=== PATIENT | male | born 1955 | race Caucasian/White ===

== ENCOUNTER 2020-09-01 12:12 | Inpatient (IN) | payer MEDICARE, OTHER ==
[~2020-09-01 12:12] MED LIST: ACET500T68 PO; DIPH25CA23 PO; DIVA500T17 PO; DOCU100C28 PO; DONE10TA7 PO; FERR325T14 PO; FLUT16SP21 NS; LEXAPRO10 MG PO; MAG355OR12 PO; MAGN24003 PO; MENT113G6 TP; METF500T16 PO; MULT-246 PO; OLAN15TA9 PO; OLAN5TAB9 PO; OXYB10TA26 PO; OXYB10TA7 PO; PANT40TA6 PO; PROP40TA PO; QUET200T4 PO; QUET400T7 PO; SUMA100T4 PO; TAMS0.4C2 PO
[2020-09-01 15:40] VITALS: BP 111/71
[2020-09-01] MEDS ORDERED: ACET325T21 PO (16:54)
[2020-09-01] MEDS ORDERED: CRAN400C PO (16:54)
[2020-09-01] MEDS ORDERED: MEMA28CA5 PO (16:54)
[2020-09-01 20:35] VITALS: BP 111/76
--- NOTE | 2020-09-01 21:29 | EKG ---
[address] [address] Test Date: 2020-09-01 Test Time: 20:40:13 Pat Name: JOAN JEAN-BAPTISTE Department: Room: 105 A Gender: M Side Seam Tender: : 1955 Requested By: DHIRAJ CHRISTIAN Order Number: [id number] Reading MD: Measurements Intervals [place]lass Rate: 76 P: 61 PA: 144 QRS: -64 QRSD: 108 T: 66 QT: 382 QTc: 434 Interpretive Statements SINUS RHYTHM ABNORMAL LEFT AXIS DEVIATION R-S TRANSITION ZONE IN V LEADS DISPLACED TO THE LEFT LEFT ANTERIOR FASCICULAR BLOCK QRS(T) CONTOUR ABNORMALITY CONSIDER ANTEROSEPTAL MYOCARDIAL DAMAGE ABNORMAL ECG RI6.01 No previous ECG available for comparison
[2020-09-01] MEDS: QUEtiapine 100 MG TABLET. PO SCH (21:33)
[2020-09-01] MEDS: ACETAMINOPHEN 325 MG TABLET PO PRN (21:34)
[2020-09-01] MEDS: DOCUSATE SODIUM 100 MG CAPSULE PO SCH (21:34)
[2020-09-01] MEDS: DIVALPROEX ER 500 MG TAB.ER.24H PO SCH (21:34)
[2020-09-01] MEDS: DONEPEZIL HCL 10 MG TABLET PO SCH (21:34)
[2020-09-01 21:42] LABS: BASO % 0 % (0-3); EOS # 0.2 x10^3/uL (0.0-0.7); EOS % 3 % (0-3); HEMATOCRIT 36.6 % (39.0-53.0); HEMOGLOBIN 11.5 g/dL (13.0-17.5); LYMPH % 30 % (24-48); MEAN CORPUSCULAR HEMOGLOBIN 26 pg (25-35); MEAN CORPUSCULAR HGB CONC 32 g/dL (31-37); MEAN CORPUSCULAR VOLUME 81 fL (79-100); MONO # 0.6 x10^3/uL (0.0-1.1); MONO % 10 % (0-9); NEUT # 3.8 x10^3uL (1.8-7.7); NEUT % 57 % (31-73); PLATELET COUNT 270 x10^3/uL (140-400); RED BLOOD COUNT 4.51 x10^6/uL (4.30-5.70); RED CELL DISTRIBUTION WIDTH 18.3 % (11.5-14.5); WHITE BLOOD COUNT 6.6 x10^3/uL (4.0-11.0)
[2020-09-01 21:56] LABS: ALBUMIN 3.2 g/dL (3.4-5.0); ALBUMIN/GLOBULIN RATIO 0.8 (1.0-1.7); CALCIUM 8.8 mg/dL (8.5-10.1); CREATININE 1.1 mg/dL (0.7-1.3); GFR 67.6; MAGNESIUM 2.2 mg/dL (1.8-2.4); POTASSIUM 3.9 mmol/L (3.5-5.1); TOTAL BILIRUBIN 0.2 mg/dL (0.2-1.0); TOTAL PROTEIN 7.3 g/dL (6.4-8.2)
[2020-09-02 02:01] LABS: BILIRUBIN,URINE NEG (NEG); CLARITY,URINE CLOUDY; COLOR,URINE YELLOW; GLUCOSE,URINE NEG (NEG); NITRITE,URINE POS (NEG); RBC,URINE 20-40 /HPF (0-2); UROBILINOGEN,URINE 0.2 mg/dL (0.2 mg/dL); WBC,URINE >40 /HPF (0-4)
[2020-09-02 02:02] LABS: BACTERIA,URINE MOD /HPF (0-FEW); SQUAMOUS EPITHELIAL CELL,UR MOD /LPF
[2020-09-02] MEDS: metFORMIN 500 MG TABLET PO SCH ×2 (08:07→17:40)
[2020-09-02] MEDS: DOCUSATE SODIUM 100 MG CAPSULE PO SCH ×2 (08:07→20:52)
[2020-09-02] MEDS: DIVALPROEX ER 500 MG TAB.ER.24H PO SCH ×2 (08:07→20:51)
[2020-09-02] MEDS: PANTOPRAZOLE 40 MG TABLET. PO SCH (08:07)
[2020-09-02] MEDS: MEMANTINE 10 MG TABLET. PO SCH ×2 (08:07→20:52)
[2020-09-02] MEDS: CITALOPRAM 20 MG TABLET. PO SCH (08:07)
[2020-09-02 12:03] LABS: THYROID STIM HORMONE (TSH) 2.726 uIU/mL (0.358-3.740)
[2020-09-02 12:22] VITALS: BP 114/74
--- NOTE | 2020-09-02 13:14 | HP ---
ADMIT DATE: 09/01/2020 ATTENDING PHYSICIAN: Dr. Christian. HISTORY OF PRESENT ILLNESS: The patient is a 65-year-old gentleman slated to go to the Senior Behavioral Unit. We are admitting him to the medical floor to rule out Coronavirus infection. He has no symptoms. The patient is profoundly demented. He is sent here from [facility] with behavioral issues, he has been acting out. 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 He has generalized debilitation. He is full nursing care. ALLERGIES: CYMBALTA, RISPERIDONE, PENICILLIN, EXACT REACTION IS UNCLEAR. CURRENT MEDICATIONS: Include Tylenol, cranberry juice, Depakote, docusate, Aricept, Lexapro, Namenda, metformin, Protonix, and Seroquel. SOCIAL HISTORY: He is a nonsmoker, nondrinker. FAMILY HISTORY: Unobtainable due to the patient's confusion. REVIEW OF SYSTEMS: Unobtainable. PHYSICAL EXAMINATION: GENERAL: When I saw him, this is a pleasant, confused elderly gentleman. INITIAL VITAL SIGNS: Showed a blood pressure 111/76, pulse is 79 and regular, temperature 97.8 degrees Fahrenheit, oxygen saturation 95% on room air. HEENT: Head is without trauma. Pupils are reactive. Sclerae nonicteric. Oropharynx is clear. NECK: Supple, no bruits. LUNGS: Shallow respirations. CARDIOVASCULAR: Showed regular heart tones. No gallops. ABDOMEN: Soft, no guarding or rebound tenderness. EXTREMITIES: Without edema. NEUROLOGIC: Profoundly confused. He is a nonambulatory. We could not assess his gait. Full neurologic exam is not able to be done due to the patient's condition. SKIN: Otherwise warm and dry. PERTINENT LABORATORY STUDIES: His hemoglobin is 11.5 g/dL with a white count of 5600. Electrolytes, BUN and creatinine all within normal range. Nonfasting blood sugar 134. Transaminases are normal. Serology for Coronavirus is pending. ASSESSMENT: 1. A 65-year-old gentleman with Lewy body dementia. 2. Schizoaffective disorder. 3. Parkinson's disease. 4. Generalized debilitation. 5. Bipolar disorder. 6. Type 2 diabetes with controlled blood sugars. PLAN: 1. Admit to the inpatient unit. 2. Await COVID serology. 3. Continue home meds. 4. Diabetic diet as tolerated. DHIRAJ CHRISTIAN MD DR: ARTEMIO/mikey JOB#: [id number] / [id number]
[2020-09-02 19:52] VITALS: BP 119/74
[2020-09-02] MEDS: DONEPEZIL HCL 10 MG TABLET PO SCH (20:51)
[2020-09-02] MEDS: QUEtiapine 100 MG TABLET. PO SCH (20:52)
[2020-09-02] MEDS: ACETAMINOPHEN 325 MG TABLET PO PRN (20:52)
[2020-09-03 05:51] VITALS: BP 128/79
[2020-09-03] MEDS: CITALOPRAM 20 MG TABLET. PO SCH (08:21)
[2020-09-03] MEDS: metFORMIN 500 MG TABLET PO SCH (08:21)
[2020-09-03] MEDS: DIVALPROEX ER 500 MG TAB.ER.24H PO SCH (08:21)
[2020-09-03] MEDS: PANTOPRAZOLE 40 MG TABLET. PO SCH (08:21)
[2020-09-03] MEDS: DOCUSATE SODIUM 100 MG CAPSULE PO SCH (08:21)
[2020-09-03] MEDS: MEMANTINE 10 MG TABLET. PO SCH (08:22)
[2020-09-03] MEDS ORDERED: CITA40TA12 PO (10:21)
[2020-09-03] MEDS ORDERED: MEMA10TA PO (10:22)
--- NOTE | 2020-09-03 11:05 | DS ---
DATE OF DISCHARGE: 09/03/2020 ATTENDING PHYSICIAN: Dr. Christian. FINAL DISCHARGE DIAGNOSES: 1. Lewy body dementia with behavioral issues. 2. Schizoaffective disorder. 3. Parkinson's disease. 4. Generalized debilitation. 5. Bipolar disorder. 6. Type 2 diabetes with controlled blood sugars. HISTORY AND PHYSICAL: The patient is a 65-year-old gentleman slated to go to the Senior Behavior Unit. He has behavioral issues with his dementia and Lewy body dementia. He is from [facility]. PHYSICAL EXAMINATION: Please see my dictated note. PERTINENT LABORATORY AND X-RAY STUDIES: On this admission, his hemoglobin was 11.5 g/dL with a white count of 6600. Chemistry panel had a sodium 136, potassium 3.9 mEq, creatinine 1.1. Transaminases were normal and his coronavirus was reported as negative. COURSE IN THE HOSPITAL: The patient was admitted. Diet was advanced. Home meds continued. He had a negative coronavirus on the second hospital day. He was ready for discharge to the Behavioral Unit. His meds are unchanged. We will continue his Tylenol, cranberry juice, Depakote, docusate, Aricept, Lexapro, Namenda, metformin, Protonix, and Seroquel dose Is unchanged. He was discharged then from our hospital in stable condition to the Senior Behavior Unit with explicit instructions and followup care. DHIRAJ CHRISTIAN MD DR: ARTEMIO/mikey JOB#: [id number] / [id number] TOBI Marroquin MD
== END 2020-09-03 09:40 | DRG 57 ==
LOC: 1 SOUTH 15:17
PROVIDERS: ADMIT Hospitalist; ATTEND Hospitalist
DX: G20 Parkinson's disease (principal); F02.81 Dementia in other diseases classified elsewhere, unspecified severity, with behavioral disturbance; E11.9 Type 2 diabetes mellitus without complications; F25.9 Schizoaffective disorder, unspecified; F31.9 Bipolar disorder, unspecified; Z20.822 Contact with and (suspected) exposure to COVID-19; Z88.0 Allergy status to penicillin; Z88.8 Allergy status to other drugs, medicaments and biological substances; Z79.899 Other long term (current) drug therapy; N31.9 Neuromuscular dysfunction of bladder, unspecified
CPT/HCPCS: 36415; 80053; 80061; 81001; 82306; 82607; 82947; 83036; 83735; 84443; 85025; 85379; 86592; 87086; 93005; U0003

== ENCOUNTER 2020-09-03 09:40 | Inpatient (IN) | payer MEDICARE, OTHER ==
[~2020-09-03] VITALS: Ht 165.1 cm; Wt 66.8 kg
[~2020-09-03 09:40] MED LIST changes: +ACET325T21 PO; +CRAN400C PO; +MEMA28CA5 PO
[2020-09-03 10:09] VITALS: BP 146/81
[2020-09-03] MEDS ORDERED: ACETAMINOPHEN 325 MG TABLET PO PRN (10:15)
[2020-09-03] MEDS ORDERED: CITA40TA12 PO (10:21)
[2020-09-03] MEDS ORDERED: MEMA10TA PO (10:22)
[2020-09-03] MEDS ORDERED: MAGNESIUM HYDROXIDE 2,400 MG/30 ML ORAL.SUSP. PO PRN (10:30)
[2020-09-03] MEDS ORDERED: MAG HYDROX/AL HYDROX/SIMETH 30 ML ORAL.SUSP PO PRN (10:30)
[2020-09-03] MEDS ORDERED: METHYL SALICYLATE/MENTHOL TOPICAL OINTMENT 57GM TUBE. TP PRN (10:30)
[2020-09-03 16:22] VITALS: BP 127/76
[2020-09-03] MEDS: metFORMIN 500 MG TABLET PO SCH (17:00)
[2020-09-03 19:07] LABS: THYROXINE 6.6 ug/dL (4.5-12.0)
[2020-09-03] MEDS: DIVALPROEX ER 500 MG TAB.ER.24H PO SCH (21:22)
[2020-09-03] MEDS: MEMANTINE 10 MG TABLET. PO SCH (21:23)
[2020-09-03] MEDS: QUEtiapine 100 MG TABLET. PO SCH (21:23)
[2020-09-03] MEDS: DONEPEZIL HCL 10 MG TABLET PO SCH (21:23)
[2020-09-03] MEDS: DOCUSATE SODIUM 100 MG CAPSULE PO SCH (21:23)
--- NOTE | 2020-09-03 21:32 | PDOC ---
Exam Note: Leonel Note: Please also refer to the separate dictated note~for this date of service dictated separately.~Patient seen individually. Discussed the patient with Nursing staff reviewed the chart.~Reviewed interim history and current functioning. Reviewed vital signs,~Labs/ Radiology~and current medications noted below. Continue current treatment with the changes noted in the dictated addendum note Assessment: Vital Signs/I&O: Vital Signs Date Time Temp Pulse Resp B/P (MAP) Pulse Ox O2 Delivery O2 Flow Rate FiO2 09/03/20 16:22 97.3 89 20 127/76 (93) 95 Room Air Labs: Laboratory Tests Test 09/03/20 11:05 09/03/20 16:50 09/03/20 19:29 Iron Level 20 ug/dL (65-175) L Total Iron Binding Capacity 473 ug/dL (250-450) H Iron Saturation 4 % (15-34) L Thyroxine (T4) 6.6 ug/dL (4.5-12.0) Total Triiodothyronine (TT3) 73 ng/dL (71-180) Glucose (Fingerstick) 70 mg/dL (70-99) 185 mg/dL (70-99) H Current Medications: Meds: Current Medications Medications (Trade) Dose Ordered Sig/Angelique Route PRN Reason Start Time Stop Time Status Last Admin Dose Admin Divalproex Sodium (Depakote Er) 500 mg BID PO 09/03/20 21:00 09/03/20 21:22 Docusate Sodium (Colace) 100 mg BID PO 09/03/20 21:00 09/03/20 21:23 Donepezil HCl (Aricept) 10 mg QHS PO 09/03/20 21:00 09/03/20 21:23 Metformin HCl (Glucophage) 500 mg BIDWMEALS PO 09/03/20 17:00 09/03/20 17:00 Quetiapine Fumarate (SEROquel) 300 mg HS PO 09/03/20 21:00 09/03/20 21:23 Memantine (Namenda) 10 mg BID PO 09/03/20 21:00 09/03/20 21:23 I have reviewed the current psychotropics carefully including drug interactions. Risk benefit ratio favors no change other than as noted in my dictated progress note. Diagnosis: Problems: (1) Mental status change TOBI PADGETT MD Sep 03, 2020 21:32
--- NOTE | 2020-09-04 00:07 | HP ---
ADMIT DATE: 09/03/2020 PSYCHIATRIC ADMISSION HISTORY/EVALUATION This note covers elements not covered in my initial note 09/03/2020. IDENTIFYING DATA: The patient is a 65-year-old male admitted by his sister who is his court-appointed guardian, referred from [facility] by his psychiatrist/primary care physician on account of an acute exacerbation of schizophrenia versus schizoaffective disorder, bipolar type, with worsening dementia, vascular with delusion, depression, and anxiety disorder. The patient has been extremely combative at staff, appears manic and threatening staff, decreased intake of meals, resistive to cares, thinks everyone is going to burn to . Behaviors have been deemed dangerous, unmanageably psychotic, has failed outpatient psychiatric intervention resulting in this referral. CHIEF COMPLAINT: "Get out of here. Do you want me to kill you." Despite this, I was able to assess the patient during a semi-extended evaluation, but throughout the entire process, the patient was threatening, degrading, verbally assaultive. HISTORY OF PRESENT ILLNESS: The patient has a history of schizoaffective disorder, bipolar type, possibly Lewy body dementia within the context of his Parkinson's disease. He appeared manic, grandiose, psychotic, agitated with sleep and appetite changes, threatening and totally out of control. No active suicidal or homicidal ideation other than verbal threats. He does have a history of mood swings. PAST PSYCHIATRIC HISTORY: As above of Lewy body dementia, schizoaffective disorder, bipolar type. MEDICAL HISTORY: Parkinson's disease, diabetes mellitus. ALLERGIES: CYMBALTA, RISPERDAL, PENICILLIN. CODE STATUS: Full code. DIET: Regular, ambulates up ad iraida. CURRENT PSYCHOTROPICS: Depakote ER 500 mg b.i.d., Aricept 10 mg a day, Lexapro 20 mg a day, Namenda ER 28 mg daily, Seroquel XR 300 mg at bedtime. FAMILY HISTORY: Noncontributory. SOCIAL HISTORY: No history of alcohol, drug abuse, physical, sexual or elder abuse. He is not known to be a perpetrator. REACTION TO HOSPITALIZATION: The patient oblivious of this. He is rambling in his speech. REVIEW OF SYSTEMS: No CV, , pulmonary, eye, ENT system symptoms on review. Reliability poor. MENTAL STATUS EXAMINATION: The patient was seen individually in his room at length. He is oriented to himself. Insight, judgment, recent and remote memory, attention, concentration, fund of knowledge poor, consistent with his diagnosis. Much of the speech was rambling, rapid paranoid, psychotic, aggressive, disruptive. Attention span short. Language function intact. IMPRESSION: Schizoaffective disorder, bipolar type, mixed with psychotic features; major neurocognitive disorder, Lewy body with delusion, behavioral disturbance; anxiety disorder, unspecified; impulse control disorder, unspecified. Rest as above. PLAN: Admit to Geropsychiatry Unit at [facility]. I will see the patient daily individually from a psychiatric standpoint. Medical followup with Dr. Castro/Dr. Ramirez. Check a valproic acid level, adjust Depakote to reach therapeutic level, perhaps change Seroquel to Geodon, Abilify or even Clozaril. We will make further adjustments as clinically indicated. ESTIMATED LENGTH OF STAY: 10-12 days. DISPOSITION: Plans back to shelter when stable. MAN Mitali PADGETT MD DR: NATALY/mikey JOB#: [id number] / [id number]
[2020-09-04] MEDS: ACETAMINOPHEN 325 MG TABLET PO PRN ×2 (05:23→14:45)
[2020-09-04 06:03] VITALS: BP 141/82
[2020-09-04] MEDS: DIVALPROEX ER 500 MG TAB.ER.24H PO SCH (08:32)
[2020-09-04] MEDS: metFORMIN 500 MG TABLET PO SCH ×2 (08:32→17:27)
[2020-09-04] MEDS: DOCUSATE SODIUM 100 MG CAPSULE PO SCH ×2 (08:32→20:27)
[2020-09-04] MEDS: MEMANTINE 10 MG TABLET. PO SCH ×2 (08:32→20:27)
[2020-09-04] MEDS: CITALOPRAM 20 MG TABLET. PO SCH (08:32)
[2020-09-04] MEDS: PANTOPRAZOLE 40 MG TABLET. PO SCH (08:33)
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
[2020-09-04 15:34] VITALS: BP 120/82
[2020-09-04] MEDS: DONEPEZIL HCL 10 MG TABLET PO SCH (20:27)
[2020-09-04] MEDS: BACITRACIN ZINC TOPICAL OINT PACKET. TP SCH (20:28)
[2020-09-04] MEDS: QUEtiapine 100 MG TABLET. PO SCH (20:28)
[2020-09-04] MEDS: DIVALPROEX 125 MG CAP.SPRINK PO SCH (20:30)
--- NOTE | 2020-09-04 21:58 | PDOC ---
Exam Note: Leonel Note: Please also refer to the separate dictated note~for this date of service dictated separately.~Patient seen individually. Discussed the patient with Nursing staff reviewed the chart.~Reviewed interim history and current functioning. Reviewed vital signs,~Labs/ Radiology~and current medications noted below. Continue current treatment with the changes noted in the dictated addendum note Assessment: Vital Signs/I&O: Vital Signs Date Time Temp Pulse Resp B/P (MAP) Pulse Ox O2 Delivery O2 Flow Rate FiO2 09/04/20 15:34 98.0 92 16 120/82 (95) 98 Room Air I & O 09/03/20 09/03/20 09/04/20 14:59 22:59 06:59 Intake Total 240 ml 120 ml Output Total 650 ml 250 ml Balance -410 ml -130 ml Labs: Laboratory Tests Test 09/04/20 07:46 Glucose (Fingerstick) 120 mg/dL (70-99) H Current Medications: Meds: Current Medications Medications (Trade) Dose Ordered Sig/Angelique Route PRN Reason Start Time Stop Time Status Last Admin Dose Admin Pantoprazole Sodium (Protonix) 40 mg DAILY PO 09/04/20 09:00 09/04/20 08:33 Citalopram Hydrobromide (CeleXA) 40 mg DAILY PO 09/04/20 09:00 09/04/20 08:32 Divalproex Sodium (Depakote Sprinkles) 500 mg BID PO 09/04/20 21:00 09/04/20 20:30 I have reviewed the current psychotropics carefully including drug interactions. Risk benefit ratio favors no change other than as noted in my dictated progress note. Diagnosis: Problems: (1) Mental status change TOBI PADGETT MD Sep 04, 2020 21:58
[2020-09-05 05:48] VITALS: BP 108/77
[2020-09-05] MEDS: DIVALPROEX 125 MG CAP.SPRINK PO SCH ×2 (10:23→20:15)
[2020-09-05] MEDS: CITALOPRAM 20 MG TABLET. PO SCH (10:23)
[2020-09-05] MEDS: PANTOPRAZOLE 40 MG TABLET. PO SCH (10:24)
[2020-09-05] MEDS: MEMANTINE 10 MG TABLET. PO SCH ×2 (10:24→20:15)
[2020-09-05] MEDS: DOCUSATE SODIUM 100 MG CAPSULE PO SCH ×2 (10:24→20:16)
[2020-09-05] MEDS: metFORMIN 500 MG TABLET PO SCH ×2 (10:24→17:50)
[2020-09-05] MEDS: BACITRACIN ZINC TOPICAL OINT PACKET. TP SCH ×2 (10:26→20:16)
[2020-09-05] MEDS: ARIPiprazole 10 MG TABLET PO SCH (10:26)
[2020-09-05 15:47] VITALS: BP 126/52
[2020-09-05] MEDS: DONEPEZIL HCL 10 MG TABLET PO SCH (20:15)
[2020-09-05] MEDS: QUEtiapine 100 MG TABLET. PO SCH (20:15)
--- NOTE | 2020-09-05 21:20 | PDOC ---
Exam Note: Leonel Note: Please also refer to the separate dictated note~for this date of service dictated separately.~Patient seen individually. Discussed the patient with Nursing staff reviewed the chart.~Reviewed interim history and current functioning. Reviewed vital signs,~Labs/ Radiology~and current medications noted below. Continue current treatment with the changes noted in the dictated addendum note Assessment: Vital Signs/I&O: Vital Signs Date Time Temp Pulse Resp B/P (MAP) Pulse Ox O2 Delivery O2 Flow Rate FiO2 09/05/20 15:47 98.7 97 20 126/52 (76) 96 09/04/20 15:34 Room Air I & O 09/04/20 09/04/20 09/05/20 15:00 23:00 07:00 Intake Total 720 ml 480 ml Output Total 700 ml Balance 720 ml 480 ml -700 ml Labs: Laboratory Tests Test 09/05/20 07:41 Glucose (Fingerstick) 93 mg/dL (70-99) Current Medications: Meds: Laboratory Tests Test 09/05/20 07:41 Glucose (Fingerstick) 93 mg/dL Current Medications Medications (Trade) Dose Ordered Sig/Angelique Route PRN Reason Start Time Stop Time Status Last Admin Dose Admin Acetaminophen (Tylenol) 650 mg PRN Q6HRS PRN PO PAIN 09/03/20 10:15 Cancel Divalproex Sodium (Depakote Er) 500 mg BID PO 09/03/20 21:00 09/04/20 19:40 DC 09/04/20 08:32 Docusate Sodium (Colace) 100 mg BID PO 09/03/20 21:00 09/05/20 20:16 Donepezil HCl (Aricept) 10 mg QHS PO 09/03/20 21:00 09/05/20 20:15 Metformin HCl (Glucophage) 500 mg BIDWMEALS PO 09/03/20 17:00 09/05/20 17:50 Pantoprazole Sodium (Protonix) 40 mg DAILY PO 09/04/20 09:00 09/05/20 10:24 Quetiapine Fumarate (SEROquel) 300 mg HS PO 09/03/20 21:00 09/05/20 20:15 Memantine (Namenda) 10 mg BID PO 09/03/20 21:00 09/05/20 20:15 Citalopram Hydrobromide (CeleXA) 40 mg DAILY PO 09/04/20 09:00 09/05/20 10:23 Acetaminophen (Tylenol) 650 mg PRN Q6HRS PRN PO MILD PAIN / TEMP > 100.3'F 09/03/20 10:30 09/04/20 14:45 Multi-Ingredient Ointment (Analgesic [place]) 1 helen PRN QID PRN TP MUSCLE PAIN 09/03/20 10:30 Al Hydroxide/Mg Hydroxide (Mylanta Plus Xs) 15 ml PRN AFTMEALHC PRN PO DYSPEPSIA 09/03/20 10:30 Magnesium Hydroxide (Milk Of Magnesia) 2,400 mg PRN QHS PRN PO CONSTIPATION 09/03/20 10:30 Olanzapine (ZyPREXA ZYDIS) 5 mg PRN Q2HR PRN PO PSYCHOSIS 09/03/20 14:00 09/05/20 13:01 Bacitracin (Bacitracin Topical Pkt) 1 pkt BID TP 09/04/20 21:00 09/05/20 20:16 Divalproex Sodium (Depakote Sprinkles) 500 mg BID PO 09/04/20 21:00 09/05/20 20:15 Aripiprazole (Abilify) 10 mg DAILY PO 09/05/20 09:00 09/05/20 10:26 Current Medications Medications (Trade) Dose Ordered Sig/Angelique Route PRN Reason Start Time Stop Time Status Last Admin Dose Admin Aripiprazole (Abilify) 10 mg DAILY PO 09/05/20 09:00 09/05/20 10:26 I have reviewed the current psychotropics carefully including drug interactions. Risk benefit ratio favors no change other than as noted in my dictated progress note. Diagnosis: Problems: (1) Anxiety disorder, unspecified (2) Impulse control disorder, unspecified (3) Major neurocognitive disorder with Lewy bodies, probable, with behavioral disturbance (4) Schizoaffective disorder, bipolar type (5) Bipolar disorder, curr episode mixed, severe, with psychotic features TOBI PADGETT MD Sep 05, 2020 21:19
[2020-09-06 06:13] VITALS: BP 137/78
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
[2020-09-06 08:27] LABS: BASO % 0 % (0-3); EOS # 0.2 x10^3/uL (0.0-0.7); EOS % 4 % (0-3); HEMATOCRIT 33.9 % (39.0-53.0); HEMOGLOBIN 10.6 g/dL (13.0-17.5); LYMPH # 1.1 x10^3/uL (1.0-4.8); LYMPH % 20 % (24-48); MEAN CORPUSCULAR HEMOGLOBIN 25 pg (25-35); MEAN CORPUSCULAR HGB CONC 31 g/dL (31-37); MEAN CORPUSCULAR VOLUME 81 fL (79-100); MONO # 0.4 x10^3/uL (0.0-1.1); MONO % 8 % (0-9); NEUT # 3.5 x10^3uL (1.8-7.7); NEUT % 67 % (31-73); PLATELET COUNT 249 x10^3/uL (140-400); RED CELL DISTRIBUTION WIDTH 18.1 % (11.5-14.5); WHITE BLOOD COUNT 5.2 x10^3/uL (4.0-11.0)
[2020-09-06 08:34] LABS: ALBUMIN 2.8 g/dL (3.4-5.0); ALBUMIN/GLOBULIN RATIO 0.7 (1.0-1.7); ALK PHOS 49 U/L (46-116); ALT (SGPT) 15 U/L (16-63); ANION GAP 7 (6-14); AST (SGOT) 10 U/L (15-37); BLOOD UREA NITROGEN 19 mg/dL (8-26); BUN/CREATININE RATIO 21 (6-20); CALCIUM 8.7 mg/dL (8.5-10.1); CARBON DIOXIDE 29 mmol/L (21-32); CHLORIDE 105 mmol/L (98-107); CREATININE 0.9 mg/dL (0.7-1.3); GFR 85.2; GLUCOSE 114 mg/dL (70-99); POTASSIUM 3.9 mmol/L (3.5-5.1); SODIUM 141 mmol/L (136-145); TOTAL BILIRUBIN 0.2 mg/dL (0.2-1.0); TOTAL PROTEIN 6.7 g/dL (6.4-8.2)
[2020-09-06 08:35] LABS: VAL ACID 53 mcg/mL (50-100)
--- NOTE | 2020-09-06 08:56 | PDOC ---
Exam Note: Leonel Note: This note is a late entry for 09/05/2020 covers elements not covered in my initial note. Subjective: The patient was seen face to face in the evening of 09/05/2020 with Deena MERCHANT, discussed and reviewed the chart. He slept 6-3/4 hours previous night. He was drowsy in the morning. His meds have to be floated in pudding. After lunch he was more paranoid, delusional, felt staff was going to kill him. Received Zyprexa. He did come to the dayroom. We will check valproic acid level. Review of Systems: Ambulation impaired in wheelchair. His left limb amputated. No CV, , pulmonary, eye system symptoms on review. Mental Status Exam: The patient is oriented to himself and situation. Speech low in rate and rhythm, low in volume, paranoid, suspicious. Abstraction is fair. Computation is impaired. Language function is intact. Mood and affect somewhat withdrawn. Laboratory Data: Reviewed. Impression: Schizoaffective disorder, bipolar type mixed with psychotic features. 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 Anxiety disorder unspecified. Impulse control disorder unspecified. Plan: No change from initial note. Assessment: Vital Signs/I&O: Vital Signs Date Time Temp Pulse Resp B/P (MAP) Pulse Ox O2 Delivery O2 Flow Rate FiO2 09/06/20 06:13 97.8 80 18 137/78 (97) 95 09/04/20 15:34 Room Air I & O 09/05/20 09/05/20 09/06/20 15:00 23:00 07:00 Intake Total 1140 ml 600 ml Output Total 800 ml Balance 1140 ml 600 ml -800 ml Labs: Laboratory Tests Test 09/06/20 08:06 White Blood Count 5.2 x10^3/uL (4.0-11.0) Red Blood Count 4.20 x10^6/uL (4.30-5.70) L Hemoglobin 10.6 g/dL (13.0-17.5) L Hematocrit 33.9 % (39.0-53.0) L Mean Corpuscular Volume 81 fL (79-100) Mean Corpuscular Hemoglobin 25 pg (25-35) Mean Corpuscular Hemoglobin Concent 31 g/dL (31-37) Red Cell Distribution Width 18.1 % (11.5-14.5) H Platelet Count 249 x10^3/uL (140-400) Neutrophils (%) (Auto) 67 % (31-73) Lymphocytes (%) (Auto) 20 % (24-48) L Monocytes (%) (Auto) 8 % (0-9) Eosinophils (%) (Auto) 4 % (0-3) H Basophils (%) (Auto) 0 % (0-3) Neutrophils # (Auto) 3.5 x10^3uL (1.8-7.7) Lymphocytes # (Auto) 1.1 x10^3/uL (1.0-4.8) Monocytes # (Auto) 0.4 x10^3/uL (0.0-1.1) Eosinophils # (Auto) 0.2 x10^3/uL (0.0-0.7) Basophils # (Auto) 0.0 x10^3/uL (0.0-0.2) Sodium Level 141 mmol/L (136-145) Potassium Level 3.9 mmol/L (3.5-5.1) Chloride Level 105 mmol/L (98-107) Carbon Dioxide Level 29 mmol/L (21-32) Anion Gap 7 (6-14) Blood Urea Nitrogen 19 mg/dL (8-26) Creatinine 0.9 mg/dL (0.7-1.3) Estimated GFR (Cockcroft-Gault) 85.2 BUN/Creatinine Ratio 21 (6-20) H Glucose Level 114 mg/dL (70-99) H Calcium Level 8.7 mg/dL (8.5-10.1) Total Bilirubin 0.2 mg/dL (0.2-1.0) Aspartate Amino Transferase (AST) 10 U/L (15-37) L Alanine Aminotransferase (ALT) 15 U/L (16-63) L Alkaline Phosphatase 49 U/L (46-116) Total Protein 6.7 g/dL (6.4-8.2) Albumin 2.8 g/dL (3.4-5.0) L Albumin/Globulin Ratio 0.7 (1.0-1.7) L Valproic Acid Level 53 mcg/mL (50-100) Valproic Acid Last Dose Date 09/05/20 Valproic Acid Last Dose Time 2100 Current Medications: Meds: Laboratory Tests Test 09/06/20 08:06 White Blood Count 5.2 x10^3/uL Red Blood Count 4.20 x10^6/uL Hemoglobin 10.6 g/dL Hematocrit 33.9 % Mean Corpuscular Volume 81 fL Mean Corpuscular Hemoglobin 25 pg Mean Corpuscular Hemoglobin Concent 31 g/dL Red Cell Distribution Width 18.1 % Platelet Count 249 x10^3/uL Neutrophils (%) (Auto) 67 % Lymphocytes (%) (Auto) 20 % Monocytes (%) (Auto) 8 % Eosinophils (%) (Auto) 4 % Basophils (%) (Auto) 0 % Neutrophils # (Auto) 3.5 x10^3uL Lymphocytes # (Auto) 1.1 x10^3/uL Monocytes # (Auto) 0.4 x10^3/uL Eosinophils # (Auto) 0.2 x10^3/uL Basophils # (Auto) 0.0 x10^3/uL Sodium Level 141 mmol/L Potassium Level 3.9 mmol/L Chloride Level 105 mmol/L Carbon Dioxide Level 29 mmol/L Anion Gap 7 Blood Urea Nitrogen 19 mg/dL Creatinine 0.9 mg/dL Estimated GFR (Cockcroft-Gault) 85.2 BUN/Creatinine Ratio 21 Glucose Level 114 mg/dL Calcium Level 8.7 mg/dL Total Bilirubin 0.2 mg/dL Aspartate Amino Transf (AST/SGOT) 10 U/L Alanine Aminotransferase (ALT/SGPT) 15 U/L Alkaline Phosphatase 49 U/L Total Protein 6.7 g/dL Albumin 2.8 g/dL Albumin/Globulin Ratio 0.7 Valproic Acid (Depakene) Level 53 mcg/mL Valproic Acid Last Dose Date 09/05/20 Valproic Acid Last Dose Time 2100 Current Medications Medications (Trade) Dose Ordered Sig/Angelique Route PRN Reason Start Time Stop Time Status Last Admin Dose Admin Acetaminophen (Tylenol) 650 mg PRN Q6HRS PRN PO PAIN 09/03/20 10:15 Cancel Divalproex Sodium (Depakote Er) 500 mg BID PO 09/03/20 21:00 09/04/20 19:40 DC 09/04/20 08:32 Docusate Sodium (Colace) 100 mg BID PO 09/03/20 21:00 09/05/20 20:16 Donepezil HCl (Aricept) 10 mg QHS PO 09/03/20 21:00 09/05/20 20:15 Metformin HCl (Glucophage) 500 mg BIDWMEALS PO 09/03/20 17:00 09/05/20 17:50 Pantoprazole Sodium (Protonix) 40 mg DAILY PO 09/04/20 09:00 09/05/20 10:24 Quetiapine Fumarate (SEROquel) 300 mg HS PO 09/03/20 21:00 09/05/20 20:15 Memantine (Namenda) 10 mg BID PO 09/03/20 21:00 09/05/20 20:15 Citalopram Hydrobromide (CeleXA) 40 mg DAILY PO 09/04/20 09:00 09/05/20 10:23 Acetaminophen (Tylenol) 650 mg PRN Q6HRS PRN PO MILD PAIN / TEMP > 100.3'F 09/03/20 10:30 09/04/20 14:45 Multi-Ingredient Ointment (Analgesic [place]) 1 helen PRN QID PRN TP MUSCLE PAIN 09/03/20 10:30 Al Hydroxide/Mg Hydroxide (Mylanta Plus Xs) 15 ml PRN AFTMEALHC PRN PO DYSPEPSIA 09/03/20 10:30 Magnesium Hydroxide (Milk Of Magnesia) 2,400 mg PRN QHS PRN PO CONSTIPATION 09/03/20 10:30 Olanzapine (ZyPREXA ZYDIS) 5 mg PRN Q2HR PRN PO PSYCHOSIS 09/03/20 14:00 09/05/20 13:01 Bacitracin (Bacitracin Topical Pkt) 1 pkt BID TP 09/04/20 21:00 09/05/20 20:16 Divalproex Sodium (Depakote Sprinkles) 500 mg BID PO 09/04/20 21:00 09/05/20 20:15 Aripiprazole (Abilify) 10 mg DAILY PO 09/05/20 09:00 09/05/20 10:26 Current Medications Medications (Trade) Dose Ordered Sig/Angelique Route PRN Reason Start Time Stop Time Status Last Admin Dose Admin Aripiprazole (Abilify) 10 mg DAILY PO 09/05/20 09:00 09/05/20 10:26 I have reviewed the current psychotropics carefully including drug interactions. Risk benefit ratio favors no change other than as noted in my dictated progress note. Diagnosis: Problems: (1) Schizoaffective disorder, bipolar type (2) Impulse control disorder, unspecified (3) Anxiety disorder, unspecified (4) Bipolar disorder, curr episode mixed, severe, with psychotic features (5) Major neurocognitive disorder with Lewy bodies, probable, with behavioral disturbance TOBI PADGETT MD Sep 06, 2020 08:56
[2020-09-06] MEDS: BACITRACIN ZINC TOPICAL OINT PACKET. TP SCH ×2 (09:00→20:18)
[2020-09-06] MEDS: ARIPiprazole 10 MG TABLET PO SCH (11:46)
[2020-09-06] MEDS: MEMANTINE 10 MG TABLET. PO SCH ×2 (11:46→20:18)
[2020-09-06] MEDS: PANTOPRAZOLE 40 MG TABLET. PO SCH (11:46)
[2020-09-06] MEDS: metFORMIN 500 MG TABLET PO SCH ×2 (11:46→17:00)
[2020-09-06] MEDS: DIVALPROEX 125 MG CAP.SPRINK PO SCH ×2 (11:47→20:18)
[2020-09-06] MEDS: DOCUSATE SODIUM 100 MG CAPSULE PO SCH ×2 (11:47→20:17)
[2020-09-06] MEDS: CITALOPRAM 20 MG TABLET. PO SCH (11:47)
--- NOTE | 2020-09-06 15:16 | RAD ---
CT HEAD/BRAIN WO History: Reason: fell and hit head / Spl. Instructions: / History: Comparison: CT head 03/15/2015 Technique: Noncontrast CT imaging was performed of the head. Findings: No intracranial hemorrhage. No mass effect. No hydrocephalus. Extra-axial spaces are unremarkable. D iffuse prominence of the ventricles and sulci consistent with mild global atrophy. Imaged orbits are unremarkable. Imaged paranasal sinuses and mastoid air cells are clear. No acute ca lvarial fracture. Impression: 1. No acute intracranial abnormality. ----- Exposure: One or more of the following individualized dose reduction techniques were utilized for thi s examination: 1. Automated exposure control 2. Adjustment of the mA and/or kV according to patient size 3. Use of iterative reconstruction technique. Electronically signed by: Delmer Nuñez MD (09/06/2020 3:14 PM) [facility] [place]
[2020-09-06 16:07] VITALS: BP 138/80
[2020-09-06] MEDS: DONEPEZIL HCL 10 MG TABLET PO SCH (20:17)
[2020-09-06] MEDS: QUEtiapine 100 MG TABLET. PO SCH (20:18)
--- NOTE | 2020-09-06 21:12 | PDOC ---
Exam Note: Leonel Note: Please also refer to the separate dictated note~for this date of service dictated separately.~Patient seen individually. Discussed the patient with Nursing staff reviewed the chart.~Reviewed interim history and current functioning. Reviewed vital signs,~Labs/ Radiology~and current medications noted below. Continue current treatment with the changes noted in the dictated addendum note Assessment: Vital Signs/I&O: Vital Signs Date Time Temp Pulse Resp B/P (MAP) Pulse Ox O2 Delivery O2 Flow Rate FiO2 09/06/20 16:07 98.4 63 20 138/80 (99) 96 09/04/20 15:34 Room Air I & O 09/05/20 09/05/20 09/06/20 15:00 23:00 07:00 Intake Total 1140 ml 600 ml Output Total 800 ml Balance 1140 ml 600 ml -800 ml Labs: Laboratory Tests Test 09/06/20 08:06 White Blood Count 5.2 x10^3/uL (4.0-11.0) Red Blood Count 4.20 x10^6/uL (4.30-5.70) L Hemoglobin 10.6 g/dL (13.0-17.5) L Hematocrit 33.9 % (39.0-53.0) L Mean Corpuscular Volume 81 fL (79-100) Mean Corpuscular Hemoglobin 25 pg (25-35) Mean Corpuscular Hemoglobin Concent 31 g/dL (31-37) Red Cell Distribution Width 18.1 % (11.5-14.5) H Platelet Count 249 x10^3/uL (140-400) Neutrophils (%) (Auto) 67 % (31-73) Lymphocytes (%) (Auto) 20 % (24-48) L Monocytes (%) (Auto) 8 % (0-9) Eosinophils (%) (Auto) 4 % (0-3) H Basophils (%) (Auto) 0 % (0-3) Neutrophils # (Auto) 3.5 x10^3uL (1.8-7.7) Lymphocytes # (Auto) 1.1 x10^3/uL (1.0-4.8) Monocytes # (Auto) 0.4 x10^3/uL (0.0-1.1) Eosinophils # (Auto) 0.2 x10^3/uL (0.0-0.7) Basophils # (Auto) 0.0 x10^3/uL (0.0-0.2) Sodium Level 141 mmol/L (136-145) Potassium Level 3.9 mmol/L (3.5-5.1) Chloride Level 105 mmol/L (98-107) Carbon Dioxide Level 29 mmol/L (21-32) Anion Gap 7 (6-14) Blood Urea Nitrogen 19 mg/dL (8-26) Creatinine 0.9 mg/dL (0.7-1.3) Estimated GFR (Cockcroft-Gault) 85.2 BUN/Creatinine Ratio 21 (6-20) H Glucose Level 114 mg/dL (70-99) H Calcium Level 8.7 mg/dL (8.5-10.1) Total Bilirubin 0.2 mg/dL (0.2-1.0) Aspartate Amino Transferase (AST) 10 U/L (15-37) L Alanine Aminotransferase (ALT) 15 U/L (16-63) L Alkaline Phosphatase 49 U/L (46-116) Total Protein 6.7 g/dL (6.4-8.2) Albumin 2.8 g/dL (3.4-5.0) L Albumin/Globulin Ratio 0.7 (1.0-1.7) L Valproic Acid Level 53 mcg/mL (50-100) Valproic Acid Last Dose Date 09/05/20 Valproic Acid Last Dose Time 2100 Current Medications: Meds: Laboratory Tests Test 09/06/20 08:06 White Blood Count 5.2 x10^3/uL Red Blood Count 4.20 x10^6/uL Hemoglobin 10.6 g/dL Hematocrit 33.9 % Mean Corpuscular Volume 81 fL Mean Corpuscular Hemoglobin 25 pg Mean Corpuscular Hemoglobin Concent 31 g/dL Red Cell Distribution Width 18.1 % Platelet Count 249 x10^3/uL Neutrophils (%) (Auto) 67 % Lymphocytes (%) (Auto) 20 % Monocytes (%) (Auto) 8 % Eosinophils (%) (Auto) 4 % Basophils (%) (Auto) 0 % Neutrophils # (Auto) 3.5 x10^3uL Lymphocytes # (Auto) 1.1 x10^3/uL Monocytes # (Auto) 0.4 x10^3/uL Eosinophils # (Auto) 0.2 x10^3/uL Basophils # (Auto) 0.0 x10^3/uL Sodium Level 141 mmol/L Potassium Level 3.9 mmol/L Chloride Level 105 mmol/L Carbon Dioxide Level 29 mmol/L Anion Gap 7 Blood Urea Nitrogen 19 mg/dL Creatinine 0.9 mg/dL Estimated GFR (Cockcroft-Gault) 85.2 BUN/Creatinine Ratio 21 Glucose Level 114 mg/dL Calcium Level 8.7 mg/dL Total Bilirubin 0.2 mg/dL Aspartate Amino Transf (AST/SGOT) 10 U/L Alanine Aminotransferase (ALT/SGPT) 15 U/L Alkaline Phosphatase 49 U/L Total Protein 6.7 g/dL Albumin 2.8 g/dL Albumin/Globulin Ratio 0.7 Valproic Acid (Depakene) Level 53 mcg/mL Valproic Acid Last Dose Date 09/05/20 Valproic Acid Last Dose Time 2100 Current Medications Medications (Trade) Dose Ordered Sig/Angelique Route PRN Reason Start Time Stop Time Status Last Admin Dose Admin Acetaminophen (Tylenol) 650 mg PRN Q6HRS PRN PO PAIN 09/03/20 10:15 Cancel Divalproex Sodium (Depakote Er) 500 mg BID PO 09/03/20 21:00 09/04/20 19:40 DC 09/04/20 08:32 Docusate Sodium (Colace) 100 mg BID PO 09/03/20 21:00 09/06/20 20:17 Donepezil HCl (Aricept) 10 mg QHS PO 09/03/20 21:00 09/06/20 20:17 Metformin HCl (Glucophage) 500 mg BIDWMEALS PO 09/03/20 17:00 09/06/20 11:46 Pantoprazole Sodium (Protonix) 40 mg DAILY PO 09/04/20 09:00 09/06/20 11:46 Quetiapine Fumarate (SEROquel) 300 mg HS PO 09/03/20 21:00 09/06/20 20:18 Memantine (Namenda) 10 mg BID PO 09/03/20 21:00 09/06/20 20:18 Citalopram Hydrobromide (CeleXA) 40 mg DAILY PO 09/04/20 09:00 09/06/20 11:47 Acetaminophen (Tylenol) 650 mg PRN Q6HRS PRN PO MILD PAIN / TEMP > 100.3'F 09/03/20 10:30 09/04/20 14:45 Multi-Ingredient Ointment (Analgesic [place]) 1 helen PRN QID PRN TP MUSCLE PAIN 09/03/20 10:30 Al Hydroxide/Mg Hydroxide (Mylanta Plus Xs) 15 ml PRN AFTMEALHC PRN PO DYSPEPSIA 09/03/20 10:30 Magnesium Hydroxide (Milk Of Magnesia) 2,400 mg PRN QHS PRN PO CONSTIPATION 09/03/20 10:30 Olanzapine (ZyPREXA ZYDIS) 5 mg PRN Q2HR PRN PO PSYCHOSIS 09/03/20 14:00 09/06/20 20:17 Bacitracin (Bacitracin Topical Pkt) 1 pkt BID TP 09/04/20 21:00 09/06/20 20:18 Divalproex Sodium (Depakote Sprinkles) 500 mg BID PO 09/04/20 21:00 09/06/20 20:18 Aripiprazole (Abilify) 10 mg DAILY PO 09/05/20 09:00 09/06/20 11:46 I have reviewed the current psychotropics carefully including drug interactions. Risk benefit ratio favors no change other than as noted in my dictated progress note. Diagnosis: Problems: (1) Schizoaffective disorder, bipolar type (2) Impulse control disorder, unspecified (3) Anxiety disorder, unspecified (4) Bipolar disorder, curr episode mixed, severe, with psychotic features (5) Major neurocognitive disorder with Lewy bodies, probable, with behavioral disturbance TOBI PADGETT MD Sep 06, 2020 21:12
[2020-09-07 04:49] LABS: BACTERIA,URINE MOD /HPF (0-FEW); BILIRUBIN,URINE NEG (NEG); CLARITY,URINE CLOUDY; COLOR,URINE AMBER; GLUCOSE,URINE NEG (NEG); NITRITE,URINE POS (NEG); WBC,URINE TNTC /HPF (0-4)
[2020-09-07 05:22] VITALS: BP 146/100
--- NOTE | 2020-09-07 08:46 | PDOC ---
Exam Note: Leonel Note: This note is a late entry for 09/06/2020 covers elements not covered in my initial note. Subjective: The patient was seen face to face in the evening of 09/06/2020 with Deena MERCHANT, discussed and reviewed the chart. He slept 7 hours previous night. He slept in, in the morning, till about 11 oclock. He had a fall in the evening, trying to get up unassisted from his wheelchair. CT head was negative. Valproic acid level therapeutic at 53. Review of Systems: Ambulation impaired in wheelchair. No CV, , pulmonary, eye system symptoms on review. Mental Status Exam: The patient is oriented to himself and situation. Insight and judgment, recent and remote memory, attention and concentration, fund of knowledge is poor consistent with his diagnosis. He remains somewhat paranoid. Laboratory Data: Reviewed. Impression: Schizoaffective disorder, bipolar type mixed with psychotic features. 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 Anxiety disorder unspecified. Impulse control disorder unspecified. Plan: No change from initial note. Assessment: Vital Signs/I&O: Vital Signs Date Time Temp Pulse Resp B/P (MAP) Pulse Ox O2 Delivery O2 Flow Rate FiO2 09/07/20 05:22 97.7 72 22 146/100 (115) 100 09/04/20 15:34 Room Air I & O 09/06/20 09/06/20 09/07/20 15:00 23:00 07:00 Intake Total 240 ml 120 ml Balance 240 ml 120 ml Labs: Laboratory Tests Test 09/07/20 04:30 Urine Collection Type Unknown Urine Color Lesly Urine Clarity Cloudy Urine pH 7.0 Urine Specific [place] 1.020 Urine Protein 30 mg/dl (NEG-TRACE) Urine Glucose (UA) Neg mg/dL (NEG) Urine Ketones (Stick) 40 mg/dL (NEG) Urine Blood Small (NEG) Urine Nitrite Pos (NEG) Urine Bilirubin Neg (NEG) Urine Urobilinogen Dipstick 1.0 mg/dL (0.2 mg/dL) Urine Leukocyte Esterase Large (NEG) Urine RBC 6-10 /HPF (0-2) Urine WBC Tntc /HPF (0-4) Urine Squamous Epithelial Cells None /LPF Urine Bacteria Mod /HPF (0-FEW) Current Medications: Meds: Laboratory Tests Test 09/07/20 04:30 Urine Collection Type Unknown Urine Color Lesly Urine Clarity Cloudy Urine pH 7.0 Urine Specific [place] 1.020 Urine Protein 30 mg/dl Urine Glucose (UA) Neg mg/dL Urine Ketones (Stick) 40 mg/dL Urine Blood Small Urine Nitrite Pos Urine Bilirubin Neg Urine Urobilinogen Dipstick 1.0 mg/dL Urine Leukocyte Esterase Large Urine RBC 6-10 /HPF Urine WBC Tntc /HPF Urine Squamous Epithelial Cells None /LPF Urine Bacteria Mod /HPF Current Medications Medications (Trade) Dose Ordered Sig/Angelique Route PRN Reason Start Time Stop Time Status Last Admin Dose Admin Acetaminophen (Tylenol) 650 mg PRN Q6HRS PRN PO PAIN 09/03/20 10:15 Cancel Divalproex Sodium (Depakote Er) 500 mg BID PO 09/03/20 21:00 09/04/20 19:40 DC 09/04/20 08:32 Docusate Sodium (Colace) 100 mg BID PO 09/03/20 21:00 09/06/20 20:17 Donepezil HCl (Aricept) 10 mg QHS PO 09/03/20 21:00 09/06/20 20:17 Metformin HCl (Glucophage) 500 mg BIDWMEALS PO 09/03/20 17:00 09/06/20 11:46 Pantoprazole Sodium (Protonix) 40 mg DAILY PO 09/04/20 09:00 09/06/20 11:46 Quetiapine Fumarate (SEROquel) 300 mg HS PO 09/03/20 21:00 09/06/20 20:18 Memantine (Namenda) 10 mg BID PO 09/03/20 21:00 09/06/20 20:18 Citalopram Hydrobromide (CeleXA) 40 mg DAILY PO 09/04/20 09:00 09/06/20 11:47 Acetaminophen (Tylenol) 650 mg PRN Q6HRS PRN PO MILD PAIN / TEMP > 100.3'F 09/03/20 10:30 09/04/20 14:45 Multi-Ingredient Ointment (Analgesic [place]) 1 helen PRN QID PRN TP MUSCLE PAIN 09/03/20 10:30 Al Hydroxide/Mg Hydroxide (Mylanta Plus Xs) 15 ml PRN AFTMEALHC PRN PO DYSPEPSIA 09/03/20 10:30 Magnesium Hydroxide (Milk Of Magnesia) 2,400 mg PRN QHS PRN PO CONSTIPATION 09/03/20 10:30 Olanzapine (ZyPREXA ZYDIS) 5 mg PRN Q2HR PRN PO PSYCHOSIS 09/03/20 14:00 09/06/20 20:17 Bacitracin (Bacitracin Topical Pkt) 1 pkt BID TP 09/04/20 21:00 09/06/20 20:18 Divalproex Sodium (Depakote Sprinkles) 500 mg BID PO 09/04/20 21:00 09/06/20 20:18 Aripiprazole (Abilify) 10 mg DAILY PO 09/05/20 09:00 09/06/20 11:46 I have reviewed the current psychotropics carefully including drug interactions. Risk benefit ratio favors no change other than as noted in my dictated progress note. Diagnosis: Problems: (1) Schizoaffective disorder, bipolar type (2) Impulse control disorder, unspecified (3) Anxiety disorder, unspecified (4) Major neurocognitive disorder with Lewy bodies, probable, with behavioral disturbance (5) Bipolar disorder, curr episode mixed, severe, with psychotic features TOBI PADGETT MD Sep 07, 2020 08:46
[2020-09-07] MEDS: BACITRACIN ZINC TOPICAL OINT PACKET. TP SCH ×2 (09:00→19:54)
[2020-09-07] MEDS: DIVALPROEX 125 MG CAP.SPRINK PO SCH ×2 (10:00→19:54)
[2020-09-07] MEDS: PANTOPRAZOLE 40 MG TABLET. PO SCH (10:00)
[2020-09-07] MEDS: DOCUSATE SODIUM 100 MG CAPSULE PO SCH ×2 (10:01→19:52)
[2020-09-07] MEDS: MEMANTINE 10 MG TABLET. PO SCH ×2 (10:01→19:53)
[2020-09-07] MEDS: metFORMIN 500 MG TABLET PO SCH ×2 (10:01→17:17)
[2020-09-07] MEDS: CITALOPRAM 20 MG TABLET. PO SCH (10:01)
[2020-09-07] MEDS: ARIPiprazole 10 MG TABLET PO SCH (10:01)
[2020-09-07 15:25] VITALS: BP 149/88
[2020-09-07] MEDS: QUEtiapine 100 MG TABLET. PO SCH (19:53)
[2020-09-07] MEDS: DONEPEZIL HCL 10 MG TABLET PO SCH (19:53)
--- NOTE | 2020-09-07 21:10 | PDOC ---
Exam Note: Leonel Note: Please also refer to the separate dictated note~for this date of service dictated separately.~Patient seen individually. Discussed the patient with Nursing staff reviewed the chart.~Reviewed interim history and current functioning. Reviewed vital signs,~Labs/ Radiology~and current medications noted below. Continue current treatment with the changes noted in the dictated addendum note Assessment: Vital Signs/I&O: Vital Signs Date Time Temp Pulse Resp B/P (MAP) Pulse Ox O2 Delivery O2 Flow Rate FiO2 09/07/20 15:25 98.2 89 20 149/88 (108) 96 Room Air I & O 09/06/20 09/06/20 09/07/20 15:00 23:00 07:00 Intake Total 240 ml 120 ml Balance 240 ml 120 ml Labs: Laboratory Tests Test 09/07/20 04:30 09/07/20 07:44 Urine Collection Type Unknown Urine Color Lesly Urine Clarity Cloudy Urine pH 7.0 Urine Specific [place] 1.020 Urine Protein 30 mg/dl (NEG-TRACE) Urine Glucose (UA) Neg mg/dL (NEG) Urine Ketones (Stick) 40 mg/dL (NEG) Urine Blood Small (NEG) Urine Nitrite Pos (NEG) Urine Bilirubin Neg (NEG) Urine Urobilinogen Dipstick 1.0 mg/dL (0.2 mg/dL) Urine Leukocyte Esterase Large (NEG) Urine RBC 6-10 /HPF (0-2) Urine WBC Tntc /HPF (0-4) Urine Squamous Epithelial Cells None /LPF Urine Bacteria Mod /HPF (0-FEW) Glucose (Fingerstick) 122 mg/dL (70-99) H Current Medications: Meds: Laboratory Tests Test 09/07/20 04:30 09/07/20 07:44 Urine Collection Type Unknown Urine Color Lesly Urine Clarity Cloudy Urine pH 7.0 Urine Specific [place] 1.020 Urine Protein 30 mg/dl Urine Glucose (UA) Neg mg/dL Urine Ketones (Stick) 40 mg/dL Urine Blood Small Urine Nitrite Pos Urine Bilirubin Neg Urine Urobilinogen Dipstick 1.0 mg/dL Urine Leukocyte Esterase Large Urine RBC 6-10 /HPF Urine WBC Tntc /HPF Urine Squamous Epithelial Cells None /LPF Urine Bacteria Mod /HPF Glucose (Fingerstick) 122 mg/dL Current Medications Medications (Trade) Dose Ordered Sig/Angelique Route PRN Reason Start Time Stop Time Status Last Admin Dose Admin Acetaminophen (Tylenol) 650 mg PRN Q6HRS PRN PO PAIN 09/03/20 10:15 Cancel Divalproex Sodium (Depakote Er) 500 mg BID PO 09/03/20 21:00 09/04/20 19:40 DC 09/04/20 08:32 Docusate Sodium (Colace) 100 mg BID PO 09/03/20 21:00 09/07/20 19:52 Donepezil HCl (Aricept) 10 mg QHS PO 09/03/20 21:00 09/07/20 19:53 Metformin HCl (Glucophage) 500 mg BIDWMEALS PO 09/03/20 17:00 09/07/20 17:17 Pantoprazole Sodium (Protonix) 40 mg DAILY PO 09/04/20 09:00 09/07/20 10:00 Quetiapine Fumarate (SEROquel) 300 mg HS PO 09/03/20 21:00 09/07/20 19:53 Memantine (Namenda) 10 mg BID PO 09/03/20 21:00 09/07/20 19:53 Citalopram Hydrobromide (CeleXA) 40 mg DAILY PO 09/04/20 09:00 09/07/20 10:01 Acetaminophen (Tylenol) 650 mg PRN Q6HRS PRN PO MILD PAIN / TEMP > 100.3'F 09/03/20 10:30 09/04/20 14:45 Multi-Ingredient Ointment (Analgesic [place]) 1 helen PRN QID PRN TP MUSCLE PAIN 09/03/20 10:30 Al Hydroxide/Mg Hydroxide (Mylanta Plus Xs) 15 ml PRN AFTMEALHC PRN PO DYSPEPSIA 09/03/20 10:30 Magnesium Hydroxide (Milk Of Magnesia) 2,400 mg PRN QHS PRN PO CONSTIPATION 09/03/20 10:30 Olanzapine (ZyPREXA ZYDIS) 5 mg PRN Q2HR PRN PO PSYCHOSIS 09/03/20 14:00 09/06/20 20:17 Bacitracin (Bacitracin Topical Pkt) 1 pkt BID TP 09/04/20 21:00 09/07/20 09:00 Divalproex Sodium (Depakote Sprinkles) 500 mg BID PO 09/04/20 21:00 09/07/20 19:54 Aripiprazole (Abilify) 10 mg DAILY PO 09/05/20 09:00 09/07/20 10:01 I have reviewed the current psychotropics carefully including drug interactions. Risk benefit ratio favors no change other than as noted in my dictated progress note. Diagnosis: Problems: (1) Schizoaffective disorder, bipolar type (2) Impulse control disorder, unspecified (3) Anxiety disorder, unspecified (4) Bipolar disorder, curr episode mixed, severe, with psychotic features (5) Major neurocognitive disorder with Lewy bodies, probable, with behavioral disturbance TOBI PADGETT MD Sep 07, 2020 21:10
[2020-09-08 06:04] VITALS: BP 136/99
[2020-09-08 07:11] LABS: BASO % 0 % (0-3); EOS # 0.2 x10^3/uL (0.0-0.7); EOS % 3 % (0-3); HEMATOCRIT 32.6 % (39.0-53.0); HEMOGLOBIN 10.2 g/dL (13.0-17.5); LYMPH # 1.1 x10^3/uL (1.0-4.8); LYMPH % 15 % (24-48); MEAN CORPUSCULAR HEMOGLOBIN 25 pg (25-35); MEAN CORPUSCULAR HGB CONC 31 g/dL (31-37); MEAN CORPUSCULAR VOLUME 80 fL (79-100); MONO # 0.6 x10^3/uL (0.0-1.1); MONO % 8 % (0-9); NEUT # 5.4 x10^3uL (1.8-7.7); NEUT % 74 % (31-73); PLATELET COUNT 249 x10^3/uL (140-400); RED BLOOD COUNT 4.06 x10^6/uL (4.30-5.70); RED CELL DISTRIBUTION WIDTH 18.1 % (11.5-14.5); WHITE BLOOD COUNT 7.2 x10^3/uL (4.0-11.0)
[2020-09-08 07:31] LABS: ALBUMIN 2.8 g/dL (3.4-5.0); ALBUMIN/GLOBULIN RATIO 0.7 (1.0-1.7); ALK PHOS 54 U/L (46-116); ALT (SGPT) 14 U/L (16-63); ANION GAP 8 (6-14); AST (SGOT) 9 U/L (15-37); BLOOD UREA NITROGEN 19 mg/dL (8-26); BUN/CREATININE RATIO 21 (6-20); CALCIUM 8.8 mg/dL (8.5-10.1); CARBON DIOXIDE 28 mmol/L (21-32); CHLORIDE 104 mmol/L (98-107); CREATININE 0.9 mg/dL (0.7-1.3); GFR 85.2; GLUCOSE 116 mg/dL (70-99); POTASSIUM 3.9 mmol/L (3.5-5.1); SODIUM 140 mmol/L (136-145); TOTAL BILIRUBIN 0.2 mg/dL (0.2-1.0); TOTAL PROTEIN 6.6 g/dL (6.4-8.2)
[2020-09-08 07:32] LABS: VAL ACID 57 mcg/mL (50-100)
[2020-09-08] MEDS: BACITRACIN ZINC TOPICAL OINT PACKET. TP SCH ×2 (09:00→19:56)
[2020-09-08] MEDS: MEMANTINE 10 MG TABLET. PO SCH ×2 (09:21→19:56)
[2020-09-08] MEDS: DIVALPROEX 125 MG CAP.SPRINK PO SCH ×2 (09:21→19:56)
[2020-09-08] MEDS: PANTOPRAZOLE 40 MG TABLET. PO SCH (09:21)
[2020-09-08] MEDS: DOCUSATE SODIUM 100 MG CAPSULE PO SCH ×2 (09:21→19:56)
[2020-09-08] MEDS: ARIPiprazole 10 MG TABLET PO SCH (09:21)
[2020-09-08] MEDS: metFORMIN 500 MG TABLET PO SCH ×2 (09:21→17:00)
[2020-09-08] MEDS: CITALOPRAM 20 MG TABLET. PO SCH (09:22)
[2020-09-08 15:46] VITALS: BP 119/75
[2020-09-08] MEDS: DONEPEZIL HCL 10 MG TABLET PO SCH (19:56)
[2020-09-08] MEDS: QUEtiapine 100 MG TABLET. PO SCH (19:56)
--- NOTE | 2020-09-08 20:56 | PDOC ---
Exam Note: Leonel Note: Please also refer to the separate dictated note~for this date of service dictated separately.~Patient seen individually. Discussed the patient with Nursing staff reviewed the chart.~Reviewed interim history and current functioning. Reviewed vital signs,~Labs/ Radiology~and current medications noted below. Continue current treatment with the changes noted in the dictated addendum note Assessment: Vital Signs/I&O: Vital Signs Date Time Temp Pulse Resp B/P (MAP) Pulse Ox O2 Delivery O2 Flow Rate FiO2 09/08/20 15:46 98.6 75 19 119/75 (90) 95 Room Air I & O 09/07/20 09/07/20 09/08/20 15:00 23:00 07:00 Intake Total 560 ml 360 ml Output Total 950 ml Balance 560 ml 360 ml -950 ml Labs: Laboratory Tests Test 09/08/20 06:56 09/08/20 07:27 White Blood Count 7.2 x10^3/uL (4.0-11.0) Red Blood Count 4.06 x10^6/uL (4.30-5.70) L Hemoglobin 10.2 g/dL (13.0-17.5) L Hematocrit 32.6 % (39.0-53.0) L Mean Corpuscular Volume 80 fL (79-100) Mean Corpuscular Hemoglobin 25 pg (25-35) Mean Corpuscular Hemoglobin Concent 31 g/dL (31-37) Red Cell Distribution Width 18.1 % (11.5-14.5) H Platelet Count 249 x10^3/uL (140-400) Neutrophils (%) (Auto) 74 % (31-73) H Lymphocytes (%) (Auto) 15 % (24-48) L Monocytes (%) (Auto) 8 % (0-9) Eosinophils (%) (Auto) 3 % (0-3) Basophils (%) (Auto) 0 % (0-3) Neutrophils # (Auto) 5.4 x10^3uL (1.8-7.7) Lymphocytes # (Auto) 1.1 x10^3/uL (1.0-4.8) Monocytes # (Auto) 0.6 x10^3/uL (0.0-1.1) Eosinophils # (Auto) 0.2 x10^3/uL (0.0-0.7) Basophils # (Auto) 0.0 x10^3/uL (0.0-0.2) Sodium Level 140 mmol/L (136-145) Potassium Level 3.9 mmol/L (3.5-5.1) Chloride Level 104 mmol/L (98-107) Carbon Dioxide Level 28 mmol/L (21-32) Anion Gap 8 (6-14) Blood Urea Nitrogen 19 mg/dL (8-26) Creatinine 0.9 mg/dL (0.7-1.3) Estimated GFR (Cockcroft-Gault) 85.2 BUN/Creatinine Ratio 21 (6-20) H Glucose Level 116 mg/dL (70-99) H Calcium Level 8.8 mg/dL (8.5-10.1) Total Bilirubin 0.2 mg/dL (0.2-1.0) Aspartate Amino Transferase (AST) 9 U/L (15-37) L Alanine Aminotransferase (ALT) 14 U/L (16-63) L Alkaline Phosphatase 54 U/L (46-116) Total Protein 6.6 g/dL (6.4-8.2) Albumin 2.8 g/dL (3.4-5.0) L Albumin/Globulin Ratio 0.7 (1.0-1.7) L Valproic Acid Level 57 mcg/mL (50-100) Valproic Acid Last Dose Date 09/07/20 Valproic Acid Last Dose Time 2100 Glucose (Fingerstick) 121 mg/dL (70-99) H Current Medications: Meds: Laboratory Tests Test 09/08/20 06:56 09/08/20 07:27 White Blood Count 7.2 x10^3/uL Red Blood Count 4.06 x10^6/uL Hemoglobin 10.2 g/dL Hematocrit 32.6 % Mean Corpuscular Volume 80 fL Mean Corpuscular Hemoglobin 25 pg Mean Corpuscular Hemoglobin Concent 31 g/dL Red Cell Distribution Width 18.1 % Platelet Count 249 x10^3/uL Neutrophils (%) (Auto) 74 % Lymphocytes (%) (Auto) 15 % Monocytes (%) (Auto) 8 % Eosinophils (%) (Auto) 3 % Basophils (%) (Auto) 0 % Neutrophils # (Auto) 5.4 x10^3uL Lymphocytes # (Auto) 1.1 x10^3/uL Monocytes # (Auto) 0.6 x10^3/uL Eosinophils # (Auto) 0.2 x10^3/uL Basophils # (Auto) 0.0 x10^3/uL Sodium Level 140 mmol/L Potassium Level 3.9 mmol/L Chloride Level 104 mmol/L Carbon Dioxide Level 28 mmol/L Anion Gap 8 Blood Urea Nitrogen 19 mg/dL Creatinine 0.9 mg/dL Estimated GFR (Cockcroft-Gault) 85.2 BUN/Creatinine Ratio 21 Glucose Level 116 mg/dL Calcium Level 8.8 mg/dL Total Bilirubin 0.2 mg/dL Aspartate Amino Transf (AST/SGOT) 9 U/L Alanine Aminotransferase (ALT/SGPT) 14 U/L Alkaline Phosphatase 54 U/L Total Protein 6.6 g/dL Albumin 2.8 g/dL Albumin/Globulin Ratio 0.7 Valproic Acid (Depakene) Level 57 mcg/mL Valproic Acid Last Dose Date 09/07/20 Valproic Acid Last Dose Time 2100 Glucose (Fingerstick) 121 mg/dL Current Medications Medications (Trade) Dose Ordered Sig/Angelique Route PRN Reason Start Time Stop Time Status Last Admin Dose Admin Acetaminophen (Tylenol) 650 mg PRN Q6HRS PRN PO PAIN 09/03/20 10:15 Cancel Divalproex Sodium (Depakote Er) 500 mg BID PO 09/03/20 21:00 09/04/20 19:40 DC 09/04/20 08:32 Docusate Sodium (Colace) 100 mg BID PO 09/03/20 21:00 09/08/20 19:56 Donepezil HCl (Aricept) 10 mg QHS PO 09/03/20 21:00 09/08/20 19:56 Metformin HCl (Glucophage) 500 mg BIDWMEALS PO 09/03/20 17:00 09/08/20 17:00 Pantoprazole Sodium (Protonix) 40 mg DAILY PO 09/04/20 09:00 09/08/20 09:21 Quetiapine Fumarate (SEROquel) 300 mg HS PO 09/03/20 21:00 09/08/20 19:56 Memantine (Namenda) 10 mg BID PO 09/03/20 21:00 09/08/20 19:56 Citalopram Hydrobromide (CeleXA) 40 mg DAILY PO 09/04/20 09:00 09/08/20 16:40 DC 09/08/20 09:22 Acetaminophen (Tylenol) 650 mg PRN Q6HRS PRN PO MILD PAIN / TEMP > 100.3'F 09/03/20 10:30 09/04/20 14:45 Multi-Ingredient Ointment (Analgesic [place]) 1 helen PRN QID PRN TP MUSCLE PAIN 09/03/20 10:30 Al Hydroxide/Mg Hydroxide (Mylanta Plus Xs) 15 ml PRN AFTMEALHC PRN PO DYSPEPSIA 09/03/20 10:30 Magnesium Hydroxide (Milk Of Magnesia) 2,400 mg PRN QHS PRN PO CONSTIPATION 09/03/20 10:30 Olanzapine (ZyPREXA ZYDIS) 5 mg PRN Q2HR PRN PO PSYCHOSIS 09/03/20 14:00 09/06/20 20:17 Bacitracin (Bacitracin Topical Pkt) 1 pkt BID TP 09/04/20 21:00 09/08/20 19:56 Divalproex Sodium (Depakote Sprinkles) 500 mg BID PO 09/04/20 21:00 09/08/20 19:56 Aripiprazole (Abilify) 10 mg DAILY PO 09/05/20 09:00 09/08/20 09:21 Sertraline HCl (Zoloft) 50 mg DAILY PO 09/09/20 09:00 I have reviewed the current psychotropics carefully including drug interactions. Risk benefit ratio favors no change other than as noted in my dictated progress note. Diagnosis: Problems: (1) Schizoaffective disorder, bipolar type (2) Impulse control disorder, unspecified (3) Anxiety disorder, unspecified (4) Bipolar disorder, curr episode mixed, severe, with psychotic features (5) Major neurocognitive disorder with Lewy bodies, probable, with behavioral disturbance TOBI PADGETT MD Sep 08, 2020 20:56
[2020-09-09 05:41] VITALS: BP 104/58
[2020-09-09] MEDS: metFORMIN 500 MG TABLET PO SCH ×2 (09:56→17:25)
[2020-09-09] MEDS: ARIPiprazole 10 MG TABLET PO SCH (09:56)
[2020-09-09] MEDS: MEMANTINE 10 MG TABLET. PO SCH ×2 (09:57→19:59)
[2020-09-09] MEDS: DOCUSATE SODIUM 100 MG CAPSULE PO SCH ×2 (09:57→19:59)
[2020-09-09] MEDS: DIVALPROEX 125 MG CAP.SPRINK PO SCH ×2 (09:57→19:59)
[2020-09-09] MEDS: PANTOPRAZOLE 40 MG TABLET. PO SCH (09:57)
[2020-09-09] MEDS: SERTRALINE 50 MG TABLET. PO SCH (09:57)
[2020-09-09] MEDS: BACITRACIN ZINC TOPICAL OINT PACKET. TP SCH ×2 (09:58→20:00)
[2020-09-09 16:27] VITALS: BP 142/77
[2020-09-09] MEDS: QUEtiapine 100 MG TABLET. PO SCH (19:59)
[2020-09-09] MEDS: DONEPEZIL HCL 10 MG TABLET PO SCH (19:59)
--- NOTE | 2020-09-09 22:03 | PDOC ---
Exam Note: Leonel Note: Please also refer to the separate dictated note~for this date of service dictated separately.~Patient seen individually. Discussed the patient with Nursing staff reviewed the chart.~Reviewed interim history and current functioning. Reviewed vital signs,~Labs/ Radiology~and current medications noted below. Continue current treatment with the changes noted in the dictated addendum note Assessment: Vital Signs/I&O: Vital Signs Date Time Temp Pulse Resp B/P (MAP) Pulse Ox O2 Delivery O2 Flow Rate FiO2 09/09/20 16:27 98.7 101 20 142/77 (98) 95 Room Air I & O 09/08/20 09/08/20 09/09/20 14:59 22:59 06:59 Intake Total 240 ml 360 ml Output Total 550 ml Balance 240 ml -190 ml Labs: Laboratory Tests Test 09/09/20 07:46 Glucose (Fingerstick) 94 mg/dL (70-99) Current Medications: Meds: Current Medications Medications (Trade) Dose Ordered Sig/Angelique Route PRN Reason Start Time Stop Time Status Last Admin Dose Admin Sertraline HCl (Zoloft) 50 mg DAILY PO 09/09/20 09:00 09/09/20 09:57 I have reviewed the current psychotropics carefully including drug interactions. Risk benefit ratio favors no change other than as noted in my dictated progress note. Diagnosis: Problems: (1) Schizoaffective disorder, bipolar type (2) Impulse control disorder, unspecified (3) Anxiety disorder, unspecified (4) Bipolar disorder, curr episode mixed, severe, with psychotic features (5) Major neurocognitive disorder with Lewy bodies, probable, with behavioral disturbance TOBI PADGETT MD Sep 09, 2020 22:03
[2020-09-10 05:28] VITALS: BP 134/81
[2020-09-10] MEDS: BACITRACIN ZINC TOPICAL OINT PACKET. TP SCH ×2 (08:23→19:48)
[2020-09-10] MEDS: ARIPiprazole 10 MG TABLET PO SCH (08:23)
[2020-09-10] MEDS: DOCUSATE SODIUM 100 MG CAPSULE PO SCH ×2 (08:23→19:52)
[2020-09-10] MEDS: DIVALPROEX 125 MG CAP.SPRINK PO SCH ×2 (08:23→19:52)
[2020-09-10] MEDS: metFORMIN 500 MG TABLET PO SCH ×2 (08:23→17:00)
[2020-09-10] MEDS: MEMANTINE 10 MG TABLET. PO SCH ×2 (08:24→19:47)
[2020-09-10] MEDS: PANTOPRAZOLE 40 MG TABLET. PO SCH (08:24)
[2020-09-10] MEDS: SERTRALINE 50 MG TABLET. PO SCH (08:24)
[2020-09-10 15:59] VITALS: BP 119/81
[2020-09-10] MEDS: QUEtiapine 100 MG TABLET. PO SCH (19:52)
[2020-09-10] MEDS: DONEPEZIL HCL 10 MG TABLET PO SCH (19:52)
--- NOTE | 2020-09-10 21:03 | PDOC ---
Exam Note: Leonel Note: This note is a late entry for 09/07/2020 covers elements not covered in my initial note. Subjective: The patient was seen face to face in the evening of 09/07/2020 with Deena MERCHANT, discussed and reviewed the chart. He slept 8 hours previous night. He has been agitated at night. Refused medications. He does not swallow his meds but chews them, takes them in pudding, but spits them out even on pudding. Previous night did better during the day on 09/07. He was going to the dayroom. Review of Systems: Ambulation impaired in wheelchair. No CV, , pulmonary, eye system symptoms on review. Reliability poor. Mental Status Exam: The patient is oriented to himself. Insight and judgment, recent and remote memory, attention and concentration, fund of knowledge is poor consistent with his diagnosis. Laboratory Data: Reviewed. Impression: Schizoaffective disorder, bipolar type mixed with psychotic features. 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 Anxiety disorder unspecified. Impulse control disorder unspecified. Plan: No change from initial note. Assessment: Vital Signs/I&O: Vital Signs Date Time Temp Pulse Resp B/P (MAP) Pulse Ox O2 Delivery O2 Flow Rate FiO2 09/10/20 15:59 98.9 103 18 119/81 (94) 97 Room Air I & O 09/09/20 09/09/20 09/10/20 15:00 23:00 07:00 Intake Total 360 ml 240 ml 120 ml Output Total 1250 ml 400 ml Balance 360 ml -1010 ml -280 ml Labs: Laboratory Tests Test 09/10/20 07:35 Glucose (Fingerstick) 134 mg/dL (70-99) H Current Medications: Meds: Laboratory Tests Test 09/10/20 07:35 Glucose (Fingerstick) 134 mg/dL Current Medications Medications (Trade) Dose Ordered Sig/Angelique Route PRN Reason Start Time Stop Time Status Last Admin Dose Admin Acetaminophen (Tylenol) 650 mg PRN Q6HRS PRN PO PAIN 09/03/20 10:15 Cancel Divalproex Sodium (Depakote Er) 500 mg BID PO 09/03/20 21:00 09/04/20 19:40 DC 09/04/20 08:32 Docusate Sodium (Colace) 100 mg BID PO 09/03/20 21:00 09/10/20 19:52 Donepezil HCl (Aricept) 10 mg QHS PO 09/03/20 21:00 09/10/20 19:52 Metformin HCl (Glucophage) 500 mg BIDWMEALS PO 09/03/20 17:00 09/10/20 17:00 Pantoprazole Sodium (Protonix) 40 mg DAILY PO 09/04/20 09:00 09/10/20 08:24 Quetiapine Fumarate (SEROquel) 300 mg HS PO 09/03/20 21:00 09/10/20 19:52 Memantine (Namenda) 10 mg BID PO 09/03/20 21:00 09/10/20 19:47 Citalopram Hydrobromide (CeleXA) 40 mg DAILY PO 09/04/20 09:00 09/08/20 16:40 DC 09/08/20 09:22 Acetaminophen (Tylenol) 650 mg PRN Q6HRS PRN PO MILD PAIN / TEMP > 100.3'F 09/03/20 10:30 09/04/20 14:45 Multi-Ingredient Ointment (Analgesic [place]) 1 helen PRN QID PRN TP MUSCLE PAIN 09/03/20 10:30 Al Hydroxide/Mg Hydroxide (Mylanta Plus Xs) 15 ml PRN AFTMEALHC PRN PO DYSPEPSIA 09/03/20 10:30 Magnesium Hydroxide (Milk Of Magnesia) 2,400 mg PRN QHS PRN PO CONSTIPATION 09/03/20 10:30 Olanzapine (ZyPREXA ZYDIS) 5 mg PRN Q2HR PRN PO PSYCHOSIS 09/03/20 14:00 09/09/20 17:25 Bacitracin (Bacitracin Topical Pkt) 1 pkt BID TP 09/04/20 21:00 09/10/20 19:48 Divalproex Sodium (Depakote Sprinkles) 500 mg BID PO 09/04/20 21:00 09/10/20 19:52 Aripiprazole (Abilify) 10 mg DAILY PO 09/05/20 09:00 09/09/20 18:17 DC 09/09/20 09:56 Sertraline HCl (Zoloft) 50 mg DAILY PO 09/09/20 09:00 09/10/20 08:24 Aripiprazole (Abilify) 20 mg DAILY PO 09/10/20 09:00 09/12/20 19:00 09/10/20 08:23 Aripiprazole (Abilify) 30 mg DAILY PO 09/13/20 09:00 Current Medications Medications (Trade) Dose Ordered Sig/Angelique Route PRN Reason Start Time Stop Time Status Last Admin Dose Admin Aripiprazole (Abilify) 20 mg DAILY PO 09/10/20 09:00 09/12/20 19:00 09/10/20 08:23 I have reviewed the current psychotropics carefully including drug interactions. Risk benefit ratio favors no change other than as noted in my dictated progress note. Diagnosis: Problems: (1) Schizoaffective disorder, bipolar type (2) Impulse control disorder, unspecified (3) Anxiety disorder, unspecified (4) Bipolar disorder, curr episode mixed, severe, with psychotic features (5) Major neurocognitive disorder with Lewy bodies, probable, with behavioral disturbance TOBI PADGETT MD Sep 10, 2020 21:03
--- NOTE | 2020-09-10 21:25 | PDOC ---
Exam Note: Leonel Note: Please also refer to the separate dictated note~for this date of service dictated separately.~Patient seen individually. Discussed the patient with Nursing staff reviewed the chart.~Reviewed interim history and current functioning. Reviewed vital signs,~Labs/ Radiology~and current medications noted below. Continue current treatment with the changes noted in the dictated addendum note Assessment: Vital Signs/I&O: Vital Signs Date Time Temp Pulse Resp B/P (MAP) Pulse Ox O2 Delivery O2 Flow Rate FiO2 09/10/20 15:59 98.9 103 18 119/81 (94) 97 Room Air I & O 09/09/20 09/09/20 09/10/20 15:00 23:00 07:00 Intake Total 360 ml 240 ml 120 ml Output Total 1250 ml 400 ml Balance 360 ml -1010 ml -280 ml Labs: Laboratory Tests Test 09/10/20 07:35 Glucose (Fingerstick) 134 mg/dL (70-99) H Current Medications: Meds: Current Medications Medications (Trade) Dose Ordered Sig/Angelique Route PRN Reason Start Time Stop Time Status Last Admin Dose Admin Aripiprazole (Abilify) 20 mg DAILY PO 09/10/20 09:00 09/12/20 19:00 09/10/20 08:23 I have reviewed the current psychotropics carefully including drug interactions. Risk benefit ratio favors no change other than as noted in my dictated progress note. Diagnosis: Problems: (1) Schizoaffective disorder, bipolar type (2) Impulse control disorder, unspecified (3) Anxiety disorder, unspecified (4) Bipolar disorder, curr episode mixed, severe, with psychotic features (5) Major neurocognitive disorder with Lewy bodies, probable, with behavioral disturbance TOBI PADGETT MD Sep 10, 2020 21:25
--- NOTE | 2020-09-10 21:25 | PDOC ---
Exam Note: Leonel Note: This note is a late entry for 09/08/2020 covers elements not covered in my initial note. Subjective: The patient was seen face to face in the evening of 09/08/2020 with Melissa MERCHANT, discussed and reviewed the chart. He slept 5-3/4 hours previous night. He remains anxious, restless. He believes the building is on fire and he will in the fire. Review of Systems: Ambulation impaired in wheelchair. No CV, , pulmonary, eye system symptoms on review. Reliability poor. Mental Status Exam: The patient is oriented to himself. He is quite withdrawn. Speech is moderate to marked latency, low in rate and rhythm, low in volume. Abstraction is fair. Computation impaired. Mood and affect withdrawn. Laboratory Data: Reviewed. Impression: Schizoaffective disorder, bipolar type mixed with psychotic features. 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 Anxiety disorder unspecified. Impulse control disorder unspecified. Plan: No change from initial note. Change Celexa 40 mg a day with added cardiovascular risk. We will stop this and start Zoloft 50 mg a day. Rest unchanged for now. Assessment: Vital Signs/I&O: Vital Signs Date Time Temp Pulse Resp B/P (MAP) Pulse Ox O2 Delivery O2 Flow Rate FiO2 09/10/20 15:59 98.9 103 18 119/81 (94) 97 Room Air I & O 09/09/20 09/09/20 09/10/20 15:00 23:00 07:00 Intake Total 360 ml 240 ml 120 ml Output Total 1250 ml 400 ml Balance 360 ml -1010 ml -280 ml Labs: Laboratory Tests Test 09/10/20 07:35 Glucose (Fingerstick) 134 mg/dL (70-99) H Current Medications: Meds: Laboratory Tests Test 09/10/20 07:35 Glucose (Fingerstick) 134 mg/dL Current Medications Medications (Trade) Dose Ordered Sig/Angelique Route PRN Reason Start Time Stop Time Status Last Admin Dose Admin Acetaminophen (Tylenol) 650 mg PRN Q6HRS PRN PO PAIN 09/03/20 10:15 Cancel Divalproex Sodium (Depakote Er) 500 mg BID PO 09/03/20 21:00 09/04/20 19:40 DC 09/04/20 08:32 Docusate Sodium (Colace) 100 mg BID PO 09/03/20 21:00 09/10/20 19:52 Donepezil HCl (Aricept) 10 mg QHS PO 09/03/20 21:00 09/10/20 19:52 Metformin HCl (Glucophage) 500 mg BIDWMEALS PO 09/03/20 17:00 09/10/20 17:00 Pantoprazole Sodium (Protonix) 40 mg DAILY PO 09/04/20 09:00 09/10/20 08:24 Quetiapine Fumarate (SEROquel) 300 mg HS PO 09/03/20 21:00 09/10/20 19:52 Memantine (Namenda) 10 mg BID PO 09/03/20 21:00 09/10/20 19:47 Citalopram Hydrobromide (CeleXA) 40 mg DAILY PO 09/04/20 09:00 09/08/20 16:40 DC 09/08/20 09:22 Acetaminophen (Tylenol) 650 mg PRN Q6HRS PRN PO MILD PAIN / TEMP > 100.3'F 09/03/20 10:30 09/04/20 14:45 Multi-Ingredient Ointment (Analgesic [place]) 1 helen PRN QID PRN TP MUSCLE PAIN 09/03/20 10:30 Al Hydroxide/Mg Hydroxide (Mylanta Plus Xs) 15 ml PRN AFTMEALHC PRN PO DYSPEPSIA 09/03/20 10:30 Magnesium Hydroxide (Milk Of Magnesia) 2,400 mg PRN QHS PRN PO CONSTIPATION 09/03/20 10:30 Olanzapine (ZyPREXA ZYDIS) 5 mg PRN Q2HR PRN PO PSYCHOSIS 09/03/20 14:00 09/09/20 17:25 Bacitracin (Bacitracin Topical Pkt) 1 pkt BID TP 09/04/20 21:00 09/10/20 19:48 Divalproex Sodium (Depakote Sprinkles) 500 mg BID PO 09/04/20 21:00 09/10/20 19:52 Aripiprazole (Abilify) 10 mg DAILY PO 09/05/20 09:00 09/09/20 18:17 DC 09/09/20 09:56 Sertraline HCl (Zoloft) 50 mg DAILY PO 09/09/20 09:00 09/10/20 08:24 Aripiprazole (Abilify) 20 mg DAILY PO 09/10/20 09:00 09/12/20 19:00 09/10/20 08:23 Aripiprazole (Abilify) 30 mg DAILY PO 09/13/20 09:00 Current Medications Medications (Trade) Dose Ordered Sig/Angelique Route PRN Reason Start Time Stop Time Status Last Admin Dose Admin Aripiprazole (Abilify) 20 mg DAILY PO 09/10/20 09:00 09/12/20 19:00 09/10/20 08:23 I have reviewed the current psychotropics carefully including drug interactions. Risk benefit ratio favors no change other than as noted in my dictated progress note. Diagnosis: Problems: (1) Schizoaffective disorder, bipolar type (2) Impulse control disorder, unspecified (3) Anxiety disorder, unspecified (4) Bipolar disorder, curr episode mixed, severe, with psychotic features (5) Major neurocognitive disorder with Lewy bodies, probable, with behavioral disturbance TOBI PADGETT MD Sep 10, 2020 21:25
[2020-09-11 06:01] VITALS: BP 153/87
[2020-09-11] MEDS: ARIPiprazole 10 MG TABLET PO SCH (09:22)
[2020-09-11] MEDS: DIVALPROEX 125 MG CAP.SPRINK PO SCH ×2 (09:22→20:01)
[2020-09-11] MEDS: BACITRACIN ZINC TOPICAL OINT PACKET. TP SCH ×2 (09:22→20:01)
[2020-09-11] MEDS: MEMANTINE 10 MG TABLET. PO SCH ×2 (09:22→20:01)
[2020-09-11] MEDS: DOCUSATE SODIUM 100 MG CAPSULE PO SCH ×2 (09:22→20:00)
[2020-09-11] MEDS: metFORMIN 500 MG TABLET PO SCH ×2 (09:22→16:59)
[2020-09-11] MEDS: NITROFURANTOIN MONOHYD/M-CRYST 100 MG CAPSULE. PO SCH ×2 (09:22→20:00)
[2020-09-11] MEDS: PANTOPRAZOLE 40 MG TABLET. PO SCH (09:22)
[2020-09-11] MEDS: SERTRALINE 50 MG TABLET. PO SCH (09:22)
[2020-09-11 16:04] VITALS: BP 154/76
[2020-09-11] MEDS: QUEtiapine 100 MG TABLET. PO SCH (20:00)
[2020-09-11] MEDS: DONEPEZIL HCL 10 MG TABLET PO SCH (20:01)
--- NOTE | 2020-09-11 21:06 | PDOC ---
Exam Note: Leonel Note: This note is a late entry for 09/09/2020 covers elements not covered in my initial note. Subjective: The patient was seen face to face in the evening of 09/09/2020 with Lisa MERCHANT, discussed and reviewed the chart. He slept 7-3/4 hours previous night. UA is greater than 100,000 and we will defer to Dr. Castro. He has been paranoid, suspicious, believes people are dangerous, there is going to be fire which will kill everyone. Review of Systems: Ambulation impaired in wheelchair. No CV, , pulmonary, eye system symptoms on review. Mental Status Exam: The patient is oriented to himself and situation. Eye contact is poor. Speech is rambling, difficult to understand, muttering under his breath, paranoid, suspicious with intermittent hallucinations. Abstraction is fair. Computation impaired. Attention span is short. Language function intact. Mood and affect withdrawn. No active suicidal or homicidal ideation. Laboratory Data: Reviewed. Impression: Schizoaffective disorder, bipolar type mixed with psychotic features. 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 Anxiety disorder unspecified. Impulse control disorder unspecified. Plan: Continue current psychotropics. Increase Abilify from 10 mg a day to 20 mg a day. Consider tapering Seroquel later. Maintain Depakote, level is therapeutic. Rest unchanged for now. Consider Clozaril if all else fails. Assessment: Vital Signs/I&O: Vital Signs Date Time Temp Pulse Resp B/P (MAP) Pulse Ox O2 Delivery O2 Flow Rate FiO2 09/11/20 16:04 98.2 90 16 154/76 (102) 100 09/10/20 15:59 Room Air I & O 09/10/20 09/10/20 09/11/20 14:59 22:59 06:59 Intake Total 360 ml 600 ml Output Total 600 ml Balance 360 ml 0 ml Labs: Laboratory Tests Test 09/11/20 07:01 Glucose (Fingerstick) 129 mg/dL (70-99) H Current Medications: Meds: Laboratory Tests Test 09/11/20 07:01 Glucose (Fingerstick) 129 mg/dL Current Medications Medications (Trade) Dose Ordered Sig/Angelique Route PRN Reason Start Time Stop Time Status Last Admin Dose Admin Acetaminophen (Tylenol) 650 mg PRN Q6HRS PRN PO PAIN 2/21/21 10:15 Cancel Divalproex Sodium (Depakote Er) 500 mg BID PO 09/03/20 21:00 09/04/20 19:40 DC 09/04/20 08:32 Docusate Sodium (Colace) 100 mg BID PO 09/03/20 21:00 09/11/20 20:00 Donepezil HCl (Aricept) 10 mg QHS PO 09/03/20 21:00 09/11/20 20:01 Metformin HCl (Glucophage) 500 mg BIDWMEALS PO 09/03/20 17:00 09/11/20 16:59 Pantoprazole Sodium (Protonix) 40 mg DAILY PO 09/04/20 09:00 09/11/20 09:22 Quetiapine Fumarate (SEROquel) 300 mg HS PO 09/03/20 21:00 09/11/20 20:00 Memantine (Namenda) 10 mg BID PO 09/03/20 21:00 09/11/20 20:01 Citalopram Hydrobromide (CeleXA) 40 mg DAILY PO 09/04/20 09:00 09/08/20 16:40 DC 09/08/20 09:22 Acetaminophen (Tylenol) 650 mg PRN Q6HRS PRN PO MILD PAIN / TEMP > 100.3'F 09/03/20 10:30 09/04/20 14:45 Multi-Ingredient Ointment (Analgesic [place]) 1 helen PRN QID PRN TP MUSCLE PAIN 09/03/20 10:30 Al Hydroxide/Mg Hydroxide (Mylanta Plus Xs) 15 ml PRN AFTMEALHC PRN PO DYSPEPSIA 09/03/20 10:30 Magnesium Hydroxide (Milk Of Magnesia) 2,400 mg PRN QHS PRN PO CONSTIPATION 09/03/20 10:30 Olanzapine (ZyPREXA ZYDIS) 5 mg PRN Q2HR PRN PO PSYCHOSIS 09/03/20 14:00 09/09/20 17:25 Bacitracin (Bacitracin Topical Pkt) 1 pkt BID TP 09/04/20 21:00 09/11/20 20:01 Divalproex Sodium (Depakote Sprinkles) 500 mg BID PO 09/04/20 21:00 09/11/20 20:01 Aripiprazole (Abilify) 10 mg DAILY PO 09/05/20 09:00 09/09/20 18:17 DC 09/09/20 09:56 Sertraline HCl (Zoloft) 50 mg DAILY PO 09/09/20 09:00 09/11/20 09:22 Aripiprazole (Abilify) 20 mg DAILY PO 09/10/20 09:00 09/12/20 19:00 09/11/20 09:22 Aripiprazole (Abilify) 30 mg DAILY PO 09/13/20 09:00 Nitrofurantoin Macrocrystals (Macrobid) 100 mg BID PO 09/11/20 09:00 09/18/20 08:59 09/11/20 20:00 Current Medications Medications (Trade) Dose Ordered Sig/Angelique Route PRN Reason Start Time Stop Time Status Last Admin Dose Admin Nitrofurantoin Macrocrystals (Macrobid) 100 mg BID PO 09/11/20 09:00 09/18/20 08:59 09/11/20 20:00 I have reviewed the current psychotropics carefully including drug interactions. Risk benefit ratio favors no change other than as noted in my dictated progress note. Diagnosis: Problems: (1) Mental status change (2) Schizoaffective disorder, bipolar type (3) Impulse control disorder, unspecified (4) Anxiety disorder, unspecified (5) Bipolar disorder, curr episode mixed, severe, with psychotic features (6) Major neurocognitive disorder with Lewy bodies, probable, with behavioral disturbance TOBI PADGETT MD Sep 11, 2020 21:06
--- NOTE | 2020-09-11 21:30 | PDOC ---
Exam Note: Leonel Note: This note is a late entry for 09/10/2020 covers elements not covered in my initial note. Subjective: The patient was seen face to face in the evening of 09/10/2020 with Oscar MERCHANT, discussed and reviewed the chart. He slept 6-1/2 hours previous night. He is resistive to medications, intermittently hallucinating and rambling in his speech. Review of Systems: Ambulation impaired in wheelchair. No CV, , pulmonary, eye system symptoms on review. Mental Status Exam: The patient is oriented to himself and situation. Abstraction is fair. Computation impaired. Attention span is short. Language function intact. Mood and affect withdrawn. No active suicidal or homicidal ideation. Laboratory Data: Reviewed. Impression: Schizoaffective disorder, bipolar type mixed with psychotic features. 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 Anxiety disorder unspecified. Impulse control disorder unspec ified. Plan: After the patient has been on Abilify 20 mg a day for 3 days, if psychotic symptoms persist, we will increase to 30 mg a day. Maintain rest of the psychotropics unchanged. Assessment: Vital Signs/I&O: Vital Signs Date Time Temp Pulse Resp B/P (MAP) Pulse Ox O2 Delivery O2 Flow Rate FiO2 09/11/20 16:04 98.2 90 16 154/76 (102) 100 09/10/20 15:59 Room Air I & O 09/10/20 09/10/20 09/11/20 14:59 22:59 06:59 Intake Total 360 ml 600 ml Output Total 600 ml Balance 360 ml 0 ml Labs: Laboratory Tests Test 09/11/20 07:01 Glucose (Fingerstick) 129 mg/dL (70-99) H Current Medications: Meds: Laboratory Tests Test 09/11/20 07:01 Glucose (Fingerstick) 129 mg/dL Current Medications Medications (Trade) Dose Ordered Sig/Angelique Route PRN Reason Start Time Stop Time Status Last Admin Dose Admin Acetaminophen (Tylenol) 650 mg PRN Q6HRS PRN PO PAIN 09/03/20 10:15 Cancel Divalproex Sodium (Depakote Er) 500 mg BID PO 09/03/20 21:00 09/04/20 19:40 DC 09/04/20 08:32 Docusate Sodium (Colace) 100 mg BID PO 09/03/20 21:00 09/11/20 20:00 Donepezil HCl (Aricept) 10 mg QHS PO 09/03/20 21:00 09/11/20 20:01 Metformin HCl (Glucophage) 500 mg BIDWMEALS PO 09/03/20 17:00 09/11/20 16:59 Pantoprazole Sodium (Protonix) 40 mg DAILY PO 09/04/20 09:00 09/11/20 09:22 Quetiapine Fumarate (SEROquel) 300 mg HS PO 09/03/20 21:00 09/11/20 20:00 Memantine (Namenda) 10 mg BID PO 09/03/20 21:00 09/11/20 20:01 Citalopram Hydrobromide (CeleXA) 40 mg DAILY PO 09/04/20 09:00 09/08/20 16:40 DC 09/08/20 09:22 Acetaminophen (Tylenol) 650 mg PRN Q6HRS PRN PO MILD PAIN / TEMP > 100.3'F 09/03/20 10:30 09/04/20 14:45 Multi-Ingredient Ointment (Analgesic [place]) 1 helen PRN QID PRN TP MUSCLE PAIN 09/03/20 10:30 Al Hydroxide/Mg Hydroxide (Mylanta Plus Xs) 15 ml PRN AFTMEALHC PRN PO DYSPEPSIA 09/03/20 10:30 Magnesium Hydroxide (Milk Of Magnesia) 2,400 mg PRN QHS PRN PO CONSTIPATION 09/03/20 10:30 Olanzapine (ZyPREXA ZYDIS) 5 mg PRN Q2HR PRN PO PSYCHOSIS 09/03/20 14:00 09/09/20 17:25 Bacitracin (Bacitracin Topical Pkt) 1 pkt BID TP 09/04/20 21:00 09/11/20 20:01 Divalproex Sodium (Depakote Sprinkles) 500 mg BID PO 09/04/20 21:00 09/11/20 20:01 Aripiprazole (Abilify) 10 mg DAILY PO 09/05/20 09:00 09/09/20 18:17 DC 09/09/20 09:56 Sertraline HCl (Zoloft) 50 mg DAILY PO 09/09/20 09:00 09/11/20 09:22 Aripiprazole (Abilify) 20 mg DAILY PO 09/10/20 09:00 09/12/20 19:00 09/11/20 09:22 Aripiprazole (Abilify) 30 mg DAILY PO 09/13/20 09:00 Nitrofurantoin Macrocrystals (Macrobid) 100 mg BID PO 09/11/20 09:00 09/18/20 08:59 09/11/20 20:00 Current Medications Medications (Trade) Dose Ordered Sig/Angelique Route PRN Reason Start Time Stop Time Status Last Admin Dose Admin Nitrofurantoin Macrocrystals (Macrobid) 100 mg BID PO 09/11/20 09:00 09/18/20 08:59 09/11/20 20:00 I have reviewed the current psychotropics carefully including drug interactions. Risk benefit ratio favors no change other than as noted in my dictated progress note. Diagnosis: Problems: (1) Schizoaffective disorder, bipolar type (2) Impulse control disorder, unspecified (3) Anxiety disorder, unspecified (4) Bipolar disorder, curr episode mixed, severe, with psychotic features (5) Major neurocognitive disorder with Lewy bodies, probable, with behavioral disturbance TOBI PADGETT MD Sep 11, 2020 21:30
--- NOTE | 2020-09-11 21:55 | PDOC ---
Exam Note: Leonel Note: Please also refer to the separate dictated note~for this date of service dictated separately.~Patient seen individually. Discussed the patient with Nursing staff reviewed the chart.~Reviewed interim history and current functioning. Reviewed vital signs,~Labs/ Radiology~and current medications noted below. Continue current treatment with the changes noted in the dictated addendum note Assessment: Vital Signs/I&O: Vital Signs Date Time Temp Pulse Resp B/P (MAP) Pulse Ox O2 Delivery O2 Flow Rate FiO2 09/11/20 16:04 98.2 90 16 154/76 (102) 100 09/10/20 15:59 Room Air I & O 09/10/20 09/10/20 09/11/20 15:00 23:00 07:00 Intake Total 360 ml 600 ml Output Total 600 ml Balance 360 ml 0 ml Labs: Laboratory Tests Test 09/11/20 07:01 Glucose (Fingerstick) 129 mg/dL (70-99) H Current Medications: Meds: Current Medications Medications (Trade) Dose Ordered Sig/Angelique Route PRN Reason Start Time Stop Time Status Last Admin Dose Admin Nitrofurantoin Macrocrystals (Macrobid) 100 mg BID PO 09/11/20 09:00 09/18/20 08:59 09/11/20 20:00 I have reviewed the current psychotropics carefully including drug interactions. Risk benefit ratio favors no change other than as noted in my dictated progress note. Diagnosis: Problems: (1) Schizoaffective disorder, bipolar type (2) Impulse control disorder, unspecified (3) Anxiety disorder, unspecified (4) Bipolar disorder, curr episode mixed, severe, with psychotic features (5) Major neurocognitive disorder with Lewy bodies, probable, with behavioral disturbance TOBI PADGETT MD Sep 11, 2020 21:55
[2020-09-12 06:03] VITALS: BP 124/72
[2020-09-12] MEDS: MEMANTINE 10 MG TABLET. PO SCH ×2 (07:58→19:45)
[2020-09-12] MEDS: ARIPiprazole 10 MG TABLET PO SCH (07:59)
[2020-09-12] MEDS: SERTRALINE 50 MG TABLET. PO SCH (07:59)
[2020-09-12] MEDS: DIVALPROEX 125 MG CAP.SPRINK PO SCH ×2 (07:59→19:45)
[2020-09-12] MEDS: NITROFURANTOIN MONOHYD/M-CRYST 100 MG CAPSULE. PO SCH ×2 (07:59→19:45)
[2020-09-12] MEDS: metFORMIN 500 MG TABLET PO SCH ×2 (07:59→17:00)
[2020-09-12] MEDS: PANTOPRAZOLE 40 MG TABLET. PO SCH (07:59)
[2020-09-12] MEDS: BACITRACIN ZINC TOPICAL OINT PACKET. TP SCH ×2 (08:07→19:45)
[2020-09-12] MEDS: DOCUSATE SODIUM 100 MG CAPSULE PO SCH (08:07)
--- NOTE | 2020-09-12 15:38 | TX PLAN ---
Interdisciplinary Tx Plan Admission Information Sep 03, 2020 at 09:40 Legal Status (on Admission): Voluntary DPOA/Guardian Name: Legal Guardian/Sister-Candice Turner Contact Other Contact Name: Rope Cutter-Geena Other Contact Verified Code Status: Full Code Allergies: Coded Allergies: Penicillins (Verified Allergy, Intermediate, 03/16/15) duloxetine (Verified Allergy, Intermediate, 03/16/15) risperidone (Verified Allergy, Intermediate, 03/16/15) Diagnoses Primary Diagnosis: Schizoaffective disorder, bipolar type, mixed with psychotic features; major neurocognitive disorder, Lewy body with delusion, behavioral disturbance; anxiety disorder, unspecified; impulse control disorder, unspecified. Reasons for Admission: Aggressive, Delusions, Agitated, Sig. Change Appetite, Combative, Confusion/Disoriented Problem in Patient's Words: Per guardian/sister, pt gets really bad UTIs. "He can be very combative and agitated when he has UTIs. He has a history of having problematic behaviors especially when he has the UTIs." Additional Admission Comments: Per intake record, pt has been agitated, combative with staff, showing manic behavior, threatening staff, decreased food intake, resists cares, thinks everyone is going to burn to . Problems Active Problems: Agitation, irritable, verbally aggressive, threatening Inactive Problems: None noted at this time. Pt Strengths/Limitations Ability for Harmon: Poor Cognitive Functioning/Ability: Poor Communication Skills/Ability: Fair Financial Resources: Fair Insight/Judgement: Poor Intellectual Ability: Poor Physical Health: Poor Social Skills: Fair Stability in Family: Fair Stability in School/Work: Poor Verbal Skills: Fair Discharge Criteria Discharge Criteria: Adequate arrangements @DC, Verbal commit med comply, Improved behavior Other Discharge Comments: None noted at this time. Preliminary Discharge Plan Preliminary DC Plan: Memory Care Special Precautions Special Precautions: Agitation/Assault Fall Risk: Moderate Initial D/C Plan Return to [facility]. Identified Discharge Needs: None at this time Currently Utilized Resources Currently Utilized Resources/P: PCP-Dr. Lr Guardian/Sister-Candice Turner Living Facility-[facility] Referrals Community Resources: None noted at this time Identified Problems/Hx/Goals Objectives/Short-Term Goals Short Term Goals: Control abnormal behavior, Dec. Aggression, Dec. Hallucination/Delus, Improved Social Skills, Medication Stabilization, Monitor Med Effects, Promote Coping Skill Short Term Goals in Patient's: To control delusions/hallucination and for medications to be stablized so that agitation and combativeness is under control. Interventions/Frequency Staff Interventions/Frequency&: Psychiatry to assess pt three time per week for medication management. Nursing to assess behaviors, monitor medications, and complete 15 minute checks daily. Social work to see pt at least two times weekly to aid in return to placement. Activities to encourage pt to participate in group activities daily. 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 Social: Guaridan/Sister, Candice and her two sons. Education: Completed GED and took some college classes through [employer], , and [employer], but never graduated with a degree. He was offered a wrestling scholarship when he attended [employer]. Community Follow-up PCP Community Provider/Family Inpu: Guardian/Sister provided information related to pt social history and past psychiatric treatment. Treatment Plan Explained Patient/Business Risk Consultant had this treatment plan explained to him/her as indicated by the signature below and has been given the opportunity to ask questions and make suggestions: Date: Patient/Business Risk Consultant Signature: Status Update Update Pt eats about 75% of his meals and averages 6.5 hours of sleep per night. Pt continues to be very delusional muttering things like, "Fire" and "Please don't kill me." Pt is aware that he is in [place], but cannot state specific location. Pt is positive for a UTI and antibiotics were started on 09/11/20. Wound care has now signed off on the area where the super pubic catheter caused problems. The site looks much better, but will continue to be monitored by nursing. Pt taking Donepezil, Depakote Sprinkles, Namenda, Quetiapine, Zoloft, Zyprexa, and Abilify. At this time Abilify will be increased and pt will be monitored for ongoing delusions and hallucinations. CHAPINCITO MINOR Sep 12, 2020 15:38
[2020-09-12 15:58] VITALS: BP 142/82
[2020-09-12] MEDS: DONEPEZIL HCL 10 MG TABLET PO SCH (19:45)
[2020-09-12] MEDS: QUEtiapine 100 MG TABLET. PO SCH (19:45)
--- NOTE | 2020-09-12 21:02 | PDOC ---
Exam Note: Leonel Note: Please also refer to the separate dictated note~for this date of service dictated separately.~Patient seen individually. Discussed the patient with Nursing staff reviewed the chart.~Reviewed interim history and current functioning. Reviewed vital signs,~Labs/ Radiology~and current medications noted below. Continue current treatment with the changes noted in the dictated addendum note Assessment: Vital Signs/I&O: Vital Signs Date Time Temp Pulse Resp B/P (MAP) Pulse Ox O2 Delivery O2 Flow Rate FiO2 09/12/20 15:58 98.3 97 20 142/82 (102) 96 09/10/20 15:59 Room Air I & O 09/11/20 09/11/20 09/12/20 14:59 22:59 06:59 Intake Total 480 ml 480 ml Output Total 350 ml 300 ml Balance 480 ml 130 ml -300 ml Labs: Laboratory Tests Test 09/12/20 07:53 Glucose (Fingerstick) 123 mg/dL (70-99) H Current Medications: Meds: Laboratory Tests Test 09/12/20 07:53 Glucose (Fingerstick) 123 mg/dL Current Medications Medications (Trade) Dose Ordered Sig/Angelique Route PRN Reason Start Time Stop Time Status Last Admin Dose Admin Acetaminophen (Tylenol) 650 mg PRN Q6HRS PRN PO PAIN 09/03/20 10:15 Cancel Divalproex Sodium (Depakote Er) 500 mg BID PO 09/03/20 21:00 09/04/20 19:40 DC 09/04/20 08:32 Docusate Sodium (Colace) 100 mg BID PO 09/03/20 21:00 09/12/20 18:12 DC 09/11/20 20:00 Donepezil HCl (Aricept) 10 mg QHS PO 09/03/20 21:00 09/12/20 19:45 Metformin HCl (Glucophage) 500 mg BIDWMEALS PO 09/03/20 17:00 09/12/20 17:00 Pantoprazole Sodium (Protonix) 40 mg DAILY PO 09/04/20 09:00 09/12/20 07:59 Quetiapine Fumarate (SEROquel) 300 mg HS PO 09/03/20 21:00 09/12/20 19:45 Memantine (Namenda) 10 mg BID PO 09/03/20 21:00 09/12/20 19:45 Citalopram Hydrobromide (CeleXA) 40 mg DAILY PO 09/04/20 09:00 09/08/20 16:40 DC 09/08/20 09:22 Acetaminophen (Tylenol) 650 mg PRN Q6HRS PRN PO MILD PAIN / TEMP > 100.3'F 09/03/20 10:30 09/04/20 14:45 Multi-Ingredient Ointment (Analgesic [place]) 1 helen PRN QID PRN TP MUSCLE PAIN 09/03/20 10:30 Al Hydroxide/Mg Hydroxide (Mylanta Plus Xs) 15 ml PRN AFTMEALHC PRN PO DYSPEPSIA 09/03/20 10:30 Magnesium Hydroxide (Milk Of Magnesia) 2,400 mg PRN QHS PRN PO CONSTIPATION 09/03/20 10:30 Olanzapine (ZyPREXA ZYDIS) 5 mg PRN Q2HR PRN PO PSYCHOSIS 09/03/20 14:00 09/09/20 17:25 Bacitracin (Bacitracin Topical Pkt) 1 pkt BID TP 09/04/20 21:00 09/12/20 19:45 Divalproex Sodium (Depakote Sprinkles) 500 mg BID PO 09/04/20 21:00 09/12/20 19:45 Aripiprazole (Abilify) 10 mg DAILY PO 09/05/20 09:00 09/09/20 18:17 DC 09/09/20 09:56 Sertraline HCl (Zoloft) 50 mg DAILY PO 09/09/20 09:00 09/12/20 07:59 Aripiprazole (Abilify) 20 mg DAILY PO 09/10/20 09:00 09/12/20 19:00 DC 09/12/20 07:59 Aripiprazole (Abilify) 30 mg DAILY PO 09/13/20 09:00 Nitrofurantoin Macrocrystals (Macrobid) 100 mg BID PO 09/11/20 09:00 09/18/20 08:59 09/12/20 19:45 I have reviewed the current psychotropics carefully including drug interactions. Risk benefit ratio favors no change other than as noted in my dictated progress note. Diagnosis: Problems: (1) Schizoaffective disorder, bipolar type (2) Impulse control disorder, unspecified (3) Anxiety disorder, unspecified (4) Bipolar disorder, curr episode mixed, severe, with psychotic features (5) Major neurocognitive disorder with Lewy bodies, probable, with behavioral disturbance TOBI PADGETT MD Sep 12, 2020 21:02
[2020-09-13 06:05] VITALS: BP 156/98
[2020-09-13] MEDS: DIVALPROEX 125 MG CAP.SPRINK PO SCH ×2 (07:45→19:29)
[2020-09-13] MEDS: PANTOPRAZOLE 40 MG TABLET. PO SCH (07:46)
[2020-09-13] MEDS: ARIPiprazole 15 MG TABLET PO SCH (07:46)
[2020-09-13] MEDS: MEMANTINE 10 MG TABLET. PO SCH ×2 (07:46→19:29)
[2020-09-13] MEDS: BACITRACIN ZINC TOPICAL OINT PACKET. TP SCH ×2 (07:46→19:29)
[2020-09-13] MEDS: NITROFURANTOIN MONOHYD/M-CRYST 100 MG CAPSULE. PO SCH ×2 (07:46→19:29)
[2020-09-13] MEDS: SERTRALINE 50 MG TABLET. PO SCH (07:46)
[2020-09-13] MEDS: metFORMIN 500 MG TABLET PO SCH ×2 (07:46→17:08)
--- NOTE | 2020-09-13 09:54 | PDOC ---
Exam Note: Leonel Note: This note is a late entry for 09/11/2020 covers elements not covered in my initial note. Subjective: The patient was seen face to face in the evening of 09/11/2020 with Lisa MERCHANT, discussed and reviewed the chart. He slept 7-1/2 hours previous night. The patient remains confused, paranoid, psychotic. He believes there is a fire on the unit and people are trying to kill him. He is on Macrobid for UTI and this resolves the agitation should improve. Review of Systems: Ambulation impaired in wheelchair. No CV, , pulmonary, eye system symptoms on review. Mental Status Exam: The patient is oriented to himself and situation. Abstraction is fair. Computation impaired. Attention span is short. Language function intact. Mood and affect paranoid, psychotic. No active suicidal or homicidal ideation. Laboratory Data: Reviewed. Impression: Schizoaffective disorder, bipolar type mixed with psychotic features. 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 Anxiety disorder unspecified. Impulse control disorder unspecified . Plan: We have just increased the patients Abilify and will increase to 30 mg a day after he has been on 20 mg for 3 days. Maintain rest of the psychotropics unchanged for now. Assessment: Vital Signs/I&O: Vital Signs Date Time Temp Pulse Resp B/P (MAP) Pulse Ox O2 Delivery O2 Flow Rate FiO2 09/13/20 06:05 97.8 90 18 156/98 (117) 92 09/10/20 15:59 Room Air I & O 09/12/20 09/12/20 09/13/20 15:00 23:00 07:00 Intake Total 840 ml 120 ml Output Total 275 ml Balance 840 ml 120 ml -275 ml Labs: Laboratory Tests Test 09/13/20 07:45 Glucose (Fingerstick) 132 mg/dL (70-99) H Current Medications: Meds: Laboratory Tests Test 09/13/20 07:45 Glucose (Fingerstick) 132 mg/dL Current Medications Medications (Trade) Dose Ordered Sig/Angelique Route PRN Reason Start Time Stop Time Status Last Admin Dose Admin Acetaminophen (Tylenol) 650 mg PRN Q6HRS PRN PO PAIN 09/03/20 10:15 Cancel Divalproex Sodium (Depakote Er) 500 mg BID PO 09/03/20 21:00 09/04/20 19:40 DC 09/04/20 08:32 Docusate Sodium (Colace) 100 mg BID PO 09/03/20 21:00 09/12/20 18:12 DC 09/11/20 20:00 Donepezil HCl (Aricept) 10 mg QHS PO 09/03/20 21:00 09/12/20 19:45 Metformin HCl (Glucophage) 500 mg BIDWMEALS PO 09/03/20 17:00 09/13/20 07:46 Pantoprazole Sodium (Protonix) 40 mg DAILY PO 09/04/20 09:00 09/13/20 07:46 Quetiapine Fumarate (SEROquel) 300 mg HS PO 09/03/20 21:00 09/12/20 19:45 Memantine (Namenda) 10 mg BID PO 09/03/20 21:00 09/13/20 07:46 Citalopram Hydrobromide (CeleXA) 40 mg DAILY PO 09/04/20 09:00 09/08/20 16:40 DC 09/08/20 09:22 Acetaminophen (Tylenol) 650 mg PRN Q6HRS PRN PO MILD PAIN / TEMP > 100.3'F 09/03/20 10:30 09/04/20 14:45 Multi-Ingredient Ointment (Analgesic [place]) 1 helen PRN QID PRN TP MUSCLE PAIN 09/03/20 10:30 Al Hydroxide/Mg Hydroxide (Mylanta Plus Xs) 15 ml PRN AFTMEALHC PRN PO DYSPEPSIA 09/03/20 10:30 Magnesium Hydroxide (Milk Of Magnesia) 2,400 mg PRN QHS PRN PO CONSTIPATION 09/03/20 10:30 Olanzapine (ZyPREXA ZYDIS) 5 mg PRN Q2HR PRN PO PSYCHOSIS 09/03/20 14:00 09/09/20 17:25 Bacitracin (Bacitracin Topical Pkt) 1 pkt BID TP 09/04/20 21:00 09/13/20 07:46 Divalproex Sodium (Depakote Sprinkles) 500 mg BID PO 09/04/20 21:00 09/13/20 07:45 Aripiprazole (Abilify) 10 mg DAILY PO 09/05/20 09:00 09/09/20 18:17 DC 09/09/20 09:56 Sertraline HCl (Zoloft) 50 mg DAILY PO 09/09/20 09:00 09/13/20 07:46 Aripiprazole (Abilify) 20 mg DAILY PO 09/10/20 09:00 09/12/20 19:00 DC 09/12/20 07:59 Aripiprazole (Abilify) 30 mg DAILY PO 09/13/20 09:00 09/13/20 07:46 Nitrofurantoin Macrocrystals (Macrobid) 100 mg BID PO 09/11/20 09:00 09/18/20 08:59 09/13/20 07:46 Current Medications Medications (Trade) Dose Ordered Sig/Angelique Route PRN Reason Start Time Stop Time Status Last Admin Dose Admin Aripiprazole (Abilify) 30 mg DAILY PO 09/13/20 09:00 09/13/20 07:46 I have reviewed the current psychotropics carefully including drug interactions. Risk benefit ratio favors no change other than as noted in my dictated progress note. Diagnosis: Problems: (1) Schizoaffective disorder, bipolar type (2) Impulse control disorder, unspecified (3) Anxiety disorder, unspecified (4) Bipolar disorder, curr episode mixed, severe, with psychotic features (5) Major neurocognitive disorder with Lewy bodies, probable, with behavioral disturbance TOBI PADGETT MD Sep 13, 2020 09:54
--- NOTE | 2020-09-13 10:25 | PDOC ---
Exam Note: Leonel Note: This note is a late entry for 09/12/2020 covers elements not covered in my initial note. Subjective: The patient was seen face to face in the morning of 09/12/2020 for a treatment team meeting with Purnima Lovett and Lizbeth (public health social worker), Nyasia Marrero and Myesha, activity therapy and Melissa MERCHANT, discussed and reviewed the chart. He slept 7 hours previous night. The patient remains delusional, little more coherent today since he has been on antibiotics for his UTI. He knows he is in [place], still talking about fires and people being burnt, then was talking about oranges and groups somewhat unrelated to the topic at hand. Review of Systems: Ambulation impaired in wheelchair. No CV, , pulmonary, eye system symptoms on review. Mental Status Exam: The patient is oriented to himself and situation. He is rambling in ihs speech, little more coherent today. Abstraction is fair. Computation impaired. Attention span is short. Language function intact. Mood and affect paranoid, psychotic. No active suicidal or homicidal ideation. Laboratory Data: Reviewed. Impression: Schizoaffective disorder, bipolar type mixed with psychotic features. 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 Anxiety disorder unspecified. Impulse control disorder unspecified. UTI Plan: Treat the UTI. If psychotic symptoms persist, despite resolution of UTI, we will adjust antipsychotics further. Assessment: Vital Signs/I&O: Vital Signs Date Time Temp Pulse Resp B/P (MAP) Pulse Ox O2 Delivery O2 Flow Rate FiO2 09/13/20 06:05 97.8 90 18 156/98 (117) 92 09/10/20 15:59 Room Air I & O 09/12/20 09/12/20 09/13/20 14:59 22:59 06:59 Intake Total 840 ml 120 ml Output Total 275 ml Balance 840 ml 120 ml -275 ml Labs: Laboratory Tests Test 09/13/20 07:45 Glucose (Fingerstick) 132 mg/dL (70-99) H Current Medications: Meds: Current Medications Medications (Trade) Dose Ordered Sig/Angelique Route PRN Reason Start Time Stop Time Status Last Admin Dose Admin Aripiprazole (Abilify) 30 mg DAILY PO 09/13/20 09:00 09/13/20 07:46 I have reviewed the current psychotropics carefully including drug interactions. Risk benefit ratio favors no change other than as noted in my dictated progress note. Diagnosis: Problems: (1) UTI (urinary tract infection) (2) Schizoaffective disorder, bipolar type (3) Impulse control disorder, unspecified (4) Anxiety disorder, unspecified (5) Bipolar disorder, curr episode mixed, severe, with psychotic features (6) Major neurocognitive disorder with Lewy bodies, probable, with behavioral disturbance TOBI PADGETT MD Sep 13, 2020 10:25
[2020-09-13 15:30] VITALS: BP 137/78
[2020-09-13] MEDS: DONEPEZIL HCL 10 MG TABLET PO SCH (19:29)
[2020-09-13] MEDS: QUEtiapine 100 MG TABLET. PO SCH (19:29)
--- NOTE | 2020-09-13 21:05 | PDOC ---
Exam Note: Leonel Note: Please also refer to the separate dictated note~for this date of service dictated separately.~Patient seen individually. Discussed the patient with Nursing staff reviewed the chart.~Reviewed interim history and current functioning. Reviewed vital signs,~Labs/ Radiology~and current medications noted below. Continue current treatment with the changes noted in the dictated addendum note Assessment: Vital Signs/I&O: Vital Signs Date Time Temp Pulse Resp B/P (MAP) Pulse Ox O2 Delivery O2 Flow Rate FiO2 09/13/20 15:30 98.0 87 20 137/78 (97) 99 09/10/20 15:59 Room Air I & O 09/12/20 09/12/20 09/13/20 15:00 23:00 07:00 Intake Total 840 ml 120 ml Output Total 275 ml Balance 840 ml 120 ml -275 ml Labs: Laboratory Tests Test 09/13/20 07:45 Glucose (Fingerstick) 132 mg/dL (70-99) H Current Medications: Meds: Current Medications Medications (Trade) Dose Ordered Sig/Angelique Route PRN Reason Start Time Stop Time Status Last Admin Dose Admin Aripiprazole (Abilify) 30 mg DAILY PO 09/13/20 09:00 09/13/20 07:46 I have reviewed the current psychotropics carefully including drug interactions. Risk benefit ratio favors no change other than as noted in my dictated progress note. Diagnosis: Problems: (1) Schizoaffective disorder, bipolar type (2) Impulse control disorder, unspecified (3) Anxiety disorder, unspecified (4) Bipolar disorder, curr episode mixed, severe, with psychotic features (5) Major neurocognitive disorder with Lewy bodies, probable, with behavioral d [email or web address] Cam MD Sep 13, 2020 21:05
[2020-09-14 05:53] VITALS: BP 147/87
--- NOTE | 2020-09-14 07:38 | PDOC ---
Exam Note: Leonel Note: This note is a late entry for 09/13/2020 covers elements not covered in my initial note. Subjective: The patient was seen face to face in the evening of 09/13/2020 with Garry MERCHANT, discussed and reviewed the chart. He slept 7-1/2 hours previous night. The patient was somewhat delusional previous night. He was talking about nursing staff planning to kill him, that there is a fire on the unit. He had some intermittent hallucinations. Today he has been withdrawn, less paranoid. Review of Systems: Ambulation impaired in wheelchair. No CV, , pulmonary, eye system symptoms on review. Reliability poor. Mental Status Exam: The patient is oriented to himself. Insight and judgment, recent and remote memory, attention and concentration, fund of knowledge is consistent with his diagnosis. Eye contact is poor. He is looking down, mumbling in his speech, at times difficult to understand. Laboratory Data: Reviewed. Impression: Schizoaffective disorder, bipolar type mixed with psychotic features. 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 Anxiety disorder unspecified. Impulse control disorder unspecified. Plan: No change from initial note. Assessment: Vital Signs/I&O: Vital Signs Date Time Temp Pulse Resp B/P (MAP) Pulse Ox O2 Delivery O2 Flow Rate FiO2 09/14/20 05:53 97.9 86 20 147/87 (107) 98 09/10/20 15:59 Room Air I & O 09/13/20 09/13/20 09/14/20 15:00 23:00 07:00 Intake Total 440 ml 200 ml Output Total 500 ml Balance 440 ml -300 ml Labs: Laboratory Tests Test 09/13/20 07:45 Glucose (Fingerstick) 132 mg/dL (70-99) H Current Medications: Meds: Current Medications Medications (Trade) Dose Ordered Sig/Angelique Route PRN Reason Start Time Stop Time Status Last Admin Dose Admin Aripiprazole (Abilify) 30 mg DAILY PO 09/13/20 09:00 09/13/20 07:46 I have reviewed the current psychotropics carefully including drug interactions. Risk benefit ratio favors no change other than as noted in my dictated progress note. Diagnosis: Problems: (1) Schizoaffective disorder, bipolar type (2) Impulse control disorder, unspecified (3) Anxiety disorder, unspecified (4) Bipolar disorder, curr episode mixed, severe, with psychotic features (5) Major neurocognitive disorder with Lewy bodies, probable, with behavioral disturbance TOBI PADGETT MD Sep 14, 2020 07:38
[2020-09-14] MEDS: PANTOPRAZOLE 40 MG TABLET. PO SCH (08:30)
[2020-09-14] MEDS: SERTRALINE 50 MG TABLET. PO SCH (08:31)
[2020-09-14] MEDS: ARIPiprazole 15 MG TABLET PO SCH (08:31)
[2020-09-14] MEDS: DIVALPROEX 125 MG CAP.SPRINK PO SCH ×2 (08:31→19:33)
[2020-09-14] MEDS: metFORMIN 500 MG TABLET PO SCH ×3 (08:31→17:28)
[2020-09-14] MEDS: BACITRACIN ZINC TOPICAL OINT PACKET. TP SCH ×2 (08:31→19:32)
[2020-09-14] MEDS: MEMANTINE 10 MG TABLET. PO SCH ×2 (08:31→19:33)
[2020-09-14] MEDS: NITROFURANTOIN MONOHYD/M-CRYST 100 MG CAPSULE. PO SCH ×2 (08:32→19:33)
[2020-09-14] MEDS ORDERED: BENZTROPINE MESYLATE 0.5 MG TABLET PO ONE (11:30)
[2020-09-14 17:33] VITALS: BP 155/88
[2020-09-14] MEDS: QUEtiapine 100 MG TABLET. PO SCH (19:33)
[2020-09-14] MEDS: BENZTROPINE MESYLATE 0.5 MG TABLET PO SCH (19:33)
[2020-09-14] MEDS: DONEPEZIL HCL 10 MG TABLET PO SCH (19:33)
--- NOTE | 2020-09-14 21:03 | PDOC ---
Exam Note: Leonel Note: Please also refer to the separate dictated note~for this date of service dictated separately.~Patient seen individually. Discussed the patient with Nursing staff reviewed the chart.~Reviewed interim history and current functioning. Reviewed vital signs,~Labs/ Radiology~and current medications noted below. Continue current treatment with the changes noted in the dictated addendum note Assessment: Vital Signs/I&O: Vital Signs Date Time Temp Pulse Resp B/P (MAP) Pulse Ox O2 Delivery O2 Flow Rate FiO2 09/14/20 17:33 97.2 97 18 155/88 (110) 97 09/10/20 15:59 Room Air I & O 09/13/20 09/13/20 09/14/20 15:00 23:00 07:00 Intake Total 440 ml 200 ml Output Total 500 ml Balance 440 ml -300 ml Labs: Laboratory Tests Test 09/14/20 07:58 Glucose (Fingerstick) 163 mg/dL (70-99) H Current Medications: Meds: Current Medications Medications (Trade) Dose Ordered Sig/Angelique Route PRN Reason Start Time Stop Time Status Last Admin Dose Admin Benztropine Mesylate (Cogentin) 0.5 mg HS PO 09/14/20 21:00 09/14/20 19:33 Benztropine Mesylate (Cogentin) 0.5 mg 1X ONCE PO 09/14/20 11:30 09/14/20 11:31 DC 09/14/20 11:20 I have reviewed the current psychotropics carefully including drug interactions. Risk benefit ratio favors no change other than as noted in my dictated progress note. Diagnosis: Problems: (1) Schizoaffective disorder, bipolar type (2) Impulse control disorder, unspecified (3) Anxiety disorder, unspecified (4) Bipolar disorder, curr episode mixed, severe, with psychotic features (5) Major neurocognitive disorder with Lewy bodies, probable, with behavioral disturbance TOBI PADGETT MD Sep 14, 2020 21:03
[2020-09-14] MEDS: rOPINIRole 0.5 MG TABLET. PO SCH (21:17)
[2020-09-15 05:56] VITALS: BP 149/93
[2020-09-15 06:59] LABS: BASO % 0 % (0-3); EOS # 0.2 x10^3/uL (0.0-0.7); EOS % 3 % (0-3); HEMOGLOBIN 10.7 g/dL (13.0-17.5); LYMPH # 1.1 x10^3/uL (1.0-4.8); LYMPH % 21 % (24-48); MEAN CORPUSCULAR HEMOGLOBIN 25 pg (25-35); MEAN CORPUSCULAR HGB CONC 32 g/dL (31-37); MEAN CORPUSCULAR VOLUME 80 fL (79-100); MONO # 0.4 x10^3/uL (0.0-1.1); MONO % 9 % (0-9); NEUT # 3.5 x10^3uL (1.8-7.7); NEUT % 67 % (31-73); PLATELET COUNT 320 x10^3/uL (140-400); RED BLOOD COUNT 4.28 x10^6/uL (4.30-5.70); RED CELL DISTRIBUTION WIDTH 18.3 % (11.5-14.5); WHITE BLOOD COUNT 5.2 x10^3/uL (4.0-11.0)
[2020-09-15 07:06] LABS: ALBUMIN/GLOBULIN RATIO 0.7 (1.0-1.7); CALCIUM 9.1 mg/dL (8.5-10.1); GFR 75.5; POTASSIUM 3.6 mmol/L (3.5-5.1); TOTAL BILIRUBIN 0.2 mg/dL (0.2-1.0); TOTAL PROTEIN 7.4 g/dL (6.4-8.2)
[2020-09-15] MEDS: NITROFURANTOIN MONOHYD/M-CRYST 100 MG CAPSULE. PO SCH ×2 (07:50→20:31)
[2020-09-15] MEDS: rOPINIRole 0.5 MG TABLET. PO SCH ×3 (07:50→20:31)
[2020-09-15] MEDS: MEMANTINE 10 MG TABLET. PO SCH ×2 (07:50→20:30)
[2020-09-15] MEDS: ARIPiprazole 10 MG TABLET PO SCH (07:50)
[2020-09-15] MEDS: metFORMIN 500 MG TABLET PO SCH ×2 (07:50→17:11)
[2020-09-15] MEDS: DIVALPROEX 125 MG CAP.SPRINK PO SCH ×2 (07:51→20:31)
[2020-09-15] MEDS: PANTOPRAZOLE 40 MG TABLET. PO SCH (07:51)
[2020-09-15] MEDS: BACITRACIN ZINC TOPICAL OINT PACKET. TP SCH ×2 (07:51→20:32)
[2020-09-15] MEDS: SERTRALINE 50 MG TABLET. PO SCH (07:51)
--- NOTE | 2020-09-15 07:59 | PDOC ---
Exam Note: Leonel Note: This note is a late entry for 09/14/2020 covers elements not covered in my initial note. Subjective: The patient was seen individually in the evening of 09/14/2020 with Garry MERCHANT, discussed and reviewed the chart. He slept 7-1/4 hours previous night. Overall the patient remains withdrawn but not agitated. Review of Systems: Ambulation impaired in wheelchair. No CV, , pulmonary, eye system symptoms on review. Reliability poor. The patient is having some tremors. Further review of his psychotropics indicate Abilify 30 mg a day could be contributing to this. Mental Status Exam: The patient is oriented to himself. Insight and judgment, recent and remote memory, attention and concentration, fund of knowledge is consistent with his diagnosis. Laboratory Data: Reviewed. Impression: Schizoaffective disorder, bipolar type mixed with psychotic features. 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 Anxiety disorder unspecified. Impulse control disorder unspecified. Plan: We will reduce Abilify from 30 to 20 mg a day. Add Cogentin 0.5 mg daily. Continue rest unchanged. We will consult Dr. Dixon, Neurology. Assessment: Vital Signs/I&O: Vital Signs Date Time Temp Pulse Resp B/P (MAP) Pulse Ox O2 Delivery O2 Flow Rate FiO2 09/15/20 05:56 98.3 84 18 149/93 (111) 95 09/10/20 15:59 Room Air I & O 09/14/20 09/14/20 09/15/20 15:00 23:00 07:00 Intake Total 440 ml 320 ml Balance 440 ml 320 ml Labs: Laboratory Tests Test 09/15/20 06:30 White Blood Count 5.2 x10^3/uL (4.0-11.0) Red Blood Count 4.28 x10^6/uL (4.30-5.70) L Hemoglobin 10.7 g/dL (13.0-17.5) L Hematocrit 34.0 % (39.0-53.0) L Mean Corpuscular Volume 80 fL (79-100) Mean Corpuscular Hemoglobin 25 pg (25-35) Mean Corpuscular Hemoglobin Concent 32 g/dL (31-37) Red Cell Distribution Width 18.3 % (11.5-14.5) H Platelet Count 320 x10^3/uL (140-400) Neutrophils (%) (Auto) 67 % (31-73) Lymphocytes (%) (Auto) 21 % (24-48) L Monocytes (%) (Auto) 9 % (0-9) Eosinophils (%) (Auto) 3 % (0-3) Basophils (%) (Auto) 0 % (0-3) Neutrophils # (Auto) 3.5 x10^3uL (1.8-7.7) Lymphocytes # (Auto) 1.1 x10^3/uL (1.0-4.8) Monocytes # (Auto) 0.4 x10^3/uL (0.0-1.1) Eosinophils # (Auto) 0.2 x10^3/uL (0.0-0.7) Basophils # (Auto) 0.0 x10^3/uL (0.0-0.2) Sodium Level 142 mmol/L (136-145) Potassium Level 3.6 mmol/L (3.5-5.1) Chloride Level 104 mmol/L (98-107) Carbon Dioxide Level 29 mmol/L (21-32) Anion Gap 9 (6-14) Blood Urea Nitrogen 22 mg/dL (8-26) Creatinine 1.0 mg/dL (0.7-1.3) Estimated GFR (Cockcroft-Gault) 75.5 BUN/Creatinine Ratio 22 (6-20) H Glucose Level 137 mg/dL (70-99) H Calcium Level 9.1 mg/dL (8.5-10.1) Total Bilirubin 0.2 mg/dL (0.2-1.0) Aspartate Amino Transferase (AST) 8 U/L (15-37) L Alanine Aminotransferase (ALT) 15 U/L (16-63) L Alkaline Phosphatase 57 U/L (46-116) Total Protein 7.4 g/dL (6.4-8.2) Albumin 3.0 g/dL (3.4-5.0) L Albumin/Globulin Ratio 0.7 (1.0-1.7) L Current Medications: Meds: Laboratory Tests Test 09/15/20 06:30 White Blood Count 5.2 x10^3/uL Red Blood Count 4.28 x10^6/uL Hemoglobin 10.7 g/dL Hematocrit 34.0 % Mean Corpuscular Volume 80 fL Mean Corpuscular Hemoglobin 25 pg Mean Corpuscular Hemoglobin Concent 32 g/dL Red Cell Distribution Width 18.3 % Platelet Count 320 x10^3/uL Neutrophils (%) (Auto) 67 % Lymphocytes (%) (Auto) 21 % Monocytes (%) (Auto) 9 % Eosinophils (%) (Auto) 3 % Basophils (%) (Auto) 0 % Neutrophils # (Auto) 3.5 x10^3uL Lymphocytes # (Auto) 1.1 x10^3/uL Monocytes # (Auto) 0.4 x10^3/uL Eosinophils # (Auto) 0.2 x10^3/uL Basophils # (Auto) 0.0 x10^3/uL Sodium Level 142 mmol/L Potassium Level 3.6 mmol/L Chloride Level 104 mmol/L Carbon Dioxide Level 29 mmol/L Anion Gap 9 Blood Urea Nitrogen 22 mg/dL Creatinine 1.0 mg/dL Estimated GFR (Cockcroft-Gault) 75.5 BUN/Creatinine Ratio 22 Glucose Level 137 mg/dL Calcium Level 9.1 mg/dL Total Bilirubin 0.2 mg/dL Aspartate Amino Transf (AST/SGOT) 8 U/L Alanine Aminotransferase (ALT/SGPT) 15 U/L Alkaline Phosphatase 57 U/L Total Protein 7.4 g/dL Albumin 3.0 g/dL Albumin/Globulin Ratio 0.7 Current Medications Medications (Trade) Dose Ordered Sig/Angelique Route PRN Reason Start Time Stop Time Status Last Admin Dose Admin Acetaminophen (Tylenol) 650 mg PRN Q6HRS PRN PO PAIN 09/03/20 10:15 Cancel Divalproex Sodium (Depakote Er) 500 mg BID PO 09/03/20 21:00 09/04/20 19:40 DC 09/04/20 08:32 Docusate Sodium (Colace) 100 mg BID PO 09/03/20 21:00 09/12/20 18:12 DC 09/11/20 20:00 Donepezil HCl (Aricept) 10 mg QHS PO 09/03/20 21:00 09/14/20 19:33 Metformin HCl (Glucophage) 500 mg BIDWMEALS PO 09/03/20 17:00 09/15/20 07:50 Pantoprazole Sodium (Protonix) 40 mg DAILY PO 09/04/20 09:00 09/15/20 07:51 Quetiapine Fumarate (SEROquel) 300 mg HS PO 09/03/20 21:00 09/14/20 19:33 Memantine (Namenda) 10 mg BID PO 09/03/20 21:00 09/15/20 07:50 Citalopram Hydrobromide (CeleXA) 40 mg DAILY PO 09/04/20 09:00 09/08/20 16:40 DC 09/08/20 09:22 Acetaminophen (Tylenol) 650 mg PRN Q6HRS PRN PO MILD PAIN / TEMP > 100.3'F 09/03/20 10:30 09/04/20 14:45 Multi-Ingredient Ointment (Analgesic [place]) 1 helen PRN QID PRN TP MUSCLE PAIN 09/03/20 10:30 Al Hydroxide/Mg Hydroxide (Mylanta Plus Xs) 15 ml PRN AFTMEALHC PRN PO DYSPEPSIA 09/03/20 10:30 Magnesium Hydroxide (Milk Of Magnesia) 2,400 mg PRN QHS PRN PO CONSTIPATION 09/03/20 10:30 Olanzapine (ZyPREXA ZYDIS) 5 mg PRN Q2HR PRN PO PSYCHOSIS 09/03/20 14:00 09/09/20 17:25 Bacitracin (Bacitracin Topical Pkt) 1 pkt BID TP 09/04/20 21:00 09/15/20 07:51 Divalproex Sodium (Depakote Sprinkles) 500 mg BID PO 09/04/20 21:00 09/15/20 07:51 Aripiprazole (Abilify) 10 mg DAILY PO 09/05/20 09:00 09/09/20 18:17 DC 09/09/20 09:56 Sertraline HCl (Zoloft) 50 mg DAILY PO 09/09/20 09:00 09/15/20 07:51 Aripiprazole (Abilify) 20 mg DAILY PO 09/10/20 09:00 09/12/20 19:00 DC 09/12/20 07:59 Aripiprazole (Abilify) 30 mg DAILY PO 09/13/20 09:00 09/14/20 11:05 DC 09/14/20 08:31 Nitrofurantoin Macrocrystals (Macrobid) 100 mg BID PO 09/11/20 09:00 09/18/20 08:59 09/15/20 07:50 Aripiprazole (Abilify) 20 mg DAILY PO 09/15/20 09:00 09/15/20 07:50 Benztropine Mesylate (Cogentin) 0.5 mg HS PO 09/14/20 21:00 09/14/20 19:33 Benztropine Mesylate (Cogentin) 0.5 mg 1X ONCE PO 09/14/20 11:30 09/14/20 11:31 DC 09/14/20 11:20 Ropinirole HCl (Requip) 0.5 mg TID PO 09/14/20 21:30 09/15/20 07:50 Current Medications Medications (Trade) Dose Ordered Sig/Angelique Route PRN Reason Start Time Stop Time Status Last Admin Dose Admin Aripiprazole (Abilify) 20 mg DAILY PO 09/15/20 09:00 09/15/20 07:50 Benztropine Mesylate (Cogentin) 0.5 mg HS PO 09/14/20 21:00 09/14/20 19:33 Benztropine Mesylate (Cogentin) 0.5 mg 1X ONCE PO 09/14/20 11:30 09/14/20 11:31 DC 09/14/20 11:20 Ropinirole HCl (Requip) 0.5 mg TID PO 09/14/20 21:30 09/15/20 07:50 I have reviewed the current psychotropics carefully including drug interactions. Risk benefit ratio favors no change other than as noted in my dictated progress note. Diagnosis: Problems: (1) Schizoaffective disorder, bipolar type (2) Impulse control disorder, unspecified (3) Anxiety disorder, unspecified (4) Bipolar disorder, curr episode mixed, severe, with psychotic features (5) Major neurocognitive disorder with Lewy bodies, probable, with behavioral disturbance TOBI PADGETT MD Sep 15, 2020 07:59
[2020-09-15 16:14] VITALS: BP 155/88
[2020-09-15] MEDS: QUEtiapine 100 MG TABLET. PO SCH (20:30)
[2020-09-15] MEDS: DONEPEZIL HCL 10 MG TABLET PO SCH (20:31)
[2020-09-15] MEDS: BENZTROPINE MESYLATE 0.5 MG TABLET PO SCH (20:31)
--- NOTE | 2020-09-15 20:50 | PDOC ---
Exam Note: Leonel Note: Please also refer to the separate dictated note~for this date of service dictated separately.~Patient seen individually. Discussed the patient with Nursing staff reviewed the chart.~Reviewed interim history and current functioning. Reviewed vital signs,~Labs/ Radiology~and current medications noted below. Continue current treatment with the changes noted in the dictated addendum note Assessment: Vital Signs/I&O: Vital Signs Date Time Temp Pulse Resp B/P (MAP) Pulse Ox O2 Delivery O2 Flow Rate FiO2 09/15/20 16:14 98.0 94 20 155/88 (110) 96 Room Air I & O 09/14/20 09/14/20 09/15/20 15:00 23:00 07:00 Intake Total 440 ml 320 ml Balance 440 ml 320 ml Labs: Laboratory Tests Test 09/15/20 06:30 09/15/20 08:06 White Blood Count 5.2 x10^3/uL (4.0-11.0) Red Blood Count 4.28 x10^6/uL (4.30-5.70) L Hemoglobin 10.7 g/dL (13.0-17.5) L Hematocrit 34.0 % (39.0-53.0) L Mean Corpuscular Volume 80 fL (79-100) Mean Corpuscular Hemoglobin 25 pg (25-35) Mean Corpuscular Hemoglobin Concent 32 g/dL (31-37) Red Cell Distribution Width 18.3 % (11.5-14.5) H Platelet Count 320 x10^3/uL (140-400) Neutrophils (%) (Auto) 67 % (31-73) Lymphocytes (%) (Auto) 21 % (24-48) L Monocytes (%) (Auto) 9 % (0-9) Eosinophils (%) (Auto) 3 % (0-3) Basophils (%) (Auto) 0 % (0-3) Neutrophils # (Auto) 3.5 x10^3uL (1.8-7.7) Lymphocytes # (Auto) 1.1 x10^3/uL (1.0-4.8) Monocytes # (Auto) 0.4 x10^3/uL (0.0-1.1) Eosinophils # (Auto) 0.2 x10^3/uL (0.0-0.7) Basophils # (Auto) 0.0 x10^3/uL (0.0-0.2) Sodium Level 142 mmol/L (136-145) Potassium Level 3.6 mmol/L (3.5-5.1) Chloride Level 104 mmol/L (98-107) Carbon Dioxide Level 29 mmol/L (21-32) Anion Gap 9 (6-14) Blood Urea Nitrogen 22 mg/dL (8-26) Creatinine 1.0 mg/dL (0.7-1.3) Estimated GFR (Cockcroft-Gault) 75.5 BUN/Creatinine Ratio 22 (6-20) H Glucose Level 137 mg/dL (70-99) H Calcium Level 9.1 mg/dL (8.5-10.1) Total Bilirubin 0.2 mg/dL (0.2-1.0) Aspartate Amino Transferase (AST) 8 U/L (15-37) L Alanine Aminotransferase (ALT) 15 U/L (16-63) L Alkaline Phosphatase 57 U/L (46-116) Total Protein 7.4 g/dL (6.4-8.2) Albumin 3.0 g/dL (3.4-5.0) L Albumin/Globulin Ratio 0.7 (1.0-1.7) L Glucose (Fingerstick) 110 mg/dL (70-99) H Current Medications: Meds: Current Medications Medications (Trade) Dose Ordered Sig/Angelique Route PRN Reason Start Time Stop Time Status Last Admin Dose Admin Aripiprazole (Abilify) 20 mg DAILY PO 09/15/20 09:00 09/15/20 07:50 Benztropine Mesylate (Cogentin) 0.5 mg HS PO 09/14/20 21:00 09/15/20 20:31 Ropinirole HCl (Requip) 0.5 mg TID PO 09/14/20 21:30 09/15/20 20:31 I have reviewed the current psychotropics carefully including drug interactions. Risk benefit ratio favors no change other than as noted in my dictated progress note. Diagnosis: Problems: (1) Schizoaffective disorder, bipolar type (2) Impulse control disorder, unspecified (3) Anxiety disorder, unspecified (4) Bipolar disorder, curr episode mixed, severe, with psychotic features (5) Major neurocognitive disorder with Lewy bodies, probable, with behavioral disturbance TOBI PADGETT MD Sep 15, 2020 20:50
[2020-09-16 05:24] VITALS: BP 144/91
[2020-09-16] MEDS: metFORMIN 500 MG TABLET PO SCH ×2 (09:49→16:50)
[2020-09-16] MEDS: ARIPiprazole 10 MG TABLET PO SCH (09:50)
[2020-09-16] MEDS: DIVALPROEX 125 MG CAP.SPRINK PO SCH ×2 (09:50→19:30)
[2020-09-16] MEDS: SERTRALINE 50 MG TABLET. PO SCH (09:51)
[2020-09-16] MEDS: NITROFURANTOIN MONOHYD/M-CRYST 100 MG CAPSULE. PO SCH ×2 (09:51→19:30)
[2020-09-16] MEDS: MEMANTINE 10 MG TABLET. PO SCH ×2 (09:51→19:31)
[2020-09-16] MEDS: PANTOPRAZOLE 40 MG TABLET. PO SCH (09:51)
[2020-09-16] MEDS: BACITRACIN ZINC TOPICAL OINT PACKET. TP SCH ×2 (09:51→19:29)
[2020-09-16] MEDS: rOPINIRole 0.5 MG TABLET. PO SCH ×3 (09:51→19:31)
[2020-09-16 16:15] VITALS: BP 131/84
[2020-09-16] MEDS: DONEPEZIL HCL 10 MG TABLET PO SCH (19:31)
[2020-09-16] MEDS: BENZTROPINE MESYLATE 0.5 MG TABLET PO SCH (19:31)
[2020-09-16] MEDS: QUEtiapine 100 MG TABLET. PO SCH (19:32)
--- NOTE | 2020-09-16 21:32 | PDOC ---
Exam Note: Leonel Note: Please also refer to the separate dictated note~for this date of service dictated separately.~Patient seen individually. Discussed the patient with Nursing staff reviewed the chart.~Reviewed interim history and current functioning. Reviewed vital signs,~Labs/ Radiology~and current medications noted below. Continue current treatment with the changes noted in the dictated addendum note Assessment: Vital Signs/I&O: Vital Signs Date Time Temp Pulse Resp B/P (MAP) Pulse Ox O2 Delivery O2 Flow Rate FiO2 09/16/20 16:15 98.2 78 20 131/84 (100) 97 09/16/20 05:24 Room Air I & O 09/15/20 09/15/20 09/16/20 14:59 22:59 06:59 Intake Total 600 ml 240 ml Output Total 700 ml Balance 600 ml 240 ml -700 ml Labs: Laboratory Tests Test 09/16/20 07:16 Glucose (Fingerstick) 110 mg/dL (70-99) H Current Medications: Meds: Current Medications Medications (Trade) Dose Ordered Sig/Angelique Route PRN Reason Start Time Stop Time Status Last Admin Dose Admin Quetiapine Fumarate (SEROquel) 250 mg HS PO 09/16/20 21:00 09/16/20 19:32 I have reviewed the current psychotropics carefully including drug interactions. Risk benefit ratio favors no change other than as noted in my dictated progress note. Diagnosis: Problems: (1) Schizoaffective disorder, bipolar type (2) Impulse control disorder, unspecified (3) Anxiety disorder, unspecified (4) Bipolar disorder, curr episode mixed, severe, with psychotic features (5) Major neurocognitive disorder with Lewy bodies, probable, with behavioral disturbance TOBI PADGETT MD Sep 16, 2020 21:32
--- NOTE | 2020-09-16 23:43 | PN ---
DATE: 09/15/2020 SUBJECTIVE: The patient denies any new medical or neurological complaints. The patient stated his tremor of the right upper extremity has somewhat better since being on ropinirole; however, the nursing staff documented that as well. OBJECTIVE: GENERAL: Well-developed, well-nourished male, not in acute distress. VITAL SIGNS: Blood pressure 131/84, respiratory rate 20, pulse is 78, oxygen saturation 97%, temperature 98.2. HEENT: Normocephalic, atraumatic, otherwise unremarkable. NECK: Supple. Negative for carotid bruit, lymphadenopathy or thyromegaly. LUNGS: Clear to A and P. CARDIOVASCULAR: Regular rate and rhythm, normal S1, S2. ABDOMEN: Not tested. NEUROLOGICAL EXAM: As the patient was seen in a room and he was sitting in the chair. EXTREMITIES: Status post amputation of the left upper extremity. Otherwise, there is no pitting edema or cyanosis. NEUROLOGICAL: The patient is sitting in a wheelchair. He is alert and oriented to himself. He does not know the name of the hospital or the time. Speech is somewhat fluent. There is no language dysfunction. Memory, judgment, and abstracting thinking are poor. The patient denies hallucination. Cranial nerves are intact. No focal muscle bulk was seen. The strength was 5/5 throughout. However, the patient continues to have very mild resting tremor of the right hand. Sensory examination revealed normal pinprick and light touch senses throughout. Deep tendon reflexes were symmetric and hypoactive with absent Achilles responses. Gait not tested. IMPRESSION: 1. Longstanding history of Parkinson disease with dementia, suggestive of possible Lewy body dementia. 2. Multiple medical problems and psychiatric disorders as outlined before. RECOMMENDATIONS: 1. Continue with current medical and psychiatric care. 2. We will continue with ropinirole at 0.5 mg p.o. t.i.d. M Miriam YOUSIF MD DR: HIWOT/mikey JOB#: [id number] / [id number]
--- NOTE | 2020-09-16 23:52 | CONS ---
DATE OF CONSULTATION: 09/14/2020 NEUROLOGIC CONSULTATION REFERRING PHYSICIAN: Dr. Hernandez. REASON FOR CONSULTATION: Management of Parkinson's disease. HISTORY OF PRESENT ILLNESS: This is a 65-year-old right-handed male who was admitted on 09/03/2020 on account of worsening of his psychotic symptoms including paranoia, delusions, and behavior disturbances. The patient was diagnosed with schizoaffective disorders, bipolar disorder, depressions and anxiety disorder. Neuro consult was requested to treat the underlying tremor of the right hand. Currently, the patient is cooperative and he denies headaches, visual disturbances, nausea, vomiting, chest pain, shortness of breath or palpitation, dysarthria or dysphagia. 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 SOCIAL HISTORY: The patient is a intermediate resident. He denies smoking, alcohol drinking, or illicit drug use. FAMILY HISTORY: Noncontributory. CURRENT MEDICATIONS: Seroquel, Abilify, Cogentin, Macrobid, Zoloft, Depakote ER, pantoprazole, memantine, __, metformin, olanzapine, and Tylenol. ALLERGIES: PENICILLIN, DULOXETINE, AND RISPERIDONE. REVIEW OF SYSTEMS: A 14-point review of system was performed as mentioned above in history of present illness, otherwise unremarkable. PHYSICAL EXAMINATION: GENERAL: Well-developed, well-nourished male, not in acute distress. He weighs 77.3 kilos. VITAL SIGNS: Blood pressure 155/88, respiratory rate 18, pulse is 97 and regular, temperature 97.1, oxygen saturation 97% on room air. HEENT: Normocephalic, atraumatic, otherwise unremarkable. NECK: Supple. Negative for carotid bruit, lymphadenopathy or thyromegaly. LUNGS: Clear to A and P. CARDIOVASCULAR: Regular rate and rhythm, normal S1, S2. ABDOMEN: Soft. Bowel sounds positive. 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 The patient is sitting in wheelchair. NEUROLOGICAL EXAMINATION: MENTAL STATUS: The patient is alert to himself. He is oriented to place. He is disoriented to time. Speech is somewhat fluent. There is no language dysfunction. Memory, judgment, and abstracting thinking are poor. The patient denies hallucination at this time; however, it has been reported that he has been having hallucination intermittently since admission. CRANIAL NERVES: Visual weeks appeared to be intact. The pupils are reactive to light and accommodation. Extraocular movements are intact. There is no nystagmus. There is no facial asymmetry. The hearing is intact bilaterally. The palate is elevated symmetrically. Sternocleidomastoid muscles are powerful bilaterally. MOTOR EXAMINATION: No focal muscle bulk was seen. The strength was 5/5 throughout the right upper extremity and bilateral lower extremities. SENSORY EXAMINATION: Revealed normal pinprick and light touch senses throughout. Deep tendon reflexes were symmetric and hypoactive with absent Achilles responses. GAIT: Not tested. LABORATORY DATA: From 09/08/2020 revealed white blood cells of 7.2, hemoglobin 10.2, hematocrit 32, and platelet count 249,000. Chemistry from 09/08/2020 revealed sodium of 140, potassium 3.9, chloride 104, CO2 of 29, BUN 19, creatinine 0.9, and calcium 8.8. Urinalysis from 09/07/2020 revealed positive nitrite, large urinary leukocyte esterase with many white blood cells. Valproic acid from 09/08/2020 was 57. DIAGNOSTIC DATA: Nonenhanced head CT scan revealed no evidence of acute intracranial process. IMPRESSION: 1. Longstanding history of Parkinson disease with intermittent tremor of the distal right upper extremity at rest with history of Lewy body dementia should be considered in the differential diagnosis. 2. Multiple psychiatric problems include schizoaffective disorders, bipolar disorders, depression, anxiety disorders and dementia. 3. 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 RECOMMENDATIONS: 1. Continue with current medical and psychiatric care. 2. For resting tremor of the right upper extremity and longstanding history of Parkinson disease, will start the patient on small dose of ropinirole at 0.5 mg t.i.d. M Miriam YOUSIF MD DR: HIWOT/mikey JOB#: [id number] / [id number]
[2020-09-17 06:32] VITALS: BP 144/85
--- NOTE | 2020-09-17 07:40 | PDOC ---
Exam Note: Leonel Note: This note is a late entry for 09/15/2020 covers elements not covered in my initial note. Subjective: The patient was seen individually in the evening of 09/15/2020 with Garry MERCHANT, discussed and reviewed the chart. He slept 6-3/4 hours previous night. Overall the patient is doing a little better. He seems more organized, confused, spending time in the dayroom. He does have hand tremor. We have reduced Abilify and added Cogentin and may have to reduce Abilify further depending on his progress. Review of Systems: Ambulation impaired in wheelchair. No CV, , pulmonary, eye system symptoms on review. Mental Status Exam: The patient is oriented to himself. He is not very verbally interactive, mumbling under his breath but less psychotic. Insight and judgment, recent and remote memory, attention and concentration, fund of knowledge is consistent with his diagnosis. Laboratory Data: Reviewed. Impression: Schizoaffective disorder, bipolar type mixed with psychotic features. 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 Anxiety disorder unspecified. Impulse control disorder unspecified. Plan: No change from initial note. Assessment: Vital Signs/I&O: Vital Signs Date Time Temp Pulse Resp B/P (MAP) Pulse Ox O2 Delivery O2 Flow Rate FiO2 09/17/20 06:32 97.7 86 18 144/85 (104) 97 Room Air I & O 09/16/20 09/16/20 09/17/20 15:00 23:00 07:00 Intake Total 480 ml 100 ml Output Total 800 ml 400 ml Balance 480 ml -700 ml -400 ml Current Medications: Meds: Current Medications Medications (Trade) Dose Ordered Sig/Angelique Route PRN Reason Start Time Stop Time Status Last Admin Dose Admin Acetaminophen (Tylenol) 650 mg PRN Q6HRS PRN PO PAIN 09/03/20 10:15 Cancel Divalproex Sodium (Depakote Er) 500 mg BID PO 09/03/20 21:00 09/04/20 19:40 DC 09/04/20 08:32 Docusate Sodium (Colace) 100 mg BID PO 09/03/20 21:00 09/12/20 18:12 DC 09/11/20 20:00 Donepezil HCl (Aricept) 10 mg QHS PO 09/03/20 21:00 09/16/20 19:31 Metformin HCl (Glucophage) 500 mg BIDWMEALS PO 09/03/20 17:00 09/16/20 16:50 Pantoprazole Sodium (Protonix) 40 mg DAILY PO 09/04/20 09:00 09/16/20 09:51 Quetiapine Fumarate (SEROquel) 300 mg HS PO 09/03/20 21:00 09/16/20 17:51 DC 09/15/20 20:30 Memantine (Namenda) 10 mg BID PO 09/03/20 21:00 09/16/20 19:31 Citalopram Hydrobromide (CeleXA) 40 mg DAILY PO 09/04/20 09:00 09/08/20 16:40 DC 09/08/20 09:22 Acetaminophen (Tylenol) 650 mg PRN Q6HRS PRN PO MILD PAIN / TEMP > 100.3'F 09/03/20 10:30 09/04/20 14:45 Multi-Ingredient Ointment (Analgesic [place]) 1 helen PRN QID PRN TP MUSCLE PAIN 09/03/20 10:30 Al Hydroxide/Mg Hydroxide (Mylanta Plus Xs) 15 ml PRN AFTMEALHC PRN PO DYSPEPSIA 09/03/20 10:30 Magnesium Hydroxide (Milk Of Magnesia) 2,400 mg PRN QHS PRN PO CONSTIPATION 09/03/20 10:30 Olanzapine (ZyPREXA ZYDIS) 5 mg PRN Q2HR PRN PO PSYCHOSIS 09/03/20 14:00 09/09/20 17:25 Bacitracin (Bacitracin Topical Pkt) 1 pkt BID TP 09/04/20 21:00 09/16/20 19:29 Divalproex Sodium (Depakote Sprinkles) 500 mg BID PO 09/04/20 21:00 09/16/20 19:30 Aripiprazole (Abilify) 10 mg DAILY PO 09/05/20 09:00 09/09/20 18:17 DC 09/09/20 09:56 Sertraline HCl (Zoloft) 50 mg DAILY PO 09/09/20 09:00 09/16/20 09:51 Aripiprazole (Abilify) 20 mg DAILY PO 09/10/20 09:00 09/12/20 19:00 DC 09/12/20 07:59 Aripiprazole (Abilify) 30 mg DAILY PO 09/13/20 09:00 09/14/20 11:05 DC 09/14/20 08:31 Nitrofurantoin Macrocrystals (Macrobid) 100 mg BID PO 09/11/20 09:00 09/18/20 08:59 09/16/20 19:30 Aripiprazole (Abilify) 20 mg DAILY PO 09/15/20 09:00 09/16/20 09:50 Benztropine Mesylate (Cogentin) 0.5 mg HS PO 09/14/20 21:00 09/16/20 19:31 Benztropine Mesylate (Cogentin) 0.5 mg 1X ONCE PO 09/14/20 11:30 09/14/20 11:31 DC 09/14/20 11:20 Ropinirole HCl (Requip) 0.5 mg TID PO 09/14/20 21:30 09/16/20 19:31 Quetiapine Fumarate (SEROquel) 250 mg HS PO 09/16/20 21:00 09/16/20 19:32 Current Medications Medications (Trade) Dose Ordered Sig/Angelique Route PRN Reason Start Time Stop Time Status Last Admin Dose Admin Quetiapine Fumarate (SEROquel) 250 mg HS PO 09/16/20 21:00 09/16/20 19:32 I have reviewed the current psychotropics carefully including drug interactions. Risk benefit ratio favors no change other than as noted in my dictated progress note. Diagnosis: Problems: (1) Schizoaffective disorder, bipolar type (2) Impulse control disorder, unspecified (3) Anxiety disorder, unspecified (4) Bipolar disorder, curr episode mixed, severe, with psychotic features (5) Major neurocognitive disorder with Lewy bodies, probable, with behavioral disturbance TOBI PADGETT MD Sep 17, 2020 07:40
--- NOTE | 2020-09-17 07:58 | PDOC ---
Exam Note: Leonel Note: This note is a late entry for 09/16/2020 covers elements not covered in my initial note. Subjective: The patient was seen individually in the evening of 09/16/2020 with Lisa MERCHANT, discussed and reviewed the chart. He slept 9 hours previous night. He has been better. Staff explained everything they are doing to him or want him to do. He has been less paranoid, not talking about a fire and people being burnt. He still has tremors and we might have to drop the Abilify by tomorrow and increase Cogentin as needed. Review of Systems: Ambulation impaired in wheelchair. No CV, , pulmonary, eye system symptoms on review. Mental Status Exam: The patient is oriented to himself. He is not very verbally interactive, again mumbling under his breath. Insight and judgment, recent and remote memory, attention and concentration, fund of knowledge is consistent with his diagnosis. Laboratory Data: Reviewed. Impression: Schizoaffective disorder, bipolar type mixed with psychotic features. 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 Anxiety disorder unspecified. Impulse control disorder unspecified. Plan: We will go ahead and reduce the Seroquel from 300 mg h.s. to 250 mg h.s. Continue Abilify and rest of the psychotropics unchanged for now. Assessment: Vital Signs/I&O: Vital Signs Date Time Temp Pulse Resp B/P (MAP) Pulse Ox O2 Delivery O2 Flow Rate FiO2 09/17/20 06:32 97.7 86 18 144/85 (104) 97 Room Air I & O 09/16/20 09/16/20 09/17/20 14:59 22:59 06:59 Intake Total 480 ml 100 ml Output Total 800 ml 400 ml Balance 480 ml -700 ml -400 ml Labs: Laboratory Tests Test 09/17/20 07:41 Glucose (Fingerstick) 119 mg/dL (70-99) H Current Medications: Meds: Laboratory Tests Test 09/17/20 07:41 Glucose (Fingerstick) 119 mg/dL Current Medications Medications (Trade) Dose Ordered Sig/Angelique Route PRN Reason Start Time Stop Time Status Last Admin Dose Admin Acetaminophen (Tylenol) 650 mg PRN Q6HRS PRN PO PAIN 09/03/20 10:15 Cancel Divalproex Sodium (Depakote Er) 500 mg BID PO 09/03/20 21:00 09/04/20 19:40 DC 09/04/20 08:32 Docusate Sodium (Colace) 100 mg BID PO 09/03/20 21:00 09/12/20 18:12 DC 09/11/20 20:00 Donepezil HCl (Aricept) 10 mg QHS PO 09/03/20 21:00 09/16/20 19:31 Metformin HCl (Glucophage) 500 mg BIDWMEALS PO 09/03/20 17:00 09/16/20 16:50 Pantoprazole Sodium (Protonix) 40 mg DAILY PO 09/04/20 09:00 09/16/20 09:51 Quetiapine Fumarate (SEROquel) 300 mg HS PO 09/03/20 21:00 09/16/20 17:51 DC 09/15/20 20:30 Memantine (Namenda) 10 mg BID PO 09/03/20 21:00 09/16/20 19:31 Citalopram Hydrobromide (CeleXA) 40 mg DAILY PO 09/04/20 09:00 09/08/20 16:40 DC 09/08/20 09:22 Acetaminophen (Tylenol) 650 mg PRN Q6HRS PRN PO MILD PAIN / TEMP > 100.3'F 09/03/20 10:30 09/04/20 14:45 Multi-Ingredient Ointment (Analgesic [place]) 1 helen PRN QID PRN TP MUSCLE PAIN 09/03/20 10:30 Al Hydroxide/Mg Hydroxide (Mylanta Plus Xs) 15 ml PRN AFTMEALHC PRN PO DYSPEPSIA 09/03/20 10:30 Magnesium Hydroxide (Milk Of Magnesia) 2,400 mg PRN QHS PRN PO CONSTIPATION 09/03/20 10:30 Olanzapine (ZyPREXA ZYDIS) 5 mg PRN Q2HR PRN PO PSYCHOSIS 09/03/20 14:00 09/09/20 17:25 Bacitracin (Bacitracin Topical Pkt) 1 pkt BID TP 09/04/20 21:00 09/16/20 19:29 Divalproex Sodium (Depakote Sprinkles) 500 mg BID PO 09/04/20 21:00 09/16/20 19:30 Aripiprazole (Abilify) 10 mg DAILY PO 09/05/20 09:00 09/09/20 18:17 DC 09/09/20 09:56 Sertraline HCl (Zoloft) 50 mg DAILY PO 09/09/20 09:00 09/16/20 09:51 Aripiprazole (Abilify) 20 mg DAILY PO 09/10/20 09:00 09/12/20 19:00 DC 09/12/20 07:59 Aripiprazole (Abilify) 30 mg DAILY PO 09/13/20 09:00 09/14/20 11:05 DC 09/14/20 08:31 Nitrofurantoin Macrocrystals (Macrobid) 100 mg BID PO 09/11/20 09:00 09/18/20 08:59 09/16/20 19:30 Aripiprazole (Abilify) 20 mg DAILY PO 09/15/20 09:00 09/16/20 09:50 Benztropine Mesylate (Cogentin) 0.5 mg HS PO 09/14/20 21:00 09/16/20 19:31 Benztropine Mesylate (Cogentin) 0.5 mg 1X ONCE PO 09/14/20 11:30 09/14/20 11:31 DC 09/14/20 11:20 Ropinirole HCl (Requip) 0.5 mg TID PO 09/14/20 21:30 09/16/20 19:31 Quetiapine Fumarate (SEROquel) 250 mg HS PO 09/16/20 21:00 09/16/20 19:32 Current Medications Medications (Trade) Dose Ordered Sig/Angelique Route PRN Reason Start Time Stop Time Status Last Admin Dose Admin Quetiapine Fumarate (SEROquel) 250 mg HS PO 09/16/20 21:00 09/16/20 19:32 I have reviewed the current psychotropics carefully including drug interactions. Risk benefit ratio favors no change other than as noted in my dictated progress note. Diagnosis: Problems: (1) Schizoaffective disorder, bipolar type (2) Impulse control disorder, unspecified (3) Anxiety disorder, unspecified (4) Bipolar disorder, curr episode mixed, severe, with psychotic features (5) Major neurocognitive disorder with Lewy bodies, probable, with behavioral disturbance TOBI PADGETT MD Sep 17, 2020 07:58
[2020-09-17] MEDS: metFORMIN 500 MG TABLET PO SCH ×2 (08:55→17:11)
[2020-09-17] MEDS: DIVALPROEX 125 MG CAP.SPRINK PO SCH ×2 (08:55→19:25)
[2020-09-17] MEDS: ARIPiprazole 10 MG TABLET PO SCH (08:55)
[2020-09-17] MEDS: SERTRALINE 50 MG TABLET. PO SCH (08:57)
[2020-09-17] MEDS: PANTOPRAZOLE 40 MG TABLET. PO SCH (08:57)
[2020-09-17] MEDS: BACITRACIN ZINC TOPICAL OINT PACKET. TP SCH ×2 (08:57→19:24)
[2020-09-17] MEDS: MEMANTINE 10 MG TABLET. PO SCH ×2 (08:57→19:26)
[2020-09-17] MEDS: NITROFURANTOIN MONOHYD/M-CRYST 100 MG CAPSULE. PO SCH ×2 (08:57→19:25)
[2020-09-17] MEDS: rOPINIRole 0.5 MG TABLET. PO SCH ×3 (08:57→19:26)
[2020-09-17 16:17] VITALS: BP 116/73
[2020-09-17] MEDS: BENZTROPINE MESYLATE 0.5 MG TABLET PO SCH (19:24)
[2020-09-17] MEDS: DONEPEZIL HCL 10 MG TABLET PO SCH (19:24)
[2020-09-17] MEDS: QUEtiapine 100 MG TABLET. PO SCH (19:26)
[2020-09-17] MEDS: BENZTROPINE MESYLATE 1 MG TABLET PO SCH (21:00)
--- NOTE | 2020-09-17 21:04 | PDOC ---
Exam Note: Leonel Note: Please also refer to the separate dictated note~for this date of service dictated separately.~Patient seen individually. Discussed the patient with Nursing staff reviewed the chart.~Reviewed interim history and current functioning. Reviewed vital signs,~Labs/ Radiology~and current medications noted below. Continue current treatment with the changes noted in the dictated addendum note Assessment: Vital Signs/I&O: Vital Signs Date Time Temp Pulse Resp B/P (MAP) Pulse Ox O2 Delivery O2 Flow Rate FiO2 09/17/20 16:17 97.4 68 18 116/73 (87) 97 09/17/20 06:32 Room Air I & O 09/16/20 09/16/20 09/17/20 14:59 22:59 06:59 Intake Total 480 ml 100 ml Output Total 800 ml 400 ml Balance 480 ml -700 ml -400 ml Labs: Laboratory Tests Test 09/17/20 07:41 Glucose (Fingerstick) 119 mg/dL (70-99) H Current Medications: Meds: Laboratory Tests Test 09/17/20 07:41 Glucose (Fingerstick) 119 mg/dL Current Medications Medications (Trade) Dose Ordered Sig/Angelique Route PRN Reason Start Time Stop Time Status Last Admin Dose Admin Acetaminophen (Tylenol) 650 mg PRN Q6HRS PRN PO PAIN 09/03/20 10:15 Cancel Divalproex Sodium (Depakote Er) 500 mg BID PO 09/03/20 21:00 09/04/20 19:40 DC 09/04/20 08:32 Docusate Sodium (Colace) 100 mg BID PO 09/03/20 21:00 09/12/20 18:12 DC 09/11/20 20:00 Donepezil HCl (Aricept) 10 mg QHS PO 09/03/20 21:00 09/17/20 19:24 Metformin HCl (Glucophage) 500 mg BIDWMEALS PO 09/03/20 17:00 09/17/20 17:11 Pantoprazole Sodium (Protonix) 40 mg DAILY PO 09/04/20 09:00 09/17/20 08:57 Quetiapine Fumarate (SEROquel) 300 mg HS PO 09/03/20 21:00 09/16/20 17:51 DC 09/15/20 20:30 Memantine (Namenda) 10 mg BID PO 09/03/20 21:00 09/17/20 19:26 Citalopram Hydrobromide (CeleXA) 40 mg DAILY PO 09/04/20 09:00 09/08/20 16:40 DC 09/08/20 09:22 Acetaminophen (Tylenol) 650 mg PRN Q6HRS PRN PO MILD PAIN / TEMP > 100.3'F 09/03/20 10:30 09/04/20 14:45 Multi-Ingredient Ointment (Analgesic [place]) 1 helen PRN QID PRN TP MUSCLE PAIN 09/03/20 10:30 Al Hydroxide/Mg Hydroxide (Mylanta Plus Xs) 15 ml PRN AFTMEALHC PRN PO DYSPEPSIA 09/03/20 10:30 Magnesium Hydroxide (Milk Of Magnesia) 2,400 mg PRN QHS PRN PO CONSTIPATION 09/03/20 10:30 Olanzapine (ZyPREXA ZYDIS) 5 mg PRN Q2HR PRN PO PSYCHOSIS 09/03/20 14:00 09/09/20 17:25 Bacitracin (Bacitracin Topical Pkt) 1 pkt BID TP 09/04/20 21:00 09/17/20 19:24 Divalproex Sodium (Depakote Sprinkles) 500 mg BID PO 09/04/20 21:00 09/17/20 19:25 Aripiprazole (Abilify) 10 mg DAILY PO 09/05/20 09:00 09/09/20 18:17 DC 09/09/20 09:56 Sertraline HCl (Zoloft) 50 mg DAILY PO 09/09/20 09:00 09/17/20 08:57 Aripiprazole (Abilify) 20 mg DAILY PO 09/10/20 09:00 09/12/20 19:00 DC 09/12/20 07:59 Aripiprazole (Abilify) 30 mg DAILY PO 09/13/20 09:00 09/14/20 11:05 DC 09/14/20 08:31 Nitrofurantoin Macrocrystals (Macrobid) 100 mg BID PO 09/11/20 09:00 09/18/20 08:59 09/17/20 19:25 Aripiprazole (Abilify) 20 mg DAILY PO 09/15/20 09:00 09/17/20 20:21 DC 09/17/20 08:55 Benztropine Mesylate (Cogentin) 0.5 mg HS PO 09/14/20 21:00 09/17/20 20:21 DC 09/17/20 19:24 Benztropine Mesylate (Cogentin) 0.5 mg 1X ONCE PO 09/14/20 11:30 09/14/20 11:31 DC 09/14/20 11:20 Ropinirole HCl (Requip) 0.5 mg TID PO 09/14/20 21:30 09/17/20 19:26 Quetiapine Fumarate (SEROquel) 250 mg HS PO 09/16/20 21:00 09/17/20 19:26 Aripiprazole (Abilify) 15 mg DAILY PO 09/18/20 09:00 Benztropine Mesylate (Cogentin) 1 mg HS PO 09/17/20 21:00 I have reviewed the current psychotropics carefully including drug interactions. Risk benefit ratio favors no change other than as noted in my dictated progress note. Diagnosis: Problems: (1) Schizoaffective disorder, bipolar type (2) Impulse control disorder, unspecified (3) Anxiety disorder, unspecified (4) Bipolar disorder, curr episode mixed, severe, with psychotic features (5) Major neurocognitive disorder with Lewy bodies, probable, with behavioral disturbance TOBI PADGETT MD Sep 17, 2020 21:04
[2020-09-18 06:25] VITALS: BP 145/90
--- NOTE | 2020-09-18 08:30 | PDOC ---
Exam Note: Leonel Note: This note is a late entry for 09/17/2020 covers elements not covered in my initial note. Subjective: The patient was seen individually in the evening of 09/17/2020 with Lisa MERCHANT, discussed and reviewed the chart. He slept 6-1/2 hours previous night. He did well previous night and during the day today. He does have some tremors. We have reduced the Abilify and we will reduce it further from 20 mg a day to 15 mg a day due to the extrapyramidal side effects being caused by it and the tremors worsening and increase Cogentin from 0.5 mg a day to 1 mg a day. Review of Systems: Ambulation impaired in wheelchair. No CV, , pulmonary, eye system symptoms on review. Mental Status Exam: The patient is oriented to himself. Insight and judgment, recent and remote memory, attention and concentration, fund of knowledge is consistent with his diagnosis. Laboratory Data: Reviewed. Impression: Schizoaffective disorder, bipolar type mixed with psychotic features. 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 Anxiety disorder unspecified. Impulse control disorder unspecified. Plan: As noted above medication changes. Assessment: Vital Signs/I&O: Vital Signs Date Time Temp Pulse Resp B/P (MAP) Pulse Ox O2 Delivery O2 Flow Rate FiO2 09/18/20 06:25 97.2 97 18 145/90 (108) 94 Room Air I & O 09/17/20 09/17/20 09/18/20 15:00 23:00 07:00 Intake Total 600 ml 600 ml Output Total 600 ml 400 ml Balance 600 ml 0 ml -400 ml Labs: Laboratory Tests Test 09/18/20 07:41 Glucose (Fingerstick) 146 mg/dL (70-99) H Current Medications: Meds: Laboratory Tests Test 09/18/20 07:41 Glucose (Fingerstick) 146 mg/dL Current Medications Medications (Trade) Dose Ordered Sig/Angelique Route PRN Reason Start Time Stop Time Status Last Admin Dose Admin Acetaminophen (Tylenol) 650 mg PRN Q6HRS PRN PO PAIN 09/03/20 10:15 Cancel Divalproex Sodium (Depakote Er) 500 mg BID PO 09/03/20 21:00 09/04/20 19:40 DC 09/04/20 08:32 Docusate Sodium (Colace) 100 mg BID PO 09/03/20 21:00 09/12/20 18:12 DC 09/11/20 20:00 Donepezil HCl (Aricept) 10 mg QHS PO 09/03/20 21:00 09/17/20 19:24 Metformin HCl (Glucophage) 500 mg BIDWMEALS PO 09/03/20 17:00 09/17/20 17:11 Pantoprazole Sodium (Protonix) 40 mg DAILY PO 09/04/20 09:00 09/17/20 08:57 Quetiapine Fumarate (SEROquel) 300 mg HS PO 09/03/20 21:00 09/16/20 17:51 DC 09/15/20 20:30 Memantine (Namenda) 10 mg BID PO 09/03/20 21:00 09/17/20 19:26 Citalopram Hydrobromide (CeleXA) 40 mg DAILY PO 09/04/20 09:00 09/08/20 16:40 DC 09/08/20 09:22 Acetaminophen (Tylenol) 650 mg PRN Q6HRS PRN PO MILD PAIN / TEMP > 100.3'F 09/03/20 10:30 09/04/20 14:45 Multi-Ingredient Ointment (Analgesic [place]) 1 helen PRN QID PRN TP MUSCLE PAIN 09/03/20 10:30 Al Hydroxide/Mg Hydroxide (Mylanta Plus Xs) 15 ml PRN AFTMEALHC PRN PO DYSPEPSIA 09/03/20 10:30 Magnesium Hydroxide (Milk Of Magnesia) 2,400 mg PRN QHS PRN PO CONSTIPATION 09/03/20 10:30 Olanzapine (ZyPREXA ZYDIS) 5 mg PRN Q2HR PRN PO PSYCHOSIS 09/03/20 14:00 09/09/20 17:25 Bacitracin (Bacitracin Topical Pkt) 1 pkt BID TP 09/04/20 21:00 09/17/20 19:24 Divalproex Sodium (Depakote Sprinkles) 500 mg BID PO 09/04/20 21:00 09/17/20 19:25 Aripiprazole (Abilify) 10 mg DAILY PO 09/05/20 09:00 09/09/20 18:17 DC 09/09/20 09:56 Sertraline HCl (Zoloft) 50 mg DAILY PO 09/09/20 09:00 09/17/20 08:57 Aripiprazole (Abilify) 20 mg DAILY PO 09/10/20 09:00 09/12/20 19:00 DC 09/12/20 07:59 Aripiprazole (Abilify) 30 mg DAILY PO 09/13/20 09:00 09/14/20 11:05 DC 09/14/20 08:31 Nitrofurantoin Macrocrystals (Macrobid) 100 mg BID PO 09/11/20 09:00 09/18/20 08:59 09/17/20 19:25 Aripiprazole (Abilify) 20 mg DAILY PO 09/15/20 09:00 09/17/20 20:21 DC 09/17/20 08:55 Benztropine Mesylate (Cogentin) 0.5 mg HS PO 09/14/20 21:00 09/17/20 20:21 DC 09/17/20 19:24 Benztropine Mesylate (Cogentin) 0.5 mg 1X ONCE PO 09/14/20 11:30 09/14/20 11:31 DC 09/14/20 11:20 Ropinirole HCl (Requip) 0.5 mg TID PO 09/14/20 21:30 09/17/20 19:26 Quetiapine Fumarate (SEROquel) 250 mg HS PO 09/16/20 21:00 09/17/20 19:26 Aripiprazole (Abilify) 15 mg DAILY PO 09/18/20 09:00 Benztropine Mesylate (Cogentin) 1 mg HS PO 09/17/20 21:00 I have reviewed the current psychotropics carefully including drug interactions. Risk benefit ratio favors no change other than as noted in my dictated progress note. Diagnosis: Problems: (1) Schizoaffective disorder, bipolar type (2) Impulse control disorder, unspecified (3) Anxiety disorder, unspecified (4) Bipolar disorder, curr episode mixed, severe, with psychotic features (5) Major neurocognitive disorder with Lewy bodies, probable, with behavioral disturbance TOBI PADGETT MD Sep 18, 2020 08:30
[2020-09-18] MEDS: PANTOPRAZOLE 40 MG TABLET. PO SCH (08:57)
[2020-09-18] MEDS: DIVALPROEX 125 MG CAP.SPRINK PO SCH ×2 (08:57→19:17)
[2020-09-18] MEDS: metFORMIN 500 MG TABLET PO SCH ×2 (08:57→17:21)
[2020-09-18] MEDS: MEMANTINE 10 MG TABLET. PO SCH ×2 (08:57→19:17)
[2020-09-18] MEDS: ARIPiprazole 5 MG TABLET PO SCH (08:57)
[2020-09-18] MEDS: rOPINIRole 0.5 MG TABLET. PO SCH ×3 (08:58→19:17)
[2020-09-18] MEDS: SERTRALINE 50 MG TABLET. PO SCH (08:58)
[2020-09-18] MEDS: BACITRACIN ZINC TOPICAL OINT PACKET. TP SCH ×2 (08:58→19:18)
--- NOTE | 2020-09-18 12:48 | TX PLAN ---
Interdisciplinary Tx Plan Admission Information Sep 03, 2020 at 09:40 Legal Status (on Admission): Voluntary DPOA/Guardian Name: Legal Guardian/Sister-Candice Turner Contact Other Contact Name: Land Department Head-Geena Other Contact Verified Code Status: Full Code Allergies: Coded Allergies: Penicillins (Verified Allergy, Intermediate, 03/16/15) duloxetine (Verified Allergy, Intermediate, 03/16/15) risperidone (Verified Allergy, Intermediate, 03/16/15) Diagnoses Primary Diagnosis: Schizoaffective disorder, bipolar type, mixed with psychotic features; major neurocognitive disorder, Lewy body with delusion, behavioral disturbance; anxiety disorder, unspecified; impulse control disorder, unspecified. Reasons for Admission: Aggressive, Delusions, Agitated, Sig. Change Appetite, Combative, Confusion/Disoriented Problem in Patient's Words: Per guardian/sister, pt gets really bad UTIs. "He can be very combative and agitated when he has UTIs. He has a history of having problematic behaviors especially when he has the UTIs." Additional Admission Comments: Per intake record, pt has been agitated, combative with staff, showing manic behavior, threatening staff, decreased food intake, resists cares, thinks everyone is going to burn to . Problems Active Problems: Agitation, irritable, verbally aggressive, threatening Inactive Problems: None noted at this time. Pt Strengths/Limitations Ability for [place]: Poor Cognitive Functioning/Ability: Poor Communication Skills/Ability: Fair Financial Resources: Fair Insight/Judgement: Poor Intellectual Ability: Poor Physical Health: Poor Social Skills: Fair Stability in Family: Fair Stability in School/Work: Poor Verbal Skills: Fair Discharge Criteria Discharge Criteria: Adequate arrangements @DC, Verbal commit med comply, Improved behavior Other Discharge Comments: None noted at this time. Preliminary Discharge Plan Preliminary DC Plan: Memory Care Special Precautions Special Precautions: Agitation/Assault Fall Risk: Moderate Initial D/C Plan Return to [facility]. Identified Discharge Needs: None at this time Currently Utilized Resources Currently Utilized Resources/P: PCP-Dr. Lr Guardian/Sister-Candice Turner Living Facility-[facility] Referrals Community Resources: None noted at this time Identified Problems/Hx/Goals Objectives/Short-Term Goals Short Term Goals: Control abnormal behavior, Dec. Aggression, Dec. Hallucination/Delus, Improved Social Skills, Medication Stabilization, Monitor Med Effects, Promote Coping Skill Short Term Goals in Patient's: To control delusions/hallucination and for medications to be stablized so that agitation and combativeness is under control. Interventions/Frequency Staff Interventions/Frequency&: Psychiatry to assess pt three time per week for medication management. Nursing to assess behaviors, monitor medications, and complete 15 minute checks daily. Social work to see pt at least two times weekly to aid in return to placement. Activities to encourage pt to participate in group activities daily. 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 Social: Guaridan/Sister, Candice and her two sons. Education: Completed GED and took some college classes through [employer], , and [employer], but never graduated with a degree. He was offered a wr[employer]amuling scholarship when he attended [employer]. Community Follow-up PCP Community Provider/Family Inpu: Guardian/Sister provided information related to pt social history and past psychiatric treatment. Treatment Plan Explained Patient/Panel Saw Operator had this treatment plan explained to him/her as indicated by the signature below and has been given the opportunity to ask questions and make suggestions: Date: Patient/Panel Saw Operator Signature: Status Update Update Pt eats about 75% of his meals and averages 7.5 hours of sleep per night. Pt appears to be less paranoid and having less hallucinations. He has attended more groups and is making better eye contact. Pt is fairly quite, but will engage with simple one to two word answers. Pt still has hand tremors, but it seems to be less. His Requip will continue to be monitored for the tremors. Pt has not been combative or resistive with cares. It has been observed by staff that he will occasional hit at his amputated arm. Pt will return to facility once stable. CHAPINCITO MINOR Sep 18, 2020 12:48
[2020-09-18 16:09] VITALS: BP 129/80
[2020-09-18] MEDS: DONEPEZIL HCL 10 MG TABLET PO SCH (19:17)
[2020-09-18] MEDS: BENZTROPINE MESYLATE 1 MG TABLET PO SCH (19:17)
[2020-09-18] MEDS: QUEtiapine 100 MG TABLET. PO SCH (19:17)
--- NOTE | 2020-09-18 21:24 | PDOC ---
Exam Note: Leonel Note: Please also refer to the separate dictated note~for this date of service dictated separately.~Patient seen individually. Discussed the patient with Nursing staff reviewed the chart.~Reviewed interim history and current functioning. Reviewed vital signs,~Labs/ Radiology~and current medications noted below. Continue current treatment with the changes noted in the dictated addendum note Assessment: Vital Signs/I&O: Vital Signs Date Time Temp Pulse Resp B/P (MAP) Pulse Ox O2 Delivery O2 Flow Rate FiO2 09/18/20 16:09 98.8 93 16 129/80 (96) 96 09/18/20 06:25 Room Air I & O 09/17/20 09/17/20 09/18/20 14:59 22:59 06:59 Intake Total 600 ml 600 ml Output Total 600 ml 400 ml Balance 600 ml 0 ml -400 ml Labs: Laboratory Tests Test 09/18/20 07:41 Glucose (Fingerstick) 146 mg/dL (70-99) H Current Medications: Meds: Current Medications Medications (Trade) Dose Ordered Sig/Angelique Route PRN Reason Start Time Stop Time Status Last Admin Dose Admin Aripiprazole (Abilify) 15 mg DAILY PO 09/18/20 09:00 09/18/20 08:57 I have reviewed the current psychotropics carefully including drug interactions. Risk benefit ratio favors no change other than as noted in my dictated progress note. Diagnosis: Problems: (1) Schizoaffective disorder, bipolar type (2) Impulse control disorder, unspecified (3) Anxiety disorder, unspecified (4) Bipolar disorder, curr episode mixed, severe, with psychotic features (5) Major neurocognitive disorder with Lewy bodies, probable, with behavioral disturbance TOBI PADGETT MD Sep 18, 2020 21:24
[2020-09-19 06:18] VITALS: BP 131/74
[2020-09-19] MEDS: ARIPiprazole 5 MG TABLET PO SCH (08:38)
[2020-09-19] MEDS: MEMANTINE 10 MG TABLET. PO SCH ×2 (08:38→19:50)
[2020-09-19] MEDS: BACITRACIN ZINC TOPICAL OINT PACKET. TP SCH ×2 (08:38→19:51)
[2020-09-19] MEDS: DIVALPROEX 125 MG CAP.SPRINK PO SCH ×2 (08:39→19:50)
[2020-09-19] MEDS: PANTOPRAZOLE 40 MG TABLET. PO SCH (08:39)
[2020-09-19] MEDS: metFORMIN 500 MG TABLET PO SCH ×2 (08:39→16:58)
[2020-09-19] MEDS: SERTRALINE 50 MG TABLET. PO SCH (08:39)
[2020-09-19] MEDS: rOPINIRole 0.5 MG TABLET. PO SCH ×3 (08:39→19:50)
[2020-09-19 16:09] VITALS: BP 115/79
[2020-09-19] MEDS: BENZTROPINE MESYLATE 1 MG TABLET PO SCH (19:50)
[2020-09-19] MEDS: QUEtiapine 100 MG TABLET. PO SCH (19:50)
[2020-09-19] MEDS: DONEPEZIL HCL 10 MG TABLET PO SCH (19:50)
--- NOTE | 2020-09-19 21:06 | PDOC ---
Exam Note: Leonel Note: This note is a late entry for 09/18/2020 covers elements not covered in my initial note. Subjective: The patient was reviewed in the morning of 09/18/2020 for a treatment team meeting with Katya Weiss, Purnima Lovett and Lizbeth (social media designer), Myesha, activity therapy and Lisa MERCHANT, discussed and reviewed the chart. He slept 5 hours previous night. Appetite is 75%. He has attended two groups in the past week. He gets easily distracted in groups. Review of Systems: Ambulation impaired in wheelchair. No CV, , pulmonary, eye system symptoms on review. Mental Status Exam: The patient is oriented to himself. Insight and judgment, recent and remote memory, attention and concentration, fund of knowledge is consistent with his diagnosis. Laboratory Data: Reviewed. Impression: Schizoaffective disorder, bipolar type mixed with psychotic features. 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 Anxiety disorder unspecified. Impulse control disorder unspecified. Plan: Adjust psychotropics as clinically indicated. Assessment: Vital Signs/I&O: Vital Signs Date Time Temp Pulse Resp B/P (MAP) Pulse Ox O2 Delivery O2 Flow Rate FiO2 09/19/20 16:09 99.0 95 18 115/79 (91) 99 09/19/20 06:18 Room Air l I & O 09/18/20 09/18/20 09/19/20 15:00 23:00 07:00 Intake Total 400 ml 360 ml Output Total 650 ml Balance 400 ml 360 ml -650 ml Labs: Laboratory Tests Test 09/19/20 07:27 Glucose (Fingerstick) 113 mg/dL (70-99) H Current Medications: Meds: Laboratory Tests Test 09/19/20 07:27 Glucose (Fingerstick) 113 mg/dL Current Medications Medications (Trade) Dose Ordered Sig/Angelique Route PRN Reason Start Time Stop Time Status Last Admin Dose Admin Acetaminophen (Tylenol) 650 mg PRN Q6HRS PRN PO PAIN 09/03/20 10:15 Cancel Divalproex Sodium (Depakote Er) 500 mg BID PO 09/03/20 21:00 09/04/20 19:40 DC 09/04/20 08:32 Docusate Sodium (Colace) 100 mg BID PO 09/03/20 21:00 09/12/20 18:12 DC 09/11/20 20:00 Donepezil HCl (Aricept) 10 mg QHS PO 09/03/20 21:00 09/19/20 19:50 Metformin HCl (Glucophage) 500 mg BIDWMEALS PO 09/03/20 17:00 09/19/20 16:58 Pantoprazole Sodium (Protonix) 40 mg DAILY PO 09/04/20 09:00 09/19/20 08:39 Quetiapine Fumarate (SEROquel) 300 mg HS PO 09/03/20 21:00 09/16/20 17:51 DC 09/15/20 20:30 Memantine (Namenda) 10 mg BID PO 09/03/20 21:00 09/19/20 19:50 Citalopram Hydrobromide (CeleXA) 40 mg DAILY PO 09/04/20 09:00 09/08/20 16:40 DC 09/08/20 09:22 Acetaminophen (Tylenol) 650 mg PRN Q6HRS PRN PO MILD PAIN / TEMP > 100.3'F 09/03/20 10:30 09/04/20 14:45 Multi-Ingredient Ointment (Analgesic [place]la) 1 helen PRN QID PRN TP MUSCLE PAIN 09/03/20 10:30 Al Hydroxide/Mg Hydroxide (Mylanta Plus Xs) 15 ml PRN AFTMEALHC PRN PO DYSPEPSIA 09/03/20 10:30 Magnesium Hydroxide (Milk Of Magnesia) 2,400 mg PRN QHS PRN PO CONSTIPATION 09/03/20 10:30 Olanzapine (ZyPREXA ZYDIS) 5 mg PRN Q2HR PRN PO PSYCHOSIS 09/03/20 14:00 09/09/20 17:25 Bacitracin (Bacitracin Topical Pkt) 1 pkt BID TP 09/04/20 21:00 09/19/20 19:51 Divalproex Sodium (Depakote Sprinkles) 500 mg BID PO 09/04/20 21:00 09/19/20 19:50 Aripiprazole (Abilify) 10 mg DAILY PO 09/05/20 09:00 09/09/20 18:17 DC 09/09/20 09:56 Sertraline HCl (Zoloft) 50 mg DAILY PO 09/09/20 09:00 09/19/20 08:39 Aripiprazole (Abilify) 20 mg DAILY PO 09/10/20 09:00 09/12/20 19:00 DC 09/12/20 07:59 Aripiprazole (Abilify) 30 mg DAILY PO 09/13/20 09:00 09/14/20 11:05 DC 09/14/20 08:31 Nitrofurantoin Macrocrystals (Macrobid) 100 mg BID PO 09/11/20 09:00 09/18/20 08:59 DC 09/17/20 19:25 Aripiprazole (Abilify) 20 mg DAILY PO 09/15/20 09:00 09/17/20 20:21 DC 09/17/20 08:55 Benztropine Mesylate (Cogentin) 0.5 mg HS PO 09/14/20 21:00 09/17/20 20:21 DC 09/17/20 19:24 Benztropine Mesylate (Cogentin) 0.5 mg 1X ONCE PO 09/14/20 11:30 09/14/20 11:31 DC 09/14/20 11:20 Ropinirole HCl (Requip) 0.5 mg TID PO 09/14/20 21:30 09/19/20 19:50 Quetiapine Fumarate (SEROquel) 250 mg HS PO 09/16/20 21:00 09/19/20 19:50 Aripiprazole (Abilify) 15 mg DAILY PO 09/18/20 09:00 09/19/20 18:02 DC 09/19/20 08:38 Benztropine Mesylate (Cogentin) 1 mg HS PO 09/17/20 21:00 09/19/20 19:50 Aripiprazole (Abilify) 20 mg DAILY PO 09/20/20 09:00 I have reviewed the current psychotropics carefully including drug interactions. Risk benefit ratio favors no change other than as noted in my dictated progress note. Diagnosis: Problems: (1) Schizoaffective disorder, bipolar type (2) Impulse control disorder, unspecified (3) Anxiety disorder, unspecified (4) Bipolar disorder, curr episode mixed, severe, with psychotic features (5) Major neurocognitive disorder with Lewy bodies, probable, with behavioral disturbance TOBI PADGETT MD Sep 19, 2020 21:06
--- NOTE | 2020-09-19 21:06 | PDOC ---
Exam Note: Leonel Note: Please also refer to the separate dictated note~for this date of service dictated separately.~Patient seen individually. Discussed the patient with Nursing staff reviewed the chart.~Reviewed interim history and current functioning. Reviewed vital signs,~Labs/ Radiology~and current medications noted below. Continue current treatment with the changes noted in the dictated addendum note Assessment: Vital Signs/I&O: Vital Signs Date Time Temp Pulse Resp B/P (MAP) Pulse Ox O2 Delivery O2 Flow Rate FiO2 09/19/20 16:09 99.0 95 18 115/79 (91) 99 09/19/20 06:18 Room Air I & O 09/18/20 09/18/20 09/19/20 15:00 23:00 07:00 Intake Total 400 ml 360 ml Output Total 650 ml Balance 400 ml 360 ml -650 ml Labs: Laboratory Tests Test 09/19/20 07:27 Glucose (Fingerstick) 113 mg/dL (70-99) H Current Medications: Meds: Laboratory Tests Test 09/19/20 07:27 Glucose (Fingerstick) 113 mg/dL Current Medications Medications (Trade) Dose Ordered Sig/Angelique Route PRN Reason Start Time Stop Time Status Last Admin Dose Admin Acetaminophen (Tylenol) 650 mg PRN Q6HRS PRN PO PAIN 09/03/20 10:15 Cancel Divalproex Sodium (Depakote Er) 500 mg BID PO 09/03/20 21:00 09/04/20 19:40 DC 09/04/20 08:32 Docusate Sodium (Colace) 100 mg BID PO 09/03/20 21:00 09/12/20 18:12 DC 09/11/20 20:00 Donepezil HCl (Aricept) 10 mg QHS PO 09/03/20 21:00 09/19/20 19:50 Metformin HCl (Glucophage) 500 mg BIDWMEALS PO 09/03/20 17:00 09/19/20 16:58 Pantoprazole Sodium (Protonix) 40 mg DAILY PO 09/04/20 09:00 09/19/20 08:39 Quetiapine Fumarate (SEROquel) 300 mg HS PO 09/03/20 21:00 09/16/20 17:51 DC 09/15/20 20:30 Memantine (Namenda) 10 mg BID PO 09/03/20 21:00 09/19/20 19:50 Citalopram Hydrobromide (CeleXA) 40 mg DAILY PO 09/04/20 09:00 09/08/20 16:40 DC 09/08/20 09:22 Acetaminophen (Tylenol) 650 mg PRN Q6HRS PRN PO MILD PAIN / TEMP > 100.3'F 09/03/20 10:30 09/04/20 14:45 Multi-Ingredient Ointment (Analgesic [place]) 1 helen PRN QID PRN TP MUSCLE PAIN 09/03/20 10:30 Al Hydroxide/Mg Hydroxide (Mylanta Plus Xs) 15 ml PRN AFTMEALHC PRN PO DYSPEPSIA 09/03/20 10:30 Magnesium Hydroxide (Milk Of Magnesia) 2,400 mg PRN QHS PRN PO CONSTIPATION 09/03/20 10:30 Olanzapine (ZyPREXA ZYDIS) 5 mg PRN Q2HR PRN PO PSYCHOSIS 09/03/20 14:00 09/09/20 17:25 Bacitracin (Bacitracin Topical Pkt) 1 pkt BID TP 09/04/20 21:00 09/19/20 19:51 Divalproex Sodium (Depakote Sprinkles) 500 mg BID PO 09/04/20 21:00 09/19/20 19:50 Aripiprazole (Abilify) 10 mg DAILY PO 09/05/20 09:00 09/09/20 18:17 DC 09/09/20 09:56 Sertraline HCl (Zoloft) 50 mg DAILY PO 09/09/20 09:00 09/19/20 08:39 Aripiprazole (Abilify) 20 mg DAILY PO 09/10/20 09:00 09/12/20 19:00 DC 09/12/20 07:59 Aripiprazole (Abilify) 30 mg DAILY PO 09/13/20 09:00 09/14/20 11:05 DC 09/14/20 08:31 Nitrofurantoin Macrocrystals (Macrobid) 100 mg BID PO 09/11/20 09:00 09/18/20 08:59 DC 09/17/20 19:25 Aripiprazole (Abilify) 20 mg DAILY PO 09/15/20 09:00 09/17/20 20:21 DC 09/17/20 08:55 Benztropine Mesylate (Cogentin) 0.5 mg HS PO 09/14/20 21:00 09/17/20 20:21 DC 09/17/20 19:24 Benztropine Mesylate (Cogentin) 0.5 mg 1X ONCE PO 09/14/20 11:30 09/14/20 11:31 DC 09/14/20 11:20 Ropinirole HCl (Requip) 0.5 mg TID PO 09/14/20 21:30 09/19/20 19:50 Quetiapine Fumarate (SEROquel) 250 mg HS PO 09/16/20 21:00 09/19/20 19:50 Aripiprazole (Abilify) 15 mg DAILY PO 09/18/20 09:00 09/19/20 18:02 DC 09/19/20 08:38 Benztropine Mesylate (Cogentin) 1 mg HS PO 09/17/20 21:00 09/19/20 19:50 Aripiprazole (Abilify) 20 mg DAILY PO 09/20/20 09:00 I have reviewed the current psychotropics carefully including drug interactions. Risk benefit ratio favors no change other than as noted in my dictated progress note. Diagnosis: Problems: (1) Schizoaffective disorder, bipolar type (2) Impulse control disorder, unspecified (3) Anxiety disorder, unspecified (4) Bipolar disorder, curr episode mixed, severe, with psychotic features (5) Major neurocognitive disorder with Lewy bodies, probable, with behavioral disturbance TOBI PADGETT MD Sep 19, 2020 21:06
[2020-09-20 06:21] VITALS: BP 140/80
--- NOTE | 2020-09-20 08:11 | PDOC ---
Exam Note: Leonel Note: This note is a late entry for 09/19/2020 covers elements not covered in my initial note. Subjective: The patient was seen individually in the evening of 09/19/2020 with Garry MERCHANT, discussed and reviewed the chart. He slept 8-1/2 hours previous night. The patient remains somewhat withdrawn, talking to himself, talking about people dying. He appears more psychotic today. Review of Systems: Ambulation impaired in wheelchair. No CV, , pulmonary, eye system symptoms on review. Mental Status Exam: The patient is oriented to himself. Insight and judgment, recent and remote memory, attention and concentration, fund of knowledge is consistent with his diagnosis. Laboratory Data: Reviewed. Impression: Schizoaffective disorder, bipolar type mixed with psychotic features. 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 Anxiety disorder unspecified. Impulse control disorder unspecified. Plan: The patients UTI has been treated and antibiotics since been discontinued. Continue current psychotropics. We will go ahead and increase the Abilify back to 20 mg a day due to his psychotic symptoms and we will not reduce the Seroquel at this time. Maintain Cogentin 1 mg h.s. Hand tremors are much better. Assessment: Vital Signs/I&O: Vital Signs Date Time Temp Pulse Resp B/P (MAP) Pulse Ox O2 Delivery O2 Flow Rate FiO2 09/20/20 06:21 97.2 97 18 140/80 (100) 98 Room Air I & O 09/19/20 09/19/20 09/20/20 15:00 23:00 07:00 Intake Total 720 ml 600 ml Balance 720 ml 600 ml Labs: Laboratory Tests Test 09/20/20 08:02 Glucose (Fingerstick) 164 mg/dL (70-99) H Current Medications: Meds: Laboratory Tests Test 09/20/20 08:02 Glucose (Fingerstick) 164 mg/dL Current Medications Medications (Trade) Dose Ordered Sig/Angelique Route PRN Reason Start Time Stop Time Status Last Admin Dose Admin Acetaminophen (Tylenol) 650 mg PRN Q6HRS PRN PO PAIN 09/03/20 10:15 Cancel Divalproex Sodium (Depakote Er) 500 mg BID PO 09/03/20 21:00 09/04/20 19:40 DC 09/04/20 08:32 Docusate Sodium (Colace) 100 mg BID PO 09/03/20 21:00 09/12/20 18:12 DC 09/11/20 20:00 Donepezil HCl (Aricept) 10 mg QHS PO 09/03/20 21:00 09/19/20 19:50 Metformin HCl (Glucophage) 500 mg BIDWMEALS PO 09/03/20 17:00 09/19/20 16:58 Pantoprazole Sodium (Protonix) 40 mg DAILY PO 09/04/20 09:00 09/19/20 08:39 Quetiapine Fumarate (SEROquel) 300 mg HS PO 09/03/20 21:00 09/16/20 17:51 DC 09/15/20 20:30 Memantine (Namenda) 10 mg BID PO 09/03/20 21:00 09/19/20 19:50 Citalopram Hydrobromide (CeleXA) 40 mg DAILY PO 09/04/20 09:00 09/08/20 16:40 DC 09/08/20 09:22 Acetaminophen (Tylenol) 650 mg PRN Q6HRS PRN PO MILD PAIN / TEMP > 100.3'F 09/03/20 10:30 09/04/20 14:45 Multi-Ingredient Ointment (Analgesic [place]) 1 helen PRN QID PRN TP MUSCLE PAIN 09/03/20 10:30 Al Hydroxide/Mg Hydroxide (Mylanta Plus Xs) 15 ml PRN AFTMEALHC PRN PO DYSPEPSIA 09/03/20 10:30 Magnesium Hydroxide (Milk Of Magnesia) 2,400 mg PRN QHS PRN PO CONSTIPATION 09/03/20 10:30 Olanzapine (ZyPREXA ZYDIS) 5 mg PRN Q2HR PRN PO PSYCHOSIS 09/03/20 14:00 09/09/20 17:25 Bacitracin (Bacitracin Topical Pkt) 1 pkt BID TP 09/04/20 21:00 09/19/20 19:51 Divalproex Sodium (Depakote Sprinkles) 500 mg BID PO 09/04/20 21:00 09/19/20 19:50 Aripiprazole (Abilify) 10 mg DAILY PO 09/05/20 09:00 09/09/20 18:17 DC 09/09/20 09:56 Sertraline HCl (Zoloft) 50 mg DAILY PO 09/09/20 09:00 09/19/20 08:39 Aripiprazole (Abilify) 20 mg DAILY PO 09/10/20 09:00 09/12/20 19:00 DC 09/12/20 07:59 Aripiprazole (Abilify) 30 mg DAILY PO 09/13/20 09:00 09/14/20 11:05 DC 09/14/20 08:31 Nitrofurantoin Macrocrystals (Macrobid) 100 mg BID PO 09/11/20 09:00 09/18/20 08:59 DC 09/17/20 19:25 Aripiprazole (Abilify) 20 mg DAILY PO 09/15/20 09:00 09/17/20 20:21 DC 09/17/20 08:55 Benztropine Mesylate (Cogentin) 0.5 mg HS PO 09/14/20 21:00 09/17/20 20:21 DC 09/17/20 19:24 Benztropine Mesylate (Cogentin) 0.5 mg 1X ONCE PO 09/14/20 11:30 09/14/20 11:31 DC 09/14/20 11:20 Ropinirole HCl (Requip) 0.5 mg TID PO 09/14/20 21:30 09/19/20 19:50 Quetiapine Fumarate (SEROquel) 250 mg HS PO 09/16/20 21:00 09/19/20 19:50 Aripiprazole (Abilify) 15 mg DAILY PO 09/18/20 09:00 09/19/20 18:02 DC 09/19/20 08:38 Benztropine Mesylate (Cogentin) 1 mg HS PO 09/17/20 21:00 09/19/20 19:50 Aripiprazole (Abilify) 20 mg DAILY PO 09/20/20 09:00 I have reviewed the current psychotropics carefully including drug interactions. Risk benefit ratio favors no change other than as noted in my dictated progress note. Diagnosis: Problems: (1) Schizoaffective disorder, bipolar type (2) Impulse control disorder, unspecified (3) Anxiety disorder, unspecified (4) Bipolar disorder, curr episode mixed, severe, with psychotic features (5) Major neurocognitive disorder with Lewy bodies, probable, with behavioral disturbance TOBI PADGETT MD Sep 20, 2020 08:11
[2020-09-20] MEDS: rOPINIRole 0.5 MG TABLET. PO SCH ×3 (08:52→19:43)
[2020-09-20] MEDS: ARIPiprazole 10 MG TABLET PO SCH (08:53)
[2020-09-20] MEDS: metFORMIN 500 MG TABLET PO SCH ×2 (08:53→17:06)
[2020-09-20] MEDS: SERTRALINE 50 MG TABLET. PO SCH (08:53)
[2020-09-20] MEDS: DIVALPROEX 125 MG CAP.SPRINK PO SCH ×2 (08:53→19:43)
[2020-09-20] MEDS: PANTOPRAZOLE 40 MG TABLET. PO SCH (08:53)
[2020-09-20] MEDS: MEMANTINE 10 MG TABLET. PO SCH ×2 (08:53→19:43)
[2020-09-20] MEDS: BACITRACIN ZINC TOPICAL OINT PACKET. TP SCH ×2 (08:56→19:50)
[2020-09-20] MEDS: BENZTROPINE MESYLATE 1 MG TABLET PO SCH (19:43)
[2020-09-20] MEDS: DONEPEZIL HCL 10 MG TABLET PO SCH (19:43)
[2020-09-20] MEDS: QUEtiapine 100 MG TABLET. PO SCH (19:44)
[2020-09-20 21:00] VITALS: BP 156/90
[2020-09-20 21:13] LABS: BILIRUBIN,URINE NEG (NEG); CLARITY,URINE CLOUDY; COLOR,URINE YELLOW; GLUCOSE,URINE NEG (NEG); NITRITE,URINE POS (NEG)
[2020-09-20 21:19] LABS: BACTERIA,URINE MANY /HPF (0-FEW); SQUAMOUS EPITHELIAL CELL,UR FEW /LPF; WBC,URINE TNTC /HPF (0-4)
--- NOTE | 2020-09-20 22:49 | PDOC ---
Exam Note: Leonel Note: Please also refer to the separate dictated note~for this date of service dictated separately.~Patient seen individually. Discussed the patient with Nursing staff reviewed the chart.~Reviewed interim history and current functioning. Reviewed vital signs,~Labs/ Radiology~and current medications noted below. Continue current treatment with the changes noted in the dictated addendum note Assessment: Vital Signs/I&O: Vital Signs Date Time Temp Pulse Resp B/P (MAP) Pulse Ox O2 Delivery O2 Flow Rate FiO2 09/20/20 21:00 97.8 107 20 156/90 (112) 97 Room Air I & O 09/19/20 09/19/20 09/20/20 15:00 23:00 07:00 Intake Total 720 ml 600 ml Balance 720 ml 600 ml Labs: Laboratory Tests Test 09/20/20 08:02 09/20/20 20:56 Glucose (Fingerstick) 164 mg/dL (70-99) H Urine Collection Type Suprapubic Urine Color Yellow Urine Clarity Cloudy Urine pH 6.5 Urine Specific [place] >=1.030 Urine Protein >100 mg/dl (NEG-TRACE) Urine Glucose (UA) Neg mg/dL (NEG) Urine Ketones (Stick) 15 mg/dL (NEG) Urine Blood Mod (NEG) Urine Nitrite Pos (NEG) Urine Bilirubin Neg (NEG) Urine Urobilinogen Dipstick 1.0 mg/dL (0.2 mg/dL) Urine Leukocyte Esterase Mod (NEG) Urine RBC 11-20 /HPF (0-2) Urine WBC Tntc /HPF (0-4) Urine Squamous Epithelial Cells Few /LPF Urine Bacteria Many /HPF (0-FEW) Current Medications: Meds: Current Medications Medications (Trade) Dose Ordered Sig/Angelique Route PRN Reason Start Time Stop Time Status Last Admin Dose Admin Aripiprazole (Abilify) 20 mg DAILY PO 09/20/20 09:00 09/20/20 08:53 I have reviewed the current psychotropics carefully including drug interactions. Risk benefit ratio favors no change other than as noted in my dictated progress note. Diagnosis: Problems: (1) Schizoaffective disorder, bipolar type (2) Impulse control disorder, unspecified (3) Anxiety disorder, unspecified (4) Bipolar disorder, curr episode mixed, severe, with psychotic features (5) Major neurocognitive disorder with Lewy bodies, probable, with behavioral disturbance TOBI PADGETT MD Sep 20, 2020 22:49
[2020-09-21 05:41] VITALS: BP 154/86
--- NOTE | 2020-09-21 08:04 | PDOC ---
Exam Note: Leonel Note: This note is a late entry for 09/20/2020 covers elements not covered in my initial note. Subjective: The patient was seen individually in the evening of 09/20/2020 with Garry MERCHANT, discussed and reviewed the chart. He slept 6-3/4 hours previous night. The patient was fairly calm previous night, cooperative today. He has been disorganized, trying to walk on his own. He is a significant fall risk, irritable, yelling at staff at 5 p.m. We will check UA to rule out UTI causing the above change. Review of Systems: Ambulation impaired in wheelchair. He does have suprapubic catheter. No CV, , pulmonary, eye system symptoms on review. Reliability poor. Mental Status Exam: The patient is oriented to himself. Insight and judgment, recent and remote memory, attention and concentration, fund of knowledge is con sistent with his diagnoses. Laboratory Data: Reviewed. Impression: Schizoaffective disorder, bipolar type mixed with psychotic features. 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 Anxiety disorder unspecified. Impulse control disorder unspecified. Plan: No change from initial note. Assessment: Vital Signs/I&O: Vital Signs Date Time Temp Pulse Resp B/P (MAP) Pulse Ox O2 Delivery O2 Flow Rate FiO2 09/21/20 05:41 97.4 90 18 154/86 (108) 97 Room Air I & O 09/20/20 09/20/20 09/21/20 14:59 22:59 06:59 Intake Total 360 ml 220 ml Output Total 400 ml Balance 360 ml 220 ml -400 ml Labs: Laboratory Tests Test 09/20/20 20:56 09/21/20 07:56 Urine Collection Type Suprapubic Urine Color Yellow Urine Clarity Cloudy Urine pH 6.5 Urine Specific [place] >=1.030 Urine Protein >100 mg/dl (NEG-TRACE) Urine Glucose (UA) Neg mg/dL (NEG) Urine Ketones (Stick) 15 mg/dL (NEG) Urine Blood Mod (NEG) Urine Nitrite Pos (NEG) Urine Bilirubin Neg (NEG) Urine Urobilinogen Dipstick 1.0 mg/dL (0.2 mg/dL) Urine Leukocyte Esterase Mod (NEG) Urine RBC 11-20 /HPF (0-2) Urine WBC Tntc /HPF (0-4) Urine Squamous Epithelial Cells Few /LPF Urine Bacteria Many /HPF (0-FEW) Glucose (Fingerstick) 125 mg/dL (70-99) H Current Medications: Meds: Laboratory Tests Test 09/20/20 20:56 09/21/20 07:56 Urine Collection Type Suprapubic Urine Color Yellow Urine Clarity Cloudy Urine pH 6.5 Urine Specific [place] >=1.030 Urine Protein >100 mg/dl Urine Glucose (UA) Neg mg/dL Urine Ketones (Stick) 15 mg/dL Urine Blood Mod Urine Nitrite Pos Urine Bilirubin Neg Urine Urobilinogen Dipstick 1.0 mg/dL Urine Leukocyte Esterase Mod Urine RBC 11-20 /HPF Urine WBC Tntc /HPF Urine Squamous Epithelial Cells Few /LPF Urine Bacteria Many /HPF Glucose (Fingerstick) 125 mg/dL Current Medications Medications (Trade) Dose Ordered Sig/Angelique Route PRN Reason Start Time Stop Time Status Last Admin Dose Admin Acetaminophen (Tylenol) 650 mg PRN Q6HRS PRN PO PAIN 09/03/20 10:15 Cancel Divalproex Sodium (Depakote Er) 500 mg BID PO 09/03/20 21:00 09/04/20 19:40 DC 09/04/20 08:32 Docusate Sodium (Colace) 100 mg BID PO 09/03/20 21:00 09/12/20 18:12 DC 09/11/20 20:00 Donepezil HCl (Aricept) 10 mg QHS PO 09/03/20 21:00 09/20/20 19:43 Metformin HCl (Glucophage) 500 mg BIDWMEALS PO 09/03/20 17:00 09/20/20 17:06 Pantoprazole Sodium (Protonix) 40 mg DAILY PO 09/04/20 09:00 09/20/20 08:53 Quetiapine Fumarate (SEROquel) 300 mg HS PO 09/03/20 21:00 09/16/20 17:51 DC 09/15/20 20:30 Memantine (Namenda) 10 mg BID PO 09/03/20 21:00 09/20/20 19:43 Citalopram Hydrobromide (CeleXA) 40 mg DAILY PO 09/04/20 09:00 09/08/20 16:40 DC 09/08/20 09:22 Acetaminophen (Tylenol) 650 mg PRN Q6HRS PRN PO MILD PAIN / TEMP > 100.3'F 09/03/20 10:30 09/04/20 14:45 Multi-Ingredient Ointment (Analgesic [place]ier[place]) 1 helen PRN QID PRN TP MUSCLE PAIN 09/03/20 10:30 Al Hydroxide/Mg Hydroxide (Mylanta Plus Xs) 15 ml PRN AFTMEALHC PRN PO DYSPEPSIA 09/03/20 10:30 Magnesium Hydroxide (Milk Of Magnesia) 2,400 mg PRN QHS PRN PO CONSTIPATION 09/03/20 10:30 Olanzapine (ZyPREXA ZYDIS) 5 mg PRN Q2HR PRN PO PSYCHOSIS 09/03/20 14:00 09/09/20 17:25 Bacitracin (Bacitracin Topical Pkt) 1 pkt BID TP 09/04/20 21:00 09/20/20 19:50 Divalproex Sodium (Depakote Sprinkles) 500 mg BID PO 09/04/20 21:00 09/20/20 19:43 Aripiprazole (Abilify) 10 mg DAILY PO 09/05/20 09:00 09/09/20 18:17 DC 09/09/20 09:56 Sertraline HCl (Zoloft) 50 mg DAILY PO 09/09/20 09:00 09/20/20 08:53 Aripiprazole (Abilify) 20 mg DAILY PO 09/10/20 09:00 09/12/20 19:00 DC 09/12/20 07:59 Aripiprazole (Abilify) 30 mg DAILY PO 09/13/20 09:00 09/14/20 11:05 DC 09/14/20 08:31 Nitrofurantoin Macrocrystals (Macrobid) 100 mg BID PO 09/11/20 09:00 09/18/20 08:59 DC 09/17/20 19:25 Aripiprazole (Abilify) 20 mg DAILY PO 09/15/20 09:00 09/17/20 20:21 DC 09/17/20 08:55 Benztropine Mesylate (Cogentin) 0.5 mg HS PO 09/14/20 21:00 09/17/20 20:21 DC 09/17/20 19:24 Benztropine Mesylate (Cogentin) 0.5 mg 1X ONCE PO 09/14/20 11:30 09/14/20 11:31 DC 09/14/20 11:20 Ropinirole HCl (Requip) 0.5 mg TID PO 09/14/20 21:30 09/20/20 19:43 Quetiapine Fumarate (SEROquel) 250 mg HS PO 09/16/20 21:00 09/20/20 19:44 Aripiprazole (Abilify) 15 mg DAILY PO 09/18/20 09:00 09/19/20 18:02 DC 09/19/20 08:38 Benztropine Mesylate (Cogentin) 1 mg HS PO 09/17/20 21:00 09/20/20 19:43 Aripiprazole (Abilify) 20 mg DAILY PO 09/20/20 09:00 09/20/20 08:53 Current Medications Medications (Trade) Dose Ordered Sig/Angelique Route PRN Reason Start Time Stop Time Status Last Admin Dose Admin Aripiprazole (Abilify) 20 mg DAILY PO 09/20/20 09:00 09/20/20 08:53 I have reviewed the current psychotropics carefully including drug interactions. Risk benefit ratio favors no change other than as noted in my dictated progress note. Diagnosis: Problems: (1) Schizoaffective disorder, bipolar type (2) Impulse control disorder, unspecified (3) Anxiety disorder, unspecified (4) Bipolar disorder, curr episode mixed, severe, with psychotic features (5) Major neurocognitive disorder with Lewy bodies, probable, with behavioral disturbance TOBI PADGETT MD Sep 21, 2020 08:04
[2020-09-21] MEDS: ARIPiprazole 10 MG TABLET PO SCH (08:43)
[2020-09-21] MEDS: DIVALPROEX 125 MG CAP.SPRINK PO SCH ×2 (08:43→19:31)
[2020-09-21] MEDS: metFORMIN 500 MG TABLET PO SCH ×2 (08:43→16:54)
[2020-09-21] MEDS: MEMANTINE 10 MG TABLET. PO SCH ×2 (08:43→19:31)
[2020-09-21] MEDS: PANTOPRAZOLE 40 MG TABLET. PO SCH (08:43)
[2020-09-21] MEDS: rOPINIRole 0.5 MG TABLET. PO SCH ×3 (08:43→19:31)
[2020-09-21] MEDS: SERTRALINE 50 MG TABLET. PO SCH (08:43)
[2020-09-21] MEDS: BACITRACIN ZINC TOPICAL OINT PACKET. TP SCH ×2 (08:43→19:32)
[2020-09-21 16:23] VITALS: BP 137/87
[2020-09-21] MEDS: BENZTROPINE MESYLATE 1 MG TABLET PO SCH (19:31)
[2020-09-21] MEDS: DONEPEZIL HCL 10 MG TABLET PO SCH (19:31)
[2020-09-21] MEDS: QUEtiapine 100 MG TABLET. PO SCH (19:32)
--- NOTE | 2020-09-21 21:00 | PDOC ---
Exam Note: Leonel Note: Please also refer to the separate dictated note~for this date of service dictated separately.~Patient seen individually. Discussed the patient with Nursing staff reviewed the chart.~Reviewed interim history and current functioning. Reviewed vital signs,~Labs/ Radiology~and current medications noted below. Continue current treatment with the changes noted in the dictated addendum note Assessment: Vital Signs/I&O: Vital Signs Date Time Temp Pulse Resp B/P (MAP) Pulse Ox O2 Delivery O2 Flow Rate FiO2 09/21/20 16:23 98.0 102 18 137/87 (104) 98 09/21/20 05:41 Room Air I & O 09/20/20 09/20/20 09/21/20 14:59 22:59 06:59 Intake Total 360 ml 220 ml Output Total 400 ml Balance 360 ml 220 ml -400 ml Labs: Laboratory Tests Test 09/21/20 07:56 Glucose (Fingerstick) 125 mg/dL (70-99) H Current Medications: Meds: Laboratory Tests Test 09/21/20 07:56 Glucose (Fingerstick) 125 mg/dL Current Medications Medications (Trade) Dose Ordered Sig/Angelique Route PRN Reason Start Time Stop Time Status Last Admin Dose Admin Acetaminophen (Tylenol) 650 mg PRN Q6HRS PRN PO PAIN 09/03/20 10:15 Cancel Divalproex Sodium (Depakote Er) 500 mg BID PO 09/03/20 21:00 09/04/20 19:40 DC 09/04/20 08:32 Docusate Sodium (Colace) 100 mg BID PO 09/03/20 21:00 09/12/20 18:12 DC 09/11/20 20:00 Donepezil HCl (Aricept) 10 mg QHS PO 09/03/20 21:00 09/21/20 19:31 Metformin HCl (Glucophage) 500 mg BIDWMEALS PO 09/03/20 17:00 09/21/20 16:54 Pantoprazole Sodium (Protonix) 40 mg DAILY PO 09/04/20 09:00 09/21/20 08:43 Quetiapine Fumarate (SEROquel) 300 mg HS PO 09/03/20 21:00 09/16/20 17:51 DC 09/15/20 20:30 Memantine (Namenda) 10 mg BID PO 09/03/20 21:00 09/21/20 19:31 Citalopram Hydrobromide (CeleXA) 40 mg DAILY PO 09/04/20 09:00 09/08/20 16:40 DC 09/08/20 09:22 Acetaminophen (Tylenol) 650 mg PRN Q6HRS PRN PO MILD PAIN / TEMP > 100.3'F 09/03/20 10:30 09/04/20 14:45 Multi-Ingredient Ointment (Analgesic [place]) 1 helen PRN QID PRN TP MUSCLE PAIN 09/03/20 10:30 Al Hydroxide/Mg Hydroxide (Mylanta Plus Xs) 15 ml PRN AFTMEALHC PRN PO DYSPEPSIA 09/03/20 10:30 Magnesium Hydroxide (Milk Of Magnesia) 2,400 mg PRN QHS PRN PO CONSTIPATION 09/03/20 10:30 Olanzapine (ZyPREXA ZYDIS) 5 mg PRN Q2HR PRN PO PSYCHOSIS 09/03/20 14:00 09/09/20 17:25 Bacitracin (Bacitracin Topical Pkt) 1 pkt BID TP 09/04/20 21:00 09/21/20 19:32 Divalproex Sodium (Depakote Sprinkles) 500 mg BID PO 09/04/20 21:00 09/21/20 19:31 Aripiprazole (Abilify) 10 mg DAILY PO 09/05/20 09:00 09/09/20 18:17 DC 09/09/20 09:56 Sertraline HCl (Zoloft) 50 mg DAILY PO 09/09/20 09:00 09/21/20 08:43 Aripiprazole (Abilify) 20 mg DAILY PO 09/10/20 09:00 09/12/20 19:00 DC 09/12/20 07:59 Aripiprazole (Abilify) 30 mg DAILY PO 09/13/20 09:00 09/14/20 11:05 DC 09/14/20 08:31 Nitrofurantoin Macrocrystals (Macrobid) 100 mg BID PO 09/11/20 09:00 09/18/20 08:59 DC 09/17/20 19:25 Aripiprazole (Abilify) 20 mg DAILY PO 09/15/20 09:00 09/17/20 20:21 DC 09/17/20 08:55 Benztropine Mesylate (Cogentin) 0.5 mg HS PO 09/14/20 21:00 09/17/20 20:21 DC 09/17/20 19:24 Benztropine Mesylate (Cogentin) 0.5 mg 1X ONCE PO 09/14/20 11:30 09/14/20 11:31 DC 09/14/20 11:20 Ropinirole HCl (Requip) 0.5 mg TID PO 09/14/20 21:30 09/21/20 19:31 Quetiapine Fumarate (SEROquel) 250 mg HS PO 09/16/20 21:00 09/21/20 19:32 Aripiprazole (Abilify) 15 mg DAILY PO 09/18/20 09:00 09/19/20 18:02 DC 09/19/20 08:38 Benztropine Mesylate (Cogentin) 1 mg HS PO 09/17/20 21:00 09/21/20 19:31 Aripiprazole (Abilify) 20 mg DAILY PO 09/20/20 09:00 09/21/20 08:43 I have reviewed the current psychotropics carefully including drug interactions. Risk benefit ratio favors no change other than as noted in my dictated progress note. Diagnosis: Problems: (1) Schizoaffective disorder, bipolar type (2) Impulse control disorder, unspecified (3) Anxiety disorder, unspecified (4) Bipolar disorder, curr episode mixed, severe, with psychotic features (5) Major neurocognitive disorder with Lewy bodies, probable, with behavioral disturbance TOBI PADGETT MD Sep 21, 2020 21:00
[2020-09-22 06:06] VITALS: BP 130/71
[2020-09-22 06:31] LABS: BASO % 0 % (0-3); EOS # 0.1 x10^3/uL (0.0-0.7); EOS % 2 % (0-3); HEMATOCRIT 33.8 % (39.0-53.0); HEMOGLOBIN 10.7 g/dL (13.0-17.5); LYMPH # 1.2 x10^3/uL (1.0-4.8); LYMPH % 20 % (24-48); MEAN CORPUSCULAR HEMOGLOBIN 25 pg (25-35); MEAN CORPUSCULAR HGB CONC 32 g/dL (31-37); MEAN CORPUSCULAR VOLUME 80 fL (79-100); MONO # 0.4 x10^3/uL (0.0-1.1); MONO % 7 % (0-9); NEUT # 4.2 x10^3uL (1.8-7.7); NEUT % 71 % (31-73); PLATELET COUNT 358 x10^3/uL (140-400); RED BLOOD COUNT 4.23 x10^6/uL (4.30-5.70); RED CELL DISTRIBUTION WIDTH 18.3 % (11.5-14.5)
[2020-09-22 06:55] LABS: ALBUMIN 2.9 g/dL (3.4-5.0); ALBUMIN/GLOBULIN RATIO 0.7 (1.0-1.7); CALCIUM 9.2 mg/dL (8.5-10.1); CREATININE 0.9 mg/dL (0.7-1.3); GFR 85.2; POTASSIUM 3.8 mmol/L (3.5-5.1); TOTAL BILIRUBIN 0.2 mg/dL (0.2-1.0); TOTAL PROTEIN 7.3 g/dL (6.4-8.2)
[2020-09-22] MEDS: ARIPiprazole 10 MG TABLET PO SCH (08:21)
[2020-09-22] MEDS: SERTRALINE 50 MG TABLET. PO SCH (08:21)
[2020-09-22] MEDS: PANTOPRAZOLE 40 MG TABLET. PO SCH (08:21)
[2020-09-22] MEDS: rOPINIRole 0.5 MG TABLET. PO SCH ×3 (08:21→20:44)
[2020-09-22] MEDS: metFORMIN 500 MG TABLET PO SCH ×2 (08:21→16:40)
[2020-09-22] MEDS: MEMANTINE 10 MG TABLET. PO SCH ×2 (08:21→20:44)
[2020-09-22] MEDS: BACITRACIN ZINC TOPICAL OINT PACKET. TP SCH ×2 (08:21→20:45)
[2020-09-22] MEDS: DIVALPROEX 125 MG CAP.SPRINK PO SCH ×2 (08:22→20:43)
--- NOTE | 2020-09-22 08:25 | PDOC ---
Exam Note: Leonel Note: This note is a late entry for 09/21/2020 covers elements not covered in my initial note. Subjective: The patient was seen individually in the evening of 09/21/2020 with Melissa MERCHANT, discussed and reviewed the chart. He slept 6-1/2 hours previous night. Overall the patient has been somewhat more confused, anxious, got agitated because of another psychotic patient being aggressive on the unit. Review of Systems: Ambulation impaired in wheelchair. No CV, , pulmonary, eye system symptoms on review. Mental Status Exam: The patient is oriented to himself. His speech has moderate latency. Often response is monosyllabic, less muttering and rambling under his breath. Insight and judgment, recent and remote memory, attention and concentration, fund of knowledge is consistent with his diagnoses. No suicidal or homicidal ideation but still remains psychotic. Laboratory Data: Reviewed. Impression: Schizoaffective disorder, bipolar type mixed with psychotic features. 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 Anxiety disorder unspecified. Impulse control disorder unspecified. Plan: No change from initial note. The patient does have some hand tremors, right hand persisting and we will have to address this as part of extrapyramidal side effects once the psychosis is stable. Assessment: Vital Signs/I&O: Vital Signs Date Time Temp Pulse Resp B/P (MAP) Pulse Ox O2 Delivery O2 Flow Rate FiO2 09/22/20 06:06 98.1 86 18 130/71 (90) 97 Room Air I & O0 09/21/20 09/21/20 09/22/20 15:00 23:00 07:00 Intake Total 180 ml 120 ml Balance 180 ml 120 ml Labs: Laboratory Tests Test 09/22/20 06:05 09/22/20 07:20 White Blood Count 6.0 x10^3/uL (4.0-11.0) Red Blood Count 4.23 x10^6/uL (4.30-5.70) L Hemoglobin 10.7 g/dL (13.0-17.5) L Hematocrit 33.8 % (39.0-53.0) L Mean Corpuscular Volume 80 fL (79-100) Mean Corpuscular Hemoglobin 25 pg (25-35) Mean Corpuscular Hemoglobin Concent 32 g/dL (31-37) Red Cell Distribution Width 18.3 % (11.5-14.5) H Platelet Count 358 x10^3/uL (140-400) Neutrophils (%) (Auto) 71 % (31-73) Lymphocytes (%) (Auto) 20 % (24-48) L Monocytes (%) (Auto) 7 % (0-9) Eosinophils (%) (Auto) 2 % (0-3) Basophils (%) (Auto) 0 % (0-3) Neutrophils # (Auto) 4.2 x10^3uL (1.8-7.7) Lymphocytes # (Auto) 1.2 x10^3/uL (1.0-4.8) Monocytes # (Auto) 0.4 x10^3/uL (0.0-1.1) Eosinophils # (Auto) 0.1 x10^3/uL (0.0-0.7) Basophils # (Auto) 0.0 x10^3/uL (0.0-0.2) Sodium Level 145 mmol/L (136-145) Potassium Level 3.8 mmol/L (3.5-5.1) Chloride Level 108 mmol/L (98-107) H Carbon Dioxide Level 29 mmol/L (21-32) Anion Gap 8 (6-14) Blood Urea Nitrogen 32 mg/dL (8-26) H Creatinine 0.9 mg/dL (0.7-1.3) Estimated GFR (Cockcroft-Gault) 85.2 BUN/Creatinine Ratio 36 (6-20) H Glucose Level 135 mg/dL (70-99) H Calcium Level 9.2 mg/dL (8.5-10.1) Total Bilirubin 0.2 mg/dL (0.2-1.0) Aspartate Amino Transferase (AST) 10 U/L (15-37) L Alanine Aminotransferase (ALT) 12 U/L (16-63) L Alkaline Phosphatase 57 U/L (46-116) Total Protein 7.3 g/dL (6.4-8.2) Albumin 2.9 g/dL (3.4-5.0) L Albumin/Globulin Ratio 0.7 (1.0-1.7) L Glucose (Fingerstick) 145 mg/dL (70-99) H Current Medications: Meds: Laboratory Tests Test 09/22/20 06:05 3/12/21 07:20 White Blood Count 6.0 x10^3/uL Red Blood Count 4.23 x10^6/uL Hemoglobin 10.7 g/dL Hematocrit 33.8 % Mean Corpuscular Volume 80 fL Mean Corpuscular Hemoglobin 25 pg Mean Corpuscular Hemoglobin Concent 32 g/dL Red Cell Distribution Width 18.3 % Platelet Count 358 x10^3/uL Neutrophils (%) (Auto) 71 % Lymphocytes (%) (Auto) 20 % Monocytes (%) (Auto) 7 % Eosinophils (%) (Auto) 2 % Basophils (%) (Auto) 0 % Neutrophils # (Auto) 4.2 x10^3uL Lymphocytes # (Auto) 1.2 x10^3/uL Monocytes # (Auto) 0.4 x10^3/uL Eosinophils # (Auto) 0.1 x10^3/uL Basophils # (Auto) 0.0 x10^3/uL Sodium Level 145 mmol/L Potassium Level 3.8 mmol/L Chloride Level 108 mmol/L Carbon Dioxide Level 29 mmol/L Anion Gap 8 Blood Urea Nitrogen 32 mg/dL Creatinine 0.9 mg/dL Estimated GFR (Cockcroft-Gault) 85.2 BUN/Creatinine Ratio 36 Glucose Level 135 mg/dL Calcium Level 9.2 mg/dL Total Bilirubin 0.2 mg/dL Aspartate Amino Transf (AST/SGOT) 10 U/L Alanine Aminotransferase (ALT/SGPT) 12 U/L Alkaline Phosphatase 57 U/L Total Protein 7.3 g/dL Albumin 2.9 g/dL Albumin/Globulin Ratio 0.7 Glucose (Fingerstick) 145 mg/dL Current Medications Medications (Trade) Dose Ordered Sig/Angelique Route PRN Reason Start Time Stop Time Status Last Admin Dose Admin Acetaminophen (Tylenol) 650 mg PRN Q6HRS PRN PO PAIN 09/03/20 10:15 Cancel Divalproex Sodium (Depakote Er) 500 mg BID PO 09/03/20 21:00 09/04/20 19:40 DC 09/04/20 08:32 Docusate Sodium (Colace) 100 mg BID PO 09/03/20 21:00 09/12/20 18:12 DC 09/11/20 20:00 Donepezil HCl (Aricept) 10 mg QHS PO 09/03/20 21:00 09/21/20 19:31 Metformin HCl (Glucophage) 500 mg BIDWMEALS PO 09/03/20 17:00 09/22/20 08:21 Pantoprazole Sodium (Protonix) 40 mg DAILY PO 09/04/20 09:00 09/22/20 08:21 Quetiapine Fumarate (SEROquel) 300 mg HS PO 09/03/20 21:00 09/16/20 17:51 DC 09/15/20 20:30 Memantine (Namenda) 10 mg BID PO 09/03/20 21:00 09/22/20 08:21 Citalopram Hydrobromide (CeleXA) 40 mg DAILY PO 09/04/20 09:00 09/08/20 16:40 DC 09/08/20 09:22 Acetaminophen (Tylenol) 650 mg PRN Q6HRS PRN PO MILD PAIN / TEMP > 100.3'F 09/03/20 10:30 09/04/20 14:45 Multi-Ingredient Ointment (Analgesic [place]) 1 helen PRN QID PRN TP MUSCLE PAIN 09/03/20 10:30 Al Hydroxide/Mg Hydroxide (Mylanta Plus Xs) 15 ml PRN AFTMEALHC PRN PO DYSPEPSIA 09/03/20 10:30 Magnesium Hydroxide (Milk Of Magnesia) 2,400 mg PRN QHS PRN PO CONSTIPATION 09/03/20 10:30 Olanzapine (ZyPREXA ZYDIS) 5 mg PRN Q2HR PRN PO PSYCHOSIS 09/03/20 14:00 09/09/20 17:25 Bacitracin (Bacitracin Topical Pkt) 1 pkt BID TP 09/04/20 21:00 09/22/20 08:21 Divalproex Sodium (Depakote Sprinkles) 500 mg BID PO 09/04/20 21:00 09/22/20 08:22 Aripiprazole (Abilify) 10 mg DAILY PO 09/05/20 09:00 09/09/20 18:17 DC 09/09/20 09:56 Sertraline HCl (Zoloft) 50 mg DAILY PO 09/09/20 09:00 09/22/20 08:21 Aripiprazole (Abilify) 20 mg DAILY PO 09/10/20 09:00 09/12/20 19:00 DC 09/12/20 07:59 Aripiprazole (Abilify) 30 mg DAILY PO 09/13/20 09:00 09/14/20 11:05 DC 09/14/20 08:31 Nitrofurantoin Macrocrystals (Macrobid) 100 mg BID PO 09/11/20 09:00 09/18/20 08:59 DC 09/17/20 19:25 Aripiprazole (Abilify) 20 mg DAILY PO 09/15/20 09:00 09/17/20 20:21 DC 09/17/20 08:55 Benztropine Mesylate (Cogentin) 0.5 mg HS PO 09/14/20 21:00 09/17/20 20:21 DC 09/17/20 19:24 Benztropine Mesylate (Cogentin) 0.5 mg 1X ONCE PO 09/14/20 11:30 09/14/20 11:31 DC 09/14/20 11:20 Ropinirole HCl (Requip) 0.5 mg TID PO 09/14/20 21:30 09/22/20 08:21 Quetiapine Fumarate (SEROquel) 250 mg HS PO 09/16/20 21:00 09/21/20 19:32 Aripiprazole (Abilify) 15 mg DAILY PO 09/18/20 09:00 09/19/20 18:02 DC 09/19/20 08:38 Benztropine Mesylate (Cogentin) 1 mg HS PO 09/17/20 21:00 09/21/20 19:31 Aripiprazole (Abilify) 20 mg DAILY PO 09/20/20 09:00 09/22/20 08:21 Nystatin (Nystop) 1 helen BID TP 09/22/20 09:00 I have reviewed the current psychotropics carefully including drug interactions. Risk benefit ratio favors no change other than as noted in my dictated progress note. Diagnosis: Problems: (1) Schizoaffective disorder, bipolar type (2) Impulse control disorder, unspecified (3) Anxiety disorder, unspecified (4) Bipolar disorder, curr episode mixed, severe, with psychotic features (5) Major neurocognitive disorder with Lewy bodies, probable, with behavioral disturbance TOBI PADGETT MD Sep 22, 2020 08:25
[2020-09-22] MEDS: NYSTATIN TOPICAL POWDER 15GM BOTTLE. TP SCH ×2 (09:00→20:45)
[2020-09-22 15:32] VITALS: BP 123/90
[2020-09-22] MEDS: BENZTROPINE MESYLATE 1 MG TABLET PO SCH (20:44)
[2020-09-22] MEDS: DONEPEZIL HCL 10 MG TABLET PO SCH (20:44)
[2020-09-22] MEDS: QUEtiapine 100 MG TABLET. PO SCH (20:44)
--- NOTE | 2020-09-22 21:04 | PDOC ---
Exam Note: Leonel Note: Please also refer to the separate dictated note~for this date of service dictated separately.~Patient seen individually. Discussed the patient with Nursing staff reviewed the chart.~Reviewed interim history and current functioning. Reviewed vital signs,~Labs/ Radiology~and current medications noted below. Continue current treatment with the changes noted in the dictated addendum note Assessment: Vital Signs/I&O: Vital Signs Date Time Temp Pulse Resp B/P (MAP) Pulse Ox O2 Delivery O2 Flow Rate FiO2 09/22/20 15:32 98.0 103 17 123/90 (101) 93 Room Air I & O 09/21/20 09/21/20 09/22/20 14:59 22:59 06:59 Intake Total 180 ml 120 ml Balance 180 ml 120 ml Labs: Laboratory Tests Test 09/22/20 06:05 09/22/20 07:20 White Blood Count 6.0 x10^3/uL (4.0-11.0) Red Blood Count 4.23 x10^6/uL (4.30-5.70) L Hemoglobin 10.7 g/dL (13.0-17.5) L Hematocrit 33.8 % (39.0-53.0) L Mean Corpuscular Volume 80 fL (79-100) Mean Corpuscular Hemoglobin 25 pg (25-35) Mean Corpuscular Hemoglobin Concent 32 g/dL (31-37) Red Cell Distribution Width 18.3 % (11.5-14.5) H Platelet Count 358 x10^3/uL (140-400) Neutrophils (%) (Auto) 71 % (31-73) Lymphocytes (%) (Auto) 20 % (24-48) L Monocytes (%) (Auto) 7 % (0-9) Eosinophils (%) (Auto) 2 % (0-3) Basophils (%) (Auto) 0 % (0-3) Neutrophils # (Auto) 4.2 x10^3uL (1.8-7.7) Lymphocytes # (Auto) 1.2 x10^3/uL (1.0-4.8) Monocytes # (Auto) 0.4 x10^3/uL (0.0-1.1) Eosinophils # (Auto) 0.1 x10^3/uL (0.0-0.7) Basophils # (Auto) 0.0 x10^3/uL (0.0-0.2) Sodium Level 145 mmol/L (136-145) Potassium Level 3.8 mmol/L (3.5-5.1) Chloride Level 108 mmol/L (98-107) H Carbon Dioxide Level 29 mmol/L (21-32) Anion Gap 8 (6-14) Blood Urea Nitrogen 32 mg/dL (8-26) H Creatinine 0.9 mg/dL (0.7-1.3) Estimated GFR (Cockcroft-Gault) 85.2 BUN/Creatinine Ratio 36 (6-20) H Glucose Level 135 mg/dL (70-99) H Calcium Level 9.2 mg/dL (8.5-10.1) Total Bilirubin 0.2 mg/dL (0.2-1.0) Aspartate Amino Transferase (AST) 10 U/L (15-37) L Alanine Aminotransferase (ALT) 12 U/L (16-63) L Alkaline Phosphatase 57 U/L (46-116) Total Protein 7.3 g/dL (6.4-8.2) Albumin 2.9 g/dL (3.4-5.0) L Albumin/Globulin Ratio 0.7 (1.0-1.7) L Glucose (Fingerstick) 145 mg/dL (70-99) H Current Medications: Meds: Current Medications Medications (Trade) Dose Ordered Sig/Angelique Route PRN Reason Start Time Stop Time Status Last Admin Dose Admin Nystatin (Nystop) 1 helen BID TP 09/22/20 09:00 09/22/20 20:45 I have reviewed the current psychotropics carefully including drug interactions. Risk benefit ratio favors no change other than as noted in my dictated progress note. Diagnosis: Problems: (1) Schizoaffective disorder, bipolar type (2) Impulse control disorder, unspecified (3) Anxiety disorder, unspecified (4) Bipolar disorder, curr episode mixed, severe, with psychotic features (5) Major neurocognitive disorder with Lewy bodies, probable, with behavioral disturbance TOBI PADGETT MD Sep 22, 2020 21:04
[2020-09-23 06:14] VITALS: BP 145/84
[2020-09-23] MEDS: NYSTATIN TOPICAL POWDER 15GM BOTTLE. TP SCH ×2 (07:47→20:51)
[2020-09-23] MEDS: BACITRACIN ZINC TOPICAL OINT PACKET. TP SCH ×2 (07:48→20:49)
[2020-09-23] MEDS: rOPINIRole 0.5 MG TABLET. PO SCH ×3 (09:06→20:48)
[2020-09-23] MEDS: PANTOPRAZOLE 40 MG TABLET. PO SCH (09:06)
[2020-09-23] MEDS: DIVALPROEX 125 MG CAP.SPRINK PO SCH ×2 (09:06→20:48)
[2020-09-23] MEDS: SERTRALINE 25 MG TABLET. PO SCH (09:07)
[2020-09-23] MEDS: MEMANTINE 10 MG TABLET. PO SCH ×2 (09:07→20:48)
[2020-09-23] MEDS: ARIPiprazole 10 MG TABLET PO SCH (09:07)
[2020-09-23] MEDS: metFORMIN 500 MG TABLET PO SCH ×2 (09:07→16:46)
[2020-09-23 16:01] VITALS: BP 125/77
[2020-09-23] MEDS: QUEtiapine 100 MG TABLET. PO SCH (20:48)
[2020-09-23] MEDS: DONEPEZIL HCL 10 MG TABLET PO SCH (20:48)
[2020-09-23] MEDS: BENZTROPINE MESYLATE 1 MG TABLET PO SCH (20:48)
--- NOTE | 2020-09-23 20:54 | PDOC ---
Exam Note: Leonel Note: Please also refer to the separate dictated note~for this date of service dictated separately.~Patient seen individually. Discussed the patient with Nursing staff reviewed the chart.~Reviewed interim history and current functioning. Reviewed vital signs,~Labs/ Radiology~and current medications noted below. Continue current treatment with the changes noted in the dictated addendum note Assessment: Vital Signs/I&O: Vital Signs Date Time Temp Pulse Resp B/P (MAP) Pulse Ox O2 Delivery O2 Flow Rate FiO2 09/23/20 16:01 98.1 68 17 125/77 (93) 97 Room Air I & O 09/22/20 09/22/20 09/23/20 15:00 23:00 07:00 Intake Total 565 ml 360 ml Output Total 400 ml Balance 565 ml -40 ml Current Medications: Meds: Current Medications Medications (Trade) Dose Ordered Sig/Angelique Route PRN Reason Start Time Stop Time Status Last Admin Dose Admin Sertraline HCl (Zoloft) 75 mg DAILY PO 09/23/20 09:00 09/23/20 09:07 I have reviewed the current psychotropics carefully including drug interactions. Risk benefit ratio favors no change other than as noted in my dictated progress note. Diagnosis: Problems: (1) Schizoaffective disorder, bipolar type (2) Impulse control disorder, unspecified (3) Anxiety disorder, unspecified (4) Bipolar disorder, curr episode mixed, severe, with psychotic features (5) Major neurocognitive disorder with Lewy bodies, probable, with behavioral disturbance OTBI PADGETT MD Sep 23, 2020 20:54
[2020-09-24 06:19] VITALS: BP 125/74
[2020-09-24] MEDS: BACITRACIN ZINC TOPICAL OINT PACKET. TP SCH ×2 (07:31→19:51)
[2020-09-24] MEDS: NYSTATIN TOPICAL POWDER 15GM BOTTLE. TP SCH ×2 (07:31→19:51)
--- NOTE | 2020-09-24 08:27 | PDOC ---
Exam Note: Leonel Note: This note is a late entry for 09/22/2020 covers elements not covered in my initial note. Subjective: The patient was seen individually in the evening of 09/22/2020 with Lesly MERCHANT, discussed and reviewed the chart. He slept 3-3/4 hours previous night. The patient has been withdrawn, somewhat depressed. Review of Systems: Ambulation impaired in wheelchair. Some tremors. No CV, , pulmonary, eye system symptoms on review. Mental Status Exam: The patient is oriented to himself. His speech has moderate latency. Often response is monosyllabic. Insight and judgment, recent and remote memory, attention and concentration, fund of knowledge is consistent with his diagnoses. No suicidal or homicidal ideation but still remains psychotic. Laboratory Data: Reviewed. Impression: Schizoaffective disorder, bipolar type mixed with psychotic features. 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 Anxiety disorder unspecified. Impulse control disorder unspecified. Plan: Increase Zoloft from 50 mg a day to 75 mg a day. Continue rest of the psychotropics unchanged. Assessment: Vital Signs/I&O: Vital Signs Date Time Temp Pulse Resp B/P (MAP) Pulse Ox O2 Delivery O2 Flow Rate FiO2 09/24/20 06:19 97.9 101 18 125/74 (91) 96 09/23/20 16:01 Room Air I & O 09/23/20 09/23/20 09/24/20 15:00 23:00 07:00 Intake Total 720 ml 600 ml Output Total 500 ml 425 ml Balance 720 ml 100 ml -425 ml Labs: Laboratory Tests Test 09/24/20 08:19 Glucose (Fingerstick) 160 mg/dL (70-99) H Current Medications: Meds: Laboratory Tests Test 09/24/20 08:19 Glucose (Fingerstick) 160 mg/dL Current Medications Medications (Trade) Dose Ordered Sig/Angelique Route PRN Reason Start Time Stop Time Status Last Admin Dose Admin Acetaminophen (Tylenol) 650 mg PRN Q6HRS PRN PO PAIN 09/03/20 10:15 Cancel Divalproex Sodium (Depakote Er) 500 mg BID PO 09/03/20 21:00 09/04/20 19:40 DC 09/04/20 08:32 Docusate Sodium (Colace) 100 mg BID PO 09/03/20 21:00 09/12/20 18:12 DC 09/11/20 20:00 Donepezil HCl (Aricept) 10 mg QHS PO 09/03/20 21:00 09/23/20 20:48 Metformin HCl (Glucophage) 500 mg BIDWMEALS PO 09/03/20 17:00 09/23/20 16:46 Pantoprazole Sodium (Protonix) 40 mg DAILY PO 09/04/20 09:00 09/23/20 09:06 Quetiapine Fumarate (SEROquel) 300 mg HS PO 09/03/20 21:00 09/16/20 17:51 DC 09/15/20 20:30 Memantine (Namenda) 10 mg BID PO 09/03/20 21:00 09/23/20 20:48 Citalopram Hydrobromide (CeleXA) 40 mg DAILY PO 09/04/20 09:00 09/08/20 16:40 DC 09/08/20 09:22 Acetaminophen (Tylenol) 650 mg PRN Q6HRS PRN PO MILD PAIN / TEMP > 100.3'F 09/03/20 10:30 09/04/20 14:45 Multi-Ingredient Ointment (Analgesic [place]) 1 helen PRN QID PRN TP MUSCLE PAIN 09/03/20 10:30 Al Hydroxide/Mg Hydroxide (Mylanta Plus Xs) 15 ml PRN AFTMEALHC PRN PO DYSPEPSIA 09/03/20 10:30 Magnesium Hydroxide (Milk Of Magnesia) 2,400 mg PRN QHS PRN PO CONSTIPATION 09/03/20 10:30 Olanzapine (ZyPREXA ZYDIS) 5 mg PRN Q2HR PRN PO PSYCHOSIS 09/03/20 14:00 09/24/20 00:46 Bacitracin (Bacitracin Topical Pkt) 1 pkt BID TP 09/04/20 21:00 09/24/20 07:31 Divalproex Sodium (Depakote Sprinkles) 500 mg BID PO 09/04/20 21:00 09/23/20 20:48 Aripiprazole (Abilify) 10 mg DAILY PO 09/05/20 09:00 09/09/20 18:17 DC 09/09/20 09:56 Sertraline HCl (Zoloft) 50 mg DAILY PO 09/09/20 09:00 09/22/20 18:06 DC 09/22/20 08:21 Aripiprazole (Abilify) 20 mg DAILY PO 09/10/20 09:00 09/12/20 19:00 DC 09/12/20 07:59 Aripiprazole (Abilify) 30 mg DAILY PO 09/13/20 09:00 09/14/20 11:05 DC 09/14/20 08:31 Nitrofurantoin Macrocrystals (Macrobid) 100 mg BID PO 09/11/20 09:00 09/18/20 08:59 DC 09/17/20 19:25 Aripiprazole (Abilify) 20 mg DAILY PO 09/15/20 09:00 09/17/20 20:21 DC 09/17/20 08:55 Benztropine Mesylate (Cogentin) 0.5 mg HS PO 09/14/20 21:00 09/17/20 20:21 DC 09/17/20 19:24 Benztropine Mesylate (Cogentin) 0.5 mg 1X ONCE PO 09/14/20 11:30 09/14/20 11:31 DC 09/14/20 11:20 Ropinirole HCl (Requip) 0.5 mg TID PO 09/14/20 21:30 09/23/20 20:48 Quetiapine Fumarate (SEROquel) 250 mg HS PO 09/16/20 21:00 09/23/20 20:48 Aripiprazole (Abilify) 15 mg DAILY PO 09/18/20 09:00 09/19/20 18:02 DC 09/19/20 08:38 Benztropine Mesylate (Cogentin) 1 mg HS PO 09/17/20 21:00 09/23/20 20:48 Aripiprazole (Abilify) 20 mg DAILY PO 09/20/20 09:00 09/23/20 09:07 Nystatin (Nystop) 1 helen BID TP 09/22/20 09:00 09/24/20 07:31 Sertraline HCl (Zoloft) 75 mg DAILY PO 09/23/20 09:00 09/23/20 09:07 Current Medications Medications (Trade) Dose Ordered Sig/Angelique Route PRN Reason Start Time Stop Time Status Last Admin Dose Admin Sertraline HCl (Zoloft) 75 mg DAILY PO 09/23/20 09:00 09/23/20 09:07 I have reviewed the current psychotropics carefully including drug interactions. Risk benefit ratio favors no change other than as noted in my dictated progress note. Diagnosis: Problems: (1) Schizoaffective disorder, bipolar type (2) Impulse control disorder, unspecified (3) Anxiety disorder, unspecified (4) Bipolar disorder, curr episode mixed, severe, with psychotic features (5) Major neurocognitive disorder with Lewy bodies, probable, with behavioral disturbance TOBI PADGETT MD Sep 24, 2020 08:27
[2020-09-24] MEDS: rOPINIRole 0.5 MG TABLET. PO SCH ×3 (08:32→19:51)
[2020-09-24] MEDS: metFORMIN 500 MG TABLET PO SCH ×2 (08:32→16:54)
[2020-09-24] MEDS: ARIPiprazole 10 MG TABLET PO SCH (08:32)
[2020-09-24] MEDS: DIVALPROEX 125 MG CAP.SPRINK PO SCH ×2 (08:32→19:52)
[2020-09-24] MEDS: MEMANTINE 10 MG TABLET. PO SCH ×2 (08:33→19:51)
[2020-09-24] MEDS: PANTOPRAZOLE 40 MG TABLET. PO SCH (08:33)
[2020-09-24] MEDS: SERTRALINE 25 MG TABLET. PO SCH (08:33)
--- NOTE | 2020-09-24 08:42 | PDOC ---
Exam Note: Leonel Note: This note is a late entry for 09/23/2020 covers elements not covered in my initial note. Subjective: The patient was seen individually in the evening of 09/23/2020 with Oscar MERCHANT, discussed and reviewed the chart. He slept 5 hours previous night. The patient has a little more forthright, better eye contact, smiling as I met with him, less fixated on rambling under his breath. Review of Systems: Ambulation impaired in wheelchair. No CV, , pulmonary, eye system symptoms on review. Mental Status Exam: The patient is oriented to himself. His speech has mo derate latency. Often response is monosyllabic. Insight and judgment, recent and remote memory, attention and concentration, fund of knowledge is consistent with his diagnoses. No suicidal or homicidal ideation but still remains psychotic. Laboratory Data: Reviewed. Impression: Schizoaffective disorder, bipolar type mixed with psychotic features. 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 Anxiety disorder unspecified. Impulse control disorder unspecified. Plan: No change from initial note. Assessment: Vital Signs/I&O: Vital Signs Date Time Temp Pulse Resp B/P (MAP) Pulse Ox O2 Delivery O2 Flow Rate FiO2 09/24/20 06:19 97.9 101 18 125/74 (91) 96 09/23/20 16:01 Room Air I & O 09/23/20 09/23/20 09/24/20 15:00 23:00 07:00 Intake Total 720 ml 600 ml Output Total 500 ml 425 ml Balance 720 ml 100 ml -425 ml Labs: Laboratory Tests Test 09/24/20 08:19 Glucose (Fingerstick) 160 mg/dL (70-99) H Current Medications: Meds: Laboratory Tests Test 09/24/20 08:19 Glucose (Fingerstick) 160 mg/dL Current Medications Medications (Trade) Dose Ordered Sig/Angelique Route PRN Reason Start Time Stop Time Status Last Admin Dose Admin Acetaminophen (Tylenol) 650 mg PRN Q6HRS PRN PO PAIN 09/03/20 10:15 Cancel Divalproex Sodium (Depakote Er) 500 mg BID PO 09/03/20 21:00 09/04/20 19:40 DC 09/04/20 08:32 Docusate Sodium (Colace) 100 mg BID PO 09/03/20 21:00 09/12/20 18:12 DC 09/11/20 20:00 Donepezil HCl (Aricept) 10 mg QHS PO 09/03/20 21:00 09/23/20 20:48 Metformin HCl (Glucophage) 500 mg BIDWMEALS PO 09/03/20 17:00 09/24/20 08:32 Pantoprazole Sodium (Protonix) 40 mg DAILY PO 09/04/20 09:00 09/24/20 08:33 Quetiapine Fumarate (SEROquel) 300 mg HS PO 09/03/20 21:00 09/16/20 17:51 DC 09/15/20 20:30 Memantine (Namenda) 10 mg BID PO 09/03/20 21:00 09/24/20 08:33 Citalopram Hydrobromide (CeleXA) 40 mg DAILY PO 09/04/20 09:00 09/08/20 16:40 DC 09/08/20 09:22 Acetaminophen (Tylenol) 650 mg PRN Q6HRS PRN PO MILD PAIN / TEMP > 100.3'F 09/03/20 10:30 09/04/20 14:45 Multi-Ingredient Ointment (Analgesic [place]) 1 helen PRN QID PRN TP MUSCLE PAIN 09/03/20 10:30 Al Hydroxide/Mg Hydroxide (Mylanta Plus Xs) 15 ml PRN AFTMEALHC PRN PO DYSPEPSIA 09/03/20 10:30 Magnesium Hydroxide (Milk Of Magnesia) 2,400 mg PRN QHS PRN PO CONSTIPATION 09/03/20 10:30 Olanzapine (ZyPREXA ZYDIS) 5 mg PRN Q2HR PRN PO PSYCHOSIS 09/03/20 14:00 09/24/20 00:46 Bacitracin (Bacitracin Topical Pkt) 1 pkt BID TP 09/04/20 21:00 09/24/20 07:31 Divalproex Sodium (Depakote Sprinkles) 500 mg BID PO 09/04/20 21:00 09/24/20 08:32 Aripiprazole (Abilify) 10 mg DAILY PO 09/05/20 09:00 09/09/20 18:17 DC 09/09/20 09:56 Sertraline HCl (Zoloft) 50 mg DAILY PO 09/09/20 09:00 09/22/20 18:06 DC 09/22/20 08:21 Aripiprazole (Abilify) 20 mg DAILY PO 09/10/20 09:00 09/12/20 19:00 DC 09/12/20 07:59 Aripiprazole (Abilify) 30 mg DAILY PO 09/13/20 09:00 09/14/20 11:05 DC 09/14/20 08:31 Nitrofurantoin Macrocrystals (Macrobid) 100 mg BID PO 09/11/20 09:00 09/18/20 08:59 DC 09/17/20 19:25 Aripiprazole (Abilify) 20 mg DAILY PO 09/15/20 09:00 09/17/20 20:21 DC 09/17/20 08:55 Benztropine Mesylate (Cogentin) 0.5 mg HS PO 09/14/20 21:00 09/17/20 20:21 DC 09/17/20 19:24 Benztropine Mesylate (Cogentin) 0.5 mg 1X ONCE PO 09/14/20 11:30 09/14/20 11:31 DC 09/14/20 11:20 Ropinirole HCl (Requip) 0.5 mg TID PO 09/14/20 21:30 09/24/20 08:32 Quetiapine Fumarate (SEROquel) 250 mg HS PO 09/16/20 21:00 09/23/20 20:48 Aripiprazole (Abilify) 15 mg DAILY PO 09/18/20 09:00 09/19/20 18:02 DC 09/19/20 08:38 Benztropine Mesylate (Cogentin) 1 mg HS PO 09/17/20 21:00 09/23/20 20:48 Aripiprazole (Abilify) 20 mg DAILY PO 09/20/20 09:00 09/24/20 08:32 Nystatin (Nystop) 1 helen BID TP 09/22/20 09:00 09/24/20 07:31 Sertraline HCl (Zoloft) 75 mg DAILY PO 09/23/20 09:00 09/24/20 08:33 Current Medications Medications (Trade) Dose Ordered Sig/Angelique Route PRN Reason Start Time Stop Time Status Last Admin Dose Admin Sertraline HCl (Zoloft) 75 mg DAILY PO 09/23/20 09:00 09/24/20 08:33 I have reviewed the current psychotropics carefully including drug interactions. Risk benefit ratio favors no change other than as noted in my dictated progress note. Diagnosis: Problems: (1) Schizoaffective disorder, bipolar type (2) Impulse control disorder, unspecified (3) Anxiety disorder, unspecified (4) Bipolar disorder, curr episode mixed, severe, with psychotic features (5) Major neurocognitive disorder with Lewy bodies, probable, with behavioral disturbance TOBI PADGETT MD Sep 24, 2020 08:42
[2020-09-24 15:50] VITALS: BP 128/91
[2020-09-24] MEDS: QUEtiapine 100 MG TABLET. PO SCH (19:51)
[2020-09-24] MEDS: BENZTROPINE MESYLATE 1 MG TABLET PO SCH (19:52)
[2020-09-24] MEDS: DONEPEZIL HCL 10 MG TABLET PO SCH (19:52)
--- NOTE | 2020-09-24 21:58 | PDOC ---
Exam Note: Leonel Note: Please also refer to the separate dictated note~for this date of service dictated separately.~Patient seen individually. Discussed the patient with Nursing staff reviewed the chart.~Reviewed interim history and current functioning. Reviewed vital signs,~Labs/ Radiology~and current medications noted below. Continue current treatment with the changes noted in the dictated addendum note Assessment: Vital Signs/I&O: Vital Signs Date Time Temp Pulse Resp B/P (MAP) Pulse Ox O2 Delivery O2 Flow Rate FiO2 09/24/20 15:50 97.6 96 18 128/91 (103) 95 09/23/20 16:01 Room Air I & O 09/23/20 09/23/20 09/24/20 15:00 23:00 07:00 Intake Total 720 ml 600 ml Output Total 500 ml 425 ml Balance 720 ml 100 ml -425 ml Labs: Laboratory Tests Test 09/24/20 08:19 Glucose (Fingerstick) 160 mg/dL (70-99) H Current Medications: I have reviewed the current psychotropics carefully including drug interactions. Risk benefit ratio favors no change other than as noted in my dictated progress note. Diagnosis: Problems: (1) Schizoaffective disorder, bipolar type (2) Impulse control disorder, unspecified (3) Anxiety disorder, unspecified (4) Bipolar disorder, curr episode mixed, severe, with psychotic features (5) Major neurocognitive disorder with Lewy bodies, probable, with behavioral disturbance TOBI PADGETT MD Sep 24, 2020 21:58
[2020-09-25 06:39] VITALS: BP 122/84
[2020-09-25] MEDS: NYSTATIN TOPICAL POWDER 15GM BOTTLE. TP SCH ×2 (08:42→19:56)
[2020-09-25] MEDS: PANTOPRAZOLE 40 MG TABLET. PO SCH (08:43)
[2020-09-25] MEDS: BACITRACIN ZINC TOPICAL OINT PACKET. TP SCH ×2 (08:43→19:56)
[2020-09-25] MEDS: SERTRALINE 25 MG TABLET. PO SCH (08:43)
[2020-09-25] MEDS: MEMANTINE 10 MG TABLET. PO SCH ×2 (08:43→19:57)
[2020-09-25] MEDS: ARIPiprazole 10 MG TABLET PO SCH (08:43)
[2020-09-25] MEDS: rOPINIRole 0.5 MG TABLET. PO SCH ×3 (08:43→19:55)
[2020-09-25] MEDS: metFORMIN 500 MG TABLET PO SCH ×2 (08:43→17:19)
[2020-09-25] MEDS: DIVALPROEX 125 MG CAP.SPRINK PO SCH ×2 (08:43→19:55)
--- NOTE | 2020-09-25 08:48 | PDOC ---
Exam Note: Leonel Note: This note is a late entry for 09/24/2020 covers elements not covered in my initial note. Subjective: The patient was seen individually in the evening of 09/24/2020 with Oscar MERCHANT, discussed and reviewed the chart. He slept 4-1/2 hours previous night. The patient was agitated previous night. He has some difficulty sleeping, but done better today. He was seated next to the panoramic window looking out at the lights though there was dark reflection which made it difficult to see into the [facility] He just had yogurt for his snack before bedtime. He appeared little more animated, verbal. Review of Systems: Ambulation impaired in wheelchair. No CV, , pulmonary, eye system symptoms on review. Mental Status Exam: The patient is oriented to himself. His speech has moderate latency. Often response is monosyllabic. Insight and judgment, recent and remote memory, attention and concentration, fund of knowledge is consistent with his diagnoses. Laboratory Data: Reviewed. Impression: Schizoaffective disorder, bipolar type mixed with psychotic featu res. 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 Anxiety disorder unspecified. Impulse control disorder unspecified. Plan: No change from initial note. Assessment: Vital Signs/I&O: Vital Signs Date Time Temp Pulse Resp B/P (MAP) Pulse Ox O2 Delivery O2 Flow Rate FiO2 09/25/20 06:39 97.6 88 20 122/84 (97) 93 Room Air I & O 09/24/20 09/24/20 09/25/20 15:00 23:00 07:00 Intake Total 520 ml 480 ml Output Total 400 ml Balance 520 ml 480 ml -400 ml Labs: Laboratory Tests Test 09/25/20 07:40 Glucose (Fingerstick) 136 mg/dL (70-99) H Current Medications: Meds: Laboratory Tests Test 09/25/20 07:40 Glucose (Fingerstick) 136 mg/dL Current Medications Medications (Trade) Dose Ordered Sig/Angelique Route PRN Reason Start Time Stop Time Status Last Admin Dose Admin Acetaminophen (Tylenol) 650 mg PRN Q6HRS PRN PO PAIN 09/03/20 10:15 Cancel Divalproex Sodium (Depakote Er) 500 mg BID PO 09/03/20 21:00 09/04/20 19:40 DC 09/04/20 08:32 Docusate Sodium (Colace) 100 mg BID PO 09/03/20 21:00 09/12/20 18:12 DC 09/11/20 20:00 Donepezil HCl (Aricept) 10 mg QHS PO 09/03/20 21:00 09/24/20 19:52 Metformin HCl (Glucophage) 500 mg BIDWMEALS PO 09/03/20 17:00 09/25/20 08:43 Pantoprazole Sodium (Protonix) 40 mg DAILY PO 09/04/20 09:00 09/25/20 08:43 Quetiapine Fumarate (SEROquel) 300 mg HS PO 09/03/20 21:00 09/16/20 17:51 DC 09/15/20 20:30 Memantine (Namenda) 10 mg BID PO 09/03/20 21:00 09/25/20 08:43 Citalopram Hydrobromide (CeleXA) 40 mg DAILY PO 09/04/20 09:00 09/08/20 16:40 DC 09/08/20 09:22 Acetaminophen (Tylenol) 650 mg PRN Q6HRS PRN PO MILD PAIN / TEMP > 100.3'F 09/03/20 10:30 09/04/20 14:45 Multi-Ingredient Ointment (Analgesic [place]) 1 helen PRN QID PRN TP MUSCLE PAIN 09/03/20 10:30 Al Hydroxide/Mg Hydroxide (Mylanta Plus Xs) 15 ml PRN AFTMEALHC PRN PO DYSPEPSIA 09/03/20 10:30 Magnesium Hydroxide (Milk Of Magnesia) 2,400 mg PRN QHS PRN PO CONSTIPATION 09/03/20 10:30 Olanzapine (ZyPREXA ZYDIS) 5 mg PRN Q2HR PRN PO PSYCHOSIS 09/03/20 14:00 09/24/20 00:46 Bacitracin (Bacitracin Topical Pkt) 1 pkt BID TP 09/04/20 21:00 09/25/20 08:43 Divalproex Sodium (Depakote Sprinkles) 500 mg BID PO 09/04/20 21:00 09/25/20 08:43 Aripiprazole (Abilify) 10 mg DAILY PO 09/05/20 09:00 09/09/20 18:17 DC 09/09/20 09:56 Sertraline HCl (Zoloft) 50 mg DAILY PO 09/09/20 09:00 09/22/20 18:06 DC 09/22/20 08:21 Aripiprazole (Abilify) 20 mg DAILY PO 09/10/20 09:00 09/12/20 19:00 DC 09/12/20 07:59 Aripiprazole (Abilify) 30 mg DAILY PO 09/13/20 09:00 09/14/20 11:05 DC 09/14/20 08:31 Nitrofurantoin Macrocrystals (Macrobid) 100 mg BID PO 09/11/20 09:00 09/18/20 08:59 DC 09/17/20 19:25 Aripiprazole (Abilify) 20 mg DAILY PO 09/15/20 09:00 09/17/20 20:21 DC 09/17/20 08:55 Benztropine Mesylate (Cogentin) 0.5 mg HS PO 09/14/20 21:00 09/17/20 20:21 DC 09/17/20 19:24 Benztropine Mesylate (Cogentin) 0.5 mg 1X ONCE PO 09/14/20 11:30 09/14/20 11:31 DC 09/14/20 11:20 Ropinirole HCl (Requip) 0.5 mg TID PO 09/14/20 21:30 09/25/20 08:43 Quetiapine Fumarate (SEROquel) 250 mg HS PO 09/16/20 21:00 09/24/20 19:51 Aripiprazole (Abilify) 15 mg DAILY PO 09/18/20 09:00 09/19/20 18:02 DC 09/19/20 08:38 Benztropine Mesylate (Cogentin) 1 mg HS PO 09/17/20 21:00 09/24/20 19:52 Aripiprazole (Abilify) 20 mg DAILY PO 09/20/20 09:00 09/25/20 08:43 Nystatin (Nystop) 1 helen BID TP 09/22/20 09:00 09/25/20 08:42 Sertraline HCl (Zoloft) 75 mg DAILY PO 09/23/20 09:00 09/25/20 08:43 I have reviewed the current psychotropics carefully including drug interactions. Risk benefit ratio favors no change other than as noted in my dictated progress note. Diagnosis: Problems: (1) Schizoaffective disorder, bipolar type (2) Impulse control disorder, unspecified (3) Anxiety disorder, unspecified (4) Bipolar disorder, curr episode mixed, severe, with psychotic features (5) Major neurocognitive disorder with Lewy bodies, probable, with behavioral disturbance TOBI PADGETT MD Sep 25, 2020 08:48
[2020-09-25 13:30] LABS: BASO % 1 % (0-3); EOS # 0.2 x10^3/uL (0.0-0.7); EOS % 3 % (0-3); HEMATOCRIT 32.9 % (39.0-53.0); HEMOGLOBIN 10.3 g/dL (13.0-17.5); LYMPH # 1.1 x10^3/uL (1.0-4.8); LYMPH % 22 % (24-48); MEAN CORPUSCULAR HEMOGLOBIN 25 pg (25-35); MEAN CORPUSCULAR HGB CONC 31 g/dL (31-37); MEAN CORPUSCULAR VOLUME 80 fL (79-100); MONO # 0.4 x10^3/uL (0.0-1.1); MONO % 8 % (0-9); NEUT # 3.3 x10^3uL (1.8-7.7); NEUT % 66 % (31-73); PLATELET COUNT 348 x10^3/uL (140-400); RED BLOOD COUNT 4.11 x10^6/uL (4.30-5.70); RED CELL DISTRIBUTION WIDTH 18.5 % (11.5-14.5)
--- NOTE | 2020-09-25 14:48 | TX PLAN ---
Interdisciplinary Tx Plan Admission Information Sep 03, 2020 at 09:40 Legal Status (on Admission): Voluntary DPOA/Guardian Name: Legal Guardian/Sister-Candice Turner Contact Other Contact Name: Franchise Field Consultant-Geena Other Contact Verified Code Status: Full Code Allergies: Coded Allergies: Penicillins (Verified Allergy, Intermediate, 03/16/15) duloxetine (Verified Allergy, Intermediate, 03/16/15) risperidone (Verified Allergy, Intermediate, 03/16/15) Diagnoses Primary Diagnosis: Schizoaffective disorder, bipolar type, mixed with psychotic features; major neurocognitive disorder, Lewy body with delusion, behavioral disturbance; anxiety disorder, unspecified; impulse control disorder, unspecified. Reasons for Admission: Aggressive, Delusions, Agitated, Sig. Change Appetite, Combative, Confusion/Disoriented Problem in Patient's Words: Per guardian/sister, pt gets really bad UTIs. "He can be very combative and agitated when he has UTIs. He has a history of having problematic behaviors especially when he has the UTIs." Additional Admission Comments: Per intake record, pt has been agitated, combative with staff, showing manic behavior, threatening staff, decreased food intake, resists cares, thinks everyone is going to burn to . Problems Active Problems: Agitation, irritable, verbally aggressive, threatening Inactive Problems: None noted at this time. Pt Strengths/Limitations Ability for [place]: Poor Cognitive Functioning/Ability: Poor Communication Skills/Ability: Fair Financial Resources: Fair Insight/Judgement: Poor Intellectual Ability: Poor Physical Health: Poor Social Skills: Fair Stability in Family: Fair Stability in School/Work: Poor Verbal Skills: Fair Discharge Criteria Discharge Criteria: Adequate arrangements @DC, Verbal commit med comply, Improved behavior Other Discharge Comments: None noted at this time. Preliminary Discharge Plan Preliminary DC Plan: Memory Care Special Precautions Special Precautions: Agitation/Assault Fall Risk: Moderate Initial D/C Plan Return to [facility]. Identified Discharge Needs: None at this time Currently Utilized Resources Currently Utilized Resources/P: PCP-Dr. Lr Guardian/Sister-Candice Turner Living Facility-[facility] Referrals Community Resources: None noted at this time Identified Problems/Hx/Goals Objectives/Short-Term Goals Short Term Goals: Control abnormal behavior, Dec. Aggression, Dec. Hallucination/Delus, Improved Social Skills, Medication Stabilization, Monitor Med Effects, Promote Coping Skill Short Term Goals in Patient's: To control delusions/hallucination and for medications to be stablized so that agitation and combativeness is under control. Interventions/Frequency Staff Interventions/Frequency&: Psychiatry to assess pt three time per week for medication management. Nursing to assess behaviors, monitor medications, and complete 15 minute checks daily. Social work to see pt at least two times weekly to aid in return to placement. Activities to encourage pt to participate in group activities daily. 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 Social: Guaridan/Sister, Candice and her two sons. Education: Completed GED and took some college classes through [employer], , and [employer], but never graduated with a degree. He was offered a wrestling scholarship when he attended [employer]. Community Follow-up PCP Community Provider/Family Inpu: Guardian/Sister provided information related to pt social history and past psychiatric treatment. Treatment Plan Explained Patient/Performance Test Engineer had this treatment plan explained to him/her as indicated by the signature below and has been given the opportunity to ask questions and make suggestions: Date: Patient/Performance Test Engineer Signature: Status Update Update Pt continuing to eat about 75% of his meals and averaging 7.5 hours of sleep per night. Pt had showing some signs of improvement as far as aggression and agitation, yet the past couple of days, pt has slipped back a bit and has demonstrated some increased morgan and flight of ideas. As of late, he was waving his fist asking staff if they wanted him to punch them and how fast could they throw a football. Pt has been observed mumbling incoherently r/t [facility]. When pt demonstrates the afore mentioned behaviors, Zyprexa Zydis is given. Pt shaking seems to have shown some improvement, but this will be monitored. Pt will be switched from Zoloft to Clozaril and will be monitored for symptom improvements. Pt will return to facility once stable. CHAPINCITO MINOR Sep 25, 2020 14:48
[2020-09-25 15:31] VITALS: BP 131/80
[2020-09-25] MEDS: DONEPEZIL HCL 10 MG TABLET PO SCH (19:55)
[2020-09-25] MEDS: cloZAPine 25 MG TABLET PO SCH (19:56)
[2020-09-25] MEDS: BENZTROPINE MESYLATE 1 MG TABLET PO SCH (19:57)
[2020-09-25] MEDS: QUEtiapine 100 MG TABLET. PO SCH (19:57)
--- NOTE | 2020-09-25 22:05 | PDOC ---
Exam Note: Leonel Note: Please also refer to the separate dictated note~for this date of service dictated separately.~Patient seen individually. Discussed the patient with Nursing staff reviewed the chart.~Reviewed interim history and current functioning. Reviewed vital signs,~Labs/ Radiology~and current medications noted below. Continue current treatment with the changes noted in the dictated addendum note Assessment: Vital Signs/I&O: Vital Signs Date Time Temp Pulse Resp B/P (MAP) Pulse Ox O2 Delivery O2 Flow Rate FiO2 09/25/20 15:31 97.6 76 18 131/80 (97) 94 09/25/20 06:39 Room Air I & O 09/24/20 09/24/20 09/25/20 15:00 23:00 07:00 Intake Total 520 ml 480 ml Output Total 400 ml Balance 520 ml 480 ml -400 ml Labs: Laboratory Tests Test 09/25/20 07:40 09/25/20 13:23 Glucose (Fingerstick) 136 mg/dL (70-99) H White Blood Count 5.0 x10^3/uL (4.0-11.0) Red Blood Count 4.11 x10^6/uL (4.30-5.70) L Hemoglobin 10.3 g/dL (13.0-17.5) L Hematocrit 32.9 % (39.0-53.0) L Mean Corpuscular Volume 80 fL (79-100) Mean Corpuscular Hemoglobin 25 pg (25-35) Mean Corpuscular Hemoglobin Concent 31 g/dL (31-37) Red Cell Distribution Width 18.5 % (11.5-14.5) H Platelet Count 348 x10^3/uL (140-400) Neutrophils (%) (Auto) 66 % (31-73) Lymphocytes (%) (Auto) 22 % (24-48) L Monocytes (%) (Auto) 8 % (0-9) Eosinophils (%) (Auto) 3 % (0-3) Basophils (%) (Auto) 1 % (0-3) Neutrophils # (Auto) 3.3 x10^3uL (1.8-7.7) Lymphocytes # (Auto) 1.1 x10^3/uL (1.0-4.8) Monocytes # (Auto) 0.4 x10^3/uL (0.0-1.1) Eosinophils # (Auto) 0.2 x10^3/uL (0.0-0.7) Basophils # (Auto) 0.0 x10^3/uL (0.0-0.2) Current Medications: Meds: Current Medications Medications (Trade) Dose Ordered Sig/Angelique Route PRN Reason Start Time Stop Time Status Last Admin Dose Admin Clozapine (Clozaril) 25 mg HS PO 09/25/20 21:00 09/25/20 19:56 I have reviewed the current psychotropics carefully including drug interactions. Risk benefit ratio favors no change other than as noted in my dictated progress note. Diagnosis: Problems: (1) Schizoaffective disorder, bipolar type (2) Impulse control disorder, unspecified (3) Anxiety disorder, unspecified (4) Bipolar disorder, curr episode mixed, severe, with psychotic features (5) Major neurocognitive disorder with Lewy bodies, probable, with behavioral disturbance TOBI PADGETT MD Sep 25, 2020 22:05
[2020-09-26 05:58] VITALS: BP 140/83
[2020-09-26] MEDS: MEMANTINE 10 MG TABLET. PO SCH ×2 (08:14→20:08)
[2020-09-26] MEDS: DIVALPROEX 125 MG CAP.SPRINK PO SCH ×2 (08:14→20:09)
[2020-09-26] MEDS: metFORMIN 500 MG TABLET PO SCH ×2 (08:14→17:00)
[2020-09-26] MEDS: SERTRALINE 25 MG TABLET. PO SCH (08:14)
[2020-09-26] MEDS: rOPINIRole 0.5 MG TABLET. PO SCH ×3 (08:14→20:09)
[2020-09-26] MEDS: PANTOPRAZOLE 40 MG TABLET. PO SCH (08:14)
[2020-09-26] MEDS: BACITRACIN ZINC TOPICAL OINT PACKET. TP SCH ×2 (08:14→20:09)
[2020-09-26] MEDS: NYSTATIN TOPICAL POWDER 15GM BOTTLE. TP SCH ×2 (08:21→20:09)
--- NOTE | 2020-09-26 10:48 | PDOC ---
Exam Note: Leonel Note: This note is a late entry for 09/25/2020 covers elements not covered in my initial note. Subjective: The patient was reviewed in the morning of 09/25/2020 for a treatment team meeting with Katya Weiss, Purnima Lovett and Lizbeth (social media community manager), Myesha, activity therapy and Lisa MERCHANT, discussed and reviewed the chart. She was also seen individually in the evening of 09/25. He slept 6-1/4 hours previous night. Appetite is 75%. Previous night, the patient was having visual hallucinations, paranoid. He has been disruptive in groups, threatening staff verbally rather impulsively out of no context to this situation. He seemed to be responding to internal stimuli for this. I met with him at some length in his room to address this and he denied, minimized all of it, perhaps does not remember all of it either. Review of Systems: Ambulation impaired in wheelchair. No CV, , pulmonary, eye system symptoms on review. Mental Status Exam: The patient is oriented to himself and situation. Speech has some latency, coherent. Often response is monosyllabic, low in volume. Abstraction is fair. Computation is impaired. Language function is intact. He is paranoid, suspicious, distractible. No suicidal or homicidal ideation. Laboratory Data: Reviewed. Impression: Schizoaffective disorder, bipolar type mixed with psychotic features. Schizophrenia, chronic undifferentiated with acute exacerbation. Major neurocognitive disorder, early vascular with delusion and depression. Plan: Given the extent of his psychotic symptoms, non response to Abilify 20 mg a day along with Seroquel 250 mg h.s., we had a lengthy discussion about adjusting further changing antipsychotics. We will change the Abilify to Clozaril 25 mg h.s. Check CBC, absolute neutrophil count every Friday. Adjust to reach therapeutic level. Defer discharge for another 10 days or so. Maintain rest unchanged for now. Assessment: Vital Signs/I&O: Vital Signs Date Time Temp Pulse Resp B/P (MAP) Pulse Ox O2 Delivery O2 Flow Rate FiO2 09/26/20 05:58 97.3 90 20 140/83 (102) 100 Room Air I & O 09/25/20 09/25/20 09/26/20 14:59 22:59 06:59 Intake Total 600 ml 220 ml Output Total 500 ml 450 ml Balance 600 ml -280 ml -450 ml Labs: Laboratory Tests Test 09/25/20 13:23 09/26/20 08:11 White Blood Count 5.0 x10^3/uL (4.0-11.0) Red Blood Count 4.11 x10^6/uL (4.30-5.70) L Hemoglobin 10.3 g/dL (13.0-17.5) L Hematocrit 32.9 % (39.0-53.0) L Mean Corpuscular Volume 80 fL (79-100) Mean Corpuscular Hemoglobin 25 pg (25-35) Mean Corpuscular Hemoglobin Concent 31 g/dL (31-37) Red Cell Distribution Width 18.5 % (11.5-14.5) H Platelet Count 348 x10^3/uL (140-400) Neutrophils (%) (Auto) 66 % (31-73) Lymphocytes (%) (Auto) 22 % (24-48) L Monocytes (%) (Auto) 8 % (0-9) Eosinophils (%) (Auto) 3 % (0-3) Basophils (%) (Auto) 1 % (0-3) Neutrophils # (Auto) 3.3 x10^3uL (1.8-7.7) Lymphocytes # (Auto) 1.1 x10^3/uL (1.0-4.8) Monocytes # (Auto) 0.4 x10^3/uL (0.0-1.1) Eosinophils # (Auto) 0.2 x10^3/uL (0.0-0.7) Basophils # (Auto) 0.0 x10^3/uL (0.0-0.2) Glucose (Fingerstick) 136 mg/dL (70-99) H Current Medications: Meds: Current Medications Medications (Trade) Dose Ordered Sig/Angelique Route PRN Reason Start Time Stop Time Status Last Admin Dose Admin Clozapine (Clozaril) 25 mg HS PO 09/25/20 21:00 09/25/20 19:56 I have reviewed the current psychotropics carefully including drug interactions. Risk benefit ratio favors no change other than as noted in my dictated progress note. Diagnosis: Problems: (1) Chronic undifferentiated schizophrenia (2) Schizoaffective disorder, bipolar type (3) Impulse control disorder, unspecified (4) Anxiety disorder, unspecified (5) Bipolar disorder, curr episode mixed, severe, with psychotic features (6) Major neurocognitive disorder with Lewy bodies, probable, with behavioral disturbance TOBI PADGETT MD Sep 26, 2020 10:48
[2020-09-26 16:20] VITALS: BP 149/90
[2020-09-26] MEDS: DONEPEZIL HCL 10 MG TABLET PO SCH (20:07)
[2020-09-26] MEDS: cloZAPine 25 MG TABLET PO SCH (20:08)
[2020-09-26] MEDS: BENZTROPINE MESYLATE 1 MG TABLET PO SCH (20:08)
[2020-09-26] MEDS: QUEtiapine 100 MG TABLET. PO SCH (20:08)
--- NOTE | 2020-09-26 21:57 | PDOC ---
Exam Note: Leonel Note: Please also refer to the separate dictated note~for this date of service dictated separately.~Patient seen individually. Discussed the patient with Nursing staff reviewed the chart.~Reviewed interim history and current functioning. Reviewed vital signs,~Labs/ Radiology~and current medications noted below. Continue current treatment with the changes noted in the dictated addendum note Assessment: Vital Signs/I&O: Vital Signs Date Time Temp Pulse Resp B/P (MAP) Pulse Ox O2 Delivery O2 Flow Rate FiO2 09/26/20 16:20 98.9 119 20 149/90 (109) 98 09/26/20 05:58 Room Air I & O 09/25/20 09/25/20 09/26/20 15:00 23:00 07:00 Intake Total 600 ml 220 ml Output Total 500 ml 450 ml Balance 600 ml -280 ml -450 ml Labs: Laboratory Tests Test 09/26/20 08:11 Glucose (Fingerstick) 136 mg/dL (70-99) H Current Medications: Meds: Laboratory Tests Test 09/26/20 08:11 Glucose (Fingerstick) 136 mg/dL Current Medications Medications (Trade) Dose Ordered Sig/Angelique Route PRN Reason Start Time Stop Time Status Last Admin Dose Admin Acetaminophen (Tylenol) 650 mg PRN Q6HRS PRN PO PAIN 09/03/20 10:15 Cancel Divalproex Sodium (Depakote Er) 500 mg BID PO 09/03/20 21:00 09/04/20 19:40 DC 09/04/20 08:32 Docusate Sodium (Colace) 100 mg BID PO 09/03/20 21:00 09/12/20 18:12 DC 09/11/20 20:00 Donepezil HCl (Aricept) 10 mg QHS PO 09/03/20 21:00 09/26/20 20:07 Metformin HCl (Glucophage) 500 mg BIDWMEALS PO 09/03/20 17:00 09/26/20 08:14 Pantoprazole Sodium (Protonix) 40 mg DAILY PO 09/04/20 09:00 09/26/20 08:14 Quetiapine Fumarate (SEROquel) 300 mg HS PO 09/03/20 21:00 09/16/20 17:51 DC 09/15/20 20:30 Memantine (Namenda) 10 mg BID PO 09/03/20 21:00 09/26/20 20:08 Citalopram Hydrobromide (CeleXA) 40 mg DAILY PO 09/04/20 09:00 09/08/20 16:40 DC 09/08/20 09:22 Acetaminophen (Tylenol) 650 mg PRN Q6HRS PRN PO MILD PAIN / TEMP > 100.3'F 09/03/20 10:30 09/04/20 14:45 Multi-Ingredient Ointment (Analgesic [place]) 1 helen PRN QID PRN TP MUSCLE PAIN 09/03/20 10:30 Al Hydroxide/Mg Hydroxide (Mylanta Plus Xs) 15 ml PRN AFTMEALHC PRN PO DYSPEPSIA 09/03/20 10:30 Magnesium Hydroxide (Milk Of Magnesia) 2,400 mg PRN QHS PRN PO CONSTIPATION 09/03/20 10:30 Olanzapine (ZyPREXA ZYDIS) 5 mg PRN Q2HR PRN PO PSYCHOSIS 09/03/20 14:00 09/26/20 17:16 Bacitracin (Bacitracin Topical Pkt) 1 pkt BID TP 09/04/20 21:00 09/26/20 20:09 Divalproex Sodium (Depakote Sprinkles) 500 mg BID PO 09/04/20 21:00 09/26/20 20:09 Aripiprazole (Abilify) 10 mg DAILY PO 09/05/20 09:00 09/09/20 18:17 DC 09/09/20 09:56 Sertraline HCl (Zoloft) 50 mg DAILY PO 09/09/20 09:00 09/22/20 18:06 DC 09/22/20 08:21 Aripiprazole (Abilify) 20 mg DAILY PO 09/10/20 09:00 09/12/20 19:00 DC 09/12/20 07:59 Aripiprazole (Abilify) 30 mg DAILY PO 09/13/20 09:00 09/14/20 11:05 DC 09/14/20 08:31 Nitrofurantoin Macrocrystals (Macrobid) 100 mg BID PO 09/11/20 09:00 09/18/20 08:59 DC 09/17/20 19:25 Aripiprazole (Abilify) 20 mg DAILY PO 09/15/20 09:00 09/17/20 20:21 DC 09/17/20 08:55 Benztropine Mesylate (Cogentin) 0.5 mg HS PO 09/14/20 21:00 09/17/20 20:21 DC 09/17/20 19:24 Benztropine Mesylate (Cogentin) 0.5 mg 1X ONCE PO 09/14/20 11:30 09/14/20 11:31 DC 09/14/20 11:20 Ropinirole HCl (Requip) 0.5 mg TID PO 09/14/20 21:30 09/26/20 20:09 Quetiapine Fumarate (SEROquel) 250 mg HS PO 09/16/20 21:00 09/26/20 20:08 Aripiprazole (Abilify) 15 mg DAILY PO 09/18/20 09:00 09/19/20 18:02 DC 09/19/20 08:38 Benztropine Mesylate (Cogentin) 1 mg HS PO 09/17/20 21:00 09/26/20 20:08 Aripiprazole (Abilify) 20 mg DAILY PO 09/20/20 09:00 09/25/20 13:03 DC 09/25/20 08:43 Nystatin (Nystop) 1 helen BID TP 09/22/20 09:00 09/26/20 20:09 Sertraline HCl (Zoloft) 75 mg DAILY PO 09/23/20 09:00 09/26/20 08:14 Clozapine (Clozaril) 25 mg HS PO 09/25/20 21:00 09/26/20 20:08 I have reviewed the current psychotropics carefully including drug interactions. Risk benefit ratio favors no change other than as noted in my dictated progress note. Diagnosis: Problems: (1) Schizoaffective disorder, bipolar type (2) Impulse control disorder, unspecified (3) Anxiety disorder, unspecified (4) Bipolar disorder, curr episode mixed, severe, with psychotic features (5) Major neurocognitive disorder with Lewy bodies, probable, with behavioral disturbance (6) Chronic undifferentiated schizophrenia TOBI PADGETT MD Sep 26, 2020 21:57
[2020-09-27 06:01] VITALS: BP 146/86
[2020-09-27] MEDS: PANTOPRAZOLE 40 MG TABLET. PO SCH (08:39)
[2020-09-27] MEDS: SERTRALINE 25 MG TABLET. PO SCH (08:39)
[2020-09-27] MEDS: MEMANTINE 10 MG TABLET. PO SCH ×2 (08:39→19:57)
[2020-09-27] MEDS: rOPINIRole 0.5 MG TABLET. PO SCH ×3 (08:39→19:56)
[2020-09-27] MEDS: metFORMIN 500 MG TABLET PO SCH ×2 (08:39→17:00)
[2020-09-27] MEDS: DIVALPROEX 125 MG CAP.SPRINK PO SCH ×2 (08:39→19:57)
[2020-09-27] MEDS: NYSTATIN TOPICAL POWDER 15GM BOTTLE. TP SCH ×2 (08:40→19:57)
[2020-09-27] MEDS: BACITRACIN ZINC TOPICAL OINT PACKET. TP SCH ×2 (08:40→19:57)
--- NOTE | 2020-09-27 09:06 | PDOC ---
Exam Note: Leonel Note: This note is a late entry for 09/26/2020 covers elements not covered in my initial note. Subjective: The patient was seen individually in the evening of 09/26/2020 with Cristal MERCHANT, discussed and reviewed the chart. He slept 6-3/4 hours previous night. The patient was somewhat irritable in the morning, yelling in the evening, paranoid at times. Review of Systems: Ambulation impaired in wheelchair. No CV, , pulmonary, eye system symptoms on review. Mental Status Exam: The patient is oriented to himself and situation. Speech has some latency, can be rapid at times. Abstraction is fair. Computation is impaired. Language function is intact. Attention span is short. He is paranoid, suspicious. Laboratory Data: Reviewed. Impression: Schizoaffective disorder, bipolar type mixed with psychotic features. Schizophrenia, chronic undifferentiated with acute exacerbation. Major neurocognitive disorder, early vascular with delusion and depression. Plan: Check UA to rule out UTI. He did receive p.r.n. Zyprexa at 5.15 p.m. He has been started on Clozaril. We will increase per weekly CBC, ANC. Assessment: Vital Signs/I&O: Vital Signs Date Time Temp Pulse Resp B/P (MAP) Pulse Ox O2 Delivery O2 Flow Rate FiO2 09/27/20 06:01 98.0 82 18 146/86 (106) 95 09/26/20 05:58 Room Air I & O 09/26/20 09/26/20 09/27/20 15:00 23:00 07:00 Intake Total 840 ml 600 ml Output Total 700 ml 400 ml Balance 840 ml -100 ml -400 ml Labs: Laboratory Tests Test 09/27/20 07:58 Glucose (Fingerstick) 128 mg/dL (70-99) H Current Medications: Meds: Laboratory Tests Test 09/27/20 07:58 Glucose (Fingerstick) 128 mg/dL Current Medications Medications (Trade) Dose Ordered Sig/Angelique Route PRN Reason Start Time Stop Time Status Last Admin Dose Admin Acetaminophen (Tylenol) 650 mg PRN Q6HRS PRN PO PAIN 09/03/20 10:15 Cancel Divalproex Sodium (Depakote Er) 500 mg BID PO 09/03/20 21:00 09/04/20 19:40 DC 09/04/20 08:32 Docusate Sodium (Colace) 100 mg BID PO 09/03/20 21:00 09/12/20 18:12 DC 09/11/20 20:00 Donepezil HCl (Aricept) 10 mg QHS PO 09/03/20 21:00 09/26/20 20:07 Metformin HCl (Glucophage) 500 mg BIDWMEALS PO 09/03/20 17:00 09/27/20 08:39 Pantoprazole Sodium (Protonix) 40 mg DAILY PO 09/04/20 09:00 09/27/20 08:39 Quetiapine Fumarate (SEROquel) 300 mg HS PO 09/03/20 21:00 09/16/20 17:51 DC 09/15/20 20:30 Memantine (Namenda) 10 mg BID PO 09/03/20 21:00 09/27/20 08:39 Citalopram Hydrobromide (CeleXA) 40 mg DAILY PO 09/04/20 09:00 09/08/20 16:40 DC 09/08/20 09:22 Acetaminophen (Tylenol) 650 mg PRN Q6HRS PRN PO MILD PAIN / TEMP > 100.3'F 09/03/20 10:30 09/04/20 14:45 Multi-Ingredient Ointment (Analgesic [place]) 1 helen PRN QID PRN TP MUSCLE PAIN 09/03/20 10:30 Al Hydroxide/Mg Hydroxide (Mylanta Plus Xs) 15 ml PRN AFTMEALHC PRN PO DYSPEPSIA 09/03/20 10:30 Magnesium Hydroxide (Milk Of Magnesia) 2,400 mg PRN QHS PRN PO CONSTIPATION 09/03/20 10:30 Olanzapine (ZyPREXA ZYDIS) 5 mg PRN Q2HR PRN PO PSYCHOSIS 09/03/20 14:00 09/26/20 17:16 Bacitracin (Bacitracin Topical Pkt) 1 pkt BID TP 09/04/20 21:00 09/27/20 08:40 Divalproex Sodium (Depakote Sprinkles) 500 mg BID PO 09/04/20 21:00 09/27/20 08:39 Aripiprazole (Abilify) 10 mg DAILY PO 09/05/20 09:00 09/09/20 18:17 DC 09/09/20 09:56 Sertraline HCl (Zoloft) 50 mg DAILY PO 09/09/20 09:00 09/22/20 18:06 DC 09/22/20 08:21 Aripiprazole (Abilify) 20 mg DAILY PO 09/10/20 09:00 09/12/20 19:00 DC 09/12/20 07:59 Aripiprazole (Abilify) 30 mg DAILY PO 09/13/20 09:00 09/14/20 11:05 DC 09/14/20 08:31 Nitrofurantoin Macrocrystals (Macrobid) 100 mg BID PO 09/11/20 09:00 09/18/20 08:59 DC 09/17/20 19:25 Aripiprazole (Abilify) 20 mg DAILY PO 09/15/20 09:00 09/17/20 20:21 DC 09/17/20 08:55 Benztropine Mesylate (Cogentin) 0.5 mg HS PO 09/14/20 21:00 09/17/20 20:21 DC 09/17/20 19:24 Benztropine Mesylate (Cogentin) 0.5 mg 1X ONCE PO 09/14/20 11:30 09/14/20 11:31 DC 09/14/20 11:20 Ropinirole HCl (Requip) 0.5 mg TID PO 09/14/20 21:30 09/27/20 08:39 Quetiapine Fumarate (SEROquel) 250 mg HS PO 09/16/20 21:00 09/26/20 20:08 Aripiprazole (Abilify) 15 mg DAILY PO 09/18/20 09:00 09/19/20 18:02 DC 09/19/20 08:38 Benztropine Mesylate (Cogentin) 1 mg HS PO 09/17/20 21:00 09/26/20 20:08 Aripiprazole (Abilify) 20 mg DAILY PO 09/20/20 09:00 09/25/20 13:03 DC 09/25/20 08:43 Nystatin (Nystop) 1 helen BID TP 09/22/20 09:00 09/27/20 08:40 Sertraline HCl (Zoloft) 75 mg DAILY PO 09/23/20 09:00 09/27/20 08:39 Clozapine (Clozaril) 25 mg HS PO 09/25/20 21:00 09/26/20 20:08 I have reviewed the current psychotropics carefully including drug interactions. Risk benefit ratio favors no change other than as noted in my dictated progress note. Diagnosis: Problems: (1) Schizoaffective disorder, bipolar type (2) Impulse control disorder, unspecified (3) Anxiety disorder, unspecified (4) Bipolar disorder, curr episode mixed, severe, with psychotic features (5) Major neurocognitive disorder with Lewy bodies, probable, with behavioral disturbance (6) Chronic undifferentiated schizophrenia TOBI PADGETT MD Sep 27, 2020 09:06
[2020-09-27 15:59] VITALS: BP 126/87
[2020-09-27] MEDS: DONEPEZIL HCL 10 MG TABLET PO SCH (19:56)
[2020-09-27] MEDS: cloZAPine 25 MG TABLET PO SCH (19:57)
[2020-09-27] MEDS: QUEtiapine 100 MG TABLET. PO SCH (19:57)
[2020-09-27] MEDS: BENZTROPINE MESYLATE 1 MG TABLET PO SCH (19:57)
--- NOTE | 2020-09-27 22:09 | PDOC ---
Exam Note: Leonel Note: Please also refer to the separate dictated note~for this date of service dictated separately.~Patient seen individually. Discussed the patient with Nursing staff reviewed the chart.~Reviewed interim history and current functioning. Reviewed vital signs,~Labs/ Radiology~and current medications noted below. Continue current treatment with the changes noted in the dictated addendum note Assessment: Vital Signs/I&O: Vital Signs Date Time Temp Pulse Resp B/P (MAP) Pulse Ox O2 Delivery O2 Flow Rate FiO2 09/27/20 15:59 97.8 98 20 126/87 (100) 94 Room Air I & O 09/26/20 09/26/20 09/27/20 15:00 23:00 07:00 Intake Total 840 ml 600 ml Output Total 700 ml 400 ml Balance 840 ml -100 ml -400 ml Labs: Laboratory Tests Test 09/27/20 07:58 Glucose (Fingerstick) 128 mg/dL (70-99) H Current Medications: I have reviewed the current psychotropics carefully including drug interactions. Risk benefit ratio favors no change other than as noted in my dictated progress note. Diagnosis: Problems: (1) Schizoaffective disorder, bipolar type (2) Impulse control disorder, unspecified (3) Anxiety disorder, unspecified (4) Bipolar disorder, curr episode mixed, severe, with psychotic features (5) Major neurocognitive disorder with Lewy bodies, probable, with behavioral disturbance (6) Chronic undifferentiated schizophrenia TOBI PADGETT MD Sep 27, 2020 22:09
[2020-09-28 05:36] VITALS: BP 104/72
--- NOTE | 2020-09-28 08:32 | PDOC ---
Exam Note: Leonel Note: This note is a late entry for 09/27/2020 covers elements not covered in my initial note. Subjective: The patient was seen individually in the evening of 09/27/2020 with Melissa MERCHANT, discussed and reviewed the chart. He slept 6-1/2 hours previous night. The patient reportedly did have a catheter changed and tolerated it well. He has not been aggressive today which is an improvement. He is tolerating the initiation of Clozaril. Review of Systems: Ambulation impaired in wheelchair. No CV, , pulmonary, eye system symptoms on review. Mental Status Exam: The patient is oriented to himself and situation. Speech has some latency, can be rapid at times. Abstraction is fair. Computation is impaired. Language function is intact. Attention span is short. Mood and affect improved. Laboratory Data: Reviewed. Impression: Schizoaffective disorder, bipolar type mixed with psychotic features. Schizophrenia, chronic undifferentiated with acute exacerbation. Major neurocognitive disorder, early vascular with delusion and depression. Plan: No change from initial note. Assessment: Vital Signs/I&O: Vital Signs Date Time Temp Pulse Resp B/P (MAP) Pulse Ox O2 Delivery O2 Flow Rate FiO2 09/28/20 05:36 97.9 88 16 104/72 (83) 97 09/27/20 15:59 Room Air I & O 09/27/20 09/27/20 09/28/20 15:00 23:00 07:00 Intake Total 480 ml 80 ml Output Total 400 ml Balance 480 ml -320 ml Labs: Laboratory Tests Test 09/28/20 08:25 Glucose (Fingerstick) 116 mg/dL (70-99) H Current Medications: Meds: Laboratory Tests Test 09/28/20 08:25 Glucose (Fingerstick) 116 mg/dL Current Medications Medications (Trade) Dose Ordered Sig/Angelique Route PRN Reason Start Time Stop Time Status Last Admin Dose Admin Acetaminophen (Tylenol) 650 mg PRN Q6HRS PRN PO PAIN 09/03/20 10:15 Cancel Divalproex Sodium (Depakote Er) 500 mg BID PO 09/03/20 21:00 09/04/20 19:40 DC 09/04/20 08:32 Docusate Sodium (Colace) 100 mg BID PO 09/03/20 21:00 09/12/20 18:12 DC 09/11/20 20:00 Donepezil HCl (Aricept) 10 mg QHS PO 09/03/20 21:00 09/27/20 19:56 Metformin HCl (Glucophage) 500 mg BIDWMEALS PO 09/03/20 17:00 09/27/20 08:39 Pantoprazole Sodium (Protonix) 40 mg DAILY PO 09/04/20 09:00 09/27/20 08:39 Quetiapine Fumarate (SEROquel) 300 mg HS PO 09/03/20 21:00 09/16/20 17:51 DC 09/15/20 20:30 Memantine (Namenda) 10 mg BID PO 09/03/20 21:00 09/27/20 19:57 Citalopram Hydrobromide (CeleXA) 40 mg DAILY PO 09/04/20 09:00 09/08/20 16:40 DC 09/08/20 09:22 Acetaminophen (Tylenol) 650 mg PRN Q6HRS PRN PO MILD PAIN / TEMP > 100.3'F 09/03/20 10:30 09/04/20 14:45 Multi-Ingredient Ointment (Analgesic [place]) 1 helen PRN QID PRN TP MUSCLE PAIN 09/03/20 10:30 Al Hydroxide/Mg Hydroxide (Mylanta Plus Xs) 15 ml PRN AFTMEALHC PRN PO DYSPEPSIA 09/03/20 10:30 Magnesium Hydroxide (Milk Of Magnesia) 2,400 mg PRN QHS PRN PO CONSTIPATION 09/03/20 10:30 Olanzapine (ZyPREXA ZYDIS) 5 mg PRN Q2HR PRN PO PSYCHOSIS 09/03/20 14:00 09/26/20 17:16 Bacitracin (Bacitracin Topical Pkt) 1 pkt BID TP 09/04/20 21:00 09/27/20 19:57 Divalproex Sodium (Depakote Sprinkles) 500 mg BID PO 09/04/20 21:00 09/27/20 19:57 Aripiprazole (Abilify) 10 mg DAILY PO 09/05/20 09:00 09/09/20 18:17 DC 09/09/20 09:56 Sertraline HCl (Zoloft) 50 mg DAILY PO 09/09/20 09:00 09/22/20 18:06 DC 09/22/20 08:21 Aripiprazole (Abilify) 20 mg DAILY PO 09/10/20 09:00 09/12/20 19:00 DC 09/12/20 07:59 Aripiprazole (Abilify) 30 mg DAILY PO 09/13/20 09:00 09/14/20 11:05 DC 09/14/20 08:31 Nitrofurantoin Macrocrystals (Macrobid) 100 mg BID PO 09/11/20 09:00 09/18/20 08:59 DC 09/17/20 19:25 Aripiprazole (Abilify) 20 mg DAILY PO 09/15/20 09:00 09/17/20 20:21 DC 09/17/20 08:55 Benztropine Mesylate (Cogentin) 0.5 mg HS PO 09/14/20 21:00 09/17/20 20:21 DC 09/17/20 19:24 Benztropine Mesylate (Cogentin) 0.5 mg 1X ONCE PO 09/14/20 11:30 09/14/20 11:31 DC 09/14/20 11:20 Ropinirole HCl (Requip) 0.5 mg TID PO 09/14/20 21:30 09/27/20 19:56 Quetiapine Fumarate (SEROquel) 250 mg HS PO 09/16/20 21:00 09/27/20 19:57 Aripiprazole (Abilify) 15 mg DAILY PO 09/18/20 09:00 09/19/20 18:02 DC 09/19/20 08:38 Benztropine Mesylate (Cogentin) 1 mg HS PO 09/17/20 21:00 09/27/20 19:57 Aripiprazole (Abilify) 20 mg DAILY PO 09/20/20 09:00 09/25/20 13:03 DC 09/25/20 08:43 Nystatin (Nystop) 1 helen BID TP 09/22/20 09:00 09/27/20 19:57 Sertraline HCl (Zoloft) 75 mg DAILY PO 09/23/20 09:00 09/27/20 08:39 Clozapine (Clozaril) 25 mg HS PO 09/25/20 21:00 09/27/20 19:57 I have reviewed the current psychotropics carefully including drug interactions. Risk benefit ratio favors no change other than as noted in my dictated progress note. Diagnosis: Problems: (1) Schizoaffective disorder, bipolar type (2) Impulse control disorder, unspecified (3) Anxiety disorder, unspecified (4) Bipolar disorder, curr episode mixed, severe, with psychotic features (5) Major neurocognitive disorder with Lewy bodies, probable, with behavioral disturbance (6) Chronic undifferentiated schizophrenia TOBI PADGETT MD Sep 28, 2020 08:32
[2020-09-28] MEDS: PANTOPRAZOLE 40 MG TABLET. PO SCH (08:37)
[2020-09-28] MEDS: NYSTATIN TOPICAL POWDER 15GM BOTTLE. TP SCH ×2 (08:37→20:17)
[2020-09-28] MEDS: BACITRACIN ZINC TOPICAL OINT PACKET. TP SCH ×2 (08:37→20:17)
[2020-09-28] MEDS: SERTRALINE 25 MG TABLET. PO SCH (08:38)
[2020-09-28] MEDS: DIVALPROEX 125 MG CAP.SPRINK PO SCH ×2 (08:38→20:17)
[2020-09-28] MEDS: rOPINIRole 0.5 MG TABLET. PO SCH ×3 (08:38→20:18)
[2020-09-28] MEDS: metFORMIN 500 MG TABLET PO SCH ×2 (08:38→17:22)
[2020-09-28] MEDS: MEMANTINE 10 MG TABLET. PO SCH ×2 (08:38→20:18)
[2020-09-28 16:08] VITALS: BP 144/82
[2020-09-28] MEDS: DONEPEZIL HCL 10 MG TABLET PO SCH (20:18)
[2020-09-28] MEDS: BENZTROPINE MESYLATE 1 MG TABLET PO SCH (20:18)
[2020-09-28] MEDS: QUEtiapine 100 MG TABLET. PO SCH (20:19)
[2020-09-28] MEDS: cloZAPine 25 MG TABLET PO SCH (20:19)
--- NOTE | 2020-09-28 21:31 | PDOC ---
Exam Note: Leonel Note: Please also refer to the separate dictated note~for this date of service dictated separately.~Patient seen individually. Discussed the patient with Nursing staff reviewed the chart.~Reviewed interim history and current functioning. Reviewed vital signs,~Labs/ Radiology~and current medications noted below. Continue current treatment with the changes noted in the dictated addendum note Assessment: Vital Signs/I&O: Vital Signs Date Time Temp Pulse Resp B/P (MAP) Pulse Ox O2 Delivery O2 Flow Rate FiO2 09/28/20 16:08 97.7 58 20 144/82 (102) 98 Room Air I & O 09/27/20 09/27/20 09/28/20 15:00 23:00 07:00 Intake Total 480 ml 80 ml Output Total 400 ml Balance 480 ml -320 ml Labs: Laboratory Tests Test 09/28/20 08:25 Glucose (Fingerstick) 116 mg/dL (70-99) H Current Medications: Meds: Laboratory Tests Test 09/28/20 08:25 Glucose (Fingerstick) 116 mg/dL Current Medications Medications (Trade) Dose Ordered Sig/Angelique Route PRN Reason Start Time Stop Time Status Last Admin Dose Admin Acetaminophen (Tylenol) 650 mg PRN Q6HRS PRN PO PAIN 09/03/20 10:15 Cancel Divalproex Sodium (Depakote Er) 500 mg BID PO 09/03/20 21:00 09/04/20 19:40 DC 09/04/20 08:32 Docusate Sodium (Colace) 100 mg BID PO 09/03/20 21:00 09/12/20 18:12 DC 09/11/20 20:00 Donepezil HCl (Aricept) 10 mg QHS PO 09/03/20 21:00 09/28/20 20:18 Metformin HCl (Glucophage) 500 mg BIDWMEALS PO 09/03/20 17:00 09/28/20 17:22 Pantoprazole Sodium (Protonix) 40 mg DAILY PO 09/04/20 09:00 09/28/20 08:37 Quetiapine Fumarate (SEROquel) 300 mg HS PO 09/03/20 21:00 09/16/20 17:51 DC 09/15/20 20:30 Memantine (Namenda) 10 mg BID PO 09/03/20 21:00 09/28/20 20:18 Citalopram Hydrobromide (CeleXA) 40 mg DAILY PO 09/04/20 09:00 09/08/20 16:40 DC 09/08/20 09:22 Acetaminophen (Tylenol) 650 mg PRN Q6HRS PRN PO MILD PAIN / TEMP > 100.3'F 09/03/20 10:30 09/04/20 14:45 Multi-Ingredient Ointment (Analgesic [place]) 1 helen PRN QID PRN TP MUSCLE PAIN 09/03/20 10:30 Al Hydroxide/Mg Hydroxide (Mylanta Plus Xs) 15 ml PRN AFTMEALHC PRN PO DYSPEPSIA 09/03/20 10:30 Magnesium Hydroxide (Milk Of Magnesia) 2,400 mg PRN QHS PRN PO CONSTIPATION 09/03/20 10:30 Olanzapine (ZyPREXA ZYDIS) 5 mg PRN Q2HR PRN PO PSYCHOSIS 09/03/20 14:00 09/26/20 17:16 Bacitracin (Bacitracin Topical Pkt) 1 pkt BID TP 09/04/20 21:00 09/28/20 20:17 Divalproex Sodium (Depakote Sprinkles) 500 mg BID PO 09/04/20 21:00 09/28/20 20:17 Aripiprazole (Abilify) 10 mg DAILY PO 09/05/20 09:00 09/09/20 18:17 DC 09/09/20 09:56 Sertraline HCl (Zoloft) 50 mg DAILY PO 09/09/20 09:00 09/22/20 18:06 DC 09/22/20 08:21 Aripiprazole (Abilify) 20 mg DAILY PO 09/10/20 09:00 09/12/20 19:00 DC 09/12/20 07:59 Aripiprazole (Abilify) 30 mg DAILY PO 09/13/20 09:00 09/14/20 11:05 DC 09/14/20 08:31 Nitrofurantoin Macrocrystals (Macrobid) 100 mg BID PO 09/11/20 09:00 09/18/20 08:59 DC 09/17/20 19:25 Aripiprazole (Abilify) 20 mg DAILY PO 09/15/20 09:00 09/17/20 20:21 DC 09/17/20 08:55 Benztropine Mesylate (Cogentin) 0.5 mg HS PO 09/14/20 21:00 09/17/20 20:21 DC 09/17/20 19:24 Benztropine Mesylate (Cogentin) 0.5 mg 1X ONCE PO 09/14/20 11:30 09/14/20 11:31 DC 09/14/20 11:20 Ropinirole HCl (Requip) 0.5 mg TID PO 09/14/20 21:30 09/28/20 20:18 Quetiapine Fumarate (SEROquel) 250 mg HS PO 09/16/20 21:00 09/28/20 20:19 Aripiprazole (Abilify) 15 mg DAILY PO 09/18/20 09:00 09/19/20 18:02 DC 09/19/20 08:38 Benztropine Mesylate (Cogentin) 1 mg HS PO 09/17/20 21:00 09/28/20 20:18 Aripiprazole (Abilify) 20 mg DAILY PO 09/20/20 09:00 09/25/20 13:03 DC 09/25/20 08:43 Nystatin (Nystop) 1 helen BID TP 09/22/20 09:00 09/28/20 20:17 Sertraline HCl (Zoloft) 75 mg DAILY PO 09/23/20 09:00 09/28/20 08:38 Clozapine (Clozaril) 25 mg HS PO 09/25/20 21:00 09/28/20 20:19 I have reviewed the current psychotropics carefully including drug interactions. Risk benefit ratio favors no change other than as noted in my dictated progress note. Diagnosis: Problems: (1) Schizoaffective disorder, bipolar type (2) Impulse control disorder, unspecified (3) Anxiety disorder, unspecified (4) Bipolar disorder, curr episode mixed, severe, with psychotic features (5) Major neurocognitive disorder with Lewy bodies, probable, with behavioral disturbance (6) Chronic undifferentiated schizophrenia TOBI PADGETT MD Sep 28, 2020 21:31
[2020-09-29] MEDS: ACETAMINOPHEN 325 MG TABLET PO PRN (01:35)
[2020-09-29 05:58] VITALS: BP 135/84
[2020-09-29 06:15] LABS: BASO % 0 % (0-3); EOS # 0.2 x10^3/uL (0.0-0.7); EOS % 3 % (0-3); HEMATOCRIT 32.7 % (39.0-53.0); HEMOGLOBIN 10.2 g/dL (13.0-17.5); LYMPH # 1.6 x10^3/uL (1.0-4.8); LYMPH % 24 % (24-48); MEAN CORPUSCULAR HEMOGLOBIN 25 pg (25-35); MEAN CORPUSCULAR HGB CONC 31 g/dL (31-37); MEAN CORPUSCULAR VOLUME 79 fL (79-100); MONO # 0.6 x10^3/uL (0.0-1.1); MONO % 9 % (0-9); NEUT # 4.1 x10^3uL (1.8-7.7); NEUT % 64 % (31-73); PLATELET COUNT 299 x10^3/uL (140-400); RED BLOOD COUNT 4.11 x10^6/uL (4.30-5.70); RED CELL DISTRIBUTION WIDTH 18.9 % (11.5-14.5); WHITE BLOOD COUNT 6.5 x10^3/uL (4.0-11.0)
[2020-09-29 06:35] LABS: ALBUMIN 2.7 g/dL (3.4-5.0); ALBUMIN/GLOBULIN RATIO 0.7 (1.0-1.7); CALCIUM 8.8 mg/dL (8.5-10.1); CREATININE 1.1 mg/dL (0.7-1.3); GFR 67.6; POTASSIUM 3.6 mmol/L (3.5-5.1); TOTAL BILIRUBIN 0.1 mg/dL (0.2-1.0); TOTAL PROTEIN 6.7 g/dL (6.4-8.2)
[2020-09-29] MEDS: SERTRALINE 25 MG TABLET. PO SCH (08:32)
[2020-09-29] MEDS: DIVALPROEX 125 MG CAP.SPRINK PO SCH ×2 (08:32→21:43)
[2020-09-29] MEDS: PANTOPRAZOLE 40 MG TABLET. PO SCH (08:32)
[2020-09-29] MEDS: BACITRACIN ZINC TOPICAL OINT PACKET. TP SCH ×2 (08:33→21:44)
[2020-09-29] MEDS: metFORMIN 500 MG TABLET PO SCH ×2 (08:33→16:57)
[2020-09-29] MEDS: rOPINIRole 0.5 MG TABLET. PO SCH ×3 (08:33→21:43)
[2020-09-29] MEDS: MEMANTINE 10 MG TABLET. PO SCH ×2 (08:33→21:00)
[2020-09-29] MEDS: NYSTATIN TOPICAL POWDER 15GM BOTTLE. TP SCH ×2 (08:34→21:43)
--- NOTE | 2020-09-29 09:19 | PDOC ---
Exam Note: Leonel Note: This note is a late entry for 09/28/2020 covers elements not covered in my initial note. Subjective: The patient was seen individually in the evening of 09/28/2020 with Deena MERCHANT, discussed and reviewed the chart. He slept 12 hours previous night. The patient remains confused, less agitated. Review of Systems: Ambulation impaired in wheelchair. No CV, , pulmonary, eye system symptoms on review. Mental Status Exam: The patient is oriented to himself and situation. Speech at times low in rate and rhythm, low in volume. Often response is monosyllabic. Abstraction is fair. Computation is impaired. Language function is intact. Attention span is short. Mood and affect improved. Laboratory Data: Reviewed. Impression: Schizoaffective disorder, bipolar type mixed with psychotic features. Schizophrenia, chronic undifferentiated with acute exacerbation. Major neurocognitive disorder, early vascular with delusion and depression. Plan: No change from initial note. Assessment: Vital Signs/I&O: Vital Signs Date Time Temp Pulse Resp B/P (MAP) Pulse Ox O2 Delivery O2 Flow Rate FiO2 09/29/20 05:58 97.3 109 18 135/84 (101) 97 09/28/20 16:08 Room Air I & O 09/28/20 09/28/20 09/29/20 15:00 23:00 07:00 Intake Total 440 ml 480 ml Output Total 350 ml 300 ml Balance 440 ml 130 ml -300 ml Labs: Laboratory Tests Test 09/29/20 06:01 09/29/20 07:46 White Blood Count 6.5 x10^3/uL (4.0-11.0) Red Blood Count 4.11 x10^6/uL (4.30-5.70) L Hemoglobin 10.2 g/dL (13.0-17.5) L Hematocrit 32.7 % (39.0-53.0) L Mean Corpuscular Volume 79 fL (79-100) Mean Corpuscular Hemoglobin 25 pg (25-35) Mean Corpuscular Hemoglobin Concent 31 g/dL (31-37) Red Cell Distribution Width 18.9 % (11.5-14.5) H Platelet Count 299 x10^3/uL (140-400) Neutrophils (%) (Auto) 64 % (31-73) Lymphocytes (%) (Auto) 24 % (24-48) Monocytes (%) (Auto) 9 % (0-9) Eosinophils (%) (Auto) 3 % (0-3) Basophils (%) (Auto) 0 % (0-3) Neutrophils # (Auto) 4.1 x10^3uL (1.8-7.7) Lymphocytes # (Auto) 1.6 x10^3/uL (1.0-4.8) Monocytes # (Auto) 0.6 x10^3/uL (0.0-1.1) Eosinophils # (Auto) 0.2 x10^3/uL (0.0-0.7) Basophils # (Auto) 0.0 x10^3/uL (0.0-0.2) Sodium Level 144 mmol/L (136-145) Potassium Level 3.6 mmol/L (3.5-5.1) Chloride Level 106 mmol/L (98-107) Carbon Dioxide Level 31 mmol/L (21-32) Anion Gap 7 (6-14) Blood Urea Nitrogen 30 mg/dL (8-26) H Creatinine 1.1 mg/dL (0.7-1.3) Estimated GFR (Cockcroft-Gault) 67.6 BUN/Creatinine Ratio 27 (6-20) H Glucose Level 164 mg/dL (70-99) H Calcium Level 8.8 mg/dL (8.5-10.1) Total Bilirubin 0.1 mg/dL (0.2-1.0) L Aspartate Amino Transferase (AST) 6 U/L (15-37) L Alanine Aminotransferase (ALT) 15 U/L (16-63) L Alkaline Phosphatase 53 U/L (46-116) Total Protein 6.7 g/dL (6.4-8.2) Albumin 2.7 g/dL (3.4-5.0) L Albumin/Globulin Ratio 0.7 (1.0-1.7) L Glucose (Fingerstick) 146 mg/dL (70-99) H Current Medications: Meds: Laboratory Tests Test 09/29/20 06:01 09/29/20 07:46 White Blood Count 6.5 x10^3/uL Red Blood Count 4.11 x10^6/uL Hemoglobin 10.2 g/dL Hematocrit 32.7 % Mean Corpuscular Volume 79 fL Mean Corpuscular Hemoglobin 25 pg Mean Corpuscular Hemoglobin Concent 31 g/dL Red Cell Distribution Width 18.9 % Platelet Count 299 x10^3/uL Neutrophils (%) (Auto) 64 % Lymphocytes (%) (Auto) 24 % Monocytes (%) (Auto) 9 % Eosinophils (%) (Auto) 3 % Basophils (%) (Auto) 0 % Neutrophils # (Auto) 4.1 x10^3uL Lymphocytes # (Auto) 1.6 x10^3/uL Monocytes # (Auto) 0.6 x10^3/uL Eosinophils # (Auto) 0.2 x10^3/uL Basophils # (Auto) 0.0 x10^3/uL Sodium Level 144 mmol/L Potassium Level 3.6 mmol/L Chloride Level 106 mmol/L Carbon Dioxide Level 31 mmol/L Anion Gap 7 Blood Urea Nitrogen 30 mg/dL Creatinine 1.1 mg/dL Estimated GFR (Cockcroft-Gault) 67.6 BUN/Creatinine Ratio 27 Glucose Level 164 mg/dL Calcium Level 8.8 mg/dL Total Bilirubin 0.1 mg/dL Aspartate Amino Transf (AST/SGOT) 6 U/L Alanine Aminotransferase (ALT/SGPT) 15 U/L Alkaline Phosphatase 53 U/L Total Protein 6.7 g/dL Albumin 2.7 g/dL Albumin/Globulin Ratio 0.7 Glucose (Fingerstick) 146 mg/dL Current Medications Medications (Trade) Dose Ordered Sig/Angelique Route PRN Reason Start Time Stop Time Status Last Admin Dose Admin Acetaminophen (Tylenol) 650 mg PRN Q6HRS PRN PO PAIN 09/03/20 10:15 Cancel Divalproex Sodium (Depakote Er) 500 mg BID PO 09/03/20 21:00 09/04/20 19:40 DC 09/04/20 08:32 Docusate Sodium (Colace) 100 mg BID PO 09/03/20 21:00 09/12/20 18:12 DC 09/11/20 20:00 Donepezil HCl (Aricept) 10 mg QHS PO 09/03/20 21:00 09/28/20 20:18 Metformin HCl (Glucophage) 500 mg BIDWMEALS PO 09/03/20 17:00 09/29/20 08:33 Pantoprazole Sodium (Protonix) 40 mg DAILY PO 09/04/20 09:00 09/29/20 08:32 Quetiapine Fumarate (SEROquel) 300 mg HS PO 09/03/20 21:00 09/16/20 17:51 DC 09/15/20 20:30 Memantine (Namenda) 10 mg BID PO 09/03/20 21:00 09/29/20 08:33 Citalopram Hydrobromide (CeleXA) 40 mg DAILY PO 09/04/20 09:00 09/08/20 16:40 DC 09/08/20 09:22 Acetaminophen (Tylenol) 650 mg PRN Q6HRS PRN PO MILD PAIN / TEMP > 100.3'F 09/03/20 10:30 09/29/20 01:35 Multi-Ingredient Ointment (Analgesic [place]) 1 helen PRN QID PRN TP MUSCLE PAIN 09/03/20 10:30 Al Hydroxide/Mg Hydroxide (Mylanta Plus Xs) 15 ml PRN AFTMEALHC PRN PO DYSPEPSIA 09/03/20 10:30 Magnesium Hydroxide (Milk Of Magnesia) 2,400 mg PRN QHS PRN PO CONSTIPATION 09/03/20 10:30 Olanzapine (ZyPREXA ZYDIS) 5 mg PRN Q2HR PRN PO PSYCHOSIS 09/03/20 14:00 09/26/20 17:16 Bacitracin (Bacitracin Topical Pkt) 1 pkt BID TP 09/04/20 21:00 09/29/20 08:33 Divalproex Sodium (Depakote Sprinkles) 500 mg BID PO 09/04/20 21:00 09/29/20 08:32 Aripiprazole (Abilify) 10 mg DAILY PO 09/05/20 09:00 09/09/20 18:17 DC 09/09/20 09:56 Sertraline HCl (Zoloft) 50 mg DAILY PO 09/09/20 09:00 09/22/20 18:06 DC 09/22/20 08:21 Aripiprazole (Abilify) 20 mg DAILY PO 09/10/20 09:00 09/12/20 19:00 DC 09/12/20 07:59 Aripiprazole (Abilify) 30 mg DAILY PO 09/13/20 09:00 09/14/20 11:05 DC 09/14/20 08:31 Nitrofurantoin Macrocrystals (Macrobid) 100 mg BID PO 09/11/20 09:00 09/18/20 08:59 DC 09/17/20 19:25 Aripiprazole (Abilify) 20 mg DAILY PO 09/15/20 09:00 09/17/20 20:21 DC 09/17/20 08:55 Benztropine Mesylate (Cogentin) 0.5 mg HS PO 09/14/20 21:00 09/17/20 20:21 DC 09/17/20 19:24 Benztropine Mesylate (Cogentin) 0.5 mg 1X ONCE PO 09/14/20 11:30 09/14/20 11:31 DC 09/14/20 11:20 Ropinirole HCl (Requip) 0.5 mg TID PO 09/14/20 21:30 09/29/20 08:33 Quetiapine Fumarate (SEROquel) 250 mg HS PO 09/16/20 21:00 09/28/20 20:19 Aripiprazole (Abilify) 15 mg DAILY PO 09/18/20 09:00 09/19/20 18:02 DC 09/19/20 08:38 Benztropine Mesylate (Cogentin) 1 mg HS PO 09/17/20 21:00 09/28/20 20:18 Aripiprazole (Abilify) 20 mg DAILY PO 09/20/20 09:00 09/25/20 13:03 DC 09/25/20 08:43 Nystatin (Nystop) 1 helen BID TP 09/22/20 09:00 09/29/20 08:34 Sertraline HCl (Zoloft) 75 mg DAILY PO 09/23/20 09:00 09/29/20 08:32 Clozapine (Clozaril) 25 mg HS PO 09/25/20 21:00 09/28/20 20:19 I have reviewed the current psychotropics carefully including drug interactions. Risk benefit ratio favors no change other than as noted in my dictated progress note. Diagnosis: Problems: (1) Schizoaffective disorder, bipolar type (2) Impulse control disorder, unspecified (3) Anxiety disorder, unspecified (4) Bipolar disorder, curr episode mixed, severe, with psychotic features (5) Major neurocognitive disorder with Lewy bodies, probable, with behavioral disturbance (6) Chronic undifferentiated schizophrenia TOBI PADGETT MD Sep 29, 2020 09:19
[2020-09-29 15:47] VITALS: BP 121/83
[2020-09-29] MEDS: BENZTROPINE MESYLATE 1 MG TABLET PO SCH (21:44)
[2020-09-29] MEDS: QUEtiapine 100 MG TABLET. PO SCH (21:44)
[2020-09-29] MEDS: cloZAPine 25 MG TABLET PO SCH (21:44)
[2020-09-29] MEDS: DONEPEZIL HCL 10 MG TABLET PO SCH (21:44)
--- NOTE | 2020-09-29 22:07 | PDOC ---
Exam Note: Leonel Note: Please also refer to the separate dictated note~for this date of service dictated separately.~Patient seen individually. Discussed the patient with Nursing staff reviewed the chart.~Reviewed interim history and current functioning. Reviewed vital signs,~Labs/ Radiology~and current medications noted below. Continue current treatment with the changes noted in the dictated addendum note Assessment: Vital Signs/I&O: Vital Signs Date Time Temp Pulse Resp B/P (MAP) Pulse Ox O2 Delivery O2 Flow Rate FiO2 09/29/20 15:47 97.4 103 18 121/83 (96) 99 Room Air I & O 09/28/20 09/28/20 09/29/20 15:00 23:00 07:00 Intake Total 440 ml 480 ml Output Total 350 ml 300 ml Balance 440 ml 130 ml -300 ml Labs: Laboratory Tests Test 09/29/20 06:01 09/29/20 07:46 White Blood Count 6.5 x10^3/uL (4.0-11.0) Red Blood Count 4.11 x10^6/uL (4.30-5.70) L Hemoglobin 10.2 g/dL (13.0-17.5) L Hematocrit 32.7 % (39.0-53.0) L Mean Corpuscular Volume 79 fL (79-100) Mean Corpuscular Hemoglobin 25 pg (25-35) Mean Corpuscular Hemoglobin Concent 31 g/dL (31-37) Red Cell Distribution Width 18.9 % (11.5-14.5) H Platelet Count 299 x10^3/uL (140-400) Neutrophils (%) (Auto) 64 % (31-73) Lymphocytes (%) (Auto) 24 % (24-48) Monocytes (%) (Auto) 9 % (0-9) Eosinophils (%) (Auto) 3 % (0-3) Basophils (%) (Auto) 0 % (0-3) Neutrophils # (Auto) 4.1 x10^3uL (1.8-7.7) Lymphocytes # (Auto) 1.6 x10^3/uL (1.0-4.8) Monocytes # (Auto) 0.6 x10^3/uL (0.0-1.1) Eosinophils # (Auto) 0.2 x10^3/uL (0.0-0.7) Basophils # (Auto) 0.0 x10^3/uL (0.0-0.2) Sodium Level 144 mmol/L (136-145) Potassium Level 3.6 mmol/L (3.5-5.1) Chloride Level 106 mmol/L (98-107) Carbon Dioxide Level 31 mmol/L (21-32) Anion Gap 7 (6-14) Blood Urea Nitrogen 30 mg/dL (8-26) H Creatinine 1.1 mg/dL (0.7-1.3) Estimated GFR (Cockcroft-Gault) 67.6 BUN/Creatinine Ratio 27 (6-20) H Glucose Level 164 mg/dL (70-99) H Calcium Level 8.8 mg/dL (8.5-10.1) Total Bilirubin 0.1 mg/dL (0.2-1.0) L Aspartate Amino Transferase (AST) 6 U/L (15-37) L Alanine Aminotransferase (ALT) 15 U/L (16-63) L Alkaline Phosphatase 53 U/L (46-116) Total Protein 6.7 g/dL (6.4-8.2) Albumin 2.7 g/dL (3.4-5.0) L Albumin/Globulin Ratio 0.7 (1.0-1.7) L Glucose (Fingerstick) 146 mg/dL (70-99) H Current Medications: I have reviewed the current psychotropics carefully including drug interactions. Risk benefit ratio favors no change other than as noted in my dictated progress note. Diagnosis: Problems: (1) Impulse control disorder, unspecified (2) Anxiety disorder, unspecified (3) Bipolar disorder, curr episode mixed, severe, with psychotic features (4) Major neurocognitive disorder with Lewy bodies, probable, with behavioral disturbance (5) Chronic undifferentiated schizophrenia TOBI PADGETT MD Sep 29, 2020 22:07
[2020-09-30 06:12] VITALS: BP 143/90
[2020-09-30] MEDS: PANTOPRAZOLE 40 MG TABLET. PO SCH (08:23)
[2020-09-30] MEDS: metFORMIN 500 MG TABLET PO SCH ×2 (08:23→17:18)
[2020-09-30] MEDS: rOPINIRole 0.5 MG TABLET. PO SCH ×3 (08:23→20:05)
[2020-09-30] MEDS: DIVALPROEX 125 MG CAP.SPRINK PO SCH ×2 (08:24→20:07)
[2020-09-30] MEDS: NYSTATIN TOPICAL POWDER 15GM BOTTLE. TP SCH ×2 (08:24→20:03)
[2020-09-30] MEDS: SERTRALINE 25 MG TABLET. PO SCH (08:24)
[2020-09-30] MEDS: MEMANTINE 10 MG TABLET. PO SCH ×2 (08:24→20:03)
[2020-09-30] MEDS: BACITRACIN ZINC TOPICAL OINT PACKET. TP SCH ×2 (08:24→20:03)
[2020-09-30] MEDS: ACETAMINOPHEN 325 MG TABLET PO PRN (08:33)
--- NOTE | 2020-09-30 09:20 | PDOC ---
Exam Note: Leonel Note: This note is a late entry for 09/29/2020 covers elements not covered in my initial note. Subjective: The patient was seen individually in the evening of 09/29/2020 with Deena MERCHANT, discussed and reviewed the chart. He slept 4 hours previous night. The patient did well previous night and during the day today. He has not been aggressive, less paranoid. He remains confused. Review of Systems: Ambulation impaired in wheelchair. No CV, , pulmonary, eye system symptoms on review. Mental Status Exam: The patient is oriented to himself and situation. Speech at times low in rate and rhythm, low in volume. Abstraction is fair. Computation is impaired. Language function is intact. Attention span is short. Mood and affect improved. Laboratory Data: Reviewed. Impression: Schizoaffective disorder, bipolar type mixed with psychotic features. Schizophrenia, chronic undifferentiated with acute exacerbation. Major neurocognitive disorder, early vascular with delusion and depression. Plan: No change from initial note. Assessment: Vital Signs/I&O: Vital Signs Date Time Temp Pulse Resp B/P (MAP) Pulse Ox O2 Delivery O2 Flow Rate FiO2 09/30/20 06:12 97.1 88 16 143/90 (107) 97 09/29/20 15:47 Room Air I & O 09/29/20 09/29/20 09/30/20 15:00 23:00 07:00 Intake Total 480 ml 240 ml Output Total 500 ml Balance 480 ml 240 ml -500 ml Labs: Laboratory Tests Test 09/30/20 07:42 Glucose (Fingerstick) 126 mg/dL (70-99) H Current Medications: Meds: Laboratory Tests Test 09/30/20 07:42 Glucose (Fingerstick) 126 mg/dL Current Medications Medications (Trade) Dose Ordered Sig/Angelique Route PRN Reason Start Time Stop Time Status Last Admin Dose Admin Acetaminophen (Tylenol) 650 mg PRN Q6HRS PRN PO PAIN 09/03/20 10:15 Cancel Divalproex Sodium (Depakote Er) 500 mg BID PO 09/03/20 21:00 09/04/20 19:40 DC 09/04/20 08:32 Docusate Sodium (Colace) 100 mg BID PO 09/03/20 21:00 09/12/20 18:12 DC 09/11/20 20:00 Donepezil HCl (Aricept) 10 mg QHS PO 09/03/20 21:00 09/29/20 21:44 Metformin HCl (Glucophage) 500 mg BIDWMEALS PO 09/03/20 17:00 09/30/20 08:23 Pantoprazole Sodium (Protonix) 40 mg DAILY PO 09/04/20 09:00 09/30/20 08:23 Quetiapine Fumarate (SEROquel) 300 mg HS PO 09/03/20 21:00 09/16/20 17:51 DC 09/15/20 20:30 Memantine (Namenda) 10 mg BID PO 09/03/20 21:00 09/30/20 08:24 Citalopram Hydrobromide (CeleXA) 40 mg DAILY PO 09/04/20 09:00 09/08/20 16:40 DC 09/08/20 09:22 Acetaminophen (Tylenol) 650 mg PRN Q6HRS PRN PO MILD PAIN / TEMP > 100.3'F 09/03/20 10:30 09/30/20 08:33 Multi-Ingredient Ointment (Analgesic [place]) 1 helen PRN QID PRN TP MUSCLE PAIN 09/03/20 10:30 Al Hydroxide/Mg Hydroxide (Mylanta Plus Xs) 15 ml PRN AFTMEALHC PRN PO DYSPEPSIA 09/03/20 10:30 Magnesium Hydroxide (Milk Of Magnesia) 2,400 mg PRN QHS PRN PO CONSTIPATION 09/03/20 10:30 Olanzapine (ZyPREXA ZYDIS) 5 mg PRN Q2HR PRN PO PSYCHOSIS 09/03/20 14:00 09/30/20 08:33 Bacitracin (Bacitracin Topical Pkt) 1 pkt BID TP 09/04/20 21:00 09/30/20 08:24 Divalproex Sodium (Depakote Sprinkles) 500 mg BID PO 09/04/20 21:00 09/30/20 08:24 Aripiprazole (Abilify) 10 mg DAILY PO 09/05/20 09:00 09/09/20 18:17 DC 09/09/20 09:56 Sertraline HCl (Zoloft) 50 mg DAILY PO 09/09/20 09:00 09/22/20 18:06 DC 09/22/20 08:21 Aripiprazole (Abilify) 20 mg DAILY PO 09/10/20 09:00 09/12/20 19:00 DC 09/12/20 07:59 Aripiprazole (Abilify) 30 mg DAILY PO 09/13/20 09:00 09/14/20 11:05 DC 09/14/20 08:31 Nitrofurantoin Macrocrystals (Macrobid) 100 mg BID PO 09/11/20 09:00 09/18/20 08:59 DC 09/17/20 19:25 Aripiprazole (Abilify) 20 mg DAILY PO 09/15/20 09:00 09/17/20 20:21 DC 09/17/20 08:55 Benztropine Mesylate (Cogentin) 0.5 mg HS PO 09/14/20 21:00 09/17/20 20:21 DC 09/17/20 19:24 Benztropine Mesylate (Cogentin) 0.5 mg 1X ONCE PO 09/14/20 11:30 09/14/20 11:31 DC 09/14/20 11:20 Ropinirole HCl (Requip) 0.5 mg TID PO 09/14/20 21:30 09/30/20 08:23 Quetiapine Fumarate (SEROquel) 250 mg HS PO 09/16/20 21:00 09/29/20 21:44 Aripiprazole (Abilify) 15 mg DAILY PO 09/18/20 09:00 09/19/20 18:02 DC 09/19/20 08:38 Benztropine Mesylate (Cogentin) 1 mg HS PO 09/17/20 21:00 09/29/20 21:44 Aripiprazole (Abilify) 20 mg DAILY PO 09/20/20 09:00 09/25/20 13:03 DC 09/25/20 08:43 Nystatin (Nystop) 1 helen BID TP 09/22/20 09:00 09/30/20 08:24 Sertraline HCl (Zoloft) 75 mg DAILY PO 09/23/20 09:00 09/30/20 08:24 Clozapine (Clozaril) 25 mg HS PO 09/25/20 21:00 09/29/20 21:44 I have reviewed the current psychotropics carefully including drug interactions. Risk benefit ratio favors no change other than as noted in my dictated progress note. Diagnosis: Problems: (1) Schizoaffective disorder, bipolar type (2) Impulse control disorder, unspecified (3) Anxiety disorder, unspecified (4) Bipolar disorder, curr episode mixed, severe, with psychotic features (5) Major neurocognitive disorder with Lewy bodies, probable, with behavioral disturbance (6) Chronic undifferentiated schizophrenia TOBI PADGETT MD Sep 30, 2020 09:20
[2020-09-30 15:57] VITALS: BP 131/88
[2020-09-30] MEDS: DONEPEZIL HCL 10 MG TABLET PO SCH (20:03)
[2020-09-30] MEDS: QUEtiapine 100 MG TABLET. PO SCH (20:05)
[2020-09-30] MEDS: cloZAPine 25 MG TABLET PO SCH (20:06)
[2020-09-30] MEDS: BENZTROPINE MESYLATE 1 MG TABLET PO SCH (20:06)
--- NOTE | 2020-09-30 21:27 | PDOC ---
Exam Note: Leonel Note: Please also refer to the separate dictated note~for this date of service dictated separately.~Patient seen individually. Discussed the patient with Nursing staff reviewed the chart.~Reviewed interim history and current functioning. Reviewed vital signs,~Labs/ Radiology~and current medications noted below. Continue current treatment with the changes noted in the dictated addendum note Assessment: Vital Signs/I&O: Vital Signs Date Time Temp Pulse Resp B/P (MAP) Pulse Ox O2 Delivery O2 Flow Rate FiO2 09/30/20 15:57 98.0 80 20 131/88 (102) 98 Room Air I & O 09/29/20 09/29/20 09/30/20 15:00 23:00 07:00 Intake Total 480 ml 240 ml Output Total 500 ml Balance 480 ml 240 ml -500 ml Labs: Laboratory Tests Test 09/30/20 07:42 Glucose (Fingerstick) 126 mg/dL (70-99) H Current Medications: I have reviewed the current psychotropics carefully including drug interactions. Risk benefit ratio favors no change other than as noted in my dictated progress note. Diagnosis: Problems: (1) Schizoaffective disorder, bipolar type (2) Impulse control disorder, unspecified (3) Anxiety disorder, unspecified (4) Bipolar disorder, curr episode mixed, severe, with psychotic features (5) Major neurocognitive disorder with Lewy bodies, probable, with behavioral disturbance (6) Chronic undifferentiated schizophrenia TOBI PADGETT MD Sep 30, 2020 21:27
[2020-10-01 06:29] VITALS: BP 131/77
[2020-10-01] MEDS: PANTOPRAZOLE 40 MG TABLET. PO SCH (08:13)
[2020-10-01] MEDS: MEMANTINE 10 MG TABLET. PO SCH ×2 (08:13→19:44)
[2020-10-01] MEDS: metFORMIN 500 MG TABLET PO SCH ×2 (08:13→17:25)
[2020-10-01] MEDS: rOPINIRole 0.5 MG TABLET. PO SCH ×3 (08:13→19:44)
[2020-10-01] MEDS: SERTRALINE 25 MG TABLET. PO SCH (08:13)
[2020-10-01] MEDS: DIVALPROEX 125 MG CAP.SPRINK PO SCH ×2 (08:13→19:43)
[2020-10-01] MEDS: NYSTATIN TOPICAL POWDER 15GM BOTTLE. TP SCH ×2 (08:14→19:44)
[2020-10-01] MEDS: BACITRACIN ZINC TOPICAL OINT PACKET. TP SCH ×2 (08:14→19:44)
[2020-10-01 16:11] VITALS: BP 127/72
[2020-10-01] MEDS: cloZAPine 25 MG TABLET PO SCH (19:43)
[2020-10-01] MEDS: QUEtiapine 100 MG TABLET. PO SCH (19:43)
[2020-10-01] MEDS: BENZTROPINE MESYLATE 1 MG TABLET PO SCH (19:43)
[2020-10-01] MEDS: DONEPEZIL HCL 10 MG TABLET PO SCH (19:44)
--- NOTE | 2020-10-01 22:08 | PDOC ---
Exam Note: Leonel Note: Please also refer to the separate dictated note~for this date of service dictated separately.~Patient seen individually. Discussed the patient with Nursing staff reviewed the chart.~Reviewed interim history and current functioning. Reviewed vital signs,~Labs/ Radiology~and current medications noted below. Continue current treatment with the changes noted in the dictated addendum note Assessment: Vital Signs/I&O: Vital Signs Date Time Temp Pulse Resp B/P (MAP) Pulse Ox O2 Delivery O2 Flow Rate FiO2 10/01/20 16:11 97.7 103 18 127/72 (90) 98 10/01/20 06:29 Room Air I & O 09/30/20 09/30/20 10/01/20 14:59 22:59 06:59 Intake Total 720 ml 600 ml Output Total 300 ml 575 ml Balance 720 ml 300 ml -575 ml Labs: Laboratory Tests Test 10/01/20 08:23 Glucose (Fingerstick) 126 mg/dL (70-99) H Current Medications: Meds: Laboratory Tests Test 10/01/20 08:23 Glucose (Fingerstick) 126 mg/dL Current Medications Medications (Trade) Dose Ordered Sig/Angelique Route PRN Reason Start Time Stop Time Status Last Admin Dose Admin Acetaminophen (Tylenol) 650 mg PRN Q6HRS PRN PO PAIN 09/03/20 10:15 Cancel Divalproex Sodium (Depakote Er) 500 mg BID PO 09/03/20 21:00 09/04/20 19:40 DC 09/04/20 08:32 Docusate Sodium (Colace) 100 mg BID PO 09/03/20 21:00 09/12/20 18:12 DC 09/11/20 20:00 Donepezil HCl (Aricept) 10 mg QHS PO 09/03/20 21:00 10/01/20 19:44 Metformin HCl (Glucophage) 500 mg BIDWMEALS PO 09/03/20 17:00 10/01/20 17:25 Pantoprazole Sodium (Protonix) 40 mg DAILY PO 09/04/20 09:00 10/01/20 08:13 Quetiapine Fumarate (SEROquel) 300 mg HS PO 09/03/20 21:00 09/16/20 17:51 DC 09/15/20 20:30 Memantine (Namenda) 10 mg BID PO 09/03/20 21:00 10/01/20 19:44 Citalopram Hydrobromide (CeleXA) 40 mg DAILY PO 09/04/20 09:00 09/08/20 16:40 DC 09/08/20 09:22 Acetaminophen (Tylenol) 650 mg PRN Q6HRS PRN PO MILD PAIN / TEMP > 100.3'F 09/03/20 10:30 09/30/20 08:33 Multi-Ingredient Ointment (Analgesic [place]) 1 helen PRN QID PRN TP MUSCLE PAIN 09/03/20 10:30 Al Hydroxide/Mg Hydroxide (Mylanta Plus Xs) 15 ml PRN AFTMEALHC PRN PO DYSPEPSIA 09/03/20 10:30 Magnesium Hydroxide (Milk Of Magnesia) 2,400 mg PRN QHS PRN PO CONSTIPATION 09/03/20 10:30 Olanzapine (ZyPREXA ZYDIS) 5 mg PRN Q2HR PRN PO PSYCHOSIS 09/03/20 14:00 09/30/20 08:33 Bacitracin (Bacitracin Topical Pkt) 1 pkt BID TP 09/04/20 21:00 10/01/20 19:44 Divalproex Sodium (Depakote Sprinkles) 500 mg BID PO 09/04/20 21:00 10/01/20 19:43 Aripiprazole (Abilify) 10 mg DAILY PO 09/05/20 09:00 09/09/20 18:17 DC 09/09/20 09:56 Sertraline HCl (Zoloft) 50 mg DAILY PO 09/09/20 09:00 09/22/20 18:06 DC 09/22/20 08:21 Aripiprazole (Abilify) 20 mg DAILY PO 09/10/20 09:00 09/12/20 19:00 DC 09/12/20 07:59 Aripiprazole (Abilify) 30 mg DAILY PO 09/13/20 09:00 09/14/20 11:05 DC 09/14/20 08:31 Nitrofurantoin Macrocrystals (Macrobid) 100 mg BID PO 09/11/20 09:00 09/18/20 08:59 DC 09/17/20 19:25 Aripiprazole (Abilify) 20 mg DAILY PO 09/15/20 09:00 09/17/20 20:21 DC 09/17/20 08:55 Benztropine Mesylate (Cogentin) 0.5 mg HS PO 09/14/20 21:00 09/17/20 20:21 DC 09/17/20 19:24 Benztropine Mesylate (Cogentin) 0.5 mg 1X ONCE PO 09/14/20 11:30 09/14/20 11:31 DC 09/14/20 11:20 Ropinirole HCl (Requip) 0.5 mg TID PO 09/14/20 21:30 10/01/20 19:44 Quetiapine Fumarate (SEROquel) 250 mg HS PO 09/16/20 21:00 10/01/20 19:43 Aripiprazole (Abilify) 15 mg DAILY PO 09/18/20 09:00 09/19/20 18:02 DC 09/19/20 08:38 Benztropine Mesylate (Cogentin) 1 mg HS PO 09/17/20 21:00 10/01/20 19:43 Aripiprazole (Abilify) 20 mg DAILY PO 09/20/20 09:00 09/25/20 13:03 DC 09/25/20 08:43 Nystatin (Nystop) 1 helen BID TP 09/22/20 09:00 10/01/20 19:44 Sertraline HCl (Zoloft) 75 mg DAILY PO 09/23/20 09:00 10/01/20 08:13 Clozapine (Clozaril) 25 mg HS PO 09/25/20 21:00 10/01/20 19:43 I have reviewed the current psychotropics carefully including drug interactions. Risk benefit ratio favors no change other than as noted in my dictated progress note. Diagnosis: Problems: (1) Schizoaffective disorder, bipolar type (2) Impulse control disorder, unspecified (3) Anxiety disorder, unspecified (4) Bipolar disorder, curr episode mixed, severe, with psychotic features (5) Major neurocognitive disorder with Lewy bodies, probable, with behavioral disturbance (6) Chronic undifferentiated schizophrenia TOBI PADGETT MD Oct 01, 2020 22:08
[2020-10-02 06:23] LABS: BASO % 0 % (0-3); EOS # 0.2 x10^3/uL (0.0-0.7); EOS % 3 % (0-3); HEMATOCRIT 30.5 % (39.0-53.0); HEMOGLOBIN 9.7 g/dL (13.0-17.5); LYMPH # 1.3 x10^3/uL (1.0-4.8); LYMPH % 25 % (24-48); MEAN CORPUSCULAR HEMOGLOBIN 25 pg (25-35); MEAN CORPUSCULAR HGB CONC 32 g/dL (31-37); MEAN CORPUSCULAR VOLUME 79 fL (79-100); MONO # 0.5 x10^3/uL (0.0-1.1); MONO % 9 % (0-9); NEUT # 3.1 x10^3uL (1.8-7.7); NEUT % 62 % (31-73); PLATELET COUNT 265 x10^3/uL (140-400); RED BLOOD COUNT 3.88 x10^6/uL (4.30-5.70); RED CELL DISTRIBUTION WIDTH 18.9 % (11.5-14.5)
[2020-10-02 06:49] VITALS: BP 123/80
[2020-10-02] MEDS: SERTRALINE 25 MG TABLET. PO SCH (08:23)
[2020-10-02] MEDS: PANTOPRAZOLE 40 MG TABLET. PO SCH (08:23)
[2020-10-02] MEDS: DIVALPROEX 125 MG CAP.SPRINK PO SCH ×2 (08:24→20:11)
[2020-10-02] MEDS: MEMANTINE 10 MG TABLET. PO SCH ×2 (08:24→20:11)
[2020-10-02] MEDS: metFORMIN 500 MG TABLET PO SCH ×2 (08:24→17:03)
[2020-10-02] MEDS: rOPINIRole 0.5 MG TABLET. PO SCH ×3 (08:24→20:10)
[2020-10-02] MEDS: NYSTATIN TOPICAL POWDER 15GM BOTTLE. TP SCH ×2 (08:24→21:56)
[2020-10-02] MEDS: BACITRACIN ZINC TOPICAL OINT PACKET. TP SCH ×2 (08:24→21:56)
[2020-10-02 15:48] VITALS: BP 96/61
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
[2020-10-02] MEDS: BENZTROPINE MESYLATE 1 MG TABLET PO SCH (20:10)
[2020-10-02] MEDS: DONEPEZIL HCL 10 MG TABLET PO SCH (20:10)
[2020-10-02] MEDS: QUEtiapine 100 MG TABLET. PO SCH (20:11)
[2020-10-02] MEDS: cloZAPine 25 MG TABLET PO SCH (20:12)
--- NOTE | 2020-10-02 21:59 | PDOC ---
Exam Note: Leonel Note: Please also refer to the separate dictated note~for this date of service dictated separately.~Patient seen individually. Discussed the patient with Nursing staff reviewed the chart.~Reviewed interim history and current functioning. Reviewed vital signs,~Labs/ Radiology~and current medications noted below. Continue current treatment with the changes noted in the dictated addendum note Assessment: Vital Signs/I&O: Vital Signs Date Time Temp Pulse Resp B/P (MAP) Pulse Ox O2 Delivery O2 Flow Rate FiO2 10/02/20 15:48 97.8 97 19 96/61 (73) 95 10/01/20 06:29 Room Air I & O 10/01/20 10/01/20 10/02/20 15:00 23:00 07:00 Intake Total 120 ml 680 ml Output Total 1400 ml Balance 120 ml -720 ml Labs: Laboratory Tests Test 10/02/20 06:07 10/02/20 07:59 White Blood Count 5.0 x10^3/uL (4.0-11.0) Red Blood Count 3.88 x10^6/uL (4.30-5.70) L Hemoglobin 9.7 g/dL (13.0-17.5) L Hematocrit 30.5 % (39.0-53.0) L Mean Corpuscular Volume 79 fL (79-100) Mean Corpuscular Hemoglobin 25 pg (25-35) Mean Corpuscular Hemoglobin Concent 32 g/dL (31-37) Red Cell Distribution Width 18.9 % (11.5-14.5) H Platelet Count 265 x10^3/uL (140-400) Neutrophils (%) (Auto) 62 % (31-73) Lymphocytes (%) (Auto) 25 % (24-48) Monocytes (%) (Auto) 9 % (0-9) Eosinophils (%) (Auto) 3 % (0-3) Basophils (%) (Auto) 0 % (0-3) Neutrophils # (Auto) 3.1 x10^3uL (1.8-7.7) Lymphocytes # (Auto) 1.3 x10^3/uL (1.0-4.8) Monocytes # (Auto) 0.5 x10^3/uL (0.0-1.1) Eosinophils # (Auto) 0.2 x10^3/uL (0.0-0.7) Basophils # (Auto) 0.0 x10^3/uL (0.0-0.2) Glucose (Fingerstick) 130 mg/dL (70-99) H Current Medications: Meds: Current Medications Medications (Trade) Dose Ordered Sig/Angelique Route PRN Reason Start Time Stop Time Status Last Admin Dose Admin Clozapine (Clozaril) 50 mg HS PO 10/02/20 21:00 10/02/20 20:12 I have reviewed the current psychotropics carefully including drug interactions. Risk benefit ratio favors no change other than as noted in my dictated progress note. Diagnosis: Problems: (1) Schizoaffective disorder, bipolar type (2) Impulse control disorder, unspecified (3) Anxiety disorder, unspecified (4) Bipolar disorder, curr episode mixed, severe, with psychotic features (5) Major neurocognitive disorder with Lewy bodies, probable, with behavioral disturbance (6) Chronic undifferentiated schizophrenia TOBI PADGETT MD Oct 02, 2020 21:59
[2020-10-03 06:04] VITALS: BP 141/85
--- NOTE | 2020-10-03 08:35 | PDOC ---
Exam Note: Leonel Note: This note is a late entry for 09/30/2020 covers elements not covered in my initial note. Subjective: The patient was seen individually in the morning of 09/30/2020 with Leandro MERCHANT, discussed and reviewed the chart. He slept 6-1/2 hours previous night. The patient becomes somewhat agitated, restless at times, but does redirect. Review of Systems: Ambulation impaired in wheelchair. No CV, , pulmonary, eye system symptoms on review. Mental Status Exam: The patient is oriented to himself and situation. Speech at times low in rate and rhythm, low in volume. Abstraction is fair. Computation is impaired. Language function is intact. Attention span is short. Mood and affect improved. Laboratory Data: Reviewed. Impression: Schizoaffective disorder, bipolar type mixed with psychotic features. Schizophrenia, chronic undifferentiated with acute exacerbation. Major neurocognitive disorder, early vascular with delusion and depression. Plan: No change from initial note. Assessment: Vital Signs/I&O: Vital Signs Date Time Temp Pulse Resp B/P (MAP) Pulse Ox O2 Delivery O2 Flow Rate FiO2 10/03/20 06:04 97.7 101 20 141/85 (103) 96 10/01/20 06:29 Room Air I & O 10/02/20 10/02/20 10/03/20 15:00 23:00 07:00 Intake Total 600 ml 240 ml Output Total 500 ml Balance 600 ml -260 ml Labs: Laboratory Tests Test 10/03/20 08:03 Glucose (Fingerstick) 138 mg/dL (70-99) H Current Medications: Meds: Current Medications Medications (Trade) Dose Ordered Sig/Angelique Route PRN Reason Start Time Stop Time Status Last Admin Dose Admin Clozapine (Clozaril) 50 mg HS PO 10/02/20 21:00 10/02/20 20:12 I have reviewed the current psychotropics carefully including drug interactions. Risk benefit ratio favors no change other than as noted in my dictated progress note. Diagnosis: Problems: (1) Schizoaffective disorder, bipolar type (2) Impulse control disorder, unspecified (3) Anxiety disorder, unspecified (4) Bipolar disorder, curr episode mixed, severe, with psychotic features (5) Major neurocognitive disorder with Lewy bodies, probable, with behavioral disturbance (6) Chronic undifferentiated schizophrenia TOBI PADGETT MD Oct 03, 2020 08:35
--- NOTE | 2020-10-03 08:53 | PDOC ---
Exam Note: Leonel Note: This note is a late entry for 10/01/2020 covers elements not covered in my initial note. Subjective: The patient was seen individually in the evening of 10/01/2020 with Oscar MERCHANT, discussed and reviewed the chart. He slept 5 hours previous night. The patient is compliant with medications. He continues to be coloring in his room but very interactive, appropriate, appreciative of my care as I visited with him. Review of Systems: Ambulation impaired in wheelchair. No CV, , pulmonary, eye system symptoms on review. Mental Status Exam: The patient is oriented to himself and situation. Speech at times low in rate and rhythm, low in volume. Abstraction is fair. Computation is impaired. Language function is intact. Attention span is short. Mood and affect improved. Laboratory Data: Reviewed. Impression: Schizoaffective disorder, bipolar type mixed with psychotic features. Schizophrenia, chronic undifferentiated with acute exacerbation. Major neurocognitive disorder, early vascular with delusion and depression. Plan: No change from initial note. Assessment: Vital Signs/I&O: Vital Signs Date Time Temp Pulse Resp B/P (MAP) Pulse Ox O2 Delivery O2 Flow Rate FiO2 10/03/20 06:04 97.7 101 20 141/85 (103) 96 10/01/20 06:29 Room Air I & O 10/02/20 10/02/20 10/03/20 14:59 22:59 06:59 Intake Total 600 ml 240 ml Output Total 500 ml Balance 600 ml -260 ml Labs: Laboratory Tests Test 10/03/20 08:03 Glucose (Fingerstick) 138 mg/dL (70-99) H Current Medications: Meds: Laboratory Tests Test 10/03/20 08:03 Glucose (Fingerstick) 138 mg/dL Current Medications Medications (Trade) Dose Ordered Sig/Angelique Route PRN Reason Start Time Stop Time Status Last Admin Dose Admin Acetaminophen (Tylenol) 650 mg PRN Q6HRS PRN PO PAIN 09/03/20 10:15 Cancel Divalproex Sodium (Depakote Er) 500 mg BID PO 09/03/20 21:00 09/04/20 19:40 DC 09/04/20 08:32 Docusate Sodium (Colace) 100 mg BID PO 09/03/20 21:00 09/12/20 18:12 DC 09/11/20 20:00 Donepezil HCl (Aricept) 10 mg QHS PO 09/03/20 21:00 10/02/20 20:10 Metformin HCl (Glucophage) 500 mg BIDWMEALS PO 09/03/20 17:00 10/02/20 17:03 Pantoprazole Sodium (Protonix) 40 mg DAILY PO 09/04/20 09:00 10/02/20 08:23 Quetiapine Fumarate (SEROquel) 300 mg HS PO 09/03/20 21:00 09/16/20 17:51 DC 09/15/20 20:30 Memantine (Namenda) 10 mg BID PO 09/03/20 21:00 10/02/20 20:11 Citalopram Hydrobromide (CeleXA) 40 mg DAILY PO 09/04/20 09:00 09/08/20 16:40 DC 09/08/20 09:22 Acetaminophen (Tylenol) 650 mg PRN Q6HRS PRN PO MILD PAIN / TEMP > 100.3'F 09/03/20 10:30 09/30/20 08:33 Multi-Ingredient Ointment (Analgesic [place]) 1 helen PRN QID PRN TP MUSCLE PAIN 09/03/20 10:30 Al Hydroxide/Mg Hydroxide (Mylanta Plus Xs) 15 ml PRN AFTMEALHC PRN PO DYSPEPSIA 09/03/20 10:30 Magnesium Hydroxide (Milk Of Magnesia) 2,400 mg PRN QHS PRN PO CONSTIPATION 09/03/20 10:30 Olanzapine (ZyPREXA ZYDIS) 5 mg PRN Q2HR PRN PO PSYCHOSIS 09/03/20 14:00 09/30/20 08:33 Bacitracin (Bacitracin Topical Pkt) 1 pkt BID TP 09/04/20 21:00 10/02/20 21:56 Divalproex Sodium (Depakote Sprinkles) 500 mg BID PO 09/04/20 21:00 10/02/20 20:11 Aripiprazole (Abilify) 10 mg DAILY PO 09/05/20 09:00 09/09/20 18:17 DC 09/09/20 09:56 Sertraline HCl (Zoloft) 50 mg DAILY PO 09/09/20 09:00 09/22/20 18:06 DC 09/22/20 08:21 Aripiprazole (Abilify) 20 mg DAILY PO 09/10/20 09:00 09/12/20 19:00 DC 09/12/20 07:59 Aripiprazole (Abilify) 30 mg DAILY PO 09/13/20 09:00 09/14/20 11:05 DC 09/14/20 08:31 Nitrofurantoin Macrocrystals (Macrobid) 100 mg BID PO 09/11/20 09:00 09/18/20 08:59 DC 09/17/20 19:25 Aripiprazole (Abilify) 20 mg DAILY PO 09/15/20 09:00 09/17/20 20:21 DC 09/17/20 08:55 Benztropine Mesylate (Cogentin) 0.5 mg HS PO 09/14/20 21:00 09/17/20 20:21 DC 09/17/20 19:24 Benztropine Mesylate (Cogentin) 0.5 mg 1X ONCE PO 09/14/20 11:30 09/14/20 11:31 DC 09/14/20 11:20 Ropinirole HCl (Requip) 0.5 mg TID PO 09/14/20 21:30 10/02/20 20:10 Quetiapine Fumarate (SEROquel) 250 mg HS PO 09/16/20 21:00 10/02/20 20:11 Aripiprazole (Abilify) 15 mg DAILY PO 09/18/20 09:00 09/19/20 18:02 DC 09/19/20 08:38 Benztropine Mesylate (Cogentin) 1 mg HS PO 09/17/20 21:00 10/02/20 20:10 Aripiprazole (Abilify) 20 mg DAILY PO 09/20/20 09:00 09/25/20 13:03 DC 09/25/20 08:43 Nystatin (Nystop) 1 helen BID TP 09/22/20 09:00 10/02/20 21:56 Sertraline HCl (Zoloft) 75 mg DAILY PO 09/23/20 09:00 10/02/20 08:23 Clozapine (Clozaril) 25 mg HS PO 09/25/20 21:00 10/02/20 14:53 DC 10/01/20 19:43 Clozapine (Clozaril) 50 mg HS PO 10/02/20 21:00 10/02/20 20:12 Current Medications Medications (Trade) Dose Ordered Sig/Angelique Route PRN Reason Start Time Stop Time Status Last Admin Dose Admin Clozapine (Clozaril) 50 mg HS PO 10/02/20 21:00 10/02/20 20:12 I have reviewed the current psychotropics carefully including drug interactions. Risk benefit ratio favors no change other than as noted in my dictated progress note. Diagnosis: Problems: (1) Impulse control disorder, unspecified (2) Anxiety disorder, unspecified (3) Bipolar disorder, curr episode mixed, severe, with psychotic features (4) Major neurocognitive disorder with Lewy bodies, probable, with behavioral disturbance (5) Chronic undifferentiated schizophrenia (6) Schizoaffective disorder, bipolar type TOBI PADGETT MD Oct 03, 2020 08:53
[2020-10-03] MEDS: NYSTATIN TOPICAL POWDER 15GM BOTTLE. TP SCH (09:10)
[2020-10-03] MEDS: PANTOPRAZOLE 40 MG TABLET. PO SCH (09:10)
[2020-10-03] MEDS: BACITRACIN ZINC TOPICAL OINT PACKET. TP SCH ×2 (09:10→21:01)
[2020-10-03] MEDS: rOPINIRole 0.5 MG TABLET. PO SCH ×3 (09:11→21:00)
[2020-10-03] MEDS: metFORMIN 500 MG TABLET PO SCH ×2 (09:11→17:26)
[2020-10-03] MEDS: MEMANTINE 10 MG TABLET. PO SCH ×2 (09:11→21:00)
[2020-10-03] MEDS: DIVALPROEX 125 MG CAP.SPRINK PO SCH ×2 (09:11→21:01)
[2020-10-03] MEDS: SERTRALINE 25 MG TABLET. PO SCH (09:11)
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
[2020-10-03 16:26] VITALS: BP 125/76
[2020-10-03] MEDS: BENZTROPINE MESYLATE 1 MG TABLET PO SCH (21:00)
[2020-10-03] MEDS: DONEPEZIL HCL 10 MG TABLET PO SCH (21:00)
[2020-10-03] MEDS: cloZAPine 25 MG TABLET PO SCH (21:00)
[2020-10-03] MEDS: QUEtiapine 100 MG TABLET. PO SCH (21:00)
--- NOTE | 2020-10-03 22:02 | PDOC ---
Exam Note: Leonel Note: Please also refer to the separate dictated note~for this date of service dictated separately.~Patient seen individually. Discussed the patient with Nursing staff reviewed the chart.~Reviewed interim history and current functioning. Reviewed vital signs,~Labs/ Radiology~and current medications noted below. Continue current treatment with the changes noted in the dictated addendum note Assessment: Vital Signs/I&O: Vital Signs Date Time Temp Pulse Resp B/P (MAP) Pulse Ox O2 Delivery O2 Flow Rate FiO2 10/03/20 18:31 98.1 10/03/20 16:26 104 19 125/76 (92) 94 10/01/20 06:29 Room Air I & O 10/02/20 10/02/20 10/03/20 15:00 23:00 07:00 Intake Total 600 ml 240 ml Output Total 500 ml Balance 600 ml -260 ml Labs: Laboratory Tests Test 10/03/20 08:03 Glucose (Fingerstick) 138 mg/dL (70-99) H Current Medications: I have reviewed the current psychotropics carefully including drug interactions. Risk benefit ratio favors no change other than as noted in my dictated progress note. Diagnosis: Problems: (1) Schizoaffective disorder, bipolar type (2) Impulse control disorder, unspecified (3) Anxiety disorder, unspecified (4) Bipolar disorder, curr episode mixed, severe, with psychotic features (5) Major neurocognitive disorder with Lewy bodies, probable, with behavioral disturbance (6) Chronic undifferentiated schizophrenia TOBI PADGETT MD Oct 03, 2020 22:02
--- NOTE | 2020-10-03 22:18 | PDOC ---
Exam Note: Leonel Note: Kindly ignore the 10/01/2020 note and it is an error. Please also refer to the separate dictated note~for this date of service dictated separately.~Patient seen individually. Discussed the patient with Nursing staff reviewed the chart.~Reviewed interim history and current functioning. Reviewed vital signs,~Labs/ Radiology~and current medications noted below. Continue current treatment with the changes noted in the dictated addendum note Assessment: Vital Signs/I&O: Vital Signs Date Time Temp Pulse Resp B/P (MAP) Pulse Ox O2 Delivery O2 Flow Rate FiO2 10/03/20 18:31 98.1 10/03/20 16:26 104 19 125/76 (92) 94 10/01/20 06:29 Room Air I & O 10/02/20 10/02/20 10/03/20 15:00 23:00 07:00 Intake Total 600 ml 240 ml Output Total 500 ml Balance 600 ml -260 ml Labs: Laboratory Tests Test 10/03/20 08:03 Glucose (Fingerstick) 138 mg/dL (70-99) H Current Medications: I have reviewed the current psychotropics carefully including drug interactions. Risk benefit ratio favors no change other than as noted in my dictated progress note. Diagnosis: Problems: (1) Chronic undifferentiated schizophrenia (2) Impulse control disorder, unspecified (3) Anxiety disorder, unspecified (4) Schizoaffective disorder, bipolar type TOBI PADGETT MD Oct 03, 2020 22:18
--- NOTE | 2020-10-03 22:21 | PDOC ---
Exam Note: Leonel Note: This is the corrected note and late entry for 10/01/2020 covers elements not covered in my initial note. Subjective: The patient was seen individually in the evening of 10/01/2020 with Oscar MERCHANT, discussed and reviewed the chart. He slept 5 hours previous night. The patient is compliant with medications. Review of Systems: Ambulation impaired in wheelchair. No CV, , pulmonary, eye system symptoms on review. Mental Status Exam: The patient is oriented to himself and situation. He is calm and cooperative. Speech at times low in rate and rhythm, low in volume. Abstraction is fair. Computation is impaired. Language function is intact. Attention span is short. Mood and affect improved. Laboratory Data: Reviewed. Impression: Schizoaffective disorder, bipolar type mixed with psychotic features. Schizophrenia, chronic undifferentiated with acute exacerbation. Major neurocognitive disorder, early vascular with delusion and depression. Plan: No change from initial note. Assessment: Vital Signs/I&O: Laboratory Tests Test 10/03/20 08:03 Glucose (Fingerstick) 138 mg/dL Current Medications Medications (Trade) Dose Ordered Sig/Angelique Route PRN Reason Start Time Stop Time Status Last Admin Dose Admin Acetaminophen (Tylenol) 650 mg PRN Q6HRS PRN PO PAIN 09/03/20 10:15 Cancel Divalproex Sodium (Depakote Er) 500 mg BID PO 09/03/20 21:00 09/04/20 19:40 DC 09/04/20 08:32 Docusate Sodium (Colace) 100 mg BID PO 09/03/20 21:00 09/12/20 18:12 DC 09/11/20 20:00 Donepezil HCl (Aricept) 10 mg QHS PO 09/03/20 21:00 10/03/20 21:00 Metformin HCl (Glucophage) 500 mg BIDWMEALS PO 09/03/20 17:00 10/03/20 17:26 Pantoprazole Sodium (Protonix) 40 mg DAILY PO 09/04/20 09:00 10/03/20 09:10 Quetiapine Fumarate (SEROquel) 300 mg HS PO 09/03/20 21:00 09/16/20 17:51 DC 09/15/20 20:30 Memantine (Namenda) 10 mg BID PO 09/03/20 21:00 10/03/20 21:00 Citalopram Hydrobromide (CeleXA) 40 mg DAILY PO 09/04/20 09:00 09/08/20 16:40 DC 09/08/20 09:22 Acetaminophen (Tylenol) 650 mg PRN Q6HRS PRN PO MILD PAIN / TEMP > 100.3'F 09/03/20 10:30 09/30/20 08:33 Multi-Ingredient Ointment (Analgesic [place]) 1 heeln PRN QID PRN TP MUSCLE PAIN 09/03/20 10:30 Al Hydroxide/Mg Hydroxide (Mylanta Plus Xs) 15 ml PRN AFTMEALHC PRN PO DYSPEPSIA 09/03/20 10:30 Magnesium Hydroxide (Milk Of Magnesia) 2,400 mg PRN QHS PRN PO CONSTIPATION 09/03/20 10:30 Olanzapine (ZyPREXA ZYDIS) 5 mg PRN Q2HR PRN PO PSYCHOSIS 09/03/20 14:00 09/30/20 08:33 Bacitracin (Bacitracin Topical Pkt) 1 pkt BID TP 09/04/20 21:00 10/03/20 21:01 Divalproex Sodium (Depakote Sprinkles) 500 mg BID PO 09/04/20 21:00 10/03/20 21:01 Aripiprazole (Abilify) 10 mg DAILY PO 09/05/20 09:00 09/09/20 18:17 DC 09/09/20 09:56 Sertraline HCl (Zoloft) 50 mg DAILY PO 09/09/20 09:00 09/22/20 18:06 DC 09/22/20 08:21 Aripiprazole (Abilify) 20 mg DAILY PO 09/10/20 09:00 09/12/20 19:00 DC 09/12/20 07:59 Aripiprazole (Abilify) 30 mg DAILY PO 09/13/20 09:00 09/14/20 11:05 DC 09/14/20 08:31 Nitrofurantoin Macrocrystals (Macrobid) 100 mg BID PO 09/11/20 09:00 09/18/20 08:59 DC 09/17/20 19:25 Aripiprazole (Abilify) 20 mg DAILY PO 09/15/20 09:00 09/17/20 20:21 DC 09/17/20 08:55 Benztropine Mesylate (Cogentin) 0.5 mg HS PO 09/14/20 21:00 09/17/20 20:21 DC 09/17/20 19:24 Benztropine Mesylate (Cogentin) 0.5 mg 1X ONCE PO 09/14/20 11:30 09/14/20 11:31 DC 09/14/20 11:20 Ropinirole HCl (Requip) 0.5 mg TID PO 09/14/20 21:30 10/03/20 21:00 Quetiapine Fumarate (SEROquel) 250 mg HS PO 09/16/20 21:00 10/03/20 21:00 Aripiprazole (Abilify) 15 mg DAILY PO 09/18/20 09:00 09/19/20 18:02 DC 09/19/20 08:38 Benztropine Mesylate (Cogentin) 1 mg HS PO 09/17/20 21:00 10/03/20 21:00 Aripiprazole (Abilify) 20 mg DAILY PO 09/20/20 09:00 09/25/20 13:03 DC 09/25/20 08:43 Nystatin (Nystop) 1 helen BID TP 09/22/20 09:00 10/03/20 09:10 Sertraline HCl (Zoloft) 75 mg DAILY PO 09/23/20 09:00 10/03/20 09:11 Clozapine (Clozaril) 25 mg HS PO 09/25/20 21:00 10/02/20 14:53 DC 10/01/20 19:43 Clozapine (Clozaril) 50 mg HS PO 10/02/20 21:00 10/03/20 21:00 Vital Signs Date Time Temp Pulse Resp B/P (MAP) Pulse Ox O2 Delivery O2 Flow Rate FiO2 10/03/20 18:31 98.1 10/03/20 16:26 104 19 125/76 (92) 94 10/01/20 06:29 Room Air I & O 10/02/20 10/02/20 10/03/20 15:00 23:00 07:00 Intake Total 600 ml 240 ml Output Total 500 ml Balance 600 ml -260 ml Labs: Laboratory Tests Test 10/03/20 08:03 Glucose (Fingerstick) 138 mg/dL (70-99) H Current Medications: I have reviewed the current psychotropics carefully including drug interactions. Risk benefit ratio favors no change other than as noted in my dictated progress note. Diagnosis: Problems: (1) Schizoaffective disorder, bipolar type (2) Impulse control disorder, unspecified (3) Anxiety disorder, unspecified (4) Bipolar disorder, curr episode mixed, severe, with psychotic features (5) Chronic undifferentiated schizophrenia TOBI PADGETT MD Oct 03, 2020 22:21
[2020-10-04] MEDS: NYSTATIN TOPICAL POWDER 15GM BOTTLE. TP SCH ×3 (03:42→20:37)
[2020-10-04 06:19] VITALS: BP 134/78
[2020-10-04] MEDS: PANTOPRAZOLE 40 MG TABLET. PO SCH (07:50)
[2020-10-04] MEDS: metFORMIN 500 MG TABLET PO SCH ×2 (07:50→17:24)
[2020-10-04] MEDS: rOPINIRole 0.5 MG TABLET. PO SCH ×3 (07:50→20:36)
[2020-10-04] MEDS: SERTRALINE 25 MG TABLET. PO SCH (07:50)
[2020-10-04] MEDS: MEMANTINE 10 MG TABLET. PO SCH ×2 (07:50→20:36)
[2020-10-04] MEDS: DIVALPROEX 125 MG CAP.SPRINK PO SCH ×2 (07:51→20:36)
[2020-10-04] MEDS: BACITRACIN ZINC TOPICAL OINT PACKET. TP SCH ×2 (07:52→20:37)
--- NOTE | 2020-10-04 08:55 | PDOC ---
Exam Note: Leonel Note: This note is a late entry for 10/03/2020 covers elements not covered in my initial note. Subjective: The patient was seen individually in the evening of 10/03/2020 with Deena MERCHANT, discussed and reviewed the chart. He slept 6-3/4 hours previous night. Overall the patient has been appropriate on the unit. He remains confused, withdrawn, mumbles under his breaths but not aggressive or thre atening. Review of Systems: Ambulation impaired in wheelchair. No CV, , pulmonary, eye system symptoms on review. Mental Status Exam: The patient is oriented to himself and at times situation. Speech is low in rate and rhythm, low in volume, rambling at times. Abstraction is fair. Computation is impaired. Language function is intact. Mood and affect somewhat withdrawn, but less labile. Laboratory Data: Reviewed. Impression: Schizoaffective disorder, bipolar type mixed with psychotic features. Schizophrenia, chronic undifferentiated with acute exacerbation. Major neurocognitive disorder, early vascular with delusion and depression. Plan: No change from initial note. We are continuing to gradually increase the Clozaril as tolerated. Assessment: Vital Signs/I&O: Vital Signs Date Time Temp Pulse Resp B/P (MAP) Pulse Ox O2 Delivery O2 Flow Rate FiO2 10/04/20 06:19 98.7 108 24 134/78 (96) 95 10/01/20 06:29 Room Air I & O 10/03/20 10/03/20 10/04/20 15:00 23:00 07:00 Intake Total 600 ml 320 ml Output Total 500 ml 500 ml Balance 600 ml -180 ml -500 ml Labs: Laboratory Tests Test 10/04/20 07:45 Glucose (Fingerstick) 128 mg/dL (70-99) H Current Medications: Meds: Laboratory Tests Test 10/04/20 07:45 Glucose (Fingerstick) 128 mg/dL Current Medications Medications (Trade) Dose Ordered Sig/Angelique Route PRN Reason Start Time Stop Time Status Last Admin Dose Admin Acetaminophen (Tylenol) 650 mg PRN Q6HRS PRN PO PAIN 09/03/20 10:15 Cancel Divalproex Sodium (Depakote Er) 500 mg BID PO 09/03/20 21:00 09/04/20 19:40 DC 09/04/20 08:32 Docusate Sodium (Colace) 100 mg BID PO 09/03/20 21:00 09/12/20 18:12 DC 09/11/20 20:00 Donepezil HCl (Aricept) 10 mg QHS PO 09/03/20 21:00 10/03/20 21:00 Metformin HCl (Glucophage) 500 mg BIDWMEALS PO 09/03/20 17:00 10/04/20 07:50 Pantoprazole Sodium (Protonix) 40 mg DAILY PO 09/04/20 09:00 10/04/20 07:50 Quetiapine Fumarate (SEROquel) 300 mg HS PO 09/03/20 21:00 09/16/20 17:51 DC 09/15/20 20:30 Memantine (Namenda) 10 mg BID PO 09/03/20 21:00 10/04/20 07:50 Citalopram Hydrobromide (CeleXA) 40 mg DAILY PO 09/04/20 09:00 09/08/20 16:40 DC 09/08/20 09:22 Acetaminophen (Tylenol) 650 mg PRN Q6HRS PRN PO MILD PAIN / TEMP > 100.3'F 09/03/20 10:30 09/30/20 08:33 Multi-Ingredient Ointment (Analgesic [place]) 1 ehlen PRN QID PRN TP MUSCLE PAIN 09/03/20 10:30 Al Hydroxide/Mg Hydroxide (Mylanta Plus Xs) 15 ml PRN AFTMEALHC PRN PO DYSPEPSIA 09/03/20 10:30 Magnesium Hydroxide (Milk Of Magnesia) 2,400 mg PRN QHS PRN PO CONSTIPATION 09/03/20 10:30 Olanzapine (ZyPREXA ZYDIS) 5 mg PRN Q2HR PRN PO PSYCHOSIS 09/03/20 14:00 09/30/20 08:33 Bacitracin (Bacitracin Topical Pkt) 1 pkt BID TP 09/04/20 21:00 10/04/20 07:52 Divalproex Sodium (Depakote Sprinkles) 500 mg BID PO 09/04/20 21:00 10/04/20 07:51 Aripiprazole (Abilify) 10 mg DAILY PO 09/05/20 09:00 09/09/20 18:17 DC 09/09/20 09:56 Sertraline HCl (Zoloft) 50 mg DAILY PO 09/09/20 09:00 09/22/20 18:06 DC 09/22/20 08:21 Aripiprazole (Abilify) 20 mg DAILY PO 09/10/20 09:00 09/12/20 19:00 DC 09/12/20 07:59 Aripiprazole (Abilify) 30 mg DAILY PO 09/13/20 09:00 09/14/20 11:05 DC 09/14/20 08:31 Nitrofurantoin Macrocrystals (Macrobid) 100 mg BID PO 09/11/20 09:00 09/18/20 08:59 DC 09/17/20 19:25 Aripiprazole (Abilify) 20 mg DAILY PO 09/15/20 09:00 09/17/20 20:21 DC 09/17/20 08:55 Benztropine Mesylate (Cogentin) 0.5 mg HS PO 09/14/20 21:00 09/17/20 20:21 DC 09/17/20 19:24 Benztropine Mesylate (Cogentin) 0.5 mg 1X ONCE PO 09/14/20 11:30 09/14/20 11:31 DC 09/14/20 11:20 Ropinirole HCl (Requip) 0.5 mg TID PO 09/14/20 21:30 10/04/20 07:50 Quetiapine Fumarate (SEROquel) 250 mg HS PO 09/16/20 21:00 10/03/20 21:00 Aripiprazole (Abilify) 15 mg DAILY PO 09/18/20 09:00 09/19/20 18:02 DC 09/19/20 08:38 Benztropine Mesylate (Cogentin) 1 mg HS PO 09/17/20 21:00 10/03/20 21:00 Aripiprazole (Abilify) 20 mg DAILY PO 09/20/20 09:00 09/25/20 13:03 DC 09/25/20 08:43 Nystatin (Nystop) 1 helen BID TP 09/22/20 09:00 10/04/20 07:50 Sertraline HCl (Zoloft) 75 mg DAILY PO 09/23/20 09:00 3/24/21 07:50 Clozapine (Clozaril) 25 mg HS PO 09/25/20 21:00 10/02/20 14:53 DC 10/01/20 19:43 Clozapine (Clozaril) 50 mg HS PO 10/02/20 21:00 10/03/20 21:00 I have reviewed the current psychotropics carefully including drug interactions. Risk benefit ratio favors no change other than as noted in my dictated progress note. Diagnosis: Problems: (1) Schizoaffective disorder, bipolar type (2) Impulse control disorder, unspecified (3) Anxiety disorder, unspecified (4) Chronic undifferentiated schizophrenia TOBI PADGETT MD Oct 04, 2020 08:55
[2020-10-04] MEDS: ACETAMINOPHEN 325 MG TABLET PO PRN (11:47)
[2020-10-04 16:12] VITALS: BP 125/66
--- NOTE | 2020-10-04 18:23 | RAD ---
AP chest. HISTORY: Fever, cough AP is taken of the chest. Patient had previous lumbar fusion. Patient's taken a poor inspiration. Pat ient rotated to the left. There are no definite infiltrates. There is no effusion. There is deformity of the left shoulder at the margin of the film. IMPRESSION: 1. Poor inspiration. 2. No confluent infiltrates. Electronically signed by: Sreedhar Hope MD (10/04/2020 6:21 PM) [facility]
[2020-10-04 19:20] LABS: HEMATOCRIT 34.9 % (39.0-53.0); HEMOGLOBIN 10.9 g/dL (13.0-17.5); RED BLOOD COUNT 4.38 x10^6/uL (4.30-5.70); RED CELL DISTRIBUTION WIDTH 19.1 % (11.5-14.5); WHITE BLOOD COUNT 7.4 x10^3/uL (4.0-11.0)
[2020-10-04] MEDS: QUEtiapine 100 MG TABLET. PO SCH (20:36)
[2020-10-04] MEDS: BENZTROPINE MESYLATE 1 MG TABLET PO SCH (20:37)
[2020-10-04] MEDS: cloZAPine 25 MG TABLET PO SCH (20:37)
[2020-10-04] MEDS: DONEPEZIL HCL 10 MG TABLET PO SCH (20:37)
[2020-10-04 20:39] LABS: CALCIUM 9.8 mg/dL (8.5-10.1); CREATININE 1.2 mg/dL (0.7-1.3); GFR 61.1
[2020-10-04 20:45] LABS: ALBUMIN 3.3 g/dL (3.4-5.0); ALBUMIN/GLOBULIN RATIO 0.7 (1.0-1.7); TOTAL BILIRUBIN 0.2 mg/dL (0.2-1.0); TOTAL PROTEIN 8.1 g/dL (6.4-8.2)
[2020-10-04 21:03] LABS: COLOR,URINE COLORLESS
[2020-10-04 21:04] LABS: BACTERIA,URINE QNS /HPF (0-FEW); BILIRUBIN,URINE SMALL (NEG); CLARITY,URINE CLOUDY; GLUCOSE,URINE NEG (NEG); NITRITE,URINE POS (NEG); RBC,URINE QNS /HPF (0-2); SQUAMOUS EPITHELIAL CELL,UR QNS /LPF; WBC,URINE QNS /HPF (0-4)
--- NOTE | 2020-10-04 21:59 | PDOC ---
Exam Note: Leonel Note: Please also refer to the separate dictated note~for this date of service dictated separately.~Patient seen individually. Discussed the patient with Nursing staff reviewed the chart.~Reviewed interim history and current functioning. Reviewed vital signs,~Labs/ Radiology~and current medications noted below. Continue current treatment with the changes noted in the dictated addendum note Assessment: Vital Signs/I&O: Vital Signs Date Time Temp Pulse Resp B/P (MAP) Pulse Ox O2 Delivery O2 Flow Rate FiO2 10/04/20 16:12 97.9 100 20 125/66 (85) 95 10/01/20 06:29 Room Air I & O 10/03/20 10/03/20 10/04/20 15:00 23:00 07:00 Intake Total 600 ml 320 ml Output Total 500 ml 500 ml Balance 600 ml -180 ml -500 ml Labs: Laboratory Tests Test 10/04/20 07:45 10/04/20 19:11 10/04/20 20:00 Glucose (Fingerstick) 128 mg/dL (70-99) H White Blood Count 7.4 x10^3/uL (4.0-11.0) Red Blood Count 4.38 x10^6/uL (4.30-5.70) Hemoglobin 10.9 g/dL (13.0-17.5) L Hematocrit 34.9 % (39.0-53.0) L Mean Corpuscular Volume 80 fL (79-100) Mean Corpuscular Hemoglobin 25 pg (25-35) Mean Corpuscular Hemoglobin Concent 31 g/dL (31-37) Red Cell Distribution Width 19.1 % (11.5-14.5) H Platelet Count 295 x10^3/uL (140-400) Sodium Level 145 mmol/L (136-145) Potassium Level 4.0 mmol/L (3.5-5.1) Chloride Level 107 mmol/L (98-107) Carbon Dioxide Level 27 mmol/L (21-32) Anion Gap 11 (6-14) Blood Urea Nitrogen 30 mg/dL (8-26) H Creatinine 1.2 mg/dL (0.7-1.3) Estimated GFR (Cockcroft-Gault) 61.1 BUN/Creatinine Ratio 25 (6-20) H Glucose Level 194 mg/dL (70-99) H Calcium Level 9.8 mg/dL (8.5-10.1) Total Bilirubin 0.2 mg/dL (0.2-1.0) Aspartate Amino Transferase (AST) 11 U/L (15-37) L Alanine Aminotransferase (ALT) 17 U/L (16-63) Alkaline Phosphatase 61 U/L (46-116) Total Protein 8.1 g/dL (6.4-8.2) Albumin 3.3 g/dL (3.4-5.0) L Albumin/Globulin Ratio 0.7 (1.0-1.7) L Urine Collection Type Unknown Urine Color Colorless Urine Clarity Cloudy Urine pH 6.0 Urine Specific [place] >=1.030 Urine Protein >100 mg/dl (NEG-TRACE) Urine Glucose (UA) Neg mg/dL (NEG) Urine Ketones (Stick) 15 mg/dL (NEG) Urine Blood Large (NEG) Urine Nitrite Pos (NEG) Urine Bilirubin Small (NEG) Urine Urobilinogen Dipstick 1.0 mg/dL (0.2 mg/dL) Urine Leukocyte Esterase Small (NEG) Urine RBC /HPF (0-2) Urine WBC /HPF (0-4) Urine Squamous Epithelial Cells /LPF Urine Bacteria /HPF (0-FEW) Current Medications: Meds: Laboratory Tests Test 10/04/20 07:45 10/04/20 19:11 10/04/20 20:00 Glucose (Fingerstick) 128 mg/dL White Blood Count 7.4 x10^3/uL Red Blood Count 4.38 x10^6/uL Hemoglobin 10.9 g/dL Hematocrit 34.9 % Mean Corpuscular Volume 80 fL Mean Corpuscular Hemoglobin 25 pg Mean Corpuscular Hemoglobin Concent 31 g/dL Red Cell Distribution Width 19.1 % Platelet Count 295 x10^3/uL Sodium Level 145 mmol/L Potassium Level 4.0 mmol/L Chloride Level 107 mmol/L Carbon Dioxide Level 27 mmol/L Anion Gap 11 Blood Urea Nitrogen 30 mg/dL Creatinine 1.2 mg/dL Estimated GFR (Cockcroft-Gault) 61.1 BUN/Creatinine Ratio 25 Glucose Level 194 mg/dL Calcium Level 9.8 mg/dL Total Bilirubin 0.2 mg/dL Aspartate Amino Transf (AST/SGOT) 11 U/L Alanine Aminotransferase (ALT/SGPT) 17 U/L Alkaline Phosphatase 61 U/L Total Protein 8.1 g/dL Albumin 3.3 g/dL Albumin/Globulin Ratio 0.7 Urine Collection Type Unknown Urine Color Colorless Urine Clarity Cloudy Urine pH 6.0 Urine Specific [place] >=1.030 Urine Protein >100 mg/dl Urine Glucose (UA) Neg mg/dL Urine Ketones (Stick) 15 mg/dL Urine Blood Large Urine Nitrite Pos Urine Bilirubin Small Urine Urobilinogen Dipstick 1.0 mg/dL Urine Leukocyte Esterase Small Urine RBC /HPF Urine WBC /HPF Urine Squamous Epithelial Cells /LPF Urine Bacteria /HPF Current Medications Medications (Trade) Dose Ordered Sig/Angelique Route PRN Reason Start Time Stop Time Status Last Admin Dose Admin Acetaminophen (Tylenol) 650 mg PRN Q6HRS PRN PO PAIN 09/03/20 10:15 Cancel Divalproex Sodium (Depakote Er) 500 mg BID PO 09/03/20 21:00 09/04/20 19:40 DC 09/04/20 08:32 Docusate Sodium (Colace) 100 mg BID PO 09/03/20 21:00 09/12/20 18:12 DC 09/11/20 20:00 Donepezil HCl (Aricept) 10 mg QHS PO 09/03/20 21:00 10/04/20 20:37 Metformin HCl (Glucophage) 500 mg BIDWMEALS PO 09/03/20 17:00 10/04/20 17:24 Pantoprazole Sodium (Protonix) 40 mg DAILY PO 09/04/20 09:00 10/04/20 07:50 Quetiapine Fumarate (SEROquel) 300 mg HS PO 09/03/20 21:00 09/16/20 17:51 DC 09/15/20 20:30 Memantine (Namenda) 10 mg BID PO 09/03/20 21:00 10/04/20 20:36 Citalopram Hydrobromide (CeleXA) 40 mg DAILY PO 09/04/20 09:00 09/08/20 16:40 DC 09/08/20 09:22 Acetaminophen (Tylenol) 650 mg PRN Q6HRS PRN PO MILD PAIN / TEMP > 100.3'F 09/03/20 10:30 10/04/20 11:47 Multi-Ingredient Ointment (Analgesic [place]) 1 helen PRN QID PRN TP MUSCLE PAIN 09/03/20 10:30 Al Hydroxide/Mg Hydroxide (Mylanta Plus Xs) 15 ml PRN AFTMEALHC PRN PO DYSPEPSIA 09/03/20 10:30 Magnesium Hydroxide (Milk Of Magnesia) 2,400 mg PRN QHS PRN PO CONSTIPATION 09/03/20 10:30 Olanzapine (ZyPREXA ZYDIS) 5 mg PRN Q2HR PRN PO PSYCHOSIS 09/03/20 14:00 09/30/20 08:33 Bacitracin (Bacitracin Topical Pkt) 1 pkt BID TP 09/04/20 21:00 10/04/20 20:37 Divalproex Sodium (Depakote Sprinkles) 500 mg BID PO 09/04/20 21:00 10/04/20 20:36 Aripiprazole (Abilify) 10 mg DAILY PO 09/05/20 09:00 09/09/20 18:17 DC 09/09/20 09:56 Sertraline HCl (Zoloft) 50 mg DAILY PO 09/09/20 09:00 09/22/20 18:06 DC 09/22/20 08:21 Aripiprazole (Abilify) 20 mg DAILY PO 09/10/20 09:00 09/12/20 19:00 DC 09/12/20 07:59 Aripiprazole (Abilify) 30 mg DAILY PO 09/13/20 09:00 09/14/20 11:05 DC 09/14/20 08:31 Nitrofurantoin Macrocrystals (Macrobid) 100 mg BID PO 09/11/20 09:00 09/18/20 08:59 DC 09/17/20 19:25 Aripiprazole (Abilify) 20 mg DAILY PO 09/15/20 09:00 09/17/20 20:21 DC 09/17/20 08:55 Benztropine Mesylate (Cogentin) 0.5 mg HS PO 09/14/20 21:00 09/17/20 20:21 DC 09/17/20 19:24 Benztropine Mesylate (Cogentin) 0.5 mg 1X ONCE PO 09/14/20 11:30 09/14/20 11:31 DC 09/14/20 11:20 Ropinirole HCl (Requip) 0.5 mg TID PO 09/14/20 21:30 10/04/20 20:36 Quetiapine Fumarate (SEROquel) 250 mg HS PO 09/16/20 21:00 10/04/20 20:36 Aripiprazole (Abilify) 15 mg DAILY PO 09/18/20 09:00 09/19/20 18:02 DC 09/19/20 08:38 Benztropine Mesylate (Cogentin) 1 mg HS PO 09/17/20 21:00 10/04/20 20:37 Aripiprazole (Abilify) 20 mg DAILY PO 09/20/20 09:00 09/25/20 13:03 DC 09/25/20 08:43 Nystatin (Nystop) 1 helen BID TP 09/22/20 09:00 10/04/20 20:37 Sertraline HCl (Zoloft) 75 mg DAILY PO 09/23/20 09:00 10/04/20 07:50 Clozapine (Clozaril) 25 mg HS PO 09/25/20 21:00 10/02/20 14:53 DC 10/01/20 19:43 Clozapine (Clozaril) 50 mg HS PO 10/02/20 21:00 10/04/20 20:37 I have reviewed the current psychotropics carefully including drug interactions. Risk benefit ratio favors no change other than as noted in my dictated progress note. Diagnosis: Problems: (1) Schizoaffective disorder, bipolar type (2) Impulse control disorder, unspecified (3) Anxiety disorder, unspecified (4) Bipolar disorder, curr episode mixed, severe, with psychotic features (5) Chronic undifferentiated schizophrenia TOBI PADGETT MD Oct 04, 2020 21:59
[2020-10-05] MEDS: ACETAMINOPHEN 325 MG TABLET PO PRN (05:09)
[2020-10-05 05:50] VITALS: BP 127/80
[2020-10-05] MEDS: metFORMIN 500 MG TABLET PO SCH ×2 (08:47→17:03)
[2020-10-05] MEDS: MEMANTINE 10 MG TABLET. PO SCH ×2 (08:47→19:39)
[2020-10-05] MEDS: rOPINIRole 0.5 MG TABLET. PO SCH ×3 (08:47→19:39)
[2020-10-05] MEDS: SERTRALINE 25 MG TABLET. PO SCH (08:47)
[2020-10-05] MEDS: PANTOPRAZOLE 40 MG TABLET. PO SCH (08:47)
[2020-10-05] MEDS: BACITRACIN ZINC TOPICAL OINT PACKET. TP SCH ×2 (08:47→19:40)
[2020-10-05] MEDS: NYSTATIN TOPICAL POWDER 15GM BOTTLE. TP SCH ×2 (08:48→19:39)
[2020-10-05] MEDS: DIVALPROEX 125 MG CAP.SPRINK PO SCH ×2 (08:48→19:40)
[2020-10-05 15:41] VITALS: BP 114/75
[2020-10-05] MEDS: DONEPEZIL HCL 10 MG TABLET PO SCH (19:39)
[2020-10-05] MEDS: BENZTROPINE MESYLATE 1 MG TABLET PO SCH (19:40)
[2020-10-05] MEDS: QUEtiapine 100 MG TABLET. PO SCH (19:40)
[2020-10-05] MEDS: cloZAPine 25 MG TABLET PO SCH (19:40)
--- NOTE | 2020-10-05 22:10 | PDOC ---
Exam Note: Leonel Note: Please also refer to the separate dictated note~for this date of service dictated separately.~Patient seen individually. Discussed the patient with Nursing staff reviewed the chart.~Reviewed interim history and current functioning. Reviewed vital signs,~Labs/ Radiology~and current medications noted below. Continue current treatment with the changes noted in the dictated addendum note Assessment: Vital Signs/I&O: Vital Signs Date Time Temp Pulse Resp B/P (MAP) Pulse Ox O2 Delivery O2 Flow Rate FiO2 10/05/20 15:41 98.3 69 18 114/75 (88) 99 10/01/20 06:29 Room Air I & O 10/04/20 10/04/20 10/05/20 15:00 23:00 07:00 Intake Total 360 ml 120 ml Balance 360 ml 120 ml Labs: Laboratory Tests Test 10/05/20 07:55 10/05/20 11:30 Glucose (Fingerstick) 132 mg/dL (70-99) H 145 mg/dL (70-99) H Current Medications: Meds: Laboratory Tests Test 10/05/20 07:55 10/05/20 11:30 Glucose (Fingerstick) 132 mg/dL 145 mg/dL Current Medications Medications (Trade) Dose Ordered Sig/Angelique Route PRN Reason Start Time Stop Time Status Last Admin Dose Admin Acetaminophen (Tylenol) 650 mg PRN Q6HRS PRN PO PAIN 09/03/20 10:15 Cancel Divalproex Sodium (Depakote Er) 500 mg BID PO 09/03/20 21:00 09/04/20 19:40 DC 09/04/20 08:32 Docusate Sodium (Colace) 100 mg BID PO 09/03/20 21:00 09/12/20 18:12 DC 09/11/20 20:00 Donepezil HCl (Aricept) 10 mg QHS PO 09/03/20 21:00 10/05/20 19:39 Metformin HCl (Glucophage) 500 mg BIDWMEALS PO 09/03/20 17:00 10/05/20 17:03 Pantoprazole Sodium (Protonix) 40 mg DAILY PO 09/04/20 09:00 10/05/20 08:47 Quetiapine Fumarate (SEROquel) 300 mg HS PO 09/03/20 21:00 09/16/20 17:51 DC 09/15/20 20:30 Memantine (Namenda) 10 mg BID PO 09/03/20 21:00 10/05/20 19:39 Citalopram Hydrobromide (CeleXA) 40 mg DAILY PO 09/04/20 09:00 09/08/20 16:40 DC 09/08/20 09:22 Acetaminophen (Tylenol) 650 mg PRN Q6HRS PRN PO MILD PAIN / TEMP > 100.3'F 09/03/20 10:30 10/05/20 05:09 Multi-Ingredient Ointment (Analgesic [place]) 1 helen PRN QID PRN TP MUSCLE PAIN 09/03/20 10:30 Al Hydroxide/Mg Hydroxide (Mylanta Plus Xs) 15 ml PRN AFTMEALHC PRN PO DYSPEPSIA 09/03/20 10:30 Magnesium Hydroxide (Milk Of Magnesia) 2,400 mg PRN QHS PRN PO CONSTIPATION 09/03/20 10:30 Olanzapine (ZyPREXA ZYDIS) 5 mg PRN Q2HR PRN PO PSYCHOSIS 09/03/20 14:00 09/30/20 08:33 Bacitracin (Bacitracin Topical Pkt) 1 pkt BID TP 09/04/20 21:00 10/05/20 19:40 Divalproex Sodium (Depakote Sprinkles) 500 mg BID PO 09/04/20 21:00 10/05/20 19:40 Aripiprazole (Abilify) 10 mg DAILY PO 09/05/20 09:00 09/09/20 18:17 DC 09/09/20 09:56 Sertraline HCl (Zoloft) 50 mg DAILY PO 09/09/20 09:00 09/22/20 18:06 DC 09/22/20 08:21 Aripiprazole (Abilify) 20 mg DAILY PO 09/10/20 09:00 09/12/20 19:00 DC 09/12/20 07:59 Aripiprazole (Abilify) 30 mg DAILY PO 09/13/20 09:00 09/14/20 11:05 DC 09/14/20 08:31 Nitrofurantoin Macrocrystals (Macrobid) 100 mg BID PO 09/11/20 09:00 09/18/20 08:59 DC 09/17/20 19:25 Aripiprazole (Abilify) 20 mg DAILY PO 09/15/20 09:00 09/17/20 20:21 DC 09/17/20 08:55 Benztropine Mesylate (Cogentin) 0.5 mg HS PO 09/14/20 21:00 09/17/20 20:21 DC 09/17/20 19:24 Benztropine Mesylate (Cogentin) 0.5 mg 1X ONCE PO 09/14/20 11:30 09/14/20 11:31 DC 09/14/20 11:20 Ropinirole HCl (Requip) 0.5 mg TID PO 09/14/20 21:30 10/05/20 19:39 Quetiapine Fumarate (SEROquel) 250 mg HS PO 09/16/20 21:00 10/05/20 19:40 Aripiprazole (Abilify) 15 mg DAILY PO 09/18/20 09:00 09/19/20 18:02 DC 09/19/20 08:38 Benztropine Mesylate (Cogentin) 1 mg HS PO 09/17/20 21:00 10/05/20 19:40 Aripiprazole (Abilify) 20 mg DAILY PO 09/20/20 09:00 09/25/20 13:03 DC 09/25/20 08:43 Nystatin (Nystop) 1 helen BID TP 09/22/20 09:00 10/05/20 19:39 Sertraline HCl (Zoloft) 75 mg DAILY PO 09/23/20 09:00 10/05/20 08:47 Clozapine (Clozaril) 25 mg HS PO 09/25/20 21:00 10/02/20 14:53 DC 10/01/20 19:43 Clozapine (Clozaril) 50 mg HS PO 10/02/20 21:00 10/05/20 19:40 I have reviewed the current psychotropics carefully including drug interactions. Risk benefit ratio favors no change other than as noted in my dictated progress note. Diagnosis: Problems: (1) Schizoaffective disorder, bipolar type (2) Impulse control disorder, unspecified (3) Anxiety disorder, unspecified (4) Bipolar disorder, curr episode mixed, severe, with psychotic features (5) Chronic undifferentiated schizophrenia TOBI PADGETT MD Oct 05, 2020 22:10
--- NOTE | 2020-10-05 22:10 | PDOC ---
Exam Note: Leonel Note: This note is a late entry for 10/04/2020 covers elements not covered in my initial note. Subjective: The patient was seen individually in the evening of 10/04/2020 with Lesly MERCHANT, discussed and reviewed the chart. He slept 6 hours previous night. No behavior problems noted. Yesterday he was throwing things on the floor, not aggressive, better today. He had low-grade temperature. We will defer to Dr. Castro. Review of Systems: Ambulation impaired in wheelchair. No CV, , pulmonary, eye system symptoms on review. Mental Status Exam: The patient is oriented to himself and at times situation. Speech is low in rate and rhythm, low in volume. Abstraction is fair. Computation is impaired. Language function is intact. Mood and affect somewhat withdrawn, but less labile. Laboratory Data: Reviewed. Impression: Schizoaffective disorder, bipolar type mixed with psychotic features. Schizophrenia, chronic undifferentiated with acute exacerbation. Major neurocognitive disorder, early vascular with delusion and depression. Plan: No change from initial note. Assessment: Vital Signs/I&O: Vital Signs Date Time Temp Pulse Resp B/P (MAP) Pulse Ox O2 Delivery O2 Flow Rate FiO2 10/05/20 15:41 98.3 69 18 114/75 (88) 99 10/01/20 06:29 Room Air I & O 10/04/20 10/04/20 10/05/20 15:00 23:00 07:00 Intake Total 360 ml 120 ml Balance 360 ml 120 ml Labs: Laboratory Tests Test 10/05/20 07:55 10/05/20 11:30 Glucose (Fingerstick) 132 mg/dL (70-99) H 145 mg/dL (70-99) H Current Medications: Meds: Laboratory Tests Test 10/05/20 07:55 10/05/20 11:30 Glucose (Fingerstick) 132 mg/dL 145 mg/dL Current Medications Medications (Trade) Dose Ordered Sig/Angelique Route PRN Reason Start Time Stop Time Status Last Admin Dose Admin Acetaminophen (Tylenol) 650 mg PRN Q6HRS PRN PO PAIN 09/03/20 10:15 Cancel Divalproex Sodium (Depakote Er) 500 mg BID PO 09/03/20 21:00 09/04/20 19:40 DC 09/04/20 08:32 Docusate Sodium (Colace) 100 mg BID PO 09/03/20 21:00 09/12/20 18:12 DC 09/11/20 20:00 Donepezil HCl (Aricept) 10 mg QHS PO 09/03/20 21:00 10/05/20 19:39 Metformin HCl (Glucophage) 500 mg BIDWMEALS PO 09/03/20 17:00 10/05/20 17:03 Pantoprazole Sodium (Protonix) 40 mg DAILY PO 09/04/20 09:00 10/05/20 08:47 Quetiapine Fumarate (SEROquel) 300 mg HS PO 09/03/20 21:00 09/16/20 17:51 DC 09/15/20 20:30 Memantine (Namenda) 10 mg BID PO 09/03/20 21:00 10/05/20 19:39 Citalopram Hydrobromide (CeleXA) 40 mg DAILY PO 09/04/20 09:00 09/08/20 16:40 DC 09/08/20 09:22 Acetaminophen (Tylenol) 650 mg PRN Q6HRS PRN PO MILD PAIN / TEMP > 100.3'F 09/03/20 10:30 10/05/20 05:09 Multi-Ingredient Ointment (Analgesic [place]) 1 helen PRN QID PRN TP MUSCLE PAIN 09/03/20 10:30 Al Hydroxide/Mg Hydroxide (Mylanta Plus Xs) 15 ml PRN AFTMEALHC PRN PO DYSPEPSIA 09/03/20 10:30 Magnesium Hydroxide (Milk Of Magnesia) 2,400 mg PRN QHS PRN PO CONSTIPATION 09/03/20 10:30 Olanzapine (ZyPREXA ZYDIS) 5 mg PRN Q2HR PRN PO PSYCHOSIS 09/03/20 14:00 09/30/20 08:33 Bacitracin (Bacitracin Topical Pkt) 1 pkt BID TP 09/04/20 21:00 10/05/20 19:40 Divalproex Sodium (Depakote Sprinkles) 500 mg BID PO 09/04/20 21:00 10/05/20 19:40 Aripiprazole (Abilify) 10 mg DAILY PO 09/05/20 09:00 09/09/20 18:17 DC 09/09/20 09:56 Sertraline HCl (Zoloft) 50 mg DAILY PO 09/09/20 09:00 09/22/20 18:06 DC 09/22/20 08:21 Aripiprazole (Abilify) 20 mg DAILY PO 09/10/20 09:00 09/12/20 19:00 DC 09/12/20 07:59 Aripiprazole (Abilify) 30 mg DAILY PO 09/13/20 09:00 09/14/20 11:05 DC 09/14/20 08:31 Nitrofurantoin Macrocrystals (Macrobid) 100 mg BID PO 09/11/20 09:00 09/18/20 08:59 DC 09/17/20 19:25 Aripiprazole (Abilify) 20 mg DAILY PO 09/15/20 09:00 09/17/20 20:21 DC 09/17/20 08:55 Benztropine Mesylate (Cogentin) 0.5 mg HS PO 09/14/20 21:00 09/17/20 20:21 DC 09/17/20 19:24 Benztropine Mesylate (Cogentin) 0.5 mg 1X ONCE PO 09/14/20 11:30 09/14/20 11:31 DC 09/14/20 11:20 Ropinirole HCl (Requip) 0.5 mg TID PO 09/14/20 21:30 10/05/20 19:39 Quetiapine Fumarate (SEROquel) 250 mg HS PO 09/16/20 21:00 10/05/20 19:40 Aripiprazole (Abilify) 15 mg DAILY PO 09/18/20 09:00 09/19/20 18:02 DC 09/19/20 08:38 Benztropine Mesylate (Cogentin) 1 mg HS PO 09/17/20 21:00 10/05/20 19:40 Aripiprazole (Abilify) 20 mg DAILY PO 09/20/20 09:00 09/25/20 13:03 DC 09/25/20 08:43 Nystatin (Nystop) 1 helen BID TP 09/22/20 09:00 10/05/20 19:39 Sertraline HCl (Zoloft) 75 mg DAILY PO 09/23/20 09:00 10/05/20 08:47 Clozapine (Clozaril) 25 mg HS PO 09/25/20 21:00 10/02/20 14:53 DC 10/01/20 19:43 Clozapine (Clozaril) 50 mg HS PO 10/02/20 21:00 10/05/20 19:40 I have reviewed the current psychotropics carefully including drug interactions. Risk benefit ratio favors no change other than as noted in my dictated progress note. Diagnosis: Problems: (1) Schizoaffective disorder, bipolar type (2) Impulse control disorder, unspecified (3) Anxiety disorder, unspecified (4) Bipolar disorder, curr episode mixed, severe, with psychotic features (5) Chronic undifferentiated schizophrenia TOBI PADGETT MD Oct 05, 2020 22:10
[2020-10-06 06:09] VITALS: BP 130/86
[2020-10-06] MEDS: rOPINIRole 0.5 MG TABLET. PO SCH ×3 (08:15→19:49)
[2020-10-06] MEDS: MEMANTINE 10 MG TABLET. PO SCH ×2 (08:16→19:49)
[2020-10-06] MEDS: SERTRALINE 25 MG TABLET. PO SCH (08:16)
[2020-10-06] MEDS: DIVALPROEX 125 MG CAP.SPRINK PO SCH ×2 (08:16→19:49)
[2020-10-06] MEDS: metFORMIN 500 MG TABLET PO SCH ×2 (08:16→17:06)
[2020-10-06] MEDS: PANTOPRAZOLE 40 MG TABLET. PO SCH (08:16)
[2020-10-06] MEDS: NYSTATIN TOPICAL POWDER 15GM BOTTLE. TP SCH ×2 (08:17→19:52)
[2020-10-06] MEDS: BACITRACIN ZINC TOPICAL OINT PACKET. TP SCH ×2 (08:17→19:49)
--- NOTE | 2020-10-06 09:15 | PDOC ---
Exam Note: Leonel Note: This note is a late entry for 10/05/2020 covers elements not covered in my initial note. Subjective: The patient was seen individually in the evening of 10/05/2020 with Deena MERCHANT, discussed and reviewed the chart. He slept 6-1/2 hours previous night. Overall the patient has done better. He is pleasant, compliant with medications. At times he makes out of context remarks but no clear suicidal or homicidal ideation. Review of Systems: Ambulation impaired in wheelchair. No CV, , pulmonary, eye system symptoms on review. Mental Status Exam: The patient is oriented to himself and at times situation. Speech is low in rate and rhythm, low in volume. Abstraction is fair. Computation is impaired. Language function is intact. Mood and affect improved. Laboratory Data: Reviewed. Impression: Schizoaffective disorder, bipolar type mixed with psychotic features. Schizophrenia, chronic undifferentiated with acute exacerbation. [place] or neurocognitive disorder, early vascular with delusion and depression. Plan: We will adjust psychotropics further depending on his progress. Valproic acid level is therapeutic. Seroquel is at an adequate dosage along with Zoloft and Clozaril will be further increased after next weeks absolute neutrophil count check. Assessment: Vital Signs/I&O: Vital Signs Date Time Temp Pulse Resp B/P (MAP) Pulse Ox O2 Delivery O2 Flow Rate FiO2 10/06/20 06:09 97.6 96 18 130/86 (101) 100 Room Air I & O 10/05/20 10/05/20 10/06/20 15:00 23:00 07:00 Intake Total 720 ml 360 ml Output Total 500 ml Balance 720 ml -140 ml Labs: Laboratory Tests Test 10/05/20 11:30 10/06/20 07:27 Glucose (Fingerstick) 145 mg/dL (70-99) H 120 mg/dL (70-99) H Current Medications: Meds: Laboratory Tests Test 10/05/20 11:30 10/06/20 07:27 Glucose (Fingerstick) 145 mg/dL 120 mg/dL Current Medications Medications (Trade) Dose Ordered Sig/Angelique Route PRN Reason Start Time Stop Time Status Last Admin Dose Admin Acetaminophen (Tylenol) 650 mg PRN Q6HRS PRN PO PAIN 09/03/20 10:15 Cancel Divalproex Sodium (Depakote Er) 500 mg BID PO 09/03/20 21:00 09/04/20 19:40 DC 09/04/20 08:32 Docusate Sodium (Colace) 100 mg BID PO 09/03/20 21:00 09/12/20 18:12 DC 09/11/20 20:00 Donepezil HCl (Aricept) 10 mg QHS PO 09/03/20 21:00 10/05/20 19:39 Metformin HCl (Glucophage) 500 mg BIDWMEALS PO 09/03/20 17:00 10/06/20 08:16 Pantoprazole Sodium (Protonix) 40 mg DAILY PO 09/04/20 09:00 10/06/20 08:16 Quetiapine Fumarate (SEROquel) 300 mg HS PO 09/03/20 21:00 09/16/20 17:51 DC 09/15/20 20:30 Memantine (Namenda) 10 mg BID PO 09/03/20 21:00 10/06/20 08:16 Citalopram Hydrobromide (CeleXA) 40 mg DAILY PO 09/04/20 09:00 09/08/20 16:40 DC 09/08/20 09:22 Acetaminophen (Tylenol) 650 mg PRN Q6HRS PRN PO MILD PAIN / TEMP > 100.3'F 09/03/20 10:30 10/05/20 05:09 Multi-Ingredient Ointment (Analgesic [place]) 1 helen PRN QID PRN TP MUSCLE PAIN 09/03/20 10:30 Al Hydroxide/Mg Hydroxide (Mylanta Plus Xs) 15 ml PRN AFTMEALHC PRN PO DYSPEPSIA 09/03/20 10:30 Magnesium Hydroxide (Milk Of Magnesia) 2,400 mg PRN QHS PRN PO CONSTIPATION 09/03/20 10:30 Olanzapine (ZyPREXA ZYDIS) 5 mg PRN Q2HR PRN PO PSYCHOSIS 09/03/20 14:00 09/30/20 08:33 Bacitracin (Bacitracin Topical Pkt) 1 pkt BID TP 09/04/20 21:00 10/06/20 08:17 Divalproex Sodium (Depakote Sprinkles) 500 mg BID PO 09/04/20 21:00 10/06/20 08:16 Aripiprazole (Abilify) 10 mg DAILY PO 09/05/20 09:00 09/09/20 18:17 DC 09/09/20 09:56 Sertraline HCl (Zoloft) 50 mg DAILY PO 09/09/20 09:00 09/22/20 18:06 DC 09/22/20 08:21 Aripiprazole (Abilify) 20 mg DAILY PO 09/10/20 09:00 09/12/20 19:00 DC 09/12/20 07:59 Aripiprazole (Abilify) 30 mg DAILY PO 09/13/20 09:00 09/14/20 11:05 DC 09/14/20 08:31 Nitrofurantoin Macrocrystals (Macrobid) 100 mg BID PO 09/11/20 09:00 09/18/20 08:59 DC 09/17/20 19:25 Aripiprazole (Abilify) 20 mg DAILY PO 09/15/20 09:00 09/17/20 20:21 DC 09/17/20 08:55 Benztropine Mesylate (Cogentin) 0.5 mg HS PO 09/14/20 21:00 09/17/20 20:21 DC 09/17/20 19:24 Benztropine Mesylate (Cogentin) 0.5 mg 1X ONCE PO 09/14/20 11:30 09/14/20 11:31 DC 09/14/20 11:20 Ropinirole HCl (Requip) 0.5 mg TID PO 09/14/20 21:30 10/06/20 08:15 Quetiapine Fumarate (SEROquel) 250 mg HS PO 09/16/20 21:00 10/05/20 19:40 Aripiprazole (Abilify) 15 mg DAILY PO 09/18/20 09:00 09/19/20 18:02 DC 09/19/20 08:38 Benztropine Mesylate (Cogentin) 1 mg HS PO 09/17/20 21:00 10/05/20 19:40 Aripiprazole (Abilify) 20 mg DAILY PO 09/20/20 09:00 09/25/20 13:03 DC 09/25/20 08:43 Nystatin (Nystop) 1 helen BID TP 09/22/20 09:00 10/06/20 08:17 Sertraline HCl (Zoloft) 75 mg DAILY PO 09/23/20 09:00 10/06/20 08:16 Clozapine (Clozaril) 25 mg HS PO 09/25/20 21:00 10/02/20 14:53 DC 10/01/20 19:43 Clozapine (Clozaril) 50 mg HS PO 10/02/20 21:00 10/05/20 19:40 I have reviewed the current psychotropics carefully including drug interactions. Risk benefit ratio favors no change other than as noted in my dictated progress note. Diagnosis: Problems: (1) Impulse control disorder, unspecified (2) Anxiety disorder, unspecified (3) Bipolar disorder, curr episode mixed, severe, with psychotic features (4) Major neurocognitive disorder with Lewy bodies, probable, with behavioral disturbance (5) Chronic undifferentiated schizophrenia (6) Schizoaffective disorder, bipolar type TOBI PADGETT MD Oct 06, 2020 09:15
[2020-10-06 15:58] VITALS: BP 135/81
[2020-10-06] MEDS: cloZAPine 25 MG TABLET PO SCH (19:52)
[2020-10-06] MEDS: BENZTROPINE MESYLATE 1 MG TABLET PO SCH (19:52)
[2020-10-06] MEDS: DONEPEZIL HCL 10 MG TABLET PO SCH (19:52)
[2020-10-06] MEDS: QUEtiapine 100 MG TABLET. PO SCH (19:52)
--- NOTE | 2020-10-06 21:40 | PDOC ---
Exam Note: Leonel Note: Please also refer to the separate dictated note~for this date of service dictated separately.~Patient seen individually. Discussed the patient with Nursing staff reviewed the chart.~Reviewed interim history and current functioning. Reviewed vital signs,~Labs/ Radiology~and current medications noted below. Continue current treatment with the changes noted in the dictated addendum note Assessment: Vital Signs/I&O: Vital Signs Date Time Temp Pulse Resp B/P (MAP) Pulse Ox O2 Delivery O2 Flow Rate FiO2 10/06/20 15:58 97.5 98 20 135/81 (99) 98 Room Air I & O 10/05/20 10/05/20 10/06/20 15:00 23:00 07:00 Intake Total 720 ml 360 ml Output Total 500 ml Balance 720 ml -140 ml Labs: Laboratory Tests Test 10/06/20 07:27 Glucose (Fingerstick) 120 mg/dL (70-99) H Current Medications: Meds: Laboratory Tests Test 10/06/20 07:27 Glucose (Fingerstick) 120 mg/dL Current Medications Medications (Trade) Dose Ordered Sig/Angelique Route PRN Reason Start Time Stop Time Status Last Admin Dose Admin Acetaminophen (Tylenol) 650 mg PRN Q6HRS PRN PO PAIN 09/03/20 10:15 Cancel Divalproex Sodium (Depakote Er) 500 mg BID PO 09/03/20 21:00 09/04/20 19:40 DC 09/04/20 08:32 Docusate Sodium (Colace) 100 mg BID PO 09/03/20 21:00 09/12/20 18:12 DC 09/11/20 20:00 Donepezil HCl (Aricept) 10 mg QHS PO 09/03/20 21:00 10/06/20 19:52 Metformin HCl (Glucophage) 500 mg BIDWMEALS PO 09/03/20 17:00 10/06/20 17:06 Pantoprazole Sodium (Protonix) 40 mg DAILY PO 09/04/20 09:00 10/06/20 08:16 Quetiapine Fumarate (SEROquel) 300 mg HS PO 09/03/20 21:00 09/16/20 17:51 DC 09/15/20 20:30 Memantine (Namenda) 10 mg BID PO 09/03/20 21:00 10/06/20 19:49 Citalopram Hydrobromide (CeleXA) 40 mg DAILY PO 09/04/20 09:00 09/08/20 16:40 DC 09/08/20 09:22 Acetaminophen (Tylenol) 650 mg PRN Q6HRS PRN PO MILD PAIN / TEMP > 100.3'F 09/03/20 10:30 10/05/20 05:09 Multi-Ingredient Ointment (Analgesic [place]) 1 helen PRN QID PRN TP MUSCLE PAIN 09/03/20 10:30 Al Hydroxide/Mg Hydroxide (Mylanta Plus Xs) 15 ml PRN AFTMEALHC PRN PO DYSPEPSIA 09/03/20 10:30 Magnesium Hydroxide (Milk Of Magnesia) 2,400 mg PRN QHS PRN PO CONSTIPATION 09/03/20 10:30 Olanzapine (ZyPREXA ZYDIS) 5 mg PRN Q2HR PRN PO PSYCHOSIS 09/03/20 14:00 09/30/20 08:33 Bacitracin (Bacitracin Topical Pkt) 1 pkt BID TP 09/04/20 21:00 10/06/20 19:49 Divalproex Sodium (Depakote Sprinkles) 500 mg BID PO 09/04/20 21:00 10/06/20 19:49 Aripiprazole (Abilify) 10 mg DAILY PO 09/05/20 09:00 09/09/20 18:17 DC 09/09/20 09:56 Sertraline HCl (Zoloft) 50 mg DAILY PO 09/09/20 09:00 09/22/20 18:06 DC 09/22/20 08:21 Aripiprazole (Abilify) 20 mg DAILY PO 09/10/20 09:00 09/12/20 19:00 DC 09/12/20 07:59 Aripiprazole (Abilify) 30 mg DAILY PO 09/13/20 09:00 09/14/20 11:05 DC 09/14/20 08:31 Nitrofurantoin Macrocrystals (Macrobid) 100 mg BID PO 09/11/20 09:00 09/18/20 08:59 DC 09/17/20 19:25 Aripiprazole (Abilify) 20 mg DAILY PO 09/15/20 09:00 09/17/20 20:21 DC 09/17/20 08:55 Benztropine Mesylate (Cogentin) 0.5 mg HS PO 09/14/20 21:00 09/17/20 20:21 DC 09/17/20 19:24 Benztropine Mesylate (Cogentin) 0.5 mg 1X ONCE PO 09/14/20 11:30 09/14/20 11:31 DC 09/14/20 11:20 Ropinirole HCl (Requip) 0.5 mg TID PO 09/14/20 21:30 10/06/20 19:49 Quetiapine Fumarate (SEROquel) 250 mg HS PO 09/16/20 21:00 10/06/20 19:52 Aripiprazole (Abilify) 15 mg DAILY PO 09/18/20 09:00 09/19/20 18:02 DC 09/19/20 08:38 Benztropine Mesylate (Cogentin) 1 mg HS PO 09/17/20 21:00 10/06/20 19:52 Aripiprazole (Abilify) 20 mg DAILY PO 09/20/20 09:00 09/25/20 13:03 DC 09/25/20 08:43 Nystatin (Nystop) 1 helen BID TP 09/22/20 09:00 10/06/20 19:52 Sertraline HCl (Zoloft) 75 mg DAILY PO 09/23/20 09:00 10/06/20 08:16 Clozapine (Clozaril) 25 mg HS PO 09/25/20 21:00 10/02/20 14:53 DC 10/01/20 19:43 Clozapine (Clozaril) 50 mg HS PO 10/02/20 21:00 10/06/20 19:52 I have reviewed the current psychotropics carefully including drug interactions. Risk benefit ratio favors no change other than as noted in my dictated progress note. Diagnosis: Problems: (1) Schizoaffective disorder, bipolar type (2) Impulse control disorder, unspecified (3) Anxiety disorder, unspecified (4) Bipolar disorder, curr episode mixed, severe, with psychotic features (5) Chronic undifferentiated schizophrenia TOBI PADGETT MD Oct 06, 2020 21:40
[2020-10-07 06:53] VITALS: BP 140/91
[2020-10-07] MEDS: NYSTATIN TOPICAL POWDER 15GM BOTTLE. TP SCH ×2 (07:16→19:50)
[2020-10-07] MEDS: SERTRALINE 25 MG TABLET. PO SCH (08:34)
[2020-10-07] MEDS: metFORMIN 500 MG TABLET PO SCH ×2 (08:34→16:34)
[2020-10-07] MEDS: MEMANTINE 10 MG TABLET. PO SCH ×2 (08:34→19:49)
[2020-10-07] MEDS: rOPINIRole 0.5 MG TABLET. PO SCH ×3 (08:34→19:49)
[2020-10-07] MEDS: DIVALPROEX 125 MG CAP.SPRINK PO SCH ×2 (08:34→19:49)
[2020-10-07] MEDS: BACITRACIN ZINC TOPICAL OINT PACKET. TP SCH ×2 (08:34→19:50)
[2020-10-07] MEDS: PANTOPRAZOLE 40 MG TABLET. PO SCH (08:34)
--- NOTE | 2020-10-07 08:42 | PDOC ---
Exam Note: Leonel Note: This note is a late entry for 10/06/2020 covers elements not covered in my initial note. Subjective: The patient was seen individually in the evening of 10/06/2020 with Cristal MERCHANT, discussed and reviewed the chart. He slept 7-3/4 hours previous night. Overall the patient has not been agitated or aggressive, less psychotic. He remains confused. Review of Systems: Ambulation impaired in wheelchair. No CV, , pulmonary, eye system symptoms on review. Mental Status Exam: The patient is oriented to himself and at times situation. Speech is low in rate and rhythm, low in volume. Abstraction is fair. Computation is impaired. Language function is intact. Mood and affect less psychotic, remains confused. Laboratory Data: Reviewed. Impression: Schizoaffective disorder, bipolar type mixed with psychotic feat ures. Schizophrenia, chronic undifferentiated with acute exacerbation. Major neurocognitive disorder, early vascular with delusion and depression. Plan: No change from initial note. Dr. Espinosa will be covering for me from Friday through October 21, 2020. Assessment: Vital Signs/I&O: Vital Signs Date Time Temp Pulse Resp B/P (MAP) Pulse Ox O2 Delivery O2 Flow Rate FiO2 10/07/20 06:53 97.6 90 20 140/91 (107) 96 Room Air I & O 10/06/20 10/06/20 10/07/20 15:00 23:00 07:00 Intake Total 600 ml 240 ml Output Total 600 ml Balance 600 ml -360 ml Labs: Laboratory Tests Test 10/07/20 07:22 Glucose (Fingerstick) 116 mg/dL (70-99) H Current Medications: Meds: Laboratory Tests Test 10/07/20 07:22 Glucose (Fingerstick) 116 mg/dL Current Medications Medications (Trade) Dose Ordered Sig/Angelique Route PRN Reason Start Time Stop Time Status Last Admin Dose Admin Acetaminophen (Tylenol) 650 mg PRN Q6HRS PRN PO PAIN 09/03/20 10:15 Cancel Divalproex Sodium (Depakote Er) 500 mg BID PO 09/03/20 21:00 09/04/20 19:40 DC 09/04/20 08:32 Docusate Sodium (Colace) 100 mg BID PO 09/03/20 21:00 09/12/20 18:12 DC 09/11/20 20:00 Donepezil HCl (Aricept) 10 mg QHS PO 09/03/20 21:00 10/06/20 19:52 Metformin HCl (Glucophage) 500 mg BIDWMEALS PO 09/03/20 17:00 10/07/20 08:34 Pantoprazole Sodium (Protonix) 40 mg DAILY PO 09/04/20 09:00 10/07/20 08:34 Quetiapine Fumarate (SEROquel) 300 mg HS PO 09/03/20 21:00 09/16/20 17:51 DC 09/15/20 20:30 Memantine (Namenda) 10 mg BID PO 09/03/20 21:00 10/07/20 08:34 Citalopram Hydrobromide (CeleXA) 40 mg DAILY PO 09/04/20 09:00 09/08/20 16:40 DC 09/08/20 09:22 Acetaminophen (Tylenol) 650 mg PRN Q6HRS PRN PO MILD PAIN / TEMP > 100.3'F 09/03/20 10:30 10/05/20 05:09 Multi-Ingredient Ointment (Analgesic [place]) 1 helen PRN QID PRN TP MUSCLE PAIN 09/03/20 10:30 Al Hydroxide/Mg Hydroxide (Mylanta Plus Xs) 15 ml PRN AFTMEALHC PRN PO DYSPEPSIA 09/03/20 10:30 Magnesium Hydroxide (Milk Of Magnesia) 2,400 mg PRN QHS PRN PO CONSTIPATION 09/03/20 10:30 Olanzapine (ZyPREXA ZYDIS) 5 mg PRN Q2HR PRN PO PSYCHOSIS 09/03/20 14:00 09/30/20 08:33 Bacitracin (Bacitracin Topical Pkt) 1 pkt BID TP 09/04/20 21:00 10/07/20 08:34 Divalproex Sodium (Depakote Sprinkles) 500 mg BID PO 09/04/20 21:00 10/07/20 08:34 Aripiprazole (Abilify) 10 mg DAILY PO 09/05/20 09:00 09/09/20 18:17 DC 09/09/20 09:56 Sertraline HCl (Zoloft) 50 mg DAILY PO 09/09/20 09:00 09/22/20 18:06 DC 09/22/20 08:21 Aripiprazole (Abilify) 20 mg DAILY PO 09/10/20 09:00 09/12/20 19:00 DC 09/12/20 07:59 Aripiprazole (Abilify) 30 mg DAILY PO 09/13/20 09:00 09/14/20 11:05 DC 09/14/20 08:31 Nitrofurantoin Macrocrystals (Macrobid) 100 mg BID PO 09/11/20 09:00 09/18/20 08:59 DC 09/17/20 19:25 Aripiprazole (Abilify) 20 mg DAILY PO 09/15/20 09:00 09/17/20 20:21 DC 09/17/20 08:55 Benztropine Mesylate (Cogentin) 0.5 mg HS PO 09/14/20 21:00 09/17/20 20:21 DC 09/17/20 19:24 Benztropine Mesylate (Cogentin) 0.5 mg 1X ONCE PO 09/14/20 11:30 09/14/20 11:31 DC 09/14/20 11:20 Ropinirole HCl (Requip) 0.5 mg TID PO 09/14/20 21:30 10/07/20 08:34 Quetiapine Fumarate (SEROquel) 250 mg HS PO 09/16/20 21:00 10/06/20 19:52 Aripiprazole (Abilify) 15 mg DAILY PO 09/18/20 09:00 09/19/20 18:02 DC 09/19/20 08:38 Benztropine Mesylate (Cogentin) 1 mg HS PO 09/17/20 21:00 10/06/20 19:52 Aripiprazole (Abilify) 20 mg DAILY PO 09/20/20 09:00 09/25/20 13:03 DC 09/25/20 08:43 Nystatin (Nystop) 1 helen BID TP 09/22/20 09:00 10/07/20 07:16 Sertraline HCl (Zoloft) 75 mg DAILY PO 09/23/20 09:00 10/07/20 08:34 Clozapine (Clozaril) 25 mg HS PO 09/25/20 21:00 10/02/20 14:53 DC 10/01/20 19:43 Clozapine (Clozaril) 50 mg HS PO 10/02/20 21:00 10/06/20 19:52 I have reviewed the current psychotropics carefully including drug interactions. Risk benefit ratio favors no change other than as noted in my dictated progress note. Diagnosis: Problems: (1) Schizoaffective disorder, bipolar type (2) Impulse control disorder, unspecified (3) Anxiety disorder, unspecified (4) Bipolar disorder, curr episode mixed, severe, with psychotic features (5) Major neurocognitive disorder with Lewy bodies, probable, with behavioral disturbance (6) Chronic undifferentiated schizophrenia TOBI PADGETT MD Oct 07, 2020 08:42
[2020-10-07 16:44] VITALS: BP 132/82
[2020-10-07] MEDS: QUEtiapine 100 MG TABLET. PO SCH (19:45)
[2020-10-07] MEDS: BENZTROPINE MESYLATE 1 MG TABLET PO SCH (19:48)
[2020-10-07] MEDS: cloZAPine 25 MG TABLET PO SCH (19:48)
[2020-10-07] MEDS: DONEPEZIL HCL 10 MG TABLET PO SCH (19:48)
--- NOTE | 2020-10-07 20:28 | PN ---
DATE: 10/07/2020 SUBJECTIVE: The patient was seen today, met with the staff, chart reviewed and also covering for Dr. Hernandez. Staff reports no major behavior problems, tend to be grandiose at times. Staff reports no falls. The patient has a history of combative behaviors with staff also manic behaviors, also resistant to care. OBSERVATION: VITAL SIGNS: Temperature 97.6, blood pressure 140/91, pulse 98, respirations 20, O2 sat 96%. GENERAL: Slept about 6 hours last night. His appetite is fair. MEDICATIONS: Reviewed. Currently on Clozaril 50 mg at night, Zoloft 75 mg daily, Cogentin 1 mg at night, Seroquel 250 mg at night, Depakote 500 mg twice a day, Namenda 10 mg b.i.d., Aricept 10 mg at night. He is also on olanzapine 5 mg q. 2 hours p.r.n. The patient's Depakote level was 57. ASSESSMENT: 1. Schizoaffective disorder, bipolar type. 2. Major neurocognitive disorder, most likely Lewy body disease with behavior disturbances. PLAN: To continue with the treatment. LENGTH OF STAY: 7 days. JANUSZ REID MD DR: KIT/mikey JOB#: [id number] / [id number] XANDER
[2020-10-08 06:01] VITALS: BP 106/72
[2020-10-08] MEDS: metFORMIN 500 MG TABLET PO SCH ×2 (08:12→17:59)
[2020-10-08] MEDS: MEMANTINE 10 MG TABLET. PO SCH ×2 (08:12→20:07)
[2020-10-08] MEDS: BACITRACIN ZINC TOPICAL OINT PACKET. TP SCH ×2 (08:12→20:06)
[2020-10-08] MEDS: rOPINIRole 0.5 MG TABLET. PO SCH ×3 (08:12→20:07)
[2020-10-08] MEDS: NYSTATIN TOPICAL POWDER 15GM BOTTLE. TP SCH ×2 (08:12→20:06)
[2020-10-08] MEDS: SERTRALINE 25 MG TABLET. PO SCH (08:12)
[2020-10-08] MEDS: PANTOPRAZOLE 40 MG TABLET. PO SCH (08:12)
[2020-10-08] MEDS: DIVALPROEX 125 MG CAP.SPRINK PO SCH ×2 (08:12→20:09)
[2020-10-08 16:25] VITALS: BP 117/63
[2020-10-08] MEDS: cloZAPine 25 MG TABLET PO SCH (20:06)
[2020-10-08] MEDS: DONEPEZIL HCL 10 MG TABLET PO SCH (20:07)
[2020-10-08] MEDS: BENZTROPINE MESYLATE 1 MG TABLET PO SCH (20:07)
[2020-10-08] MEDS: QUEtiapine 100 MG TABLET. PO SCH (20:08)
--- NOTE | 2020-10-08 20:36 | PN ---
DATE: 10/08/2020 SUBJECTIVE: The patient was seen today, met with the staff, chart reviewed and also covering for Dr. Hernandez. Staff reports continued behavior problems including angry outbursts, irritable, bauer, likes to be left alone. Currently on wheelchair. OBSERVATION: VITAL SIGNS: Temperature 98.0, blood pressure 106/72, pulse 104, respirations 16, O2 sat 94%. GENERAL: Slept about 5 hours last night. The patient's appetite is fair. MEDICATIONS: The patient's current medications include Clozaril 50 mg at night, Zoloft 75 mg daily, Cogentin 1 mg at night, Seroquel 250 mg at night and also Depakote Sprinkles 500 mg twice a day, Namenda 10 mg b.i.d., Aricept 10 mg at night. He is also on olanzapine 5 mg q. 2 hours p.r.n. for psychosis. LABORATORY DATA: The patient's lab reviewed. ASSESSMENT: 1. Schizoaffective disorder, bipolar type. 2. Major neurocognitive disorder, most likely Lewy body disease with behavior disturbances. PLAN: Continue with the treatment. LENGTH OF STAY: 7 days. JANUSZ REID MD DR: KIT/mikey JOB#: [id number] / [id number] XANDER
[2020-10-09 06:41] VITALS: BP 138/91
[2020-10-09 07:11] LABS: BASO % 1 % (0-3); EOS # 0.1 x10^3/uL (0.0-0.7); EOS % 3 % (0-3); LYMPH # 1.2 x10^3/uL (1.0-4.8); LYMPH % 23 % (24-48); MEAN CORPUSCULAR HEMOGLOBIN 25 pg (25-35); MEAN CORPUSCULAR HGB CONC 31 g/dL (31-37); MEAN CORPUSCULAR VOLUME 79 fL (79-100); MONO # 0.5 x10^3/uL (0.0-1.1); MONO % 10 % (0-9); NEUT # 3.5 x10^3uL (1.8-7.7); NEUT % 65 % (31-73); PLATELET COUNT 266 x10^3/uL (140-400); RED BLOOD COUNT 4.04 x10^6/uL (4.30-5.70); RED CELL DISTRIBUTION WIDTH 19.2 % (11.5-14.5); WHITE BLOOD COUNT 5.4 x10^3/uL (4.0-11.0)
[2020-10-09 07:30] LABS: ALBUMIN 2.6 g/dL (3.4-5.0); ALBUMIN/GLOBULIN RATIO 0.6 (1.0-1.7); CALCIUM 8.8 mg/dL (8.5-10.1); GFR 75.5; POTASSIUM 3.6 mmol/L (3.5-5.1); TOTAL BILIRUBIN 0.2 mg/dL (0.2-1.0); TOTAL PROTEIN 6.7 g/dL (6.4-8.2)
[2020-10-09] MEDS: PANTOPRAZOLE 40 MG TABLET. PO SCH (08:29)
[2020-10-09] MEDS: DIVALPROEX 125 MG CAP.SPRINK PO SCH ×2 (08:29→19:47)
[2020-10-09] MEDS: metFORMIN 500 MG TABLET PO SCH ×2 (08:29→17:32)
[2020-10-09] MEDS: rOPINIRole 0.5 MG TABLET. PO SCH ×3 (08:29→19:47)
[2020-10-09] MEDS: MEMANTINE 10 MG TABLET. PO SCH ×2 (08:29→19:45)
[2020-10-09] MEDS: SERTRALINE 25 MG TABLET. PO SCH (08:30)
[2020-10-09] MEDS: BACITRACIN ZINC TOPICAL OINT PACKET. TP SCH ×2 (08:30→19:48)
[2020-10-09] MEDS: NYSTATIN TOPICAL POWDER 15GM BOTTLE. TP SCH ×2 (08:30→19:48)
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
[2020-10-09 15:12] VITALS: BP 117/82
[2020-10-09] MEDS: DONEPEZIL HCL 10 MG TABLET PO SCH (19:44)
[2020-10-09] MEDS: cloZAPine 25 MG TABLET PO SCH (19:44)
[2020-10-09] MEDS: QUEtiapine 100 MG TABLET. PO SCH (19:45)
[2020-10-09] MEDS: BENZTROPINE MESYLATE 1 MG TABLET PO SCH (19:45)
--- NOTE | 2020-10-09 23:55 | PN ---
DATE: 10/09/2020 SUBJECTIVE: The patient was seen today, met with the staff, chart reviewed, also covering for Dr. Hernandez. The patient continues to be irritable, bauer, refusing medications and staff reports no falls. The patient also has involuntary movements of his right hand. OBSERVATION: VITAL SIGNS: Temperature 97.6, blood pressure 138/91, pulse 93, respirations 16, O2 sat 96%. GENERAL: Slept about 7 hours last night. The patient's appetite is fair. CURRENT MEDICATIONS: The patient's current medications include Clozaril 50 mg at night, Zoloft 75 mg daily, Cogentin 1 mg at night, Seroquel 250 mg at night, Depakote Sprinkles 500 mg twice a day, Namenda 10 mg b.i.d., and Aricept 10 mg at night. LABORATORY DATA: Reviewed. ASSESSMENT: 1. Schizoaffective disorder, bipolar type. 2. Major neurocognitive disorder, most likely Lewy body disease with behavior problems. PLAN: To continue with the treatment. LENGTH OF STAY: 7 days. JANUSZ REID MD DR: KIT/mikey JOB#: [id number] / [id number]
[2020-10-10 05:55] VITALS: BP 163/84
[2020-10-10] MEDS: metFORMIN 500 MG TABLET PO SCH ×3 (08:00→17:38)
[2020-10-10] MEDS: rOPINIRole 0.5 MG TABLET. PO SCH ×4 (08:33→19:44)
[2020-10-10] MEDS: SERTRALINE 25 MG TABLET. PO SCH (08:33)
[2020-10-10] MEDS: MEMANTINE 10 MG TABLET. PO SCH ×3 (08:33→19:43)
[2020-10-10] MEDS: PANTOPRAZOLE 40 MG TABLET. PO SCH ×2 (08:33→09:00)
[2020-10-10] MEDS: BACITRACIN ZINC TOPICAL OINT PACKET. TP SCH ×2 (08:34→19:43)
[2020-10-10] MEDS: NYSTATIN TOPICAL POWDER 15GM BOTTLE. TP SCH ×2 (08:34→19:42)
[2020-10-10] MEDS: DIVALPROEX 125 MG CAP.SPRINK PO SCH ×3 (08:34→19:43)
[2020-10-10 16:08] VITALS: BP 132/86
[2020-10-10] MEDS: BENZTROPINE MESYLATE 1 MG TABLET PO SCH (19:43)
[2020-10-10] MEDS: CEFDINIR 300 MG CAPSULE PO SCH (19:43)
[2020-10-10] MEDS: QUEtiapine 100 MG TABLET. PO SCH (19:43)
[2020-10-10] MEDS: DONEPEZIL HCL 10 MG TABLET PO SCH (19:43)
[2020-10-10] MEDS: LACTOBACILLUS RHAMNOSUS GG 1 CAPSULE. PO SCH (19:43)
[2020-10-10] MEDS: cloZAPine 25 MG TABLET PO SCH (19:44)
--- NOTE | 2020-10-10 23:01 | PN ---
DATE: 10/10/2020 SUBJECTIVE: The patient was seen today, met with the staff, chart reviewed and also covering for Dr. Hernandez. The patient's behavior remains the same. It tends to isolate himself. He is on wheelchair. The patient is able to make eye contact, but limited interaction. The patient has not made any suicidal threats recently. The patient is still having involuntary movements on his right hand. OBSERVATION: VITAL SIGNS: Temperature 97.2, blood pressure 163/84, pulse 93, respirations 20, O2 sat 95%. GENERAL: Slept about 7 hours last night. CURRENT MEDICATIONS: The patient's current medications include trazodone 50 mg at night, Zoloft 75 mg daily, Cogentin 1 mg at night, and Seroquel 250 mg at night. He is also on Namenda and Aricept. LABORATORY DATA: The patient's lab reviewed. ASSESSMENT: 1. Schizoaffective disorder, bipolar type. 2. Major neurocognitive disorder, most likely Lewy body disease with behavior problems. PLAN: Continue with treatment. LENGTH OF STAY: 7 days. JANUSZ REID MD DR: KIT/mikey JOB#: [id number] / [id number]
[2020-10-11 05:58] VITALS: BP 117/85
[2020-10-11] MEDS: NYSTATIN TOPICAL POWDER 15GM BOTTLE. TP SCH ×2 (09:00→19:28)
[2020-10-11] MEDS: BACITRACIN ZINC TOPICAL OINT PACKET. TP SCH ×2 (09:00→19:28)
[2020-10-11] MEDS: DIVALPROEX 125 MG CAP.SPRINK PO SCH ×2 (09:46→19:26)
[2020-10-11] MEDS: CEFDINIR 300 MG CAPSULE PO SCH ×2 (09:46→19:26)
[2020-10-11] MEDS: SERTRALINE 25 MG TABLET. PO SCH (09:46)
[2020-10-11] MEDS: LACTOBACILLUS RHAMNOSUS GG 1 CAPSULE. PO SCH ×2 (12:18→19:26)
[2020-10-11] MEDS: MEMANTINE 10 MG TABLET. PO SCH ×2 (12:18→19:26)
[2020-10-11] MEDS: rOPINIRole 0.5 MG TABLET. PO SCH ×3 (12:18→19:26)
[2020-10-11] MEDS: metFORMIN 500 MG TABLET PO SCH ×2 (12:18→17:37)
[2020-10-11] MEDS: PANTOPRAZOLE 40 MG TABLET. PO SCH (12:18)
[2020-10-11 15:26] VITALS: BP 178/82
[2020-10-11] MEDS: cloZAPine 25 MG TABLET PO SCH (19:26)
[2020-10-11] MEDS: DONEPEZIL HCL 10 MG TABLET PO SCH (19:26)
[2020-10-11] MEDS: BENZTROPINE MESYLATE 1 MG TABLET PO SCH (19:26)
[2020-10-11] MEDS: QUEtiapine 100 MG TABLET. PO SCH (19:27)
[2020-10-11] MEDS ORDERED: BACI1PAC4 TP (22:04)
[2020-10-11] MEDS ORDERED: CEFD300C PO (22:05)
[2020-10-11] MEDS ORDERED: BENZ1TAB5 PO (22:05)
[2020-10-11] MEDS ORDERED: DIVA125C2 PO (22:06)
[2020-10-11] MEDS ORDERED: LACT1CAP19 PO (22:06)
[2020-10-11] MEDS ORDERED: MAGN24003 PO (22:07)
[2020-10-11] MEDS ORDERED: MAG-115 PO (22:07)
[2020-10-11] MEDS ORDERED: NYST15PO9 TP (22:08)
[2020-10-11] MEDS ORDERED: METH28OI2 TP (22:08)
[2020-10-11] MEDS ORDERED: OLAN5TAB7 PO (22:09)
[2020-10-11] MEDS ORDERED: QUET100T4 PO (22:10)
[2020-10-11] MEDS ORDERED: CLOZ25TA PO (22:11)
[2020-10-11] MEDS ORDERED: SERT25TA PO (22:11)
[2020-10-11] MEDS ORDERED: ROPI0.5T4 PO (22:12)
[2020-10-12 06:08] VITALS: BP 142/98
[2020-10-12] MEDS: CEFDINIR 300 MG CAPSULE PO SCH (08:26)
[2020-10-12] MEDS: PANTOPRAZOLE 40 MG TABLET. PO SCH (08:26)
[2020-10-12] MEDS: MEMANTINE 10 MG TABLET. PO SCH (08:26)
[2020-10-12] MEDS: BACITRACIN ZINC TOPICAL OINT PACKET. TP SCH (08:26)
[2020-10-12] MEDS: LACTOBACILLUS RHAMNOSUS GG 1 CAPSULE. PO SCH (08:26)
[2020-10-12] MEDS: SERTRALINE 25 MG TABLET. PO SCH (08:26)
[2020-10-12] MEDS: DIVALPROEX 125 MG CAP.SPRINK PO SCH (08:26)
[2020-10-12] MEDS: rOPINIRole 0.5 MG TABLET. PO SCH (08:26)
[2020-10-12] MEDS: metFORMIN 500 MG TABLET PO SCH (08:26)
[2020-10-12] MEDS: NYSTATIN TOPICAL POWDER 15GM BOTTLE. TP SCH (08:27)
--- NOTE | 2020-10-12 21:49 | DS ---
DATE OF DISCHARGE: 10/12/2020 DISCHARGE DIAGNOSES: AXIS I: 1. Schizoaffective disorder, bipolar type, mixed, with psychotic features. 2. Major neurocognitive disorder. 3. Lewy body disease with delusions and behavioral disturbances. 4. Anxiety disorder, unspecified. 5. Impulse control disorder, unspecified. AXIS II: None. AXIS III: Parkinson's disease and diabetes mellitus. REASON FOR ADMISSION: This 65-year-old male was admitted at the request of his guardian ____ sister and was referred from [facility] by psychiatrist and primary care physician because of acute exacerbation of schizophrenia versus schizoaffective disorder, bipolar type and also worsening of dementia and also depression and anxiety. He is also being combative with the staff, also threatening staff. The patient is also refusing to eat and resistive to care. HISTORY OF PRESENT ILLNESS: The patient has history of schizoaffective disorder, bipolar type, possibly Lewy body dementia. The patient also has Parkinson's disease. He appeared manic, grandiose, psychotic, agitated with sleep and appetite changes, threatening staff and out of control. He denied of any suicidal or homicidal ideation, except for the verbal threats. The patient also has history of significant mood changes. HOSPITAL COURSE: The patient had a physical exam, routine lab work including CBC, chem profile, urinalysis, which were all within normal range except for hemoglobin of 10.0. The patient's glucose fingerstick ranged from 112-150. The patient's BUN was 22, glucose was 138. The patient's BUN and creatinine ratio was 25. The patient's valproic acid level was 57 on 09/08/2020. The patient was treated with Seroquel 25 mg at night, Zoloft 75 mg daily, Cogentin 1 mg at night, also trazodone 50 mg at night p.r.n. He was also on Namenda and Aricept. The patient did not have any major side effects. The patient's behavior improved. He was no longer threatening towards the staff, still irritable, bauer, but no major behavior problems. The patient's sleep is fair. VITAL SIGNS: Temperature 97.8, blood pressure 132/86, pulse 92, respirations 16, O2 sat 97%. AFTERCARE PLAN: The patient at the time of discharge medically stable. Showed some improvement, not exhibiting any psychotic symptoms, still withdrawn, constricted affect, still has explosive temper. The patient will return to [facility] and will be followed by the psychiatrist there and the primary care doctor and continue with the above medications. JANUSZ REID MD DR: KIT/mikey JOB#: [id number] / [id number]
== END 2020-10-12 11:25 | DRG 885 ==
LOC: GEROPSY 09:40
PROVIDERS: ADMIT Psychiatry & Neurology Psychiatry; ATTEND Psychiatry & Neurology Psychiatry
DX: F25.0 Schizoaffective disorder, bipolar type (principal); F01.51 Vascular dementia, unspecified severity, with behavioral disturbance; F02.81 Dementia in other diseases classified elsewhere, unspecified severity, with behavioral disturbance; N39.0 Urinary tract infection, site not specified; E11.9 Type 2 diabetes mellitus without complications; F41.9 Anxiety disorder, unspecified; G20 Parkinson's disease; F63.9 Impulse disorder, unspecified; Z79.899 Other long term (current) drug therapy; Z87.828 Personal history of other (healed) physical injury and trauma; Z91.81 History of falling; Z88.8 Allergy status to other drugs, medicaments and biological substances; Z88.0 Allergy status to penicillin
CPT/HCPCS: 36415; 70450; 71045; 80053; 80164; 81001; 82947; 83540; 83550; 84436; 84480; 85025; 85027; 87077; 87086; 87186; 97530; 97542

== ENCOUNTER 2021-02-17 20:06 | Inpatient (IN) | payer MEDICARE, OTHER ==
[~2021-02-17] VITALS: Ht 165.1 cm; Wt 82.3 kg
[~2021-02-17 20:06] MED LIST changes: +BACI1PAC4 TP; +BENZ1TAB5 PO; +CEFD300C PO; +CITA40TA12 PO; +CLOZ25TA PO; +DIVA125C2 PO; +LACT1CAP19 PO; +MAG-115 PO; +MEMA10TA PO; +METH28OI2 TP; +NYST15PO9 TP; +OLAN15TA15 PO; -OLAN15TA9 PO; +OLAN5TAB67 PO; +OLAN5TAB7 PO; -OLAN5TAB9 PO; +QUET100T4 PO; +ROPI0.5T4 PO; +SERT25TA PO
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
[2021-02-17] MEDS: IV RINGERS SOLUTION,LACTATED 1,000 ML IV SCH (20:30)
[2021-02-17] MEDS ORDERED: diphenhydrAMINE 50 MG/ML VIAL IVP ONE ×2 (21:00→21:30)
[2021-02-17] MEDS ORDERED: OLANZapine IM 10 MG VIAL. IM PRN (21:00)
[2021-02-18 01:07] LABS: BASO % 1 % (0-3); EOS # 0.2 x10^3/uL (0.0-0.7); EOS % 3 % (0-3); GFR 75.2; HEMATOCRIT 32.2 % (39.0-53.0); HEMOGLOBIN 10.1 g/dL (13.0-17.5); LYMPH # 1.9 x10^3/uL (1.0-4.8); LYMPH % 25 % (24-48); MEAN CORPUSCULAR HEMOGLOBIN 24 pg (25-35); MEAN CORPUSCULAR HGB CONC 31 g/dL (31-37); MEAN CORPUSCULAR VOLUME 76 fL (79-100); MONO # 0.6 x10^3/uL (0.0-1.1); MONO % 8 % (0-9); NEUT # 4.9 x10^3uL (1.8-7.7); NEUT % 65 % (31-73); PLATELET COUNT 319 x10^3/uL (140-400); RED BLOOD COUNT 4.23 x10^6/uL (4.30-5.70); RED CELL DISTRIBUTION WIDTH 19.2 % (11.5-14.5); WHITE BLOOD COUNT 7.6 x10^3/uL (4.0-11.0)
[2021-02-18 01:19] LABS: ALBUMIN 3.2 g/dL (3.4-5.0); DIRECT BILIRUBIN 0.1 mg/dL (0.0-0.2); MAGNESIUM 2.2 mg/dL (1.8-2.4); TOTAL BILIRUBIN 0.2 mg/dL (0.2-1.0); TOTAL PROTEIN 7.1 g/dL (6.4-8.2)
[2021-02-18] MEDS ORDERED: OLANZapine IM 10 MG VIAL. IM ONE (01:45)
[2021-02-18 02:26] LABS: BARBITURATES NEG (NEG); BENZODIAZEPINES NEG (NEG); CANNABINOIDS NEG (NEG); COCAINE NEG (NEG); METHADONE NEG (NEG); OPIATES NEG (NEG); PHENCYCLIDINE NEG (NEG)
[2021-02-18 02:36] LABS: AMPHETAMINE/METHAMPHETAMINE NEG (NEG)
[2021-02-18 03:02] LABS: BILIRUBIN,URINE NEG (NEG); CLARITY,URINE CLOUDY; COLOR,URINE YELLOW; GLUCOSE,URINE NEG (NEG); NITRITE,URINE POS (NEG); UROBILINOGEN,URINE 0.2 mg/dL (0.2 mg/dL)
[2021-02-18 03:03] LABS: AMORPHOUS SEDIMENT,UR PRESENT /HPF; BACTERIA,URINE MANY /HPF (0-FEW); SQUAMOUS EPITHELIAL CELL,UR FEW /LPF; WBC,URINE >40 /HPF (0-4)
--- NOTE | 2021-02-18 03:32 | RAD ---
STUDY: CT head and cervical spine without contrast INDICATION: Fall. Change in mental status. COMPARISON: CT head 09/06/2020; CT head/cervical spine 08/15/2020 TECHNIQUE: Axial CT imaging through the head and cervical spine without the use of intravenous contra st. Sagittal and coronal reformats were obtained. One or more of the following individualized dose reduction techniques were utilized for this examinat ion: 1. Automated exposure control 2. Adjustment of the mA and/or kV according to patient size 3. Use of iterative reconstruction technique. FINDINGS: CT head: No acute intracranial hemorrhage. No mass effect or midline shift. No CT evidence for an acute cortic al infarction. Parenchymal volume loss with ex vacuo ventriculomegaly. Findings involving the bihemispheric subcorti demetrius/periventricular white matter most commonly seen in the setting of chronic microvascular ischemic change. Intact calvarium. CT cervical spine: No acute fracture or traumatic malalignment. Os odontoideum again noted. Multilevel, multifactorial s pondylosis without interval progression. Discogenic arthrosis again greatest at C3-C4 and C5-C6. Osse ous neural foraminal stenosis present on the left at C3-C4 and on the right more so than left at C5-C 6. No evidence for severe narrowing of the central canal. Scattered calcific atherosclerosis. No apical pneumothorax. IMPRESSION: CT head: 1. No acute intracranial abnormality by CT. CT cervical spine: 1. No acute fracture or traumatic malalignment. 2. No significant interval progression of multilevel spondylosis greatest at C3-C4 and C5-C6. Electronically signed by: ERI UPTON MD (02/18/2021 3:30 AM) [facility]
--- NOTE | 2021-02-18 03:49 | RAD ---
Study: XR CHEST 1V Indication: Dyspnea. Comparison: 10/04/2020 Findings: Low lung volumes with a component of basilar volume loss. Mildly increased lung markings. No confluen t airspace infiltrate, layering effusion or pneumothorax. Unchanged configuration of the cardiomedias tinal silhouette and quentin. Osteoarthrosis at the right glenohumeral joint. Severe chronic deformity at the left shoulder with re gional osteopenia. Partially imaged lumbar fusion hardware. Impression: Low lung volumes with a component of volume loss. A mild superimposed infectious process is difficult to exclude. As deemed clinically necessary the lungs would be better evaluated with a full inspirati on PA view. Electronically signed by: ERI UPTON MD (02/18/2021 3:46 AM) [facility]
[2021-02-18] MEDS ORDERED: ONDANSETRON PF 4 MG/2 ML VIAL. IVP PRN (04:45)
[2021-02-18] MEDS ORDERED: LORazepam 1 MG TABLET PO ONE (04:45)
[2021-02-18] MEDS ORDERED: IPRATRPIUM/ALBUTEROL 0.5/2.5MG 3 ML NEBU. ONE (05:04)
[2021-02-18] MEDS: IPRATRPIUM/ALBUTEROL 0.5/2.5MG 3 ML NEBU. NEB SCH ×2 (05:41→11:40)
[2021-02-18] MEDS ORDERED: QUET50TA5 PO (05:43)
[2021-02-18] MEDS ORDERED: QUET100T4 PO ×2 (05:43→10:40)
[2021-02-18] MEDS ORDERED: DONE5TAB56 PO (05:45)
[2021-02-18] MEDS: IV RINGERS SOLUTION,LACTATED 1,000 ML IV SCH (05:57)
[2021-02-18 06:09] VITALS: BP 110/71
--- NOTE | 2021-02-18 06:16 | NUR ---
The patient, JOAN JEAN-BAPTISTE, 66 y/o, M admitted by DHIRAJ CHRISTIAN MD, was given written information regarding hospital policies, unit procedures and contact persons. Valuables were checked and left with the patient.
--- NOTE | 2021-02-18 06:40 | EKG ---
[address] [address] Test Date: 2021-02-17 Test Time: 20:32:20 Pat Name: JOAN JEAN-BAPTISTE Department: Room: Gender: M Gaming Associate: : 1955 Requested By: CHRIS CHEEMA Order Number: [id number] Reading MD: Measurements Intervals Blanch Rate: 106 P: 58 WA: 140 QRS: -66 QRSD: 104 T: 72 QT: 332 QTc: 443 Interpretive Statements SINUS TACHYCARDIA ABNORMAL LEFT AXIS DEVIATION R-S TRANSITION ZONE IN V LEADS DISPLACED TO THE LEFT LEFT ANTERIOR FASCICULAR BLOCK T ABNORMALITY IN HIGH LATERAL LEADS ABNORMAL ECG RI6.02 No previous ECG available for comparison
[2021-02-18] MEDS ORDERED: ZIPRASIDONE IM 20 MG VIAL. IM PRN (10:00)
[2021-02-18] MEDS ORDERED: HALOPERIDOL LACT 5 MG/ML VIAL. IVP PRN (10:00)
[2021-02-18] MEDS ORDERED: ZIPRASIDONE 40 MG CAPSULE. PO PRN (10:00)
[2021-02-18] MEDS ORDERED: SERT25TA PO (10:40)
[2021-02-18] MEDS ORDERED: DIVA250T PO (10:40)
[2021-02-18] MEDS ORDERED: MAGN400O7 PO (10:40)
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
[2021-02-18] MEDS ORDERED: IPRATRPIUM/ALBUTEROL 0.5/2.5MG 3 ML NEBU. NEB PRN (11:45)
[2021-02-18 15:58] VITALS: BP 109/66
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
[2021-02-18 18:55] VITALS: BP 126/71
[2021-02-18] MEDS: LORazepam 1 MG TABLET PO PRN (20:35)
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
[2021-02-19 06:01] LABS: BASO % 0 % (0-3); EOS # 0.3 x10^3/uL (0.0-0.7); EOS % 4 % (0-3); HEMATOCRIT 30.5 % (39.0-53.0); HEMOGLOBIN 9.6 g/dL (13.0-17.5); LYMPH # 1.5 x10^3/uL (1.0-4.8); LYMPH % 24 % (24-48); MEAN CORPUSCULAR HEMOGLOBIN 24 pg (25-35); MEAN CORPUSCULAR HGB CONC 31 g/dL (31-37); MEAN CORPUSCULAR VOLUME 77 fL (79-100); MONO # 0.5 x10^3/uL (0.0-1.1); MONO % 9 % (0-9); NEUT % 63 % (31-73); PLATELET COUNT 298 x10^3/uL (140-400); RED BLOOD COUNT 3.98 x10^6/uL (4.30-5.70); RED CELL DISTRIBUTION WIDTH 19.3 % (11.5-14.5); WHITE BLOOD COUNT 6.4 x10^3/uL (4.0-11.0)
[2021-02-19 06:11] LABS: CALCIUM 8.4 mg/dL (8.5-10.1); CREATININE 0.9 mg/dL (0.7-1.3); POTASSIUM 4.2 mmol/L (3.5-5.1)
[2021-02-19] MEDS ORDERED: LACTOBACILLUS RHAMNOSUS GG 1 CAPSULE. PO SCH (09:00)
[2021-02-19] MEDS: LORazepam 1 MG TABLET PO PRN ×2 (09:18→15:27)
[2021-02-19 09:29] VITALS: BP 137/76
[2021-02-19 15:01] VITALS: BP 134/59
--- NOTE | 2021-02-19 19:14 | NUR ---
PATIENT IS DISCHARGED BACK TO [facility]. REPORT GIVEN TO STAFF NURSE CARLOS. PATIENT LEFT ROOM VIA W/C ACCOMP BY LABORATORY TECHNOLOGIST. PATIENT IS TAKEN BY TRANSPORTATION PROVODED FROM [facility].
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
[2021-02-20] MEDS ORDERED: levoFLOXacin 500 MG TABLET PO SCH (06:00)
== END 2021-02-19 19:15 | DRG 690 ==
LOC: ER 20:06 → 1 SOUTH 02-18 04:50
PROVIDERS: ADMIT Hospitalist; ATTEND Hospitalist
DX: N39.0 Urinary tract infection, site not specified (principal); E46 Unspecified protein-calorie malnutrition; F02.81 Dementia in other diseases classified elsewhere, unspecified severity, with behavioral disturbance; D50.9 Iron deficiency anemia, unspecified; E11.9 Type 2 diabetes mellitus without complications; F25.9 Schizoaffective disorder, unspecified; F31.9 Bipolar disorder, unspecified; F41.9 Anxiety disorder, unspecified; F63.9 Impulse disorder, unspecified; G31.83 Neurocognitive disorder with Lewy bodies; I10 Essential (primary) hypertension; J44.9 Chronic obstructive pulmonary disease, unspecified; K59.00 Constipation, unspecified; Z20.822 Contact with and (suspected) exposure to COVID-19; Z78.1 Physical restraint status; Z91.81 History of falling; Z88.0 Allergy status to penicillin; Z88.8 Allergy status to other drugs, medicaments and biological substances; Z68.30 Body mass index [BMI] 30.0-30.9, adult
CPT/HCPCS: 36415; 70450; 71045; 72125; 80048; 80076; 80307; 81001; 82550; 83690; 83735; 83880; 84443; 84484; 85025; 85045; 87086; 87426; 93005; 96360; J1200; J1956; J2060; J3490; J7120; U0003; 99285-25